=== PATIENT | female | born 1930 | race Caucasian/White ===

== ENCOUNTER → 2017-09-25 | Outpatient (CLI) | payer MEDICARE ==
[~2017-09-25] MED LIST: AMITIZA24 MCG PO; AMLODIPINE BESY10 MG PO; ASPIRIN EC81 MG PO; ASPIRIN81 MG PO; ATENOLOL50 MG PO; CARAFATE1 GM/10 ML PO; CRESTOR10 MG PO; FUROSEMIDE40 MG PO; LEVOTHYROXINE112 MCG PO; NITROGLYCERIN0.4 MG SL; PANTOPRAZOLE SO40 MG PO; SPIRIVA18 MCG INH
== END ==
LOC: CARD 11:08
PROVIDERS: ATTEND Internal Medicine
DX: I73.9 Peripheral vascular disease, unspecified (principal)
CPT/HCPCS: 93925

== ENCOUNTER 2017-11-17 22:38 | Emergency (ER) | payer MEDICARE ==
[~2017-11-17] VITALS: Ht 165.1 cm; Wt 42.6 kg
[2017-11-17] MEDS ORDERED: SODIUM CHLORIDE 0.9% 500ML 500 ML IV ONE (23:15)
[2017-11-17 23:48] LABS: BASOPHILS # (AUTO) 0.1 (0.0-0.1); BASOPHILS % 0.6 % (0.0-1.0); EOSINOPHILS # (AUTO) 0.1 (0.0-0.4); EOSINOPHILS % 0.6 % (0.0-6.0); HEMATOCRIT 34.9 % (34.2-44.1); LYMPHOCYTES # (AUTO) 1.3 (1.0-3.2); LYMPHOCYTES % 11.5 % (18.0-39.1); MEAN CORPUSCULAR HEMOGLOBIN 28.8 pg (28-32); MEAN CORPUSCULAR HGB CONC 34.4 g/dL (31-35); MEAN CORPUSCULAR VOLUME 83.7 fL (81-99); MONOCYTES # (AUTO) 0.9 (0.2-0.8); MONOCYTES % 8.6 % (4.4-11.3); NEUTROPHILS # (AUTO) 8.5 (2.1-6.9); NEUTROPHILS % 78.1 % (38.7-80.0); PLATELET COUNT 391 x10e3/uL (140-360); RED BLOOD COUNT 4.17 x10e6/uL (3.6-5.1); RED CELL DISTRIBUTION WIDTH 13.6 % (11.7-14.4)
[2017-11-17 23:57] LABS: INR 1.03; PARTIAL THROMBOPLASTIN TIME 27.8 seconds (23.8-35.5); PROTHROMBIN TIME 12.7 seconds (11.9-14.5)
[2017-11-18 00:06] LABS: ALANINE AMINOTRANSFERASE 39 IU/L (0-55); ALBUMIN 3.5 g/dL (3.5-5.0); ALBUMIN/GLOBULIN RATIO 1.1 (0.8-2.0); ALKALINE PHOSPHATASE 100 IU/L (40-150); ANION GAP 11.7 mmol/L (8-16); BLOOD UREA NITROGEN 12 mg/dL (7-26); BUN/CREATININE RATIO 14 (6-25); CALCIUM 8.4 mg/dL (8.4-10.2); CARBON DIOXIDE 30 mmol/L (22-29); CHLORIDE 94 mmol/L (98-107); CREATINE KINASE 28 IU/L (29-168); CREATININE, SERUM 0.83 mg/dL (0.57-1.11); EST GLOMERULAR FILTRATION RATE > 60 ML/MIN (60-); GLUCOSE 96 mg/dL (74-118); POTASSIUM 3.7 mmol/L (3.5-5.1); SODIUM 132 mmol/L (136-145)
[2017-11-18] MEDS ORDERED: IOPAMIDOL 370 MG/ML 200 ML INFUS..BTL INJ ONE (00:28)
[2017-11-18] MEDS ORDERED: SODIUM CHLORIDE 0.9% 50ML 50 ML ONE (00:28)
--- NOTE | 2017-11-18 01:12 | Diagnostic Imaging Report ---
History:Fall Comparison studies:None Technique: Axial images were obtained from the skull base to the vertex. Coronal and sagittal images reconstructed from the axial data. Intravenous contrast: None Findings: Scalp/skull: No abnormalities. Extra-axial spaces: No masses. No fluid collections. Brain sulci: Mildly prominent. Ventricles: Mild compensatory dilatation. No hydrocephalus. Parenchyma: Scattered and confluent hypodensities in the supratentorial white matter are small vessel ischemic changes. Right striatocapsular chronic lacunar infarct. No masses, hemorrhage, acute or chronic cortical vascular insults. Sellar/suprasellar region: No abnormalities. Craniocervical junction: Patent foramen magnum. No Chiari one malformation. Incidental findings: Atherosclerotic calcifications in the carotid siphons . Impression: No acute abnormalities. Chronic findings: 1. Mild generalized volume loss. 2. Moderate supratentorial white matter small vessel ischemic changes. Signed by: DR Stephon Burnett M.D. on 11/18/2017 1:09 AM
[2017-11-18 01:16] LABS: BILIRUBIN,URINE NEGATIVE (NEGATIVE); KETONES,URINE NEGATIVE (NEGATIVE); LEUKOCYTE ESTERASE ,URINE NEGATIVE (NEGATIVE); NITRITE,URINE NEGATIVE (NEGATIVE); PROTEIN,URINE DIPSTICK NEGATIVE (NEGATIVE); URINE UROBILINOGEN 0.2 mg/dL (0.2 - 1)
--- NOTE | 2017-11-18 01:17 | Diagnostic Imaging Report ---
History: Fall Comparison studies: None Technique: Axial images were obtained through the cervical region. Coronal and sagittal images reconstructed from the axial data. Intravenous contrast: None Findings: Atlantoaxial articulation: Degenerative changes. No acute abnormality Alignment: Normal lordosis No scoliosis. Cervicomedullary junction: No abnormalities. Patent foramen magnum. Soft tissues: No gross abnormalities. Vertebrae: No fractures, neoplasm or infection. Degenerative changes: Facet hypertrophy with patent canal and mi ld bilateral foraminal narrowing. Emphysematous changes at both lung apices. IMPRESSION: 1. No acute cervical spine abnormalities. 2. Cannot exclude ligament, spinal cord and or vascular abnormalities on the basis of this examination. Signed by: DR Stephon Burnett M.D. on 11/18/2017 1:13 AM
[2017-11-18 01:18] LABS: CLARITY,URINE CLEAR (CLEAR); COLOR,URINE YELLOW (YELLOW)
[2017-11-18 01:31] LABS: EPITHELIAL CELLS,URINE FEW /LPF; RBC,URINE 0-5 /HPF (0-5); WBC,URINE (MAN) 0-5 /HPF (0-5)
--- NOTE | 2017-11-18 01:48 | Diagnostic Imaging Report ---
EXAM: CT ABDOMEN/PELVIS W DATE: 11/18/2017 12:04 AM INDICATION: \S\TRAUMA ON PLAVIX, RIGHT FLANK/BACK PAIN \S\[id number] \S\0028 COMPARISON: None TECHNIQUE: The abdomen and pelvis were scanned using a multidetector helical scanner. Coronal and sagittal reformations were obtained. Routine protocol performed. IV Contrast: 100 ml Isovue 370 FINDINGS: LOWER THORAX: No consolidations. Atherosclerotic disease with nodular/irregular noncalcified plaques or adherent mural thrombus of the descending thoracic aorta. LIVER/BILIARY: No masses. Incidental liver calcifications. No ductal dilatation. GALLBLADDER: Not visualized. SPLEEN: Unremarkable PANCREAS: Unremarkable ADRENALS: Indeterminant 2.0 cm right adrenal nodule. KIDNEYS: Symmetric renal enhancement without hydronephrosis. Subcentimeter right superior renal cystic lesion is too small to accurately characterize. Focal left posterior renal cortical scarring Nonobstructing punctate left superior renal calculus. GI TRACT: No wall thickening or evidence of obstruction. VESSELS: Severe atherosclerotic disease with 3 cm infrarenal abdominal aortic aneurysm containing mural thrombus and likely fibrous strand (versus short dissection flap). PERITONEUM/RETROPERITONEUM: No free air or fluid LYMPH NODES: No lymphadenopathy REPRODUCTIVE ORGANS/BLADDER: Unremarkable SOFT TISSUES: Unremarkable BONES: Multilevel degenerative changes. Moderate T12 and severe L3 compression deformities. Posterior disc osteophyte at T11-12 impresses on the ventral thecal sac IMPRESSION: 1. Age-indeterminate moderate T12 and severe L3 compression deformity. Correlate with point tenderness. 2. Severe atherosclerotic disease with 3 cm infrarenal abdominal aortic aneurysm. Irregular/nodular noncalcified plaque or mural thrombus in the descending thoracic aorta. Signed by: Dr Veronica Antonio MD on 11/18/2017 1:44 AM
[2017-11-18] MEDS ORDERED: SODIUM CHLORIDE 0.9% 500ML 500 ML IV STA (02:22)
[2017-11-18] MEDS ORDERED: SODIUM CHLORIDE 0.9% 250ML 250 ML ONE (02:22)
--- NOTE | 2017-11-18 02:33 | Diagnostic Imaging Report ---
CHEST SINGLE (PORTABLE), 11/18/2017 12:04 AM Technique: CHEST SINGLE (PORTABLE) Comparison: 09/15/2016 Clinical history: \S\FALL RIGHT FLANK PAIN \S\[id number] \S\0049 Findings: See Impression Impression: 1. Stable cardiomediastinal silhouette. 2. Emphysema with bilateral linear areas of scarring. No consolidation, effusion or pneumothorax. 3. No acute displaced bony fracture seen. Signed by: Dr Veronica Antonio MD on 11/18/2017 2:29 AM
--- NOTE | 2017-11-18 02:38 | Diagnostic Imaging Report ---
FOOT RIGHT COMPLETE Comparison: None Clinical history: \S\FALL, GREAT TOE PAIN ECCHYMOSIS \S\[id number] \S\0140 Findings: Diffusely decreased bone mineralization limits sensitivity for nondisplaced fracture. Mild hallux valgus and first MTP degenerative changes. Incidental plantar calcaneal spur. No fracture or dislocation. Impression: Decreased bone mineralization without definite acute bony abnormality Signed by: Dr Veronica Antonio MD on 11/18/2017 2:34 AM
== END 2017-11-18 03:51 | disposition home or self-care (01) ==
LOC: ER 22:38
DX: M54.6 Pain in thoracic spine (principal); S20.221A Contusion of right back wall of thorax, initial encounter; S39.012A Strain of muscle, fascia and tendon of lower back, initial encounter; W01.0XXA Fall on same level from slipping, tripping and stumbling without subsequent striking against object, initial encounter; J44.9 Chronic obstructive pulmonary disease, unspecified; I25.10 Atherosclerotic heart disease of native coronary artery without angina pectoris; Z85.828 Personal history of other malignant neoplasm of skin
CPT/HCPCS: 36415; 70450; 71045; 72125; 73630; 74177; 80053; 81001; 82550; 82553; 84484; 85025; 85610; 85730; 93005; 96360 ×2; 99285; J7040; J7050; Q9967

== ENCOUNTER 2018-01-31 16:02 | Inpatient (IN) | payer MEDICARE ==
[~2018-01-31] VITALS: Ht 162.6 cm; Wt 45.5 kg
--- OUTSIDE RECORDS SUMMARY | 2018-01-31 16:05 | XMS REPORT | Continuity of Care Document ---
Author Author [facility] Organization [facility] Address [address] [place] [address] Phone Unavailable Care Team Providers Care Architect Manager Name Role Phone NONSTAFF PCP Unavailable Insurance Providers Guarantor Tucker Leslie Address [address] [place] [address] Email NONE Payer [employer] Medicare Replacement Policy Number [id number] Subscriber's Name JosefaTucker Relationship 18 Self / Same As Patient Group Number [id number] Group Name [facility] Effective Date 16 Advance Directives Directive Response Recorded Date/Time Does the patient have an advance directive? No 11/17/17 11:11pm If yes, is advance directive on file with [facility]? No 09/15/16 4:41pm If not on file with [facility] will patient provide a copy? Yes 11/17/16 8:26am Do you have a Directive to Physician? No 11/17/17 11:11pm Do you have a Medical Power of Wire Bound Box Machine Helper? No 11/17/17 11:11pm Do you have an out of hospital Do Not Resuscitate Order? No 11/17/17 11:11pm Do you have any special needs we should be aware of? No 11/17/17 11:11pm Do you have a support person here with you today? Yes 11/17/17 11:11pm Did patient receive Notice of Privacy Practices? Yes 11/17/17 11:11pm Did patient receive patient rights and responsibilities? Yes 11/17/17 11:11pm Problems Medical Problem Onset Date Status Dehydration Unknown Medications Current Home Medications Medication Dose Units Route Directions Days Qty Instructions Start Date Amlodipine Besylate 10 Mg Tablet 10 Mg Oral Daily 30 Tab Aspirin (Aspirin Ec) 81 Mg Tablet. 81 Mg Oral Daily 30 Tab Atenolol 50 Mg Tablet 50 Mg Oral Daily Atenolol 50 Mg Tablet 25 Mg Oral Bedtime Furosemide 40 Mg Tablet 40 Mg Oral Daily 30 Tab Levothyroxine Sodium 112 Mcg Tablet 112 Mcg Oral Daily 30 Tab Lubiprostone (Amitiza) 24 Mcg Capsule 24 Mcg Oral Twice A Day 60 Cap Nitroglycerin 0.4 Mg Tab.subl 0.4 Mg Sublingual Every 5 Minutes for Chest Pain Pantoprazole Sodium (Protonix) 40 Mg Tablet. 40 Mg Oral Daily Rosuvastatin Calcium (Crestor) 10 Mg Tab 10 Mg Oral Bedtime THERAPEUTICALLY SUBSTITUTED WITH SIMVASTATIN 40MG Sucralfate (Carafate) 1 Gm/10 Ml Oral.susp 1 Gm Oral Before Meals And At Bedtime Tiotropium [place] (Spiriva) 18 Mcg Cap.w.dev 18 Mcg Inhalation Daily Social History Social History Problem Response Recorded Date/Time Onset Date Status Hx Psychiatric Problems No 09/15/2016 4:41pm Not Applicable Not Applicable Hx Eating Disorder No 09/15/2016 4:41pm Not Applicable Not Applicable Hx Substance Use Disorder No 09/15/2016 4:41pm Not Applicable Not Applicable Hx Depression No 09/15/2016 4:41pm Not Applicable Not Applicable Hx Alcohol Use No 09/15/2016 4:41pm Not Applicable Not Applicable Hx Substance Use Treatment No 09/15/2016 4:41pm Not Applicable Not Applicable Hx Physical Abuse No 09/15/2016 4:41pm Not Applicable Not Applicable Hospital Discharge Instructions No hospital discharge instruction information available. Plan of Care Discharge Date 11/18/17 3:51am Disposition HOME, SELF-CARE Condition at Discharge Stable Instructions/Education Provided Back Pain Contusion Fractures Forms Provided Work/School Excuse Prescriptions See Medication Section Referrals NONSTAFF Order Date: Call for an appointment Additional Instructions/Education DC HOME FOLLOW UP WITH PCP/PAIN MANAGEMENT TAKE MEDS DIRECTED RETURN TO THE ER WITH ANY EMERGENT CONDITIONS CAN TAKE TYLENOL OVER THE COUNTER-TAKE ACCORDING TO LABEL DIRECTIONS Functional Status No functional status information available. Allergies, Adverse Reactions, Alerts Allergen Type Severity Reaction Status Last Updated Morphine Allergy Unknown Active 09/15/16 Erythromycin base Allergy Unknown Active 09/15/16 Immunizations No immunization information available. Vital Signs Acute Vital Signs Vital Response Date/Time Height 5 ft 5 in 11/17/2017 10:50pm Weight 94 lb 11/17/2017 10:50pm Body Mass Index 15.6 kg/m^2 11/17/2017 10:50pm Results Laboratory Results Test Name Result Units Flags Reference Collection Date/Time Result Date/ Time Comments White Blood Count 10.88 x10e3/uL H 4.8-10.8 11/17/2017 11:25pm 2017 11:49pm Red Blood Count 4.17 x10e6/uL 3.6-5.1 11/17/2017 11:pm 11/17/2017 11: 49pm Hemoglobin 12.0 g/dL 12.0-16.0 11/17/2017 11:pm 11/17/2017 11:49pm Hematocrit 34.9 % 34.2-44.1 11/17/2017 11:11/17/2017 11:49pm Mean Corpuscular Volume 83.7 fL 81-99 11/17/2017 11:pm 11/17/2017 11: 49pm Mean Corpuscular Hemoglobin 28.8 pg 28-32 11/17/2017 11:pm 2017 11:49pm Mean Corpuscular Hemoglobin Concent 34.4 g/dL 31-35 11/17/2017 11:pm 11/17/2017 11:49pm Red Cell Distribution Width 13.6 % 11.7-14.4 11/17/2017 11:pm 2017 11:49pm Platelet Count 391 x10e3/uL H 140-360 11/17/2017 11:11/17/2017 11: 49pm Neutrophils (%) (Auto) 78.1 % 38.7-80.0 11/17/2017 11:pm 11/17/2017 11:49pm Lymphocytes (%) (Auto) 11.5 % L 18.0-39.1 11/17/2017 11:25pm 11/17/2017 11:49pm Monocytes (%) (Auto) 8.6 % 4.4-11.3 11/17/2017 11:pm 11/17/2017 11: 49pm Eosinophils (%) (Auto) 0.6 % 0.0-6.0 11/17/2017 11:25pm 11/17/2017 11: 49pm Basophils (%) (Auto) 0.6 % 0.0-1.0 11/17/2017 11:25pm 11/17/2017 11: 49pm IM GRANULOCYTES % 0.6 % 0.0-1.0 11/17/2017 11:25pm 11/17/2017 11:49pm Neutrophils # (Auto) 8.5 H 2.1-6.9 11/17/2017 11:25pm 11/17/2017 11: 49pm Lymphocytes # (Auto) 1.3 1.0-3.2 11/17/2017 11:25pm 11/17/2017 11: 49pm Monocytes # (Auto) 0.9 H 0.2-0.8 11/17/2017 11:25pm 11/17/2017 11: 49pm Eosinophils # (Auto) 0.1 0.0-0.4 11/17/2017 11:25pm 11/17/2017 11: 49pm Basophils # (Auto) 0.1 0.0-0.1 11/17/2017 11:25pm 11/17/2017 11:49pm Absolute Immature Granulocyte (auto 0.07 x10e3/uL 0-0.1 11/17/2017 11: 25pm 11/17/2017 11:49pm Prothrombin Time 12.7 seconds 11.9-14.5 11/17/2017 11:25pm 11/17/2017 11:58pm Prothromb Time International Ratio 1.03 11/17/2017 11:25pm 2017 11:58pm Oral Anticoagulant Therapy INR Values: 1. Low Intensity Therapy 1.5 - 2.0 2. Moderate Intensity Therapy 2.0 - 3.0 3. High Intensity Therapy(1) 2.5 - 3.5 4. High Intensity Therapy(2) 3.0 - 4.0 5. Panic Value INR > 5.0 Activated Partial Thromboplast Time 27.8 seconds 23.8-35.5 11/17/2017 11 :25pm 11/17/2017 11:58pm Urine Color YELLOW YELLOW 11/18/2017 1:00am 11/18/2017 1:18am Urine Clarity CLEAR CLEAR 11/18/2017 1:00am 11/18/2017 1:18am Urine Specific [place] 1.005 L 1.010-1.025 11/18/2017 1:00am 2017 1:18am Urine pH 7 5 - 7 11/18/2017 1:00am 11/18/2017 1:18am Urine Leukocyte Esterase NEGATIVE NEGATIVE 11/18/2017 1:00am 2017 1:18am Urine Nitrite NEGATIVE NEGATIVE 11/18/2017 1:00am 11/18/2017 1:18am Urine Protein NEGATIVE NEGATIVE 11/18/2017 1:00am 11/18/2017 1:18am Urine Glucose (UA) NEGATIVE NEGATIVE 11/18/2017 1:00am 11/18/2017 1: 18am Urine Ketones NEGATIVE NEGATIVE 11/18/2017 1:00am 11/18/2017 1:18am Urine Urobilinogen 0.2 mg/dL 0.2 - 1 11/18/2017 1:00am 11/18/2017 1: 18am Urine Bilirubin NEGATIVE NEGATIVE 11/18/2017 1:00am 11/18/2017 1: 18am Urine Blood 1+ H NEGATIVE 11/18/2017 1:00am 11/18/2017 1:18am Urine WBC 0-5 /HPF 0-5 11/18/2017 1:00am 11/18/2017 1:31am Urine RBC 0-5 /HPF 0-5 11/18/2017 1:00am 11/18/2017 1:31am Urine Bacteria NONE /HPF NONE 11/18/2017 1:00am 11/18/2017 1:31am Urine Epithelial Cells FEW /LPF NONE 11/18/2017 1:00am 11/18/2017 1: 31am Sodium Level 132 mmol/L L 136-145 11/17/2017 11:25pm 11/18/2017 12:12am Potassium Level 3.7 mmol/L 3.5-5.1 11/17/2017 11:25pm 11/18/2017 12: 12am Chloride Level 94 mmol/L L 98-107 11/17/2017 11:25pm 11/18/2017 12:12am Carbon Dioxide Level 30 mmol/L H 22-29 11/17/2017 11:25pm 11/18/2017 12: 12am Anion Gap 11.7 mmol/L 8-16 11/17/2017 11:11/18/2017 12:12am Blood Urea Nitrogen 12 mg/dL 7-26 11/17/2017 11:11/18/2017 12: 12am Creatinine 0.83 mg/dL 0.57-1.11 11/17/2017 11:11/18/2017 12:12am BUN/Creatinine Ratio 14 6-25 11/17/2017 11:11/18/2017 12:12am Estimat Glomerular Filtration Rate > 60 ML/MIN 60- 11/17/2017 11:11/18/2017 12:12am Ranges were taken from the National Kidney Disease Education Program and the National Kid[employer] Foundation literature. Reference ranges: 60 or greater: Normal 16-59 (for 3 consecutive months): Chronic kidney disease 15 or less: Kidney failure Glucose Level 96 mg/dL 74-118 11/17/2017 11:11/18/2017 12:12am Calcium Level 8.4 mg/dL 8.4-10.2 11/17/2017 11:11/18/2017 12:12am Total Bilirubin 0.3 mg/dL 0.2-1.2 11/17/2017 11:11/18/2017 12: 12am Aspartate Amino Transf (AST/SGOT) 37 IU/L H 5-34 11/17/2017 11: 12:12am Alanine Aminotransferase (ALT/SGPT) 39 IU/L 0-55 11/17/2017 11: 12:12am Total Protein 6.6 g/dL 6.5-8.1 11/17/2017 11:11/18/2017 12:12am Albumin 3.5 g/dL 3.5-5.0 11/17/2017 11:11/18/2017 12:12am Globulin 3.1 g/dL 2.3-3.5 11/17/2017 11:11/18/2017 12:12am Albumin/Globulin Ratio 1.1 0.8-2.0 11/17/2017 11:11/18/2017 12: 12am Alkaline Phosphatase 100 IU/L 40-150 11/17/2017 11:11/18/2017 12: 12am Creatine Kinase 28 IU/L L 29-168 11/17/2017 11:25pm 11/18/2017 12:12am Creatine Kinase MB 2.20 ng/mL 0-5.0 11/17/2017 11:25pm 11/18/2017 12: 15am Troponin I 0.024 ng/mL 0-0.300 11/17/2017 11:25pm 11/18/2017 12:15am Procedures Procedure Status Date Provider(s) Computed tomography of brain without radiopaque contrast Active 11/18/17 DAYA AGUERO MD Computed tomography of cervical spine without contrast Active 11/18/17 DAYA AGUERO MD Computed tomography of abdomen and pelvis with contrast Active 11/18/17 DAYA AGUERO MD Encounters Encounter Location Arrival/Admit Date Discharge/Depart Date Attending Provider Departed Emergency Room [facility] 11/17/17 10:38pm 11/18 3:51am DAYA AGUERO MD Registered Clinic [facility] 09/25/17 11:08am LUIS MANUEL BULLARD MD
--- OUTSIDE RECORDS SUMMARY | 2018-01-31 16:05 | XMS REPORT ---
[facility] Address Unknown Phone Unavailable Care Team Providers Care Speech Language Assistant Name Role Phone MORE DAYA Unavailable Unavailable Problems This patient has no known problems. Allergies, Adverse Reactions, Alerts This patient has no known allergies or adverse reactions. Medications This patient has no known medications. Results Test Description Test Time Test Comments Text Results Atomic Results Result Comments FOOT RIGHT COMPLETE [address] [address] Patient Name: TUCKER LESLIE MR #: [id number] : 1930 Age/Sex: 87/F Req #: [id number] Adm Physician: Ordered by: DAYA AGUERO MD Report #: [id number] Location: ER Room/Bed: Procedure: 0314- 0013 DX/FOOT RIGHT COMPLETE Exam Date: 11/18/17 Exam Time: 139 REPORT STATUS: Signed FOOT RIGHT COMPLETE Comparison: None Clinical history: S FALL, GREAT TOE PAIN ECCHYMOSIS S [id number] S 0140 Findings: Diffusely decreased bone mineralization limits sensitivity for nondisplaced fracture. Mild hallux valgus and first MTP degenerative changes. Incidental plantar calcaneal spur. No fracture or dislocation. Impression: Decreased bone mineralization without definite acute bony abnormality Signed by: Dr Raymon Antonio MD on 11/18/2017 2:34 AM Dictated By: RAYMON ANTONIO MD Transcribed By: ELSY on 11/18/174 COPY TO: DAYA AGUERO MD CT BRAIN WO [place] [address] Patient Name: TUCKER LESLIE MR #: [id number] : 1930 Age/Sex: 87/F Req #: [id number] Adm Physician: Ordered by: DAYA AGUERO MD Report #: [id number] Location: ER Room/Bed: Procedure: [id number] CT/CT BRAIN WO Exam Date: 11/18/17 Exam Time: 0028 REPORT STATUS: Signed History:Fall Comparison studies:None Technique: Axial images were obtained from the skull base to the vertex. Coronal and sagittal images reconstructed from the axial data. Intravenous contrast: None Findings: Scalp/skull: No abnormalities. Extra- axial spaces: No masses. No fluid collections. Brain sulci: Mildly prominent. Ventricles: Mild compensatory dilatation. No hydrocephalus. Parenchyma: Scattered and confluent hypodensities in the supratentorial white matter are small vessel ischemic changes. Right striatocapsular chronic lacunar infarct. No masses, hemorrhage, acute or chronic cortical vascular insults. Sellar/suprasellar region: No abnormalities. Craniocervical junction: Patent foramen magnum. No Chiari one malformation. Incidental findings: Atherosclerotic calcifications in the carotid siphons . Impression: No acute abnormalities. Chronic findings: 1. Mild generalized volume loss. 2. Moderate supratentorial white matter small vessel ischemic changes. Signed by: DR Stephon Burnett M.D. on 2017 1:09 AM Dictated By: STEPHON KWOK MD 8 Transcribed By: ELSY on 11/18/17108 COPY TO: DAYA AGUERO MD CT CERVICAL SPINE WO [place] [address] Patient Name: TUCKER LESLIE MR #: [id number] : 1930 Age/Sex: 87/F Req #: [id number] Adm Physician: Ordered by: DAYA AGUERO MD Report #: [id number] Location: ER Room/Bed: Procedure: 0314- 0003 CT/CT CERVICAL SPINE WO Exam Date: 11/18/17 Exam Time: 0028 REPORT STATUS: Signed History: Fall Comparison studies: None Technique: Axial images were obtained through the cervical region. Coronal and sagittal images reconstructed from the axial data. Intravenous contrast: None Findings: Atlantoaxial articulation : Degenerative changes. No acute abnormality Alignment: Normal lordosis No scoliosis. Cervicomedullary junction: No abnormalities. Patent foramen magnum. Soft tissues: No gross abnormalities. Vertebrae: No fractures, neoplasm or infection. Degenerative changes: Facet hypertrophy with patent canal and mi ld bilateral foraminal narrowing. Emphysematous changes at both lung apices. IMPRESSION: 1. No acute cervical spine abnormalities. 2. Cannot exclude ligament, spinal cord and or vascular abnormalities on the basis of this examination. Signed by: DR Stephon Burnett M.D. on 11/18/2017 1:13 AM Dictated By: STEPHON KWOK MD 2 Transcribed By: ELSY on 11/18/17112 COPY TO: DAYA AGUERO MD CT ABDOMEN/PELVIS W [facility] [address] [place] [address] Patient Name: TUCKER LESLIE MR #: [id number] : 1930 Age/Sex: 87/F Req #: [id number] Adm Physician: Ordered by: DAYA AGUERO MD Report #: [id number] Location: ER Room/Bed: Procedure: 0314- 0004 CT/CT ABDOMEN/PELVIS W Exam Date: 11/18/17 Exam Time: 27 REPORT STATUS: Signed EXAM: CT ABDOMEN/PELVIS W DATE : 11/18/2017 12:04 AM INDICATION: S TRAUMA ON PLAVIX, RIGHT FLANK/BACK PAIN S [id number] S 0028 COMPARISON: None TECHNIQUE: The abdomen and pelvis were scanned using a multidetector helical scanner. Coronal and sagittal reformations were obtained. Routine protocol performed. IV Contrast : 100 ml Isovue 370 FINDINGS: LOWER THORAX: No consolidations. Atherosclerotic disease with nodular/irregular noncalcified plaques or adherent mural thrombus of the descending thoracic aorta. LIVER/BILIARY: No masses. Incidental liver calcifications. No ductal dilatation. GALLBLADDER: Not visualized. SPLEEN: Unremarkable PANCREAS: Unremarkable ADRENALS: Indeterminant 2.0 cm right adrenal nodule. KIDNEYS: Symmetric renal enhancement without hydronephrosis. Subcentimeter right superior renal cystic lesion is too small to accurately characterize. Focal left posterior renal cortical scarring Nonobstructing punctate left superior renal calculus. GI TRACT: No wall thickening or evidence of obstruction. VESSELS : Severe atherosclerotic disease with 3 cm infrarenal abdominal aortic aneurysm containing mural thrombus and likely fibrous strand (versus short dissection flap). PERITONEUM/RETROPERITONEUM: No free air or fluid LYMPH NODES: No lymphadenopathy REPRODUCTIVE ORGANS/BLADDER: Unremarkable SOFT TISSUES: Unremarkable BONES: Multilevel degenerative changes. Moderate T12 and severe L3 compression deformities. Posterior disc osteophyte at T11- 12 impresses on the ventral thecal sac IMPRESSION: 1. Age- indeterminate moderate T12 and severe L3 compression deformity. Correlate with point tenderness. 2. Severe atherosclerotic disease with 3 cm infrarenal abdominal aortic aneurysm. Irregular/nodular noncalcified plaque or mural thrombus in the descending thoracic aorta. Signed by: Dr Raymon Antonio MD on 11/18/2017 1:44 AM Dictated By: RAYMON ANTONIO MD 3 Transcribed By: ELSY on 11/18 COPY TO: DAYA AGUERO MD CHEST SINGLE (PORTABLE) [place] [address] Patient Name: TUCKER LESLIE MR #: [id number] : 1930 Age/Sex: 87/F Req #: [id number] Adm Physician: Ordered by: DAYA AGUERO MD Report #: [id number] Location: ER Room/Bed: Procedure: 0314- 0011 DX/CHEST SINGLE (PORTABLE) Exam Date: 11/18/17 Exam Time: 48 REPORT STATUS: Signed CHEST SINGLE (PORTABLE), 2017 12:04 AM Technique: CHEST SINGLE (PORTABLE) Comparison: 09/15/2016 Clinical history: S FALL RIGHT FLANK PAIN S [id number] S 0049 Findings: See Impression Impression: 1. Stable cardiomediastinal silhouette. 2. Emphysema with bilateral linear areas of scarring. No consolidation, effusion or pneumothorax. 3. No acute displaced bony fracture seen. Signed by: Dr Raymon Antonio MD on 11/18/2017 2:29 AM Dictated By: RAYMON ANTONIO MD 8 Transcribed By: ELSY on 11/18/17228 COPY TO: DAYA AGUERO MD
--- OUTSIDE RECORDS SUMMARY | 2018-01-31 16:05 | XMS REPORT | Summary of Care ---
Author Author [facility]anna Smith, [facility] Phone Unavailable Care Team Providers Care Utility Person Name Role Phone RENEE RIDDLE M.D. Unavailable Unavailable Unavailable Unavailable Functional Status Name Dates Details Functional status health issues are not documented Status: Name Dates Details Cognitive status health issues are not documented Status: Problems Name Dates Details Closed wedge compression fracture of eleventh thoracic vertebra, initial encounter (805.2, S22.080A) Status: Active Closed wedge compression fracture of third lumbar vertebra, initial encounter ( 805.4, S32.030A) Status: Active Medications Name Dates Details Medications not documented Allergies and Adverse Reactions Name Dates Details Morphine Derivatives (Allergy) Status: Active Past Medical History Name Dates Details History of congestive heart failure (V12.59, Z86.79) Status: Resolved History of COPD (V12.69, Z87.09) Status: Resolved History of high cholesterol (V12.29, Z86.39) Status: Resolved History of hypertension (V12.59, Z86.79) Status: Resolved History of peripheral arterial disease (V12.59, Z86.79) Status: Resolved Personal history of malignant neoplasm of skin (V10.83, Z85.828) Status: Resolved Procedures Procedure Dates Details MRI Spine thoracic wo contrast 63371 Date: 27-Jan-2018 Immunization Name Dates Details Immunizations not documented Family History Name Dates Details Family history of diabetes mellitus (V18.0, Z83.3) Comments: Family History Status: Active Family history of myocardial infarction (V17.3, Z82.49) Comments: Family History Status: Active Family history of thyroid disease (V18.19, Z83.49) Comments: Family History Status: Active Family history of malignant neoplasm of breast (V16.3, Z80.3) Comments: Family History Status: Active Social History Name Dates Details Unknown if ever smoked Vital Signs Date Test Result Details [id number] Height 64 in Status: Weight 95 lb Status: Body Mass Index Calculated 16.31 kg/m2 Status: Body Surface Area Calculated 1.43 m2 Status: Results Date Description Value Details Results not documented Plan of Care Name Dates Details Planned Observations Planned Goals not documented Planned Encounters Orthopedics Referral Interventions Provided Labs/Procedures/Imaging* MRI Spine thoracic wo contrast [id number]; To Be Done: 27 Jan 2018 Instructions* Patient Specific Education Given; Done: 29 Jan 2018 Instructions Name Dates Details Instructions not documented Encounters Appointment; RENEE RIDDLE M.D. Encounter Diagnosis: Problem not documented On: 27-Jan-2018 10:30
--- OUTSIDE RECORDS SUMMARY | 2018-01-31 16:05 | XMS REPORT ---
Author Organization Unknown Address [address] [place] [address] Phone [phone] Care Team Providers Care Book Trimmer Name Role Phone JOVANNY ROLDAN MD 82 [phone] ANITA ZUNIGA 107 [phone] SOUJAIME GARZA 2 [phone] BRENDEN BEAULIEU MD 2 [phone] Allergies Code Code System Name Reaction Severity Status Onset 4053 RxNorm Erythromycin Base Active 7052 RxNorm Morphine Active Medications Name Status Start Date Stop Date acetaminophen 300 mg-codeine 30 mg tablet Completed 11/05/2017 Adacel (Tdap Adolesn/Adult)(PF)2 Lf-(2.5-5-3-5)-5 Lf/0.5 mL IM syringe Completed 11/11/2016 albuterol sulfate 0.63 mg/3 mL solution for nebulization Active Not available albuterol sulfate 2.5 mg/3 mL (0.083 %) solution for nebulization Inhale 3 mL as needed by nebulization route. Completed 01/19/2017 Align 1 po qd Active Not available Amitiza 24 mcg capsule Take 1 capsule twice a day by oral route. Completed 01/19/2017 amlodipine 10 mg tablet TAKE 1 TABLET DAILY Active Not available amoxicillin 500 mg capsule Completed 05/01/2017 amoxicillin 500 mg-potassium clavulanate 125 mg tablet Completed 2015 aspirin 81 mg tablet,delayed release Take 1 tablet every day by oral route. Completed 01/19/2017 atenolol 50 mg tablet TAKE 1 TABLET IN THE MORNING AND ONE-HALF (1/2) TABLET IN THE EVENING Active Not available benzonatate 100 mg capsule Completed 05/21/2016 Breo Ellipta 100 mcg-25 mcg/dose powder for inhalation Active Not available bupropion HCl XL 150 mg 24 hr tablet, extended release Completed 2017 ceftriaxone 500 mg solution for injection Take 500 mg by injection route. Completed 12/08/2017 cephalexin 500 mg capsule Completed 05/21/2016 ciprofloxacin 500 mg tablet Completed 05/21/2016 clobetasol 0.05 % topical ointment Completed 05/21/2016 clopidogrel 75 mg tablet Active Not available doxycycline hyclate 100 mg capsule Completed 05/01/2017 doxycycline hyclate 100 mg tablet Completed 05/01/2017 fluocinonide 0.05 % topical ointment Completed 05/21/2016 fluticasone 50 mcg/actuation nasal spray,suspension Active Not available furosemide 40 mg tablet TAKE 1 TABLET DAILY Active Not available hydrocodone 5 mg-acetaminophen 300 mg tablet Active Not available hydrocodone 5 mg-acetaminophen 325 mg tablet Completed 08/19/2017 Keralac 47 % topical cream Completed 05/21/2016 levocetirizine 5 mg tablet Completed 05/21/2016 levofloxacin 500 mg tablet Completed 08/19/2017 levothyroxine 112 mcg capsule Take 1 capsule every day by oral route. Active Not available Lidocaine Viscous 2 % mucosal solution Completed 11/05/2017 Linzess 145 mcg capsule Take 1 capsule every day by oral route as needed for 30 days. Active Not available methocarbamol 500 mg tablet prn Active Not available mjhakjdo-vjjokdhlu-fmxyfogcn 3.5 mg-10,000 unit/mL-1 % ear drops,susp INSTILL 4 DROPS INTO AFFECTED EAR(S) BY OTIC ROUTE 3 TIMES PER DAY FOR 7 DAYS Active Not available nmuocpqw-iztojjkhq-cjlojrwnf 3.5 mg/mL-10,000 unit/mL-1 % ear solution Completed 05/01/2017 nitrofurantoin monohydrate/macrocrystals 100 mg capsule Completed 2017 nitroglycerin 0.4 mg sublingual tablet Active Not available pantoprazole 40 mg tablet,delayed release Completed 11/05/2017 prednisone 10 mg tablet Completed 05/01/2017 prednisone 20 mg tablet Completed 08/19/2017 prednisone 5 mg tablet Active Not available rosuvastatin 10 mg tablet Completed 01/19/2017 rosuvastatin 20 mg tablet Take 1 tablet every day by oral route. Completed 05/01/2017 rosuvastatin 40 mg tablet Active Not available Spiriva with HandiHaler 18 mcg and inhalation capsules Active Not available sulfamethoxazole 800 mg-trimethoprim 160 mg tablet Completed 12/08/2017 Synthroid 112 mcg tablet Completed 12/08/2017 tizanidine 2 mg tablet Completed 08/19/2017 tramadol 50 mg tablet Active Not available triamcinolone acetonide 0.1 % topical cream apply twice daily as needed Completed 08/19/2017 Vios Aerosol Delivery System Completed 11/05/2017 Virtussin AC 10 mg-100 mg/5 mL oral liquid Completed 05/21/2016 Zithromax Z-Fredrick 250 mg tablet TAKE 2 TABLETS (500 MG) BY ORAL ROUTE ONCE DAILY FOR 1 DAY THEN 1 TABLET (250 MG) BY ORAL ROUTE ONCE DAILY FOR 4 DAYS Active Not available Zostavax (PF) 19,400 unit/0.65 mL subcutaneous suspension Completed 2016 Problems Name Status Onset Date Source Hypothyroidism Active 05/21/2016 Hyperlipidemia Active 05/21/2016 Hypertensive Disorder Active 05/21/2016 Angina Pectoris Active 05/21/2016 Chronic Obstructive Lung Disease Active 05/21/2016 Irritable Bowel Syndrome Active 05/21/2016 Edema of Lower Extremity Active 05/21/2016 Carotid Artery Stenosis Active 01/19/2017 Procedures Date Name Performed by 09/16/2016 Egd Information not available 09/07/2016 Cancer Surgery Notes: 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 Information not available 01/31/2014 Egd Information not available 01/11/2010 Colonoscopy Information not available 09/07/1999 Gastrointestinal Surgery Information not available 09/07/1999 Bowel Surgery Procedure Notes: bowel resection Information not available 09/07/1988 Thyroid Surgery Information not available 09/07/1988 Removal of Thyroid Information not available 09/07/1981 Cholecystectomy Information not available 09/07/1971 Other Information not available 09/07/1971 Back Surgery Notes: Information not available 09/07/1970 Repair of Vagina Information not available 09/07/1969 Hysterectomy (Partial) Information not available 09/07/1957 Back Surgery Notes: Information not available 09/07/1956 Hemorrhoidectomy Information not available 09/07/1946 Appendectomy Information not available 09/07/1938 Tonsilectomy/adenoids Information not available 05/12/2017 XR, Thoracic Spine [facility] [address] [place] [address] (Work Place) 05/12/2017 XR, Lumbar Spine [facility] [address] [place], [place] [id number] (Work Place) Notes: thyroidectomy laminectomies hemroidectomies T&A Lab Results Date Name Specimen Result Interpretation Description Value Range Status Address 11/05/2017 Culture, Urine ABNORMAL Culture, Urine, Routine see note Final [facility]: [facility] Raisa Ludwig [address] 08/19/2017 Culture, Urine Culture, Urine, Routine see note Final [facility]: [facility] Raisa Ludwig [address] 06/18/2017 CBC W/ Auto Diff Wbc 7.45 x10*3/L 3.98-10.04 x10*3/ L Final [facility]: [address] Raisa florencia [address] Rbc 4.17 10*12/L 3.93-5.22 10*12/L Final [facility]: [facility] Raisa florencia [address] Hemoglobin 12.00 g/dL 11.20-15.70 g/dL Final [facility]: [facility] Raisa Ludwig [address] Hematocrit 38.9 % 34.1-44.9 % Final [facility]: [facility] Raisa florencia [address] Mcv 93.3 fL 80.0-100.0 fL Final [facility]: [facility] Raisa florencia [address] Mch 28.8 pg 25.6-32.2 pg Final [facility]: [facility] Raisa Ludwig [address] Low Mchc 30.8 g/dL 32.2-35.5 g/dL Final [facility]: [address] Raisa Ludwig [address] High RDW-SD 48.7 fL 36.4-46.3 fL Final [facility]: [address] Raisa florencia [address] Platelet Count 366.0 k/uL 182.0-369.0 k/uL Final [facility]: 55 Raisa florencia [address] Mpv 10.6 fL 7.5-11.5 fL Final [facility]: [address] Raisa Ludwig [address] Neut% 59.3 % 34.0-71.1 % Final [facility]: [address] Raisa florencia [address] Lymph% 22.6 % 19.3-51.7 % Final [facility]: [facility] Raisa florencia [address] Mon% 8.6 % 4.7-12.5 % Final [facility]: [address] Raisa Killian [place] High Eos% 8.6 % 0.7-5.8 % Final [facility]: [address] Raisa Killian [place] Baso% 0.9 % 0.1-1.2 % Final [facility] [address] [facility] 4.4 x10*3/L 1.6-6.1 x10*3/L Final [facility]: [address] [facility] Lymph# 1.7 x10*3/L 1.2-3.7 x10*3/L Final [facility]: [address] Raisa Atkinson [address] [place] [address] Mon# 0.6 x10*3/L 0.2-0.9 x10*3/L Final [facility]: [address] [facility] Eos# 0.64 x10*3/L 0.04-0.36 x10*3/L Final [facility] [address] [facility] Baso# 0.07 x10*3/L 0.01-0.08 x10*3/L Final [facility]: [address] [facility]/18/2017 CMP, Serum or Plasma Alt 22 U/L 0-55 U/L Final [facility]: [address] Raisa Ludwig [address] Ast 26 U/L 5-34 U/L Final [facility]: [address] Raisa Ludwig [address] Low Bun 7.4 mg/dL 9.8-20.1 mg/dL Final [facility]: [address] Raisa Ludwig [address] Alk Phos 78 unit/L 40-150 unit/L Final [facility]: [address] Raisa Ludwig [address] Glucose 96 mg/dL 70-99 mg/dL Final [facility]: [address] Raisa Atkinson [address] [place] [address] Low Albumin 3.4 g/dL 3.5-5.0 g/dL Final [facility]: [address] Raisa Ludwig [address] Creatinine 0.68 mg/dL 0.57-1.11 mg/dL Final [facility]: [address] Raisa Ludwig [address] eGFR Non- >60 mL/min/1.73m2 >60 mL/min/ 1.73m2 Final [facility]: [address] Raisa Ludwig [address] Total Bilirubin 0.3 mg/dL 0.2-1.2 mg/dL Final [facility]: [address] Raisa Ludwig [place] [address], [place] eGFR - >60 mL/min/1.73m2 >60 mL/min/1.73m2 Final [facility]: [address] Raisa Ludwig [place] [address], [place] Sodium 139 mEq/L 136-145 mEq/L Final [facility]: [address] Raisa Ludwig [place] [address], [place] High Potassium 5.9 mEq/L 3.5-5.1 mEq/L Final [facility]: [address] Raisa Ludwig [place] [address], [place] Chloride 99 mmol/L 98-107 mmol/L Final [facility]: [address] Raisa Ludwig [address] Total Protein 6.6 g/dL 6.4-8.3 g/dL Final [facility]: [address] Raisa florencia [address] Calcium 9.5 mg/dL 8.4-10.2 mg/dL Final [facility]: [address] Raisa Ludwig [address] Co2 30.8 mmol/L 23.0-31.0 mmol/L Final [facility]: [address] Raisa florencia [address] Anion Gap 9 calc Final [facility]: [address] Raisa Atkinson [facility], [place] 06/18/2017 Lipid Panel, Serum High Hdl 75 mg/dL 40-60 mg/dL Final [facility]: [address] Raisa Ludwig [address] Triglyceride 104 mg/dL 0-149 mg/dL Final [facility]: [address] Raisa florencia [address] VLDL Calc. 21 mg/dL Final [facility]: [address] Raisa florencia [address] cholesterol/HDL Ratio 2.3 mg/dL Final [facility]: [address] Raisa Ludwig [address] non-HDL Cholesterol Calc. 100 mg/dL 0-160 mg/dL Final [facility]: [address] Raisa Ludwig [address] Cholesterol 175 mg/dL 0-199 mg/dL Final [facility]: [address] Raisa Ludwig [address] LDL Calc. 79 mg/dL 0-130 mg/dL Final [facility]: [address] 06/18/2017 TSH, Serum or Plasma Tsh 0.427 uIU/mL 0.350-4.940 uIU /mL Final [facility] Laboratory: [address] [place] [address] 01/12/2017 CMP, Serum or Plasma No observation recorded. 11/11/2016 Lipid Panel, Serum Normal Cholesterol, Total 190 mg/dL 125-200 mg/dL Final [facility]: [address] [place] [address] Normal HDL Cholesterol 83 mg/dL > or=46 mg/dL Final [facility]: [address] [place] [address] Normal Triglycerides 86 mg/dL <150 mg/dL Final [facility]: [address] [place] [address] Normal LDL-cholesterol 90 mg/dL (calc) <130 mg/dL (calc) Final [facility]: [address] [place] [address] Normal Chol/hdlc Ratio 2.3 (calc) < or=5.0 (calc) Final [facility]: [address] [place] [address] Normal Non HDL Cholesterol 107 mg/dL (calc) Final [facility]: [facility] Raisa[address] 11/11/2016 CMP, Serum or Plasma High Glucose 120 mg/dL 65-99 mg/ dL Final [facility]: [address] [place] [address] Normal Urea Nitrogen (BUN) 16 mg/dL 7-25 mg/dL Final [facility]: [address] [place] [address] Normal Creatinine 0.79 mg/dL 0.60-0.88 mg/dL Final [facility]: [address] [place] [address] Normal eGFR Non-afr. Libyan 68 mL/min/1.73m2 > or=60 mL/min/ 1.73m2 Final [facility]: [facility] Raisa[address] Normal eGFR 79 mL/min/1.73m2 > or=60 mL/min/ 1.73m2 Final [facility]: [address] [place] [address] BUN/creatinine Ratio not applicable (calc) 6-22 (calc) Final [facility]: [address] [place] [address] Normal Sodium 136 mmol/L 135-146 mmol/L Final [facility]: [address] Raisa Atkinson [address] [place] [address] Normal Potassium 4.8 mmol/L 3.5-5.3 mmol/L Final [facility]: [address] Raisa Atkinson [address] [place] [address] Normal Chloride 98 mmol/L 98-110 mmol/L Final [facility]: [address] Raisa Ludwig [address] High Carbon Dioxide 34 mmol/L 20-31 mmol/L Final [facility]: [address] Raisa Ludwig [address] Normal Calcium 9.7 mg/dL 8.6-10.4 mg/dL Final [facility]: [address] Raisa Ludwig [address] Normal Protein, Total 6.8 g/dL 6.1-8.1 g/dL Final [facility]: [address] Raisa Ludwig [address] Normal Albumin 3.9 g/dL 3.6-5.1 g/dL Final [facility]: [address] Raisa florencia [address] Normal Globulin 2.9 g/dL (calc) 1.9-3.7 g/dL (calc) Final [facility]: [address] Raisa Ludwig [address] Normal Albumin/globulin Ratio 1.3 (calc) 1.0-2.5 (calc) Final [facility]: [address] Raisa Ludwig [address] Normal Bilirubin, Total 0.4 mg/dL 0.2-1.2 mg/dL Final [facility]: [address] Raisa Ludwig [address] Normal Alkaline Phosphatase 81 U/L 33-130 U/L Final [facility]: [address] Raisa Ludwig [address] Normal Ast 17 U/L 10-35 U/L Final [facility]: [address] Raisa Ludwig [address] Normal Alt 10 U/L 6-29 U/L Final [facility]: [address] [facility]2016 CMP, Serum or Plasma Alt 10.0 U/L 0.0-55.0 U/L Final [facility]: [address] Raisa Ludwig [address] Ast 25.0 U/L 5.0-34.0 U/L Final [facility]: [address] Raisa Ludwig [address] Bun 8.0 mg/dL 7.0-20.0 mg/dL Final [facility]: [address] Raisa Killian, [place] Alk Phos 75.0 unit/L 40.0-150.0 unit/L Final [facility]: [address] Raisa Kill[place], [place] High Glucose 111.0 mg/dL 70.0-99.0 mg/dL Final [facility]: [address] Raisa Killian, [place] Albumin 4.0 g/dL 3.5-5.0 g/dL Final [facility]: [address] Raisa Killian, [place] Creatinine 0.8 mg/dL 0.6-1.1 mg/dL Final [facility]: [address] Raisa Killian, [place] eGFR Non- >60 mL/min/1.73m2 >60.0 mL/min/ 1.73m2 Final [facility]: [address] Raisa Killian [place] Total Bilirubin 0.7 mg/dL 0.2-1.2 mg/dL Final [facility]: [address] Raisa Killian [place] eGFR - >60 mL/min/1.73m2 >60.0 mL/min/ 1.73m2 Final [facility]: [address] Raisa Killian [place] Sodium 140.0 mEq/L 137.0-144.0 mEq/L Final [facility]: [address] Raisa Killian [place] Potassium 4.7 mEq/L 3.5-5.0 mEq/L Final [facility]: [address] Raisa Killian [place] Low Chloride 98.0 mmol/L 101.0-110.0 mmol/L Final [facility]: [address] Raisa Killian, [place] Total Protein 7.1 g/dL 6.4-8.3 g/dL Final [facility]: [address] Raisa Killian [place] Calcium 10.0 mg/dL 8.4-10.2 mg/dL Final [facility]: [address] Raisa Killian [place] High Co2 31.6 mmol/L 23.0-31.0 mmol/L Final [facility]: [address] Raisa Killian [place] Anion Gap 10.4 calc Final [facility]: [address] 05/21/2016 Lipid Panel, Serum High Hdl 72.0 mg/dL 40.0-60.0 mg/dL Final [facility]: [address] R[address] [place] [address], [place] Triglyceride 102.0 mg/dL 0.0-149.0 mg/dL Final [facility]: [address] VLDL Calc. 20.4 mg/dL Final [facility]: [address] cholesterol/HDL Ratio 2.3 mg/dL Final [facility]: [address] [place] [address], [place] non-HDL Cholesterol Calc. 97.0 mg/dL 0.0-160.0 mg/dL Final [facility]: [address] [address], [place] Cholesterol 169.0 mg/dL 0.0-199.0 mg/dL Final [facility]: [address] LDL Calc. 76.6 mg/dL 0.0-130.0 mg/dL Final [facility]: [address] [place] [address], [place] 05/21/2016 TSH, Serum or Plasma Low Tsh 0.079 uIU/mL 0.350-4.940 uIU/mL Final [facility]: [address] [place] [address], [place] 11/22/2015 CBC W/ Auto Diff No observation recorded. 07/12/2015 CMP, Serum or Plasma No observation recorded. Rapid Strep Group a, Throat Strep negative [facility] : [address] [facility], [place] Urinalysis, Dipstick Color Glucose negative [facility] : [address] [facility], [place] Color Bilirubin negative [facility] [place]: [address] [facility], [place] Color Ketones negative [facility] [place]: [address] [facility] , [place] Color Specific Jerome 1.015 [facility]: [address] [facility], [place] Color Blood moderate [facility] [place]: [address] [facility], [place] Color PH 7.5 [facility] [place]: [address] [facility], [place] Color Protein 30 [facility]: [address] [facility], [place] Color Urobilinogen 0.2 [facility]: [address] , [place] Color Nitrites negative [facility] [place]: [address] , [place] Color Leukocytes large [facility] [place]: [address] , [place] Urinalysis, Dipstick Color Color yellow [facility] [place]: [address], [place] Color Appearance clear [facility] [place]: [address] , [place] Color Glucose negative [facility]: [address] , [place] Color Bilirubin negative [facility] [place]: [address], [place] Color Ketones negative [facility]: [address] , [place] Color Specific Jerome 1.015 [facility]: [address], [place] Color Blood large [facility]: [address], [place] Color PH 7.0 [facility] [place]: [address], [place] Color Protein 100 [facility] [place]: [address], [place] Color Urobilinogen 0.2 [facility] [place]: [address] , [place] Color Nitrites negative [facility] [place]: [address] , [place] Color Leukocytes large [facility] [place]: [address] , [place] Urinalysis, Dipstick Color Glucose negative [facility] : [address], [place] Color Bilirubin negative [facility] [place]: [address], [place] Color Ketones negative [facility]: [address] , [place] Color Specific Jerome 1.010 [facility]: [address], [place] Color Blood small [facility]: [address], [place] Color PH 7.0 [facility]: [address], [place] Color Protein 100 [facility] [place]: [address], [place] Color Urobilinogen 0.2 [facility]: [address] , [place] Color Nitrites negative [facility]: [address] , [place] Color Leukocytes negative [facility]: [address], [place] Pulse Oximetry Pulse Ox 97 [facility] [place]: [address] [facility] Past Encounters 12/08/2017 Otitis Externa; Acute Pharyngitis; Constipation; Peripheral Vascular Disease; Deficiency of Macronutrients Gianni Gray MD: [address] [place] [phone], Ph. 11/10/2017 Acute Urinary Tract Infection; Angina Pectoris; Chronic Obstructive Lung Disease Gianni Gray MD: [address] [place] [phone], Ph. 11/05/2017 Acute Urinary Tract Infection Fuentes Wilder MD: [address] [place] [phone], Ph. 08/19/2017 Adult Health Examination; Advance Directive Discussed with Patient; Depression Screening; Body Mass Index Less than 20; Chronic Back Pain; Major Depressive Disorder; Itching of Ear; Pain in Throat; Abnormal Urinalysis; Noncompliance with Treatment Gianni Gray MD: [address] [place] [phone], Ph. [phone] 06/18/2017 Hypothyroidism; Hyperlipidemia; Hypertensive Disorder; Influenza Vaccination Gianni Gray MD: [address] [place] [phone], Ph. 05/12/2017 Backache Giannimiracle Gray MD: [address] [place] [phone], Ph. 05/01/2017 Low Back Pain Gianni Gray MD: [address] [facility], [address], [place] [address], Ph. 01/19/2017 Otitis Externa; Carotid Artery Stenosis Gianni Gray MD: [address] [place] [phone], Ph. [phone] 11/11/2016 Chronic Obstructive Lung Disease; Hyperlipidemia; Benign Essential Hypertension ; Angina Pectoris; Hypothyroidism; Gastroesophageal Reflux Disease Gianni Gray MD: [address] [place] [address], Ph. 11/06/2016 Dyspnea; Acute Exacerbation of Chronic Obstructive Airways Disease Gianni Grya MD: [address] [place] [address], Ph. [phone] 09/15/2016 Hypotensive Episode; Dysphagia; Dyspnea Gianni Gray MD: [address] [place] [address], Ph. [phone] 05/21/2016 Hypothyroidism; Chronic Obstructive Lung Disease; Hyperlipidemia; Hypertensive Disorder; Tobacco User; Influenza Vaccination Gianni Gray MD: [address] [place] [address], Ph. [phone] Social History Smoking Status Former Smoker Vaccine List Vaccine Type influenza, high dose seasonal 05/21/20160.5 mL 06/18/20170.5 mL influenza, injectable, quadrivalent 05/08/2015 Plan of Care Patient Instructions Screening Recommendations 1. Vaccines Pneumococcal: discussed today and information sent with patient in their [facility] health folder Influenza: discussed today and information sent with patient in their [facility] health folder Shingles: discussed today and information sent with patient in their [facility] health folder Tetanus: discussed today and information sent with patient in their [facility] health folder 2. Mammography Screening: discussed today and information sent with patient in their [facility] health folder 3. Colorectal cancer Screening Colonoscopy: discussed today and information sent with patient in their [facility] health folder Fecal Occult Blood: discussed today and information sent with patient in their [facility] health folder 4. Bone Mass Measurement: discussed today 5. Pap test / Pelvic Exam Screening: discussed today 6. Eye Exam Screening: discussed today 7. Cholesterol Screening: discussed today 8. Diabetes Screening: discussed today It was good to see you in the office today for your Medicare Annual Wellness Visit. You have been provided some information on healthy nutrition, including a diet rich in fruits and vegetables, minimizing simple carbohydrates, salt, and saturated fats. I want to encourage regular cardiovascular exercise such as walking at least 30 minutes daily, 5 times per week. Please remember to schedule any preventive health measures that we talked about today. You have also been provided education on fall prevention and community- based lifestyle interventions to help reduce health risks and promote healthy living in your [facility] folder. Reminders Provider Appointments None recorded. Lab None recorded. Referral None recorded. Procedures None recorded. Surgeries None recorded. Imaging None recorded. Vitals 12/08/2017 03:00PM New Patient Height Weight Blood Pressure 5 ft 5 in 110/58 mm[Hg] 11/10/2017 02:00PM Est Patient Height Weight Blood Pressure 5 ft 5 in 122/60 mm[Hg] 11/05/2017 02:45PM Est Patient Height Weight Blood Pressure 5 ft 5 in 120/56 mm[Hg] 08/19/2017 11:45AM Est Patient Height Weight BMI Blood Pressure 5 ft 5 in 99 lbs 16.5 kg/m2 110/62 mm[Hg] 05/12/2017 02:00PM Est Patient Height Weight Blood Pressure 5 ft 5 in 92/48 mm[Hg] 05/01/2017 03:30PM Work In Same Day Height Weight BMI Blood Pressure 5 ft 5 in 97.2 lbs 16.2 kg/m2 121/64 mm[Hg] 01/19/2017 03:30PM Est Patient Height Weight BMI Blood Pressure 5 ft 5 in 98 lbs 16.3 kg/m2 126/60 mm[Hg] 11/11/2016 09:00AM Est Patient Height Weight Blood Pressure 5 ft 5 in 96/49 mm[Hg] 11/06/2016 04:30PM Est Patient Height Weight BMI Blood Pressure 5 ft 5 in 95 lbs 15.8 kg/m2 118/56 mm[Hg] 09/15/2016 11:00AM Est Patient Height Weight BMI Blood Pressure 5 ft 5 in 94 lbs 15.6 kg/m2 92/53 mm[Hg] 05/21/2016 08:30AM [employer]/EST CPX Height Weight BMI Blood Pressure 5 ft 5 in 101 lbs 16.8 kg/m2 121/72 mm[Hg]
[2018-01-31] MEDS ORDERED: SODIUM CHLORIDE 0.9% 1000ML 1,000 ML IV STA (16:13)
[2018-01-31] MEDS ORDERED: ONDANSETRON HCL 4 MG ORAL DISINTEGRATING TAB PO ONE (16:15)
[2018-01-31] MEDS ORDERED: HYDROMORPHONE 2MG/ML INJ IV ONE ×2 (16:30→18:00)
[2018-01-31 16:38] LABS: BASOPHILS % 0.3 % (0.0-1.0); EOSINOPHILS # (AUTO) 0.1 (0.0-0.4); EOSINOPHILS % 0.4 % (0.0-6.0); HEMOGLOBIN 13.1 g/dL (12.0-16.0); LYMPHOCYTES # (AUTO) 1.7 (1.0-3.2); LYMPHOCYTES % 10.4 % (18.0-39.1); MEAN CORPUSCULAR HEMOGLOBIN 28.7 pg (28-32); MEAN CORPUSCULAR HGB CONC 32.8 g/dL (31-35); MEAN CORPUSCULAR VOLUME 87.5 fL (81-99); MONOCYTES # (AUTO) 1.1 (0.2-0.8); MONOCYTES % 6.9 % (4.4-11.3); NEUTROPHILS # (AUTO) 13.1 (2.1-6.9); NEUTROPHILS % 81.6 % (38.7-80.0); PLATELET COUNT 389 x10e3/uL (140-360); RED BLOOD COUNT 4.57 x10e6/uL (3.6-5.1); RED CELL DISTRIBUTION WIDTH 13.1 % (11.7-14.4)
[2018-01-31 16:43] LABS: INR 0.95; PARTIAL THROMBOPLASTIN TIME 31.4 seconds (23.8-35.5); PROTHROMBIN TIME 11.9 seconds (11.9-14.5)
[2018-01-31 16:49] LABS: ALBUMIN 3.7 g/dL (3.5-5.0); ALBUMIN/GLOBULIN RATIO 1.2 (0.8-2.0); ANION GAP 13.3 mmol/L (8-16); CALCIUM 10.1 mg/dL (8.4-10.2); CREATININE, SERUM 1.02 mg/dL (0.57-1.11); POTASSIUM 4.3 mmol/L (3.5-5.1)
[2018-01-31] MEDS ORDERED: DIATRIZOATE MEGL/DIATRIZOA SOD 30 ML BTL PO ONE (17:28)
--- NOTE | 2018-01-31 17:56 | Diagnostic Imaging Report ---
EXAM: ABDOMEN COMP INCL UPR or DECUB, DATE: 01/31/2018 4:13 PM INDICATION: Abdominal pain COMPARISON: Abdominal CT 11/18/2017 FINDINGS: LINES/TUBES: None BOWEL PATTERN: No evidence for obstruction. Gas present within the nondilated colon. SOFT TISSUES: No abnormal calcifications. No mass effect. No free air under the diaphragm or suspicious air-fluid levels on upright view. LUNG BASES: Clear. BONES: No acute findings. T12 and L3 compression deformities better seen on CT. IMPRESSION: Nonobstructive bowel gas pattern. Signed by: DR. Jimmy Hare MD on 01/31/2018 5:53 PM
[2018-01-31 18:08] LABS: BILIRUBIN,URINE NEGATIVE (NEGATIVE); CLARITY,URINE SL CLOUDY (CLEAR); COLOR,URINE YELLOW (YELLOW); KETONES,URINE NEGATIVE (NEGATIVE); LEUKOCYTE ESTERASE ,URINE NEGATIVE (NEGATIVE); NITRITE,URINE NEGATIVE (NEGATIVE); PROTEIN,URINE DIPSTICK 2+ (NEGATIVE); URINE UROBILINOGEN 0.2 mg/dL (0.2 - 1)
[2018-01-31 18:10] LABS: BACTERIA,URINE FEW /HPF; EPITHELIAL CELLS,URINE FEW /LPF; RBC,URINE 0-5 /HPF (0-5); WBC,URINE (MAN) 0-5 /HPF (0-5)
[2018-01-31 18:11] LABS: AMORPHOUS SEDIMENT,URINE FEW (FEW)
[2018-01-31] MEDS ORDERED: PLAVIX75 MG PO (19:14)
[2018-01-31] MEDS ORDERED: ALBUTEROL0.63 MG/3 INH (19:14)
[2018-01-31] MEDS ORDERED: PREDNISONE5 MG PO (19:14)
[2018-01-31] MEDS ORDERED: BREO (19:14)
[2018-01-31] MEDS ORDERED: ALIGN4 MG PO (19:14)
[2018-01-31] MEDS ORDERED: WELLBUTRIN SR150 MG PO (19:14)
[2018-01-31] MEDS ORDERED: LINZESS PO (19:14)
--- NOTE | 2018-01-31 19:42 | Diagnostic Imaging Report ---
EXAM: CT ABDOMEN AND PELVIS with IV CONTRAST DATE: 01/31/2018 5:21 PM Time stamp on Exam: 1845 hours INDICATION: Abdominal pain, constipation COMPARISON: CT abdomen and pelvis November 18, 2017 TECHNIQUE: The abdomen and pelvis were scanned using a multidetector helical scanner. Coronal and sagittal reformations were obtained. Routine protocol performed. IV Contrast: 100 cc Isovue 370 Oral Contrast: Gastrografin CTDIvol has been reviewed. It is below the limits set by the Radiation Protocol Committee (RPC). FINDINGS: LOWER THORAX: No consolidations LIVER: No masses BILIARY: Cholecystectomy. Expected dilation from reservoir effect and age. SPLEEN: No masses PANCREAS: No masses ADRENALS: Stable enhancing 2 cm right adrenal gland nodule. KIDNEYS: Symmetric perfusion. No enhancing masses. No hydronephrosis. GI TRACT: Small hiatal hernia. The stomach is distended. Dilated loops of small and large bowel with the transition point at the splenic flexure. 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 Marked crescentic adherent thrombus with luminal narrowing to 1.2 cm. The distal descending thoracic aorta is dilated up to 3.1 cm in maximum diameter. PERITONEUM/RETROPERITONEUM: No free air or fluid LYMPH NODES: No lymphadenopathy REPRODUCTIVE ORGANS: Uterus and ovaries not visualized. BLADDER: Decompressed SOFT TISSUES: Unremarkable BONES: Multiple chronic compression fractures including T11, T12 and L3. IMPRESSION: Small and large bowel obstruction versus ileus with relative decompression of the distal transverse colon near the splenic flexure. 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 Stable 2 cm indeterminate right adrenal gland nodule. Signed by: Dr. Stacy Alejo M.D. on 01/31/2018 7:39 PM
[2018-01-31] MEDS ORDERED: D5.45%NS/KCL 20MEQ 1,000 ML IV SCH (19:56)
[2018-01-31] MEDS ORDERED: HYDROMORPHONE 1MG/1ML INJ IV PRN (20:00)
[2018-01-31] MEDS ORDERED: ONDANSETRON HCL INJ 2 MG/ML VIAL IV PRN (20:00)
[2018-01-31] MEDS ORDERED: SODIUM CHLORIDE 0.9% 1000ML 1,000 ML ONE (20:36)
[2018-01-31] MEDS: SODIUM CHLORIDE 0.9% 1000ML 1,000 ML IV SCH (21:40)
[2018-01-31 22:15] VITALS: BP 131/60
[2018-01-31] MEDS: PIPER-TAZ 3.375 GM / NS 50ML IV SCH (23:21)
--- NOTE | 2018-01-31 23:30 | Diagnostic Imaging Report ---
EXAM: ABDOMEN-1VIEW (KUB), supine INDICATION: NG tube placement COMPARISON: Chest x-ray November 18, 2017 FINDINGS: See impression IMPRESSION: Partial visualization of the lower chest and upper abdomen shows the tip of the nasogastric tube in the left mainstem bronchus. This finding was discussed with the patient's nurse January 31, 2018 at 2325 hours. Signed by: Dr. Stacy Alejo M.D. on 01/31/2018 11:27 PM
[2018-01-31] MEDS: HYDROMORPHONE 2MG/ML INJ IV PRN (23:50)
[2018-02-01] VITALS (9 sets, daily range): BP systolic 109–131; BP diastolic 54–68
--- NOTE | 2018-02-01 00:26 | Diagnostic Imaging Report ---
EXAM: ABDOMEN-1VIEW (KUB), supine INDICATION: NG tube COMPARISON: None FINDINGS: See impression IMPRESSION: Limited view of the lower chest and upper abdomen shows the nasogastric tube tip in expected location of the body of the stomach. Signed by: Dr. Stacy Alejo M.D. on 02/01/2018 12:22 AM
[2018-02-01] MEDS ORDERED: IOPAMIDOL 370 MG/ML 200 ML INFUS..BTL INJ ONE (01:52)
[2018-02-01] MEDS ORDERED: SODIUM CHLORIDE 0.9% 50ML 50 ML ONE (01:52)
[2018-02-01] MEDS: PIPER-TAZ 3.375 GM / NS 50ML IV SCH ×3 (06:06→21:58)
[2018-02-01 06:37] LABS: BASOPHILS # (AUTO) 0.1 (0.0-0.1); BASOPHILS % 0.3 % (0.0-1.0); EOSINOPHILS % 0.1 % (0.0-6.0); HEMATOCRIT 36.3 % (34.2-44.1); HEMOGLOBIN 11.8 g/dL (12.0-16.0); LYMPHOCYTES # (AUTO) 1.2 (1.0-3.2); LYMPHOCYTES % 6.9 % (18.0-39.1); MEAN CORPUSCULAR HEMOGLOBIN 29.1 pg (28-32); MEAN CORPUSCULAR HGB CONC 32.5 g/dL (31-35); MEAN CORPUSCULAR VOLUME 89.4 fL (81-99); MONOCYTES # (AUTO) 1.1 (0.2-0.8); MONOCYTES % 6.4 % (4.4-11.3); NEUTROPHILS # (AUTO) 15.3 (2.1-6.9); NEUTROPHILS % 85.7 % (38.7-80.0); PLATELET COUNT 317 x10e3/uL (140-360); RED BLOOD COUNT 4.06 x10e6/uL (3.6-5.1); RED CELL DISTRIBUTION WIDTH 13.2 % (11.7-14.4)
[2018-02-01] MEDS ORDERED: ALBUTEROL SULF 0.083% NEB SOLN 3 ML NEB INH PRN (06:45)
[2018-02-01] MEDS ORDERED: METOPROLOL TARTRATE INJ 1 MG/ML VIAL IV PRN (06:45)
[2018-02-01 06:58] LABS: ANION GAP 15.1 mmol/L (8-16); BLOOD UREA NITROGEN 19 mg/dL (7-26); BUN/CREATININE RATIO 25 (6-25); CALCIUM 8.9 mg/dL (8.4-10.2); CARBON DIOXIDE 23 mmol/L (22-29); CHLORIDE 102 mmol/L (98-107); CREATININE, SERUM 0.77 mg/dL (0.57-1.11); EST GLOMERULAR FILTRATION RATE > 60 ML/MIN (60-); GLUCOSE 65 mg/dL (74-118); POTASSIUM 4.1 mmol/L (3.5-5.1); SODIUM 136 mmol/L (136-145)
--- NOTE | 2018-02-01 07:23 | History and Physical ---
This patient comes in with abdominal pain and bloating. HISTORY OF PRESENT ILLNESS: This is Ms. Dee Dee Rivero who is an 87-year-old female with a history of vertebral fracture and underwent epidural steroid injections and was scheduled for kyphoplasty when her abdominal pain started and increased in nature. The patient came into the emergency room and was found to have small-bowel obstruction. PAST MEDICAL HISTORY: History of constipation secondary to pain medication, history of hypothyroidism, history of hyperlipidemia, history of coronary disease, history of COPD, history of depression. The patient also has a history of osteoporosis, and was scheduled also to get [facility] for the same. MEDICATIONS: That she takes at home are: 1. Levothyroxine 112 mcg a day. 2. Atenolol 50 mg 25 mg in the morning and 25 mg at nighttime. 3. Amlodipine 10 mg half a tablet in the morning. 4. Rosuvastatin 40 mg. 5. Lasix 40 mg as needed. 6. Clopidogrel 75 mg. 7. Spiriva 18 mcg. 8. Breo 100 mcg. 9. Albuterol 0.6 via nebulizer. 10. Nitrostat 0.4 mg as needed. 11. Align which is a probiotic. 12. Prednisone 5 mg in the morning. 13. Wellbutrin 150 mg in the evening. PAST SURGICAL HISTORY: History of tonsillectomy, history of appendectomy, hemorrhoidectomy, laminectomy, hysterectomy, gallbladder removal, thyroidectomy, and bowel resection for diverticulitis in 1999. She has had multiple surgeries for squamous cell cancers. Dr. Johnson did an EGD recently. The patient has had as mentioned above had multiple lumbar injections by Dr. Canas for back pain. SOCIAL HISTORY: Lives with daughter. No ETOH. No IV drug abuse. PHYSICAL EXAMINATION GENERAL: The patient is alert and oriented times 3. Has an NG tube in. HEENT: Normocephalic and atraumatic. Pupils reactive to light and accommodation. CV: S1 and S2 normal. Regular rhythm. ABDOMEN: Nondistended and nontender. Positive for some bowel sounds. LUNGS: Decreased air entry in bilateral lung stacy. EXTREMITIES: No clubbing. No cyanosis. No edema. LABORATORY VALUES: White count is 16,000 with neutrophil count of 81. Chemistry: Sodium of 130, potassium 4.3, BUN 24, creatinine 1.02, glucose 128. Coags: PT and INR 11.9 and 0.95. Urine was slightly cloudy. Negative for leukocyte esterase and few bacteria. IMAGING STUDIES: Initial abdominal x-ray shows nonobstructive gas pattern. CT of the abdomen done on the same day shows small and large bowel obstruction versus ileus with relative decompression near the splenic flexure. Advanced atherosclerotic changes and resolved dilatation of the descending area. Stable 2 cm adrenal nodule. Repeat x-rays done today showed no bowel obstruction. ASSESSMENT 1. Small-bowel obstruction and/or ileus secondary to pain medication. 2. Surgical consult has been done. 3. Leukocytosis: The patient is on Zosyn at this time q.6 h. Will continue with that. Will start on albuterol and Atrovent treatments as needed. Also, we can give levothyroxine with sips of water. It looks like she is recovering from small-bowel obstruction. Will continue to monitor the patient. Also, hydrate the patient adequately. Also, check a magnesium and calcium level too. Job#: [id number] SCAR
[2018-02-01] MEDS: LEVOTHYROXINE SODIUM 112 MCG TAB PO SCH (07:46)
--- NOTE | 2018-02-01 10:40 | Consultation ---
DATE OF CONSULTATION: February 01, 2018 Patient is an 87-year-old female who presented to the hospital with the complaints of abdominal pain and then she had vomiting one time. She says the abdominal pain has been going on for 4-5 days, but has been more severe in the last 2 days. She came to the emergency room were CT of the abdomen was done, which revealed dilated small bowel and proximal colon. Patient says she was passing flatus, and said she had a large watery bowel movement since she was admitted and feels much better. She has had previous abdominal surgery. This includes a previous appendectomy, hysterectomy, cholecystectomy, and sigmoid colon resection. PAST MEDICAL HISTORY: Significant for chronic constipation. She takes a lot of pain medicine. History of hypothyroidism, hyperlipidemia, coronary artery disease, chronic obstructive pulmonary disease, depression. She had recent epidural steroid injection to her back. PREVIOUS SURGERIES: Besides those stated above include tonsillectomy, hemorrhoidectomy, laminectomy, thyroidectomy. She had a recent upper GI endoscopy. MEDICATIONS: At home are levothyroxine, atenolol, amlodipine, rosuvastatin, Lasix, Plavix, Spiriva, Breo, albuterol, Nitrostat, probiotic, prednisone, and Wellbutrin. FAMILY HISTORY: Noncontributory. SOCIAL HISTORY: Patient does not smoke cigarettes or drink alcohol. Lives with her daughter. REVIEW OF SYSTEMS: As stated above. She has had no fever. No weight loss. PHYSICAL EXAMINATION GENERAL: The patient is awake, alert and in no distress. VITAL SIGNS: Normal. She is not tachycardic. HEENT: Reveals no scleral icterus. NECK: Has no masses. LUNGS: Equal breath sounds are clear bilaterally. CARDIAC: Regular rate and rhythm. ABDOMEN: Soft. There is a healed lower midline wound. There is mild distention. There is no mass. There were no signs of peritonitis. EXTREMITIES: No edema. NEUROLOGIC: Grossly intact. LAB TESTS: White blood count is elevated at 17.8, which is actually elevated from admission at 16,000, hemoglobin 11.8, hematocrit 36. Chemistries are essentially normal. Bicarbonate level is normal. Liver function tests were normal. IMAGING STUDIES: Revealed dilated small bowel and proximal colon. ASSESSMENT: This is an 87-year-old female with findings suggestive of possible ileus or intestinal obstruction. There are no findings suggestive of acute surgical abdomen at that time. No findings that warrant immediate surgical intervention. Nasogastric tube is in place. Recommend to continue this at this time. Plan to repeat the abdominal x-ray today. Clinically, she seems improved. She has had a bowel movement and says she is passing flatus. Thank you for asking me to see Ms. Rivero. Job#: [id number] RI
[2018-02-01] MEDS: ALBUTEROL SULF 0.083% NEB SOLN 3 ML NEB INH PRN (14:00)
[2018-02-01] MEDS: SODIUM CHLORIDE 0.9% 1000ML 1,000 ML IV SCH (17:40)
[2018-02-02] VITALS (7 sets, daily range): BP systolic 97–137; BP diastolic 44–59
[2018-02-02] MEDS: HYDROMORPHONE 2MG/ML INJ IV PRN ×3 (02:27→21:04)
[2018-02-02] MEDS: PIPER-TAZ 3.375 GM / NS 50ML IV SCH ×3 (05:43→21:45)
--- NOTE | 2018-02-02 06:34 | Diagnostic Imaging Report ---
EXAMINATION: Head CT HISTORY: Intermittent confusion COMPARISON: None. TECHNIQUE: Multidetector axial images were obtained without contrast from the foramen magnum to the vertex . The images were reconstructed using brain and bone algorithms. Thin section brain images were reformatted into coronal and sagittal planes. Image quality: Motion/streaking artifact limits the evaluation of the skull base and posterior cranial fossa. FINDINGS: Parenchyma: 1. Severe confluent supratentorial white matter hypodensities, most likely nonspecific chronic microvascular ischemic changes. 2. 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 3. No mass or hemorrhage. No CT evidence of acute territorial vascular insult. Extra-axial spaces:No abnormal density. No extra-axial fluid collections Brain volume: Normal for age. Ventricles: No hydrocephalus or displacement. Arteries: No density suggestive of thrombus. Dural sinuses: No abnormal density. Extra-axial spaces: No abnormal density. Foramen magnum: No mass, Chiari malformation, or basilar invagination. Sella: No obvious mass. Paranasal/mastoid sinuses: Imaged portions unremarkable. Skull/Scalp: No lytic or blastic lesions. No fractures. IMPRESSION: 1. No hemorrhagic or acute cortical infarct. 2. Severe chronic microvascular ischemic changes. 3. Chronic left occipital infarct. Signed by: Dr. Maggy Adam M.D. on 02/02/2018 6:31 AM
[2018-02-02 06:56] LABS: HEMATOCRIT 34.3 % (34.2-44.1); HEMOGLOBIN 11.1 g/dL (12.0-16.0); MEAN CORPUSCULAR HGB CONC 32.4 g/dL (31-35); MEAN CORPUSCULAR VOLUME 89.6 fL (81-99); PLATELET COUNT 293 x10e3/uL (140-360); RED BLOOD COUNT 3.83 x10e6/uL (3.6-5.1); RED CELL DISTRIBUTION WIDTH 13.2 % (11.7-14.4)
[2018-02-02 07:30] LABS: ANION GAP 13.9 mmol/L (8-16); BLOOD UREA NITROGEN 16 mg/dL (7-26); BUN/CREATININE RATIO 24 (6-25); CALCIUM 8.5 mg/dL (8.4-10.2); CARBON DIOXIDE 24 mmol/L (22-29); CHLORIDE 105 mmol/L (98-107); CREATININE, SERUM 0.68 mg/dL (0.57-1.11); EST GLOMERULAR FILTRATION RATE > 60 ML/MIN (60-); POTASSIUM 3.9 mmol/L (3.5-5.1); SODIUM 139 mmol/L (136-145)
[2018-02-02 07:34] LABS: GLUCOSE 46 mg/dL (74-118)
[2018-02-02] MEDS ORDERED: DEXTROSE 50% SYRINGE 50 ML IV ONE (08:00)
[2018-02-02] MEDS: LEVOTHYROXINE SODIUM 112 MCG TAB PO SCH (08:01)
[2018-02-02] MEDS: DEXTROSE 5%/0.9% SOD CHL 1,000 ML IV SCH (08:01)
[2018-02-02] MEDS: ALBUTEROL SULF 0.083% NEB SOLN 3 ML NEB INH PRN ×2 (08:23→20:20)
[2018-02-02] MEDS: ATENOLOL 50 MG TAB PO SCH ×2 (08:45→16:42)
[2018-02-02] MEDS: PREDNISONE 5 MG TAB PO SCH (08:53)
[2018-02-02 09:10] LABS: LYMPHOCYTES % (MANUAL) 5 % (19-48); MONOCYTES % (MANUAL) 9 % (3.4-9.0); MYELOCYTES % (MANUAL) 1 % (0-0); NEUTROPHILS % (MANUAL) 84 % (40-74)
[2018-02-02 09:11] LABS: ANISOCYTOSIS SLIGHT; PLATELET ESTIMATE ADEQUATE; PLATELET MORPHOLOGY COMMENT NORMAL; RBC MORPHOLOGY COMMENT NORMAL
[2018-02-03] VITALS (8 sets, daily range): BP systolic 108–142; BP diastolic 45–65
[2018-02-03] MEDS: HYDROMORPHONE 2MG/ML INJ IV PRN ×2 (03:40→22:06)
[2018-02-03] MEDS: DEXTROSE 5%/0.9% SOD CHL 1,000 ML IV SCH (03:44)
[2018-02-03] MEDS: PIPER-TAZ 3.375 GM / NS 50ML IV SCH ×3 (06:00→21:14)
[2018-02-03] MEDS ORDERED: ONDANSETRON HCL 4 MG ORAL DISINTEGRATING TAB SL PRN (08:30)
[2018-02-03] MEDS: ALBUTEROL SULF 0.083% NEB SOLN 3 ML NEB INH PRN ×2 (08:34→20:04)
[2018-02-03] MEDS: PREDNISONE 5 MG TAB PO SCH (09:42)
[2018-02-03] MEDS: ATENOLOL 50 MG TAB PO SCH ×2 (09:42→16:35)
[2018-02-03] MEDS: LEVOTHYROXINE SODIUM 112 MCG TAB PO SCH (10:58)
--- NOTE | 2018-02-03 15:51 | Diagnostic Imaging Report ---
PROCEDURE:ABDOMEN COMP INCL UPR OR DECUB INDICATION:Intestinal obstruction. COMPARISON:Patients [facility], DX, ABDOMEN-1VIEW ([facility]), 01/31/2018, 23:58. FINDINGS: A nasogastric/orogastric tube with the distal tip projected in the gastric fundus, unchanged. Excreted contrast is present within the bladder. There are no dilated bowel loops to suggest obstruction. There is gas throughout the colon. Degenerative changes of the lumbar spine. CONCLUSION: Nonobstructive bowel gas pattern. Ton Bullard M.D. Dictated by: Ton Bullard M.D. on 02/03/2018 at 15:53 Electronically approved by: Ton Bullard M.D. on 02/03/2018 at 15:53
[2018-02-04] VITALS (7 sets, daily range): BP systolic 125–144; BP diastolic 58–65
[2018-02-04] MEDS: DEXTROSE 5%/0.9% SOD CHL 1,000 ML IV SCH ×2 (01:18→21:30)
[2018-02-04] MEDS: HYDROMORPHONE 2MG/ML INJ IV PRN ×2 (04:30→21:30)
[2018-02-04] MEDS: PIPER-TAZ 3.375 GM / NS 50ML IV SCH ×3 (05:08→21:30)
[2018-02-04] MEDS: LEVOTHYROXINE SODIUM 112 MCG TAB PO SCH (05:08)
[2018-02-04] MEDS: ALBUTEROL SULF 0.083% NEB SOLN 3 ML NEB INH PRN ×2 (06:50→19:12)
[2018-02-04] MEDS: PREDNISONE 5 MG TAB PO SCH (07:53)
[2018-02-04] MEDS: ATENOLOL 50 MG TAB PO SCH ×2 (07:54→17:58)
[2018-02-04] MEDS: TRAMADOL HCL 50 MG TAB PO PRN ×2 (09:40→15:04)
[2018-02-04] MEDS: CYCLOBENZAPRINE HCL 10 MG TAB PO PRN ×2 (10:09→19:03)
[2018-02-05] VITALS: BP 127/61
[2018-02-05 04:00] VITALS: BP 119/56
[2018-02-05] MEDS: TRAMADOL HCL 50 MG TAB PO PRN (05:41)
[2018-02-05] MEDS: LEVOTHYROXINE SODIUM 112 MCG TAB PO SCH (05:41)
[2018-02-05] MEDS: PIPER-TAZ 3.375 GM / NS 50ML IV SCH (05:41)
[2018-02-05 08:00] VITALS: BP 117/58
[2018-02-05] MEDS: ATENOLOL 50 MG TAB PO SCH (09:23)
[2018-02-05] MEDS: PREDNISONE 5 MG TAB PO SCH (09:23)
== END 2018-02-05 09:30 | disposition home or self-care (01) | DRG 389 ==
LOC: ER 16:02 → ERHOLD 19:56 → MED/SURG 21:59
PROVIDERS: ADMIT Internal Medicine; ATTEND Internal Medicine
DX: K56.51 Intestinal adhesions [bands], with partial obstruction (principal); E44.1 Mild protein-calorie malnutrition; Z68.1 Body mass index [BMI] 19.9 or less, adult; I10 Essential (primary) hypertension; E78.5 Hyperlipidemia, unspecified; J44.9 Chronic obstructive pulmonary disease, unspecified; G89.29 Other chronic pain; D72.829 Elevated white blood cell count, unspecified; T50.995A Adverse effect of other drugs, medicaments and biological substances, initial encounter; D64.9 Anemia, unspecified; I65.22 Occlusion and stenosis of left carotid artery; M48.55XD Collapsed vertebra, not elsewhere classified, thoracolumbar region, subsequent encounter for fracture with routine healing
CPT/HCPCS: 36415; 70450; 80048; 82948; 85007; 85027; 93880; 94640; 96374; 96376; 97139; J2543; J7030; J7042; J7512; J7799; Q9967

== ENCOUNTER → 2018-03-05 | Outpatient (CLI) | payer MEDICARE ==
[~2018-03-05] MED LIST changes: +ALBUTEROL0.63 MG/3 INH; +ALIGN4 MG PO; +BREO; +DIATRIZOATE MEGL/DIATRIZOA SOD 30 ML BTL PO ONE; +IOPAMIDOL 370 MG/ML 200 ML INFUS..BTL INJ ONE; +LINZESS PO; +PLAVIX75 MG PO; +PREDNISONE5 MG PO; +SODIUM CHLORIDE 0.9% 250ML 500 ML ONE; +SODIUM CHLORIDE 0.9% 50ML 50 ML ONE; +VSL#3 CAPSULE1 EACH PO; +WELLBUTRIN SR150 MG PO
[2018-03-05 15:03] LABS: CREATININE, SERUM 1.4 mg/dL (0.57-1.11)
--- NOTE | 2018-03-05 18:13 | Diagnostic Imaging Report ---
EXAM: CT Abdomen and Pelvis WITH contrast INDICATION: \[id number] \S\[id number] \S\RIGHT LOWER QUADRANT PAIN COMPARISON: CT dated 01/31/2018 TECHNIQUE: Abdomen and pelvis were scanned utilizing a multidetector helical scanner from the lung base to the pubic symphysis after administration of IV contrast. Coronal and sagittal reformations were obtained. Routine protocol was performed. Scan was performed when during portal venous phase. IV CONTRAST: 100 mL of Isovue-370 ORAL CONTRAST: Gastroview COMPLICATIONS: None RADIATION DOSE: Total DLP: 187.17 mGy*cm Estimated effective dose: (DLP x 0.015 x size factor) mSv CTDIvol has been reviewed. It is below the limits set by the Radiation Protocol Committee (RPC). FINDINGS: LINES and TUBES: None. LOWER THORAX: Emphysematous changes. Partially imaged atherosclerotic calcification of coronary arteries. HEPATOBILIARY: Scattered subcentimeter calcified granulomas. No hepatic mass. Mild common bile duct dilatation, likely due to reservoir effect. GALLBLADDER: Surgically absent. SPLEEN: No splenomegaly. PANCREAS: No focal masses or ductal dilatation. ADRENALS: Unchanged 2.3 cm right adrenal heterogeneously enhancing nodule. KIDNEYS/URETERS: Kidneys enhance symmetrically. Mild right hydronephrosis. No left hydronephrosis. No renal mass. Right renal subcentimeter hypodensities are too small to characterize. Punctate left inferior pole calculus. GI TRACT: There is diffuse small bowel dilatation. The colon is also distended up to the left colon. Appendix is surgically absent. Scattered colonic diverticula without evidence of diverticulitis. Appendix is surgically absent. PELVIC ORGANS/BLADDER: Hysterectomy. Bladder is under distended and appears unremarkable. LYMPH NODES: No lymphadenopathy. 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 Marked crescentic adherent thrombus with luminal narrowing. The distal descending thoracic aorta is dilated up to 3.1 cm in maximum diameter. There is also mural thrombus at this level. PERITONEUM / RETROPERITONEUM: No free air or fluid. BONES: Generalized demineralization limits evaluation. Redemonstration of multiple chronic compression deformities of L3, T12, and T11 vertebral bodies. SOFT TISSUES: Unremarkable. Gluteal injection granulomas. IMPRESSION: 1. Similar to prior exam, there is marked large bowel and to lesser extent small bowel dilatation up to the splenic flexure, likely ileus and less likely to represent obstruction. 2. Redemonstration of severe aortic atherosclerotic disease with aneurysmal dilatations as described above. 3. Not significantly changed right adrenal nodule. 4. Mild right hydronephrosis without definite evidence of obstructive urolithiasis. Signed by: Dr. Noe Wan MD on 03/05/2018 6:10 PM
== END ==
LOC: CT 13:40
PROVIDERS: ATTEND Internal Medicine
DX: R10.31 Right lower quadrant pain (principal); R10.0 Acute abdomen
CPT/HCPCS: 36415; 74177; 82565; 84520; J7050; Q9967

== ENCOUNTER 2018-03-07 21:41 | Inpatient (IN) | payer MEDICARE ==
[~2018-03-07] VITALS: Ht 152.4 cm; Wt 50.8 kg
[~2018-03-07 21:41] MED LIST changes: -DIATRIZOATE MEGL/DIATRIZOA SOD 30 ML BTL PO ONE; -IOPAMIDOL 370 MG/ML 200 ML INFUS..BTL INJ ONE; -SODIUM CHLORIDE 0.9% 250ML 500 ML ONE; -SODIUM CHLORIDE 0.9% 50ML 50 ML ONE; -VSL#3 CAPSULE1 EACH PO
[2018-03-07 22:18] LABS: BASOPHILS % 0.3 % (0.0-1.0); EOSINOPHILS # (AUTO) 0.1 (0.0-0.4); EOSINOPHILS % 0.6 % (0.0-6.0); HEMATOCRIT 40.5 % (34.2-44.1); HEMOGLOBIN 13.4 g/dL (12.0-16.0); LYMPHOCYTES # (AUTO) 0.4 (1.0-3.2); LYMPHOCYTES % 3.4 % (18.0-39.1); MEAN CORPUSCULAR HEMOGLOBIN 28.9 pg (28-32); MEAN CORPUSCULAR HGB CONC 33.1 g/dL (31-35); MEAN CORPUSCULAR VOLUME 87.3 fL (81-99); MONOCYTES # (AUTO) 0.9 (0.2-0.8); MONOCYTES % 8.3 % (4.4-11.3); NEUTROPHILS # (AUTO) 9.9 (2.1-6.9); NEUTROPHILS % 87.1 % (38.7-80.0); PLATELET COUNT 397 x10e3/uL (140-360); RED BLOOD COUNT 4.64 x10e6/uL (3.6-5.1); RED CELL DISTRIBUTION WIDTH 13.6 % (11.7-14.4)
[2018-03-07 22:28] LABS: INR 0.99; PROTHROMBIN TIME 12.3 seconds (11.9-14.5)
[2018-03-07 22:38] LABS: ALBUMIN 3.6 g/dL (3.5-5.0); ALBUMIN/GLOBULIN RATIO 1.1 (0.8-2.0); ANION GAP 17.6 mmol/L (8-16); CALCIUM 9.3 mg/dL (8.4-10.2); CREATININE, SERUM 1.25 mg/dL (0.57-1.11); POTASSIUM 4.6 mmol/L (3.5-5.1)
[2018-03-07 22:45] LABS: B-TYPE NATRIURETIC PEPTIDE2 201.6 pg/mL (0-100); CREATINE KINASE MB 2.2 ng/mL (0-5.0)
[2018-03-07] MEDS ORDERED: VSL#3 CAPSULE1 EACH PO (23:10)
--- NOTE | 2018-03-07 23:53 | Diagnostic Imaging Report ---
EXAM: CT Abdomen and Pelvis WITHOUT contrast INDICATION: Abdominal pain, diarrhea COMPARISON: None. TECHNIQUE: Abdomen and pelvis were scanned utilizing a multidetector helical scanner from the lung base to the pubic symphysis without administration of IV contrast. Absence of intravenous contrast decreases sensitivity for detection of focal lesions and vascular pathology. Coronal and sagittal reformations were obtained. Routine protocol was performed. IV CONTRAST: None. ORAL CONTRAST: Water RADIATION DOSE: Total DLP: 176.82 mGy*cm Estimated effective dose: (DLP x 0.015 x size factor) mSv COMPLICATIONS: None FINDINGS: LINES and TUBES: None. LOWER THORAX: Minimal left lung base atelectasis. Coronary artery calcifications. HEPATOBILIARY: No focal hepatic lesions. No biliary ductal dilation. GALLBLADDER: Gallbladder is not visualized and most likely have had a prior cholecystectomy SPLEEN: No splenomegaly. PANCREAS: No focal masses or ductal dilatation. ADRENALS: No adrenal nodules KIDNEYS/URETERS: No hydronephrosis. No cystic or solid mass lesions. No stones. GI TRACT: Large amount of fluid throughout the colon more significantly in the cecum. The most dependent portion of the cecum contains hyperdense fluid which is nonspecific. Appendix is normal. PELVIC ORGANS/BLADDER: There are postop changes of hysterectomy and bilateral oophorectomies. The urinary bladder is not visualized/collapse LYMPH NODES: No lymphadenopathy. VESSELS: There is severe atherosclerotic disease in the aorta and major arterial branches. PERITONEUM / RETROPERITONEUM: No free air or fluid. BONES: Diffuse demineralization. Chronic compression deformity of L3 vertebral body with approximately 70% of decreased vertebral height. There is also chronic compression deformity of T12 with approximately 25% of superior endplate decreased height. SOFT TISSUES: Unremarkable. IMPRESSION: 1. Findings in the GI tract are compatible with enterocolitis. 2. Lack of urinary bladder distention suggests severe dehydration or recent voiding. 3. Extensive atherosclerotic disease of the thoracoabdominal aorta including coronary arteries Signed by: Dr. Bassam Medina M.D. on 03/07/2018 11:49 PM
[2018-03-08] VITALS (9 sets, daily range): BP systolic 100–116; BP diastolic 46–68
--- NOTE | 2018-03-08 00:24 | Diagnostic Imaging Report ---
EXAMINATION: CHEST SINGLE (PORTABLE) INDICATION: Abdominal pain, diarrhea COMPARISON: November 18, 2017 FINDINGS: TUBES and LINES: None. LUNGS: Lungs are well inflated. Focal area of ill-defined opacity in the left upper lung. PLEURA: No pleural effusion or pneumothorax. HEART AND MEDIASTINUM: The cardiomediastinal silhouette is unremarkable. There are atherosclerotic calcifications within the aorta. BONES AND SOFT TISSUES: No acute osseous lesion. Soft tissues are unremarkable. UPPER ABDOMEN: No free air under the diaphragm. IMPRESSION: No evidence of lobar pneumonia, however, there is a focus of airspace opacity in the left mid to upper lung measuring approximately 2.1 cm in largest diameter. This may represent a ill-defined pulmonary nodule or developing infection in the appropriate clinical setting. Signed by: Dr. Bassam Medina M.D. on 03/08/2018 12:20 AM
[2018-03-08] MEDS ORDERED: METRONIDAZOLE 500MG/NS 100ML 100 ML IV STA (00:28)
[2018-03-08] MEDS ORDERED: CIPROFLOXACIN 400 MG/D5W 200ML 200 ML IV STA (00:28)
--- NOTE | 2018-03-08 00:39 | Diagnostic Imaging Report ---
History: Fall. Comparison studies: No direct comparison, compared with CT abdomen and pelvis from 03/05/2018 and 11/18/2017. Technique: Axial were obtained without IV contrast through the thoracic region. Coronal and sagittal images reconstructed from the axial data. Intravenous contrast: None Findings: Alignment: Exaggeration of normal thoracic kyphosis. No scoliosis. Soft tissues: Emphysematous changes in bilateral lung parenchyma. Atherosclerotic calcification in the aorta and its branches as well as coronary artery atherosclerosis.. Paraspinal muscles: Unremarkable Spinal cord: Can not be evaluated. Vertebrae: Diffuse osseous demineralization. Age indeterminate, possible acute/subacute compression fracture of T9 vertebral body with approximately 50% loss of vertebral body height without retropulsion into the spinal canal. There is associated step-off deformity along the lateral margins of the vertebrae (best seen in image 44, series 303). Age indeterminate compression fracture of T10 and T11 with approximately 25% loss of vertebral body height without retropulsion. Mild superior endplate compression of T8 vertebral body. Chronic compression fracture of T12 vertebral body with approximately 25% loss of vertebral body height. Degenerative changes: Multilevel degenerative disc disease and anterior vertebral osteophytes of the mid and lower thoracic spine. Vacuum phenomena at T9-T10. No canal stenosis. IMPRESSION: 1. Age indeterminate possible acute/subacute fracture of T9 vertebral body. 2. Age indeterminate compression fracture of T10 and T11 and mild superior endplate compression of T8. Chronic compression fracture of T12. 3. Diffuse osseous demineralization. 4. Ligament, spinal cord and or vascular abnormalities cannot be excluded on the basis of this examination. Signed by: Dr. Teri Alonso M.D. on 03/08/2018 12:35 AM
[2018-03-08] MEDS ORDERED: CIPROFLOXACIN 400 MG/D5W 200ML 200 ML IV SCH (00:45)
[2018-03-08] MEDS ORDERED: FENTANYL CITRATE/PF 100MCG/2 ML INJ IV ONE (01:15)
[2018-03-08] MEDS ORDERED: NITROGLYCERIN 0.4 MG SUBL SL SCH (05:30)
[2018-03-08] MEDS ORDERED: FUROSEMIDE 40 MG TAB PO PRN (05:30)
[2018-03-08] MEDS ORDERED: CLOPIDOGREL BISULFATE 75 MG TAB PO SCH ×2 (05:30→17:30)
[2018-03-08] MEDS: METRONIDAZOLE 500MG/NS 100ML IV SCH ×4 (05:50→23:26)
[2018-03-08] MEDS ORDERED: LEVOTHYROXINE SODIUM 112 MCG TAB PO SCH (09:00)
[2018-03-08] MEDS: TIOTROPIUM 18 MCG INH POWDER INH SCH (09:00)
[2018-03-08] MEDS: BUPROPION HCL SR 150 MG TAB PO SCH (09:25)
[2018-03-08] MEDS: PREDNISONE 5 MG TAB PO SCH (09:25)
[2018-03-08] MEDS: AMLODIPINE BESYLATE 10 MG TAB PO SCH (09:25)
[2018-03-08] MEDS: HYDROMORPHONE 1MG/1ML INJ IV PRN ×2 (09:52→23:05)
[2018-03-08] MEDS: ATENOLOL 50 MG TAB PO SCH ×2 (11:30→17:00)
[2018-03-08] MEDS: ACETAMINOPHEN/CODEINE 300MG - 30MG TAB PO PRN (15:35)
[2018-03-08] MEDS: SIMVASTATIN 40 MG TAB PO SCH (21:14)
[2018-03-09] VITALS: BP 97/46
[2018-03-09 04:00] VITALS: BP 105/50
[2018-03-09] MEDS ORDERED: CITRATE OF MAGNESIA 300ML BOTTLE PO ONE ×3 (05:00→20:00)
[2018-03-09 06:09] LABS: BASOPHILS % 0.3 % (0.0-1.0); EOSINOPHILS # (AUTO) 0.3 (0.0-0.4); EOSINOPHILS % 3.2 % (0.0-6.0); HEMATOCRIT 36.9 % (34.2-44.1); LYMPHOCYTES # (AUTO) 2.2 (1.0-3.2); LYMPHOCYTES % 25.7 % (18.0-39.1); MEAN CORPUSCULAR HEMOGLOBIN 28.8 pg (28-32); MEAN CORPUSCULAR HGB CONC 32.5 g/dL (31-35); MEAN CORPUSCULAR VOLUME 88.7 fL (81-99); MONOCYTES # (AUTO) 0.9 (0.2-0.8); NEUTROPHILS # (AUTO) 5.2 (2.1-6.9); NEUTROPHILS % 60.2 % (38.7-80.0); PLATELET COUNT 334 x10e3/uL (140-360); RED BLOOD COUNT 4.16 x10e6/uL (3.6-5.1); RED CELL DISTRIBUTION WIDTH 13.8 % (11.7-14.4)
[2018-03-09] MEDS: HYDROMORPHONE 1MG/1ML INJ IV PRN ×2 (06:10→13:33)
[2018-03-09] MEDS: METRONIDAZOLE 500MG/NS 100ML IV SCH ×4 (06:26→23:17)
[2018-03-09] MEDS: LEVOTHYROXINE SODIUM 112 MCG TAB PO SCH (06:32)
[2018-03-09 06:33] LABS: ALANINE AMINOTRANSFERASE 13 IU/L (0-55); ALBUMIN 3.3 g/dL (3.5-5.0); ALBUMIN/GLOBULIN RATIO 1.1 (0.8-2.0); ALKALINE PHOSPHATASE 95 IU/L (40-150); ANION GAP 11.8 mmol/L (8-16); BLOOD UREA NITROGEN 11 mg/dL (7-26); BUN/CREATININE RATIO 14 (6-25); CARBON DIOXIDE 29 mmol/L (22-29); CHLORIDE 98 mmol/L (98-107); CREATININE, SERUM 0.81 mg/dL (0.57-1.11); EST GLOMERULAR FILTRATION RATE > 60 ML/MIN (60-); GLUCOSE 71 mg/dL (74-118); POTASSIUM 3.8 mmol/L (3.5-5.1); SODIUM 135 mmol/L (136-145)
[2018-03-09] MEDS: ONDANSETRON HCL INJ 2 MG/ML VIAL IV PRN ×2 (06:49→23:18)
[2018-03-09] MEDS: TIOTROPIUM 18 MCG INH POWDER INH SCH (07:17)
[2018-03-09] MEDS: ATENOLOL 50 MG TAB PO SCH ×2 (08:14→17:18)
[2018-03-09] MEDS: AMLODIPINE BESYLATE 10 MG TAB PO SCH (08:14)
[2018-03-09] MEDS: PREDNISONE 5 MG TAB PO SCH (08:14)
[2018-03-09 08:15] VITALS: BP 111/54
[2018-03-09] MEDS: BUPROPION HCL SR 150 MG TAB PO SCH (08:15)
[2018-03-09 08:48] VITALS: BP 111/54
[2018-03-09] MEDS: DEXTROSE 5%/LACTATED RINGERS 1,000 ML IV SCH (17:17)
[2018-03-09 20:00] VITALS: BP 125/68
[2018-03-09 21:00] VITALS: BP 125/68
[2018-03-09] MEDS: SIMVASTATIN 40 MG TAB PO SCH (21:43)
[2018-03-10] VITALS (8 sets, daily range): BP systolic 115–149; BP diastolic 58–68
[2018-03-10] MEDS: HYDROMORPHONE 1MG/1ML INJ IV PRN ×2 (01:12→17:48)
[2018-03-10] MEDS: METRONIDAZOLE 500MG/NS 100ML IV SCH ×4 (05:24→23:56)
[2018-03-10] MEDS: LEVOTHYROXINE SODIUM 112 MCG TAB PO SCH (05:24)
[2018-03-10] MEDS: DEXTROSE 5%/LACTATED RINGERS 1,000 ML IV SCH ×2 (05:25→20:44)
[2018-03-10] MEDS ORDERED: BISACODYL 5 MG TAB EC PO ONE ×6 (08:00→11:00)
[2018-03-10] MEDS: TIOTROPIUM 18 MCG INH POWDER INH SCH (09:00)
[2018-03-10] MEDS: PREDNISONE 5 MG TAB PO SCH (09:00)
[2018-03-10] MEDS: ATENOLOL 50 MG TAB PO SCH ×2 (09:00→16:59)
[2018-03-10] MEDS: AMLODIPINE BESYLATE 10 MG TAB PO SCH (09:00)
[2018-03-10] MEDS: BUPROPION HCL SR 150 MG TAB PO SCH (09:00)
[2018-03-10] MEDS: ACETAMINOPHEN/CODEINE 300MG - 30MG TAB PO PRN (17:44)
[2018-03-10] MEDS: SIMVASTATIN 40 MG TAB PO SCH (20:40)
[2018-03-11] VITALS: BP 126/71
[2018-03-11 04:00] VITALS: BP 128/67
[2018-03-11 04:55] LABS: BASOPHILS % 0.3 % (0.0-1.0); EOSINOPHILS # (AUTO) 0.2 (0.0-0.4); HEMATOCRIT 31.8 % (34.2-44.1); HEMOGLOBIN 10.5 g/dL (12.0-16.0); LYMPHOCYTES # (AUTO) 1.1 (1.0-3.2); MEAN CORPUSCULAR HEMOGLOBIN 28.6 pg (28-32); MEAN CORPUSCULAR VOLUME 86.6 fL (81-99); MONOCYTES # (AUTO) 0.6 (0.2-0.8); MONOCYTES % 9.5 % (4.4-11.3); NEUTROPHILS # (AUTO) 4.7 (2.1-6.9); NEUTROPHILS % 69.9 % (38.7-80.0); PLATELET COUNT 277 x10e3/uL (140-360); RED BLOOD COUNT 3.67 x10e6/uL (3.6-5.1); RED CELL DISTRIBUTION WIDTH 13.5 % (11.7-14.4)
[2018-03-11 05:21] LABS: ALANINE AMINOTRANSFERASE 9 IU/L (0-55); ALBUMIN 2.8 g/dL (3.5-5.0); ALBUMIN/GLOBULIN RATIO 1.2 (0.8-2.0); ALKALINE PHOSPHATASE 82 IU/L (40-150); ANION GAP 10.5 mmol/L (8-16); BLOOD UREA NITROGEN < 5 mg/dL (7-26); CALCIUM 8.4 mg/dL (8.4-10.2); CARBON DIOXIDE 34 mmol/L (22-29); CHLORIDE 96 mmol/L (98-107); CREATININE, SERUM 0.69 mg/dL (0.57-1.11); EST GLOMERULAR FILTRATION RATE > 60 ML/MIN (60-); GLUCOSE 72 mg/dL (74-118); POTASSIUM 3.5 mmol/L (3.5-5.1); SODIUM 137 mmol/L (136-145)
[2018-03-11 05:45] LABS: BUN/CREATININE RATIO 7 (6-25)
[2018-03-11] MEDS: LEVOTHYROXINE SODIUM 112 MCG TAB PO SCH (05:59)
[2018-03-11] MEDS: METRONIDAZOLE 500MG/NS 100ML IV SCH ×3 (06:00→17:49)
[2018-03-11 08:00] VITALS: BP_SYST 126; BP_SYST 128; BP_DIAS 60; BP_DIAS 67
[2018-03-11] MEDS: BUPROPION HCL SR 150 MG TAB PO SCH (08:00)
[2018-03-11] MEDS: PREDNISONE 5 MG TAB PO SCH (08:00)
[2018-03-11] MEDS: ATENOLOL 50 MG TAB PO SCH ×2 (08:00→17:00)
[2018-03-11] MEDS ORDERED: AMLODIPINE BESYLATE 5 MG TAB PO SCH (09:00)
[2018-03-11] MEDS: DEXTROSE 5%/LACTATED RINGERS 1,000 ML IV SCH (09:00)
[2018-03-11] MEDS: HYDROMORPHONE 1MG/1ML INJ IV PRN (10:15)
[2018-03-11] MEDS: TIOTROPIUM 18 MCG INH POWDER INH SCH (11:00)
[2018-03-11 13:45] VITALS: BP 112/52
--- NOTE | 2018-03-11 13:57 | Operative Report ---
DATE OF PROCEDURE: March 11, 2018 REFERRING PHYSICIAN: Dr. Ken Hayden PROCEDURES PERFORMED 1. Esophagogastroduodenoscopy with esophageal dilatation and biopsies. 2. Colonoscopy with polypectomy. INDICATIONS FOR EGD: Dysphagia. INDICATIONS FOR COLONOSCOPY: Constipation, severe, laxative dependent. Abnormal CAT scan of the abdomen. MEDICATION: Patient was done under MAC. Please see anesthesiologist's note. PROCEDURE: With the patient in the left lateral decubitus position, the flexible fiberoptic Olympus gastroscope was introduced into the esophagus under direct visualization without any difficulty. There was some patchy erythema noted in the distal esophagus. Also, an approximately 6-mm sessile lesion was noted in the distal esophagus that was biopsied. A mild stricture was noted at the GE junction that was dilated to size 50-Slovak Meyer. The scope was then advanced with ease into the stomach. Mucosa overlying the antrum and the body revealed some patchy erythema and low-grade edema, and biopsies were obtained and sent to stain for H. pylori. Pylorus appeared to be of normal contour and shape. It was intubated with ease, and scope was advanced all the way to the 2nd portion of the duodenum. The scope was then withdrawn slowly. Mucosa overlying the proximal 2nd portion and the duodenal bulb appeared to be within normal limits. The scope was then withdrawn back into the stomach and retroflexed, and the mucosa overlying the fundus and the cardia appeared to be within normal limits. The scope was then straightened out. It was subsequently withdrawn. Patient tolerated the procedure well. IMPRESSION 1. Distal esophagitis, mild. 2. Approximately 6-mm sessile lesion, distal esophagus, biopsied. 3. Mild stricture at gastroesophageal junction dilated to size 50-[place] Meyer. 4. Gastritis, biopsied. Biopsies sent to stain for H. pylori. PLAN: Follow up histology. Initiate Protonix 40 mg 1 p.o. q.a.m. a.c. The patient was then turned around. After adequate lubrication of the anal canal, a flexible fiberoptic Olympus colonoscope was inserted into the rectum with ease and advanced all the way to the cecum. The scope was then withdrawn slowly. Of note, the prep was suboptimal with retained stools in the colon, but visualization was fair. Whatever was visualized of the mucosa overlying the cecum grossly appeared to be within normal limits. One polyp was snared from the proximal ascending colon. There was some scattered diverticular disease noted in the transverse and descending. There was no obvious obstructing or constricting lesion. One polyp was snared from the sigmoid colon. The rectum grossly appeared to be within normal limits. The scope was then retroflexed into the distal rectum. The area around the dentate line appeared to be within normal limits. The scope was then straightened out. It was subsequently withdrawn. Patient tolerated the procedure well. IMPRESSION 1. Suboptimal prep. 2. Diverticulosis. 3. Ascending colon polyp, snared. 4. Sigmoid colon polyp, snared. PLAN: Follow up histology. Initiate high-fiber, low-fat diet. Initiate high-fiber supplement. Will discuss with the patient regarding the use of Linzess or Amitiza in addition to an osmotic laxative. Job#: [id number] cc:KEN HAYDEN MD
[2018-03-11 15:43] VITALS: BP 112/52
[2018-03-11 16:00] VITALS: BP 102/55
[2018-03-11] MEDS ORDERED: PROPOFOL IV EMULSION 10 MG/ML 50 ML VIAL ONE (19:11)
[2018-03-11] MEDS ORDERED: LIDOCAINE HCL 2% LOCAL INJ 5 ML SDV VIAL INJ ONE (19:11)
== END 2018-03-11 18:18 | disposition home or self-care (01) | DRG 392 ==
LOC: ER 21:41 → UNDOADMIN 03-08 00:34 → ERHOLD 03-08 00:34 → MED/SURG2 03-08 01:39 → ERHOLD 03-08 12:39 → MED/SURG2 03-08 12:39
PROVIDERS: ADMIT Internal Medicine; ATTEND Internal Medicine
PROC: 0DBK8ZX Excision of Ascending Colon, Via Natural or Artificial Opening Endoscopic, Diagnostic (ICD-10-PCS; 2018-03-11)
PROC: 0DBN8ZX Excision of Sigmoid Colon, Via Natural or Artificial Opening Endoscopic, Diagnostic (ICD-10-PCS; 2018-03-11)
PROC: 0D748ZZ Dilation of Esophagogastric Junction, Via Natural or Artificial Opening Endoscopic (ICD-10-PCS; principal; 2018-03-11 11:53)
PROC: 0DB38ZX Excision of Lower Esophagus, Via Natural or Artificial Opening Endoscopic, Diagnostic (ICD-10-PCS; 2018-03-11 11:53)
PROC: 0DB78ZX Excision of Stomach, Pylorus, Via Natural or Artificial Opening Endoscopic, Diagnostic (ICD-10-PCS; 2018-03-11 11:53)
DX: K52.9 Noninfective gastroenteritis and colitis, unspecified (principal); E44.0 Moderate protein-calorie malnutrition; K20.9 Esophagitis, unspecified; K63.5 Polyp of colon; K59.09 Other constipation; F55.2 Abuse of laxatives; K57.30 Diverticulosis of large intestine without perforation or abscess without bleeding; K29.60 Other gastritis without bleeding; K22.2 Esophageal obstruction; I12.9 Hypertensive chronic kidney disease with stage 1 through stage 4 chronic kidney disease, or unspecified chronic kidney disease; N18.3 Chronic kidney disease, stage 3 (moderate); E86.0 Dehydration; I25.10 Atherosclerotic heart disease of native coronary artery without angina pectoris; J44.9 Chronic obstructive pulmonary disease, unspecified; Z79.02 Long term (current) use of antithrombotics/antiplatelets; Z79.52 Long term (current) use of systemic steroids
CPT/HCPCS: 36415; 43239; 43450; 45385; 71045; 72128; 74176; 74177; 80053; 82550; 82553; 82565; 83605; 83690; 83880; 84443; 84484; 84520; 85025; 85610; 85730; 87086; 88305; 88312; 93005; 94640; 99284; J1170; J2001; J2405; J7050; J7120; J7512; Q9967

== ENCOUNTER 2018-06-25 22:44 | Inpatient (IN) | payer MEDICARE ==
[~2018-06-25] VITALS: Ht 152.4 cm; Wt 45.8 kg
[~2018-06-25 22:44] MED LIST changes: +VSL#3 CAPSULE1 EACH PO
--- OUTSIDE RECORDS SUMMARY | 2018-06-25 22:47 | XMS REPORT | Continuity of Care Document ---
Author Author [facility] Organization Interface Address Unknown Phone Unavailable Problems Problem Status Onset Date Classification Date Reported Comments Source T8, T9, T10, T12 COMPRESSION FRACTURES Active 06/16/2018 [facility] THORACIC COMPRESSION FRACTURES Active 04/07/2018 [facility] Compression fracture of L3 lumbar vertebra with delayed healing 03/04/2018 03/07/2018 [facility] Chronic back pain 03/04/2018 03/07/2018 [facility] BACK PAIN Active 03/04/2018 [facility] [place] CLOSED WEDGE COMPRESSION FRACTURE OF MARCOS Active 02/12/2018 [facility] S22.080A - WEDGE COMPRESSION FRACTURE OF Active 02/04/2018 [facility] INTRACTABLE BACK PAIN Active 01/14/2018 [facility] Constipation 12/08/2017 Diagnosis 12/08/[address] [facility] Acute pharyngitis 12/08/2017 Diagnosis 12/08/[address] [facility] Deficiency of macronutrients 12/08/2017 Diagnosis 12/08/[address] [facility] Peripheral vascular disease 12/08/2017 Diagnosis 12/08/[address] [facility] Acute urinary tract infection 11/05/2017 Diagnosis 12/08/[address] [facility] Noncompliance with treatment 08/19/2017 Diagnosis 12/08/[address] [facility] Abnormal urinalysis 08/19/2017 Diagnosis 12/08/[address] [facility] Pain in throat 08/19/2017 Diagnosis 12/08/[address] [facility] Itching of ear 08/19/2017 Diagnosis 12/08/2017 [facility] Major depressive disorder 08/19/2017 Diagnosis 12/08/2017 [facility] Chronic back pain 08/19/2017 Diagnosis 12/08/2017 [facility] Adult health examination 08/19/2017 Diagnosis 12/08/2017 [facility] Body mass index less than 20 08/19/2017 Diagnosis 12/08/2017 [facility] Advance directive discussed with patient 08/19/2017 Diagnosis 12/08/2017 [facility] Depression screening 08/19/2017 Diagnosis 12/08/2017 [facility] Discharge Diagnosis: Closed L3 vertebral fracture 08/17/2017 08/20/2017 [facility] Backache 05/12/2017 Diagnosis 12/08/[address] [facility] Low back pain 05/01/2017 Diagnosis 12/08/[address] [facility] Otitis externa 01/19/2017 Diagnosis 12/08/[address] [facility] Carotid artery stenosis 01/19/2017 Diagnosis 12/08/2017 [facility] Carotid Artery Stenosis 01/19/2017 Problem 12/08/2017 [facility] Gastroesophageal reflux disease 11/11/2016 Diagnosis 12/08/[address] [facility] Angina pectoris 11/11/2016 Diagnosis 12/08/2017 [facility] Benign essential hypertension 11/11/2016 Diagnosis 12/08/2017 [facility] Acute exacerbation of chronic obstructive airways disease 11/06/2016 Diagnosis 12/08/[address] [facility] Dyspnea 09/15/2016 Diagnosis 12/08/[address] [facility] Dysphagia 09/15/2016 Diagnosis 12/08/[address] [facility] Hypotensive episode 09/15/2016 Diagnosis 12/08/2017 [facility] Tobacco user 05/21/2016 Diagnosis 12/08/2017 [facility] Hypertensive disorder 05/21/2016 Diagnosis 12/08/2017 [facility] Chronic obstructive lung disease 05/21/2016 Diagnosis 12/08/2017 [facility] Hypothyroidism 05/21/2016 Problem 12/08/2017 [facility] Hyperlipidemia 05/21/2016 Problem 12/08/[address] [facility] Hypertensive Disorder 05/21/2016 Problem 12/08/[address] [facility] Angina Pectoris 05/21/2016 Problem 12/08/[address] [facility] Chronic Obstructive Lung Disease 05/21/2016 Problem 12/08/[address] [facility] Irritable Bowel Syndrome 05/21/2016 Problem 12/08/[address] [facility] Edema of Lower Extremity 05/21/2016 Problem 12/08/[address] [facility] COPD (<span ID="[id number]">Confirmed</span>) Active Problem 03/19/2018 [facility] Medications Medication Details Route Status Patient Instructions Ordering Provider Order Date Source sugammadex 200 mg, 2 mL, Route: IV, Drug form: SOLN, ONCE, Start date: 03/16/18 11:02:00 CDT, Stop date: 03/16/18 11:02:00 CDTNotes: (Same as: Bridion) Inactive 03/16/2018 [facility] Naloxone 0.4 mg, 1 mL, Route: IVP, Drug form: INJ, Q2MIN, Dosing Weight 41.364, kg, PRN Narcotic Reversal, Start date: 03/16/18 10:33:00 CDT, Duration: 8 doses or times, Stop date: 03/17/18 0:00:00 CDTNotes: Same as Narcan No Longer Active 03/16/2018 [facility] Ondansetron 4 mg, 2 mL, Route: IVP, Drug form: INJ, ONCE, Dosing Weight 41.364, kg, PRN Nausea & Vomiting, Start date: 03/16/18 10:33:00 CDTNotes: (Same as: Zofran) MEDICATION WASTE Product Size: 4 mg Product Wasted: ___ mg No Longer Active 03/16/2018 [facility] Flumazenil 0.2 mg, 2 mL, Route: IVP, Drug form: INJ, PRN, Dosing Weight 41.364, kg, PRN Benzodiazepine Reversal, Initial dose, Start date: 03/16/18 10:33:00 CDT, Duration: 30 day, Stop date: 04/15/18 10:32:00 C DTNotes: (Same as: Romazicon) No Longer Active 03/16/2018 [facility] Labetalol 10 mg, 2 mL, Route: IVP, Drug form: INJ, Q5Min, Dosing Weight 41.364, kg, PRN Elevated BP, Start date: 03/16/18 10:33:00 CDT, Duration: 5 doses or times, Stop date: 03/17/18 0:00:00 CDT No Longer Active 03/16/2018 [facility] Acetaminophen 1,000 mg, Route: IVPB, Drug form: INJ, ONCE, Dosing Weight 41.364, kg, PRN Pain Score 1-3, Start date: 03/16/18 10:33:00 CDT Inactive 03/16/2018 [facility] Acetaminophen 300 MG / Codeine Phosphate 30 MG Oral Tablet [Tylenol with Codeine #3] 1 tab, Route: PO, Drug Form: TAB, Dosing Weight 41.364, kg, ONCE, PRN Pain Score 1-5, Start date: 03/16/18 10:04:00 CDTNotes: Do not exceed 4gm/day of acetaminophen. (Same as: Tylenol with Codeine # 3) No Longer Active 03/16/2018 [facility] tramadol hydrochloride 50 MG Oral Tablet 50 mg, Route: PO, Drug form: TAB, ONCE, Dosing Weight 41.364, kg, Start date: 03/16/18 10:04:00 CDT, Stop date: 03/16/18 10:04:00 CDT Inactive 03/16/2018 [facility] Acetaminophen 300 MG / Codeine Phosphate 30 MG Oral Tablet [Tylenol with Codeine #3] 1 tab, Route: PO, Drug Form: TAB, Dosing Weight 41.364, kg, ONCE, Start date: 03/16/18 9:51:00 CDT, Stop date: 03/16/18 9:51:00 CDTNotes: Do not exceed 4gm/day of acetaminophen. (Same as: Tylenol with Codeine # 3) Inactive 03/16/2018 [facility] Linzess PO, Daily, 0 Refill(s) Active 03/15/2018 [facility] Lidocaine 0.05 MG/MG Transdermal Patch 1 patch, TOP, Daily, PRN Pain Score 6-10, # 30 patch, 0 Refill(s) Active 03/04/2018 [facility] Morphine 2 mg, 0.5 mL, Route: IVP, Drug form: SOLN, ONCE, Dosing Weight 41.818, kg, Priority: STAT, Start date: 03/04/18 12:04:00 CDT, Stop date: 03/04/18 12:04:00 CDTNotes: (Same as:MORPhine Sulfate) Inactive 03/04/2018 [facility] Fentanyl 50 microgram, 1 mL, Route: IVP, Drug form: INJ, ONCE, Dosing Weight 41.818, kg, Priority: STAT, Start date: 03/04/18 11:27:00 CDT, Stop date: 03/04/18 11:27:00 CDTNotes: (Same as: Sublimaze) Preservative free. Inactive 03/04/2018 [facility] Lasix 20 mg, 1 tab, Route: PO, Drug form: TAB, Daily, Dosing Weight 45.455, kg, Start date: 01/15/18 9:00:00 CDT, Duration: 30 day, Stop date: 02/13/18 9:00:00 CDTNotes: (Same as: Lasix) May cause GI upset. Give with food or milk. No Longer Active 01/15/2018 [facility] Plavix 75 mg, 1 tab, Route: PO, Drug form: TAB, Daily, Dosing Weight 45.455, kg, Start date: 01/15/18 9:00:00 CDT, Duration: 30 day, Stop date: 02/13/18 9:00:00 CDTNotes: (Same As: Plavix) No Longer Active 01/15/2018 [facility] Amlodipine 5 mg, 1 tab, Route: PO, Drug form: TAB, Daily, Dosing Weight 45.455, kg, Start date: 01/15/18 9:00:00 CDT, Duration: 30 day, Stop date: 02/13/18 9:00:00 CDTNotes: (Same as: Norvasc) No Longer Active 01/15/2018 [facility] bifidobacterium infantis 4 mg oral capsule bifidobacterium infantis 4 mg oral capsule, 4 mg, Drug form: CAP, Route: PO, Daily, 01/15/18 9:00:00 CDT, Duration: 30 day, Stop date: 02/13/18 9:00:00 CDT No Longer Active 01/15/2018 [facility] Atenolol 25 MG Oral Tablet 25 mg, 1 tab, Route: PO, Drug form: TAB, BID, Dosing Weight 45.511, kg, Start date: 01/15/18 9:00:00 CDT, Duration: 30 day, Stop date: 02/13/18 21:00:00 CDTNotes: (Same As:Tenormin) No Longer Active 01/15/2018 [facility] Prednisone 5 mg, 2 tab, Route: PO, Drug form: TAB, Daily, Dosing Weight 45.455, kg, Start date: 01/15/18 9:00:00 CDT, Duration: 30 day, Stop date: 02/13/18 9:00:00 CDTNotes: Take with food. No Longer Active 01/15/2018 [facility] Thyroxine 112 microgram, 1 tab, Route: PO, Drug form: TAB, Q630AM, Dosing Weight 45.455, kg, Start date: 01/15/18 6:30:00 CDT, Duration: 30 day, Stop date: 02/13/18 6:30:00 CDTNotes: (Same as:Levothroid) No Longer Active 01/15/2018 [facility] *RN pls bring pts homemed bifidobacter to pharmacy to label* *RN pls bring pts homemed bifidobacter to pharmacy to label*, Reminder, Drug form: MISC, Route: MISC, QSHIFT, 01/15/18 0:00:00 CDT, Duration: 30 day, Stop date: 02/13/18 16:00:00 CDT No Longer Active 01/15/2018 [facility] Cyclobenzaprine hydrochloride 5 MG Oral Tablet [Flexeril] 5 mg=1 tab, PO, TID, X 7 day, # 21 tab, 0 Refill(s), Pharmacy: [facility] [id number] Active 01/15/2018 [facility] budesonide-formoterol 160 mcg-4.5 mcg/inh inhalation aerosol with adapter 2 inhalation, Route: INHALATION, Drug Form: AERO/A, BID, Start date: 01/14/18 21:00:00 CDT, Duration: 30 day, Stop date: 02/13/18 9:00:00 CDTNotes: (Same as: Symbicort) WASTE: Aerosol - Return to Pharmacy Inactive 01/15/2018 [facility] tramadol hydrochloride 50 MG Oral Tablet 50 mg, 1 tab, Route: PO, Drug form: TAB, Q6H, Dosing Weight 45.511, kg, PRN Pain Score 1-3, Start date: 01/14/18 18:21:00 CDT, Duration: 30 day, Stop date: 02/13/18 18:20:00 CDTNotes: Not to exceed 400mg/day. (Same As: Ultram) Inactive 01/14/2018 [facility] albuterol-ipratropium CFC free 100 mcg-20 mcg/inh inhalation aerosol 1 puff, Route: INHALER, Drug Form: AERO, Dosing Weight 45.455, kg, Q6H, Start date: 01/14/18 18:00:00 CDT, Duration: 30 day, Stop date: 02/13/18 12:00:00 CDTNotes: Same as: Combivent Respimat WASTE: Aerosol - Return to Pharmacy Inactive 01/14/2018 [facility] Docusate 100 mg, 1 cap, Route: PO, Drug form: CAP, BID, Dosing Weight 45.455, kg, Start date: 01/14/18 17:00:00 CDT, Duration: 30 day, Stop date: 02/13/18 9:00:00 CDTNotes: (Same as: Colace) (Do Not Crush) Inactive 01/14/2018 [facility] Advair Diskus 250 mcg-50 mcg inhalation powder 1 puff, Route: INHALATION, Dosing Weight 45.455, kg, BID, Start date: 01/14/18 17:00:00 CDT, Duration: 30 day, Stop date: 02/13/18 9:00:00 CDT Inactive 01/14/2018 [facility] senna 15 mg oral tablet 30 mg=2 tab, PO, Daily, PRN for constipation, # 24 tab, 0 Refill(s) Active 01/14/2018 [facility] fluticasone furoate 0.1 MG/ACTUAT Dry Powder Inhaler =1 puff, INHALATION, Q24H, 0 Refill(s) Active 01/14/2018 [facility] Atenolol 25 MG Oral Tablet 25 mg=1 tab, PO, BID, # 60 tab, 0 Refill(s) Active 01/14/2018 [facility] clopidogrel 75 mg oral tablet 75 mg=1 tab, PO, Daily, # 90 tab, 1 Refill(s) Active 01/14/2018 [facility] rosuvastatin 40 mg oral tablet 40 mg=1 tab, PO, Bedtime, # 60 tab, 0 Refill(s) Active 01/14/2018 [facility] Acetaminophen 300 MG / Codeine Phosphate 30 MG Oral Tablet 1 tab, PO, Q6H, PRN pain, # 28 tab, 0 Refill(s) Active 01/14/2018 [facility] predniSONE 5 mg oral tablet 5 mg=1 tab, PO, Daily, Give with food., # 30 tab, 0 Refill(s) Active 01/14/2018 [facility] amLODIPine 5 mg oral tablet 5 mg=1 tab, PO, Daily, # 30 tab, 0 Refill(s) Active 01/14/2018 [facility] buPROPion 150 mg/24 hours (XL) oral tablet, extended release 150 mg=1 tab, PO, Q24H, # 30 tab, 1 Refill(s) Active 01/14/2018 [facility] Nitroglycerin 0.4 MG Sublingual Tablet 0.4 mg=1 tab, SL, Q5Min, PRN Chest Pain, Give up to 3 doses. Call 911 if pain persists., # 25 tab, 3 Refill(s) Active 01/14/2018 [facility] levothyroxine 112 mcg (0.112 mg) oral capsule 112 microgram=1 cap, PO, Daily, # 30 cap, 3 Refill(s) Active 01/14/2018 [facility] Furosemide 20 MG Oral Tablet 20 mg=1 tab, PO, PRN, # 90 tab, 1 Refill(s) Active 01/14/2018 [facility] tiotropium 1.25 mcg/inh inhalation aerosol 2 puffs, INHALER, Daily, # 4 gm, 0 Refill(s) Active 01/14/2018 [facility] Albuterol 0.833 MG/ML / Ipratropium [place] 0.167 MG/ML Inhalant Solution 3 mL, INHALATION, BID, PRN Wheezing, # 30 ea, 1 Refill(s) Active 01/14/2018 [facility] bifidobacterium infantis 4 mg oral capsule 4 mg=1 cap, PO, Daily, # 28 cap, 0 Refill(s) Active 01/14/2018 [facility] Flexeril 5 mg, 0.5 tab, Route: PO, Drug form: TAB, Q12H, Dosing Weight 45.455, kg, PRN Spasm, Start date: 01/14/18 14:35:00 CDT, Duration: 30 day, Stop date: 02/13/18 14:34:00 CDTNotes: (Same As: Flexeril) Inactive 01/14/2018 [facility] Fentanyl 12.5 microgram, 0.25 mL, Route: IV, Drug form: INJ, Q4H, Dosing Weight 45.455, kg, PRN Pain Score 7-10, Start date: 01/14/18 14:32:00 CDT, Duration: 30 day, Stop date: 02/13/18 14:31:00 CDTNotes: (Same as: Sublimaze) Preservative free. Inactive 01/14/2018 [facility] Ondansetron 4 mg, 2 mL, Route: IVP, Drug form: INJ, Q6H, Dosing Weight 45.455, kg, PRN Nausea & Vomiting, Start date: 01/14/18 14:26:00 CDT, Duration: 30 day, Stop date: 02/13/18 14:25:00 CDTNotes: (Same as: Bianka) MEDICATION WASTE Product Size: 4 mg Product Wasted: ___ mg Inactive 01/14/2018 [facility] Acetaminophen 650 mg, 2 tab, Route: PO, Drug form: TAB, Q4H, Dosing Weight 45.455, kg, PRN Pain 1-3/Temp > 100.4 F, Start date: 01/14/18 14:26:00 CDT, Duration: 30 day, Stop date: 02/13/18 14:25:00 CDTNotes: Do not exceed 4 gm/day. (Same as: Tylenol) Inactive 01/14/2018 [facility] Fentanyl 25 microgram, 0.5 mL, Route: IVP, Drug form: INJ, ONCE, Dosing Weight 45.455, kg, Priority: STAT, Start date: 01/14/18 14:10:00 CDT, Stop date: 01/14/18 14:10:00 CDTNotes: (Same as: Sublimaze) Preservative free. Inactive 01/14/2018 [facility] Fentanyl 25 microgram, 0.5 mL, Route: IVP, Drug form: INJ, ONCE, Dosing Weight 45.455, kg, Priority: STAT, Start date: 01/14/18 11:16:00 CDT, Stop date: 01/14/18 11:16:00 CDTNotes: (Same as: Sublimaze) Preservative free. Inactive 01/14/2018 [facility] Fentanyl 25 microgram, 0.5 mL, Route: IVP, Drug form: INJ, ONCE, Dosing Weight 45.455, kg, Priority: STAT, Start date: 01/14/18 10:11:00 CDT, Stop date: 01/14/18 10:11:00 CDTNotes: (Same as: Sublimaze) Preservative free. Inactive 01/14/2018 [facility] Ceftriaxone 500 MG Injection ceftriaxone 500 mg solution for injection Take 500 mg by injection route. Active 12/08/2017 [facility] NITROFURANTOIN, MACROCRYSTALS 25 MG / Nitrofurantoin, Monohydrate 75 MG Oral Capsule nitrofurantoin monohydrate/macrocrystals 100 mg capsule Active 12/08/2017 [facility] Sulfamethoxazole 800 MG / Trimethoprim 160 MG Oral Tablet sulfamethoxazole 800 mg-trimethoprim 160 mg tablet Active 12/08/2017 [facility] Levothyroxine Sodium 0.112 MG Oral Tablet [Synthroid] Synthroid 112 mcg tablet Active 12/08/2017 [facility] Acetaminophen 300 MG / Codeine Phosphate 30 MG Oral Tablet acetaminophen 300 mg-codeine 30 mg tablet Active 11/05/2017 [facility] 24 HR Bupropion Hydrochloride 150 MG Extended Release Oral Tablet bupropion HCl XL 150 mg 24 hr tablet, extended release Active 11/05/2017 [facility] Lidocaine Hydrochloride 20 MG/ML Mucous Membrane Topical Solution Lidocaine Viscous 2 % mucosal solution Active 11/05/2017 [facility] pantoprazole 40 MG Delayed Release Oral Tablet pantoprazole 40 mg tablet,delayed release Active 11/05/2017 [facility] Vios Aerosol Delivery System Vios Aerosol Delivery System Active 11/05/2017 [facility] Acetaminophen 325 MG / Hydrocodone Bitartrate 5 MG Oral Tablet hydrocodone 5 mg-acetaminophen 325 mg tablet Active 08/19/2017 [facility] Levofloxacin 500 MG Oral Tablet levofloxacin 500 mg tablet Active 08/19/2017 [facility] Prednisone 20 MG Oral Tablet prednisone 20 mg tablet Active 08/19/2017 [facility] tizanidine 2 MG Oral Tablet tizanidine 2 mg tablet Active 08/19/2017 [facility] Triamcinolone Acetonide 1 MG/ML Topical Cream triamcinolone acetonide 0.1 % topical cream apply twice daily as needed Active 08/19/2017 [facility] Acetaminophen 325 MG / Hydrocodone Bitartrate 10 MG Oral Tablet [Beverly 10/325] 1 tab, Route: PO, Drug Form: TAB, Dosing Weight 44.545, kg, ONCE, STAT, Start date: 08/17/17 10:54:00 [employer] REPRESENTATIVE, Stop date: 08/17/17 10:54:00 PROFESSIONAL HE[employer] REPRESENTATIVE Inactive 08/17/2017 [facility] Amoxicillin 500 MG Oral Capsule amoxicillin 500 mg capsule Active 05/01/[address] [facility] doxycycline hyclate 100 MG Oral Capsule doxycycline hyclate 100 mg capsule Active 05/01/2017 [facility] doxycycline hyclate 100 MG Oral Tablet doxycycline hyclate 100 mg tablet Active 05/01/2017 [facility] Hydrocortisone 10 MG/ML / Neomycin 3.5 MG/ML / Polymyxin B 39531 UNT/ML Otic Solution jjpvrpym-icpyyqwgc-bzsdgjskc 3.5 mg/mL-10,000 unit/mL-1 % ear solution Active 05/01/2017 [facility] Prednisone 10 MG Oral Tablet prednisone 10 mg tablet Active 05/01/2017 [facility] Rosuvastatin calcium 20 MG Oral Tablet rosuvastatin 20 mg tablet Take 1 tablet every day by oral route. Active 05/01/2017 [facility] Albuterol 0.83 MG/ML Inhalant Solution albuterol sulfate 2.5 mg/3 mL (0.083 %) solution for nebulization Inhale 3 mL as needed by nebulization route. Active 01/19/2017 [facility] lubiprostone 0.024 MG Oral Capsule [Amitiza] Amitiza 24 mcg capsule Take 1 capsule twice a day by oral route. Active 01/19/2017 [facility] Aspirin 81 MG Delayed Release Oral Tablet aspirin 81 mg tablet,delayed release Take 1 tablet every day by oral route. Active 01/19/2017 [facility] Rosuvastatin calcium 10 MG Oral Tablet rosuvastatin 10 mg tablet Active 01/19/2017 [facility] 0.5 ML Bordetella pertussis filamentous hemagglutinin vaccine, inactivated 0.01 MG/ML / Bordetella pertussis fimbriae 2/3 vaccine, inactivated 0.01 MG/ML / Bordetella pertussis pertactin vaccine, inactivated 0.006 MG/ML / Bordetella pertussis toxoid vaccine, inactivated 0.005 MG/ML / diphtheria toxoid vaccine, inactivated 4 UNT/ML / tetanus toxoid vaccine, inactivated 10 UNT/ML Prefilled Syringe [Adacel] Adacel (Tdap Adolesn/Adult)(PF)2 Lf-(2.5-5-3-5)-5 Lf/0.5 mL IM syringe Active 11/11/2016 [facility] 0.65 ML Varicella-Zoster Virus Vaccine Live ([employer]) strain [id number] UNT/ML Injection [Zostavax] Zostavax (PF) 19,400 unit/0.65 mL subcutaneous suspension Active 11/11/2016 [facility] Amoxicillin 500 MG / Clavulanate 125 MG Oral Tablet amoxicillin 500 mg-potassium clavulanate 125 mg tablet Active 05/21/2016 [facility] benzonatate 100 MG Oral Capsule benzonatate 100 mg capsule Active 05/21/2016 [facility] Cephalexin 500 MG Oral Capsule cephalexin 500 mg capsule Active 05/21/2016 [facility] Ciprofloxacin 500 MG Oral Tablet ciprofloxacin 500 mg tablet Active 05/21/2016 [facility] Clobetasol Propionate 0.0005 MG/MG Topical Ointment clobetasol 0.05 % topical ointment Active 05/21/2016 [facility] Fluocinonide 0.0005 MG/MG Topical Ointment fluocinonide 0.05 % topical ointment Active 05/21/2016 [facility] Urea 470 MG/ML Topical Cream [Keralac] Keralac 47 % topical cream Active 05/21/2016 [facility] levocetirizine dihydrochloride 5 MG Oral Tablet levocetirizine 5 mg tablet Active 05/21/2016 [facility] Codeine Phosphate 2 MG/ML / Guaifenesin 20 MG/ML Oral Solution Virtussin AC 10 mg-100 mg/5 mL oral liquid Active 05/21/2016 [facility] Albuterol 0.21 MG/ML Inhalant Solution albuterol sulfate 0.63 mg/3 mL solution for nebulization Active [facility] Align Align 1 po qd Active [facility] Amlodipine 10 MG Oral Tablet amlodipine 10 mg tablet TAKE 1 TABLET DAILY Active [facility] Atenolol 50 MG Oral Tablet atenolol 50 mg tablet TAKE 1 TABLET IN THE MORNING AND ONE-HALF (1/2) TABLET IN THE EVENING Active [facility] fluticasone furoate 0.1 MG/ACTUAT / vilanterol 0.025 MG/ACTUAT Dry Powder Inhaler Breo Ellipta 100 mcg-25 mcg/dose powder for inhalation Active [facility] clopidogrel 75 MG Oral Tablet clopidogrel 75 mg tablet Active [facility] Fluticasone propionate 0.05 MG/ACTUAT Metered Dose Nasal [place] fluticasone 50 mcg/actuation nasal spray,suspension Active [facility] Furosemide 40 MG Oral Tablet furosemide 40 mg tablet TAKE 1 TABLET DAILY Active [facility] Acetaminophen 300 MG / Hydrocodone Bitartrate 5 MG Oral Tablet hydrocodone 5 mg-acetaminophen 300 mg tablet Active [facility] Levothyroxine Sodium 0.112 MG Oral Capsule levothyroxine 112 mcg capsule Take 1 capsule every day by oral route. Active [facility] linaclotide 0.145 MG Oral Capsule [Linzess] Linzess 145 mcg capsule Take 1 capsule every day by oral route as needed for 30 days. Active [facility] Methocarbamol 500 MG Oral Tablet methocarbamol 500 mg tablet prn Active [facility] Hydrocortisone 10 MG/ML / Neomycin 3.5 MG/ML / Polymyxin B 40352 UNT/ML Otic Suspension ptwngdjh-aoigoyvlj-teskxfaht 3.5 mg-10,000 unit/mL-1 % ear drops,susp INSTILL 4 DROPS INTO AFFECTED EAR(S) BY OTIC ROUTE 3 TIMES PER DAY FOR 7 DAYS Active [facility] Nitroglycerin 0.4 MG Sublingual Tablet nitroglycerin 0.4 mg sublingual tablet Active [facility] Prednisone 5 MG Oral Tablet prednisone 5 mg tablet Active [facility] Rosuvastatin calcium 40 MG Oral Tablet rosuvastatin 40 mg tablet Active [facility] tiotropium 0.018 MG Inhalant Powder [Spiriva] Spiriva with HandiHaler 18 mcg and inhalation capsules Active [facility] tramadol hydrochloride 50 MG Oral Tablet tramadol 50 mg tablet Active [facility] Azithromycin 250 MG Oral Tablet Zithromax Z-Fredrick 250 mg tablet TAKE 2 TABLETS (500 MG) BY ORAL ROUTE ONCE DAILY FOR 1 DAY THEN 1 TABLET (250 MG) BY ORAL ROUTE ONCE DAILY FOR 4 DAYS Active [facility] Allergies, Adverse Reactions, Alerts Substance Category Reaction Severity Reaction type Status Date Reported Comments Source Erythromycin Base Allergy to substance 05/21/2016 [facility] Morphine Allergy to substance 05/21/2016 [facility] morphine Assertion itching Propensity to adverse reactions to drug Active [facility] azithromycin Assertion Drug allergy Active [facility] erythromycin Assertion Drug allergy Active [facility] Immunizations Immunization Date Given Site Status Last Updated Comments Source influenza, high dose seasonal 06/18/[address] [facility] influenza, high dose seasonal 05/21/2016 [address] [facility] influenza, injectable, [employer] 05/08/2015 completed [facility] Results Order Name Results Value Reference Range Date Interpretation Comments Source Bone Density DXA Dual Energy MA Bone Density DXA [employer] MA BONE DENSITY ASSESSMENT: 03/23/2018 CLINICAL DATA: Post menopausal. 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 FINDINGS: Bone density evaluation was performed 03/23/2018 on the left ultra distal radius and ulna using a HoloCanatu unit. The BMD average for the exam is 0.430 g/cm2. The T-score is -4.40. This matches the World Health Organization's criteria for osteoporosis and places the patient at a high risk for fracture. An additional bone density evaluation was performed 03/23/2018 on the right femur neck using a Hologic unit. The BMD average for the exam is 0.502 g/cm2. The T-score is -3.10 and the Z-score is -0.60. This matches the World Health Organization's criteria for osteoporosis and places the patient at a high risk for fracture. An additional bone density evaluation was performed 03/23/2018 on the left femur neck using a Hologic unit. The BMD average for the exam is 0.320 g/cm2. The T- score is -4.80 and the Z-score is -2.20. This matches the World Health Organization's criteria for osteoporosis and places the patient at a high risk for fracture. An additional bone density evaluation was performed 03/23/2018 on the right hip using a Hologic unit. The BMD average for the exam is 0.484 g/cm2. The T-score is -3.80 and the Z-score is -1.40. This matches the World Health Organization's criteria for osteoporosis and places the patient at a high risk for fracture. An additional bone density evaluation was performed 03/23/2018 on the left hip using a Hologic unit. The BMD average for the exam is 0.446 g/cm2. The T-score is -4.10 and the Z-score is -1.70. This matches the World Health Organization's criteria for osteoporosis and places the patient at a high risk for fracture. An additional bone density evaluation was performed 03/23/2018 on the AP L1-L4 region of spine using a Hologic unit. The BMD average for the exam is 0.694 g/cm2. The T-score is -3.20 and the Z-score is -0.30. This matches the World Health Organization's criteria for osteoporosis and places the patient at a high risk for fracture. IMPRESSION: OSTEOPOROSIS Patient is at high risk for fracture. This exam was interpreted at [id number] for FIDEL Ozuna 15. Irving Villar M.D., cm/erica:03/24/2018 12:17:26 Sack Sorter(s): Anuradha EASON(R)(M), [facility] 03/23/2018 - - Read by: Jsoe Rice MD Dictated Date/time: 03/24/18 12:17 Electronically Signed by: Jose Rice MD 03/24/18 12:17 FINAL REPORT [facility]OM[facility] Spine Thoracic wo contrast MRI Spine Thoracic wo contrast MRI EXAM: MRI THORACIC SPINE WITHOUT CONTRAST DATE: 03/16/2018 7:30 AM CDT INDICATION: closed wedge compression fracture of eleventh thoracic vertebra, closed wedge compression fracture of third lumbar vertebra - under anesthesia COMPARISON: Thoracic spine CT 01/14/2018 TECHNIQUE: Multiplanar, multisequence noncontrast MR imaging of the thoracic spine. IV contrast: None. FINDINGS: Exaggeration of discretion exaggerated kyphotic curvature. No spondylolisthesis or translation. Multilevel vertebral body height loss and index levels as follows: -- Mild (25%) T4 -- Mild (25%) T7 with marrow edema -- Mild to moderate (25-50%) T8 with marrow edema -- Moderate to severe (50-75%) T9 with marrow edema -- Moderate (50%) T10 with marrow edema -- Moderate to severe (50-75%) T11 -- Moderate to severe (50-75%) T12 with marrow edema Minimal posterior included retropulsion of the T11 and T12 vertebral bodies with mild spinal canal stenosis but no spinal cord compression. The thoracic spinal cord is normal in caliber and signal. Multilevel degenerative disc disease without disc herniation. No spinal canal hemorrhage. Small bilateral pleural effusions. IMPRESSION: Multilevel acute/subacute compression fractures of T8, T9, T10, and T12 with no spinal cord or nerve root compression. Other levels show chronic compression fractures. No disc herniation or spinal canal hemorrhage. 03/16/2018 - - Read by: Yuki Gallo MD Dictated Date/time: 03/16/18 16:58 Electronically Signed by: Yuki Gallo MD 03/16/18 17:09 FINAL REPORT [facility] ELECTROLYTES Potassium Lvl 4.2 meq/L 3.5 - 5.1 03/04/2018 [facility] ELECTROLYTES Chloride Lvl 101 meq/L 95 - 109 03/04/2018 [facility] ELECTROLYTES eGFR 65 mL/min/1.73m2 03/04/2018 Result Comment: The eGFR is calculated using the CKD-EPI formula. In most young, healthy individuals the eGFR will be >90 mL/min/1.73m2. The eGFR declines with age. An eGFR of 60-89 may be normal in some populations, particularly the elderly, for whom the CKD-EPI formula has not been extensively validated. Use of the eGFR is not recommended in the following populations: Individuals with unstable creatinine concentrations, including patients and those with serious co-morbid conditions. Patients with extremes in muscle mass or diet. The data above are obtained from the National Kidney Disease Education Program (NKDEP) which additionally recommends that when the eGFR is used in patients with extremes of body mass index for purposes of drug dosing, the eGFR should be multiplied by the estimated BMI. [facility] ELECTROLYTES CO2 34 meq/L 24 - 32 03/04/2018 [facility] ELECTROLYTES Calcium Lvl 9.6 mg/dL 8.5 - 10.5 03/04/2018 [facility] ELECTROLYTES AGAP 9.2 meq/L 10.0 - 20.0 03/04/2018 [facility] ELECTROLYTES Creatinine Lvl 0.82 mg/dL 0.50 - 1.40 03/04/2018 [facility] ELECTROLYTES BUN 8 mg/dL 7 - 22 03/04/2018 [facility] ELECTROLYTES Sodium Lvl 140 meq/L 135 - 145 03/04/2018 [facility] ELECTROLYTES Glucose Lvl 102 mg/dL 70 - 99 03/04/2018 [facility] CARDIAC ENZYMES Troponin-I null 0.00 - 0.40 01/14/2018 [facility] ELECTROLYTES AGAP 7.1 meq/L 10.0 - 20.0 01/14/2018 [facility] ELECTROLYTES eGFR 70 mL/min/1.73m2 01/14/2018 Result Comment: The eGFR is calculated using the CKD-EPI formula. In most young, healthy individuals the eGFR will be >90 mL/min/1.73m2. The eGFR declines with age. An eGFR of 60-89 may be normal in some populations, particularly the elderly, for whom the CKD-EPI formula has not been extensively validated. Use of the eGFR is not recommended in the following populations: Individuals with unstable creatinine concentrations, including patients and those with serious co-morbid conditions. Patients with extremes in muscle mass or diet. The data above are obtained from the National Kidney Disease Education Program (NKDEP) which additionally recommends that when the eGFR is used in patients with extremes of body mass index for purposes of drug dosing, the eGFR should be multiplied by the estimated BMI. [facility] ELECTROLYTES Chloride Lvl 100 meq/L 95 - 109 01/14/2018 [facility] ELECTROLYTES CO2 33 meq/L 24 - 32 01/14/2018 [facility] ELECTROLYTES Calcium Lvl 9.0 mg/dL 8.5 - 10.5 01/14/2018 [facility] ELECTROLYTES Glucose Lvl 107 mg/dL 70 - 99 01/14/2018 [facility] ELECTROLYTES Creatinine Lvl 0.76 mg/dL 0.50 - 1.40 01/14/2018 [facility] ELECTROLYTES Sodium Lvl 136 meq/L 135 - 145 01/14/2018 [facility] ELECTROLYTES Potassium Lvl 4.1 meq/L 3.5 - 5.1 01/14/2018 [facility] ELECTROLYTES BUN 12 mg/dL 7 - 22 01/14/2018 [facility] HEMATOLOGY Segs-Bands # 5.8 K/CMM 1.5 - 8.1 01/14/2018 [facility] [place] Basophils 1.0 % 0.0 - 1.0 01/14/2018 [facility] HEMATOLOGY Basophils # 0.1 K/CMM 0.0 - 0.2 01/14/2018 [facility] HEMATOLOGY Monocytes # 0.7 K/CMM 0.0 - 0.8 01/14/2018 [facility] [place] Lymphocytes # 1.5 K/CMM 1.0 - 5.5 01/14/2018 [facility] [place] Monocytes 8.9 % 2.0 - 12.0 01/14/2018 [facility] HEMATOLOGY Eosinophils 0.6 % 0.0 - 4.0 01/14/2018 [facility] [place] Lymphocytes 18.2 % 20.0 - 40.0 01/14/2018 [facility] [place] Segs 71.3 % 45.0 - 75.0 01/14/2018 [facility] [place] Platelet 374 K/CMM 133 - 450 01/14/2018 [facility] [place] MPV 7.6 fL 7.4 - 10.4 01/14/2018 [facility] [place] RDW 13.7 % 11.5 - 14.5 01/14/2018 [facility] [place] MCV 86.6 fL 80.0 - 98.0 01/14/2018 [facility] [place] MCH 28.8 pg 27.0 - 31.0 01/14/2018 [facility] HEMATOLOGY MCHC 33.2 g/dL 32.0 - 36.0 01/14/2018 [facility] [place] Hct 38.1 % 36.0 - 48.0 01/14/2018 [facility] [place] RBC 4.41 M/CMM 4.20 - 5.40 01/14/2018 [facility] [place] Hgb 12.7 g/dL 12.0 - 16.0 01/14/2018 [facility] [place] WBC 8.1 K/CMM 3.7 - 10.4 01/14/2018 [facility] Chest 1view DX Chest 1view DX EXAM: Chest radiograph HISTORY: Mid back pain COMPARISON: None TECHNIQUE: Frontal view of the chest FINDINGS/IMPRESSION: COPD. No appreciable pneumonia, edema, or significant pleural effusion. Probable calcified granuloma left upper lobe; follow-up radiographs in 6 months can be obtained to document stability. Heart size normal. Mild elevation left hemidiaphragm. SL: [id number] 01/14/2018 - - Read by: Porter Herrera MD Dictated Date/time: 01/14/18 15:56 Electronically Signed by: Porter Herrera MD 01/14/18 16:00 FINAL REPORT [facility] Spine thoracic wo contrast CT Spine thoracic wo contrast CT Spine thoracic wo contrast CT CLINICAL HX: - severe back pain; COMPARISON: Lumbar spine 2 views 08/17/2017 TECHNIQUE: Contiguous transaxial 2.5 mm images were obtained through the thoracic spine. Images were reformatted in sagittal and coronal projections. FINDINGS: BONES: There is moderate loss of vertebral body height at T10, T11 and T12 levels. There is sclerotic change at the superior endplate of all 3 vertebral bodies. The bony canal is grossly patent in the thoracic spine. SOFT TISSUES: The paraspinal soft tissues are unremarkable. Lungs and Airways: Extensive changes of emphysema are present in both lungs. Bullous disease is noted in the upper lung zones. IMPRESSION: Loss of vertebral body height at T10, T11 and T12 levels. These may reflect subacute injuries, but correlation with clinical exam is recommended. SL: [id number] 01/14/2018 - - Read by: Dread Garcia MD Dictated Date/time: 01/14/18 12:45 Electronically Signed by: Dread Garcia MD 01/14/18 13:45 FINAL REPORT [facility] Bacteria identified in Urine by Culture culture, urine, routine see note 11/08/[address] [facility] Bacteria identified in Urine by Culture culture, urine, routine see note 08/21/[address] 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 5 lumbar type vertebral bodies. Normal alignment. Approximate 50% biconcave compression deformity of the L3 vertebral body. Narrowing of the L4-5 and L5-S1 disc spaces. Marginal osteophytes scattered in the spine and most pronounced at the L2-3 level. Gaseous distention of visualized large and small bowel without dilatation. IMPRESSION: 1. Approximately 50% compression deformity of the L3 vertebral body, age indeterminate. 2. Multilevel disc space narrowing. SL: [id number] 08/17/2017 - - Read by: Travon Billy MD Dictated Date/time: 08/17/17 11:22 Electronically Signed by: Travon Billy MD 08/17/17 11:26 FINAL REPORT [facility] Comprehensive metabolic 1999 panel - Serum or Plasma ALT 22 U/L 0 - 55 06/18/2017 [facility] Comprehensive metabolic 1999 panel - Serum or Plasma AST 26 U/L 5 - 34 06/18/2017 [facility] Comprehensive metabolic 1999 panel - Serum or Plasma BUN 7.4 mg/dL 9.8 - 20.1 06/18/2017 [facility] Comprehensive metabolic 1999 panel - Serum or Plasma alk phos 78 unit/L 40 - 150 06/18/2017 [facility] Comprehensive metabolic 1999 panel - Serum or Plasma glucose 96 mg/dL 70 - 99 06/18/2017 [facility] Comprehensive metabolic 1999 panel - Serum or Plasma albumin 3.4 g/dL 3.5 - 5.0 06/18/2017 [facility] Comprehensive metabolic 1999 panel - Serum or Plasma creatinine 0.68 mg/dL 0.57 - 1.11 06/18/2017 [facility] Comprehensive metabolic 1999 panel - Serum or Plasma eGFR non- >60 >60 06/18/2017 [facility] Comprehensive metabolic 1999 panel - Serum or Plasma total bilirubin 0.3 mg/dL 0.2 - 1.2 06/18/2017 [facility] Comprehensive metabolic 1999 panel - Serum or Plasma eGFR - >60 >60 06/18/2017 [facility] Comprehensive metabolic 1999 panel - Serum or Plasma sodium 139 mEq/L 136 - 145 06/18/2017 [facility] Comprehensive metabolic 1999 panel - Serum or Plasma potassium 5.9 mEq/L 3.5 - 5.1 06/18/2017 [facility] Comprehensive metabolic 1999 panel - Serum or Plasma chloride 99 mmol/L 98 - 107 06/18/2017 [facility] Comprehensive metabolic 1999 panel - Serum or Plasma total protein 6.6 g/dL 6.4 - 8.3 06/18/2017 [facility] Comprehensive metabolic 1999 panel - Serum or Plasma calcium 9.5 mg/dL 8.4 - 10.2 06/18/2017 [facility] Comprehensive metabolic 1999 panel - Serum or Plasma CO2 30.8 mmol/L 23.0 - 31.0 06/18/2017 [facility] Comprehensive metabolic 1999 panel - Serum or Plasma anion gap 9 calc 06/18/2017 [facility] Lipid 1996 panel - Serum or Plasma HDL 75 mg/dL 40 - 60 06/18/2017 [facility] Lipid 1996 panel - Serum or Plasma triglyceride 104 mg/dL 0 - 149 06/18/2017 [facility] Lipid 1996 panel - Serum or Plasma VLDL calc. 21 mg/dL 06/18/2017 [facility] Lipid 1996 panel - Serum or Plasma cholesterol/HDL ratio 2.3 mg/dL 06/18/2017 [facility] Lipid 1995 panel - Serum or Plasma non-HDL cholesterol calc. 100 mg/dL 0 - 160 06/18/2017 [facility] Lipid 1995 panel - Serum or Plasma cholesterol 175 mg/dL 0 - 199 06/18/2017 [facility] Lipid 1995 panel - Serum or Plasma LDL calc. 79 mg/dL 0 - 130 06/18/2017 [facility] Thyrotropin [Units/volume] in Serum or Plasma TSH 0.427 uIU/mL 0.350 - 4.940 06/18/2017 [facility] CBC W Auto Differential panel - Blood WBC 7.45 x10*3/L 3.98 - 10.04 06/18/2017 [facility] CBC W Auto Differential panel - Blood RBC 4.17 10*12/L 3.93 - 5.22 06/18/2017 [facility] CBC W Auto Differential panel - Blood hemoglobin 12.00 g/dL 11.20 - 15.70 06/18/2017 [facility] CBC W Auto Differential panel - Blood hematocrit 38.9 % 34.1 - 44.9 06/18/2017 [facility] CBC W Auto Differential panel - Blood MCV 93.3 fL 80.0 - 100.0 06/18/2017 [facility] CBC W Auto Differential panel - Blood MCH 28.8 pg 25.6 - 32.2 06/18/2017 [facility] CBC W Auto Differential panel - Blood MCHC 30.8 g/dL 32.2 - 35.5 06/18/2017 low [facility] CBC W Auto Differential panel - Blood RDW-SD 48.7 fL 36.4 - 46.3 06/18/2017 [facility] CBC W Auto Differential panel - Blood platelet count 366.0 k/uL 182.0 - 369.0 06/18/2017 [facility] CBC W Auto Differential panel - Blood MPV 10.6 fL 7.5 - 11.5 06/18/2017 [facility] CBC W Auto Differential panel - Blood neut% 59.3 % 34.0 - 71.1 06/18/2017 [facility] CBC W Auto Differential panel - Blood lymph% 22.6 % 19.3 - 51.7 06/18/2017 [facility] CBC W Auto Differential panel - Blood mon% 8.6 % 4.7 - 12.5 06/18/2017 [facility] CBC W Auto Differential panel - Blood eos% 8.6 % 0.7 - 5.8 06/18/2017 [facility] CBC W Auto Differential panel - Blood baso% 0.9 % 0.1 - 1.2 06/18/2017 [facility] CBC W Auto Differential panel - Blood neut# 4.4 x10*3/L 1.6 - 6.1 06/18/2017 [facility] CBC W Auto Differential panel - Blood lymph# 1.7 x10*3/L 1.2 - 3.7 06/18/2017 [facility] CBC W Auto Differential panel - Blood mon# 0.6 x10*3/L 0.2 - 0.9 06/18/2017 [facility] CBC W Auto Differential panel - Blood eos# 0.64 x10*3/L 0.04 - 0.36 06/18/2017 [facility] CBC W Auto Differential panel - Blood baso# 0.07 x10*3/L 0.01 - 0.08 06/18/2017 [facility] metabolic 1999 panel - Serum or Plasma glucose 120 mg/dL 65 - 99 11/13/2016 [facility] Comprehensive metabolic 1999 panel - Serum or Plasma urea nitrogen (BUN) 16 mg/dL 7 - 25 11/13/2016 [facility] metabolic 1999 panel - Serum or Plasma creatinine 0.79 mg/dL 0.60 - 0.88 11/13/2016 [facility] Comprehensive metabolic 1999 panel - Serum or Plasma eGFR non-afr. tuvaluan 68 mL/min/1.73m2 > or=60 11/13/2016 [facility] Comprehensive metabolic 1999 panel - Serum or Plasma eGFR 79 mL/min/1.73m2 > or=60 11/13/2016 [facility] Comprehensive metabolic 1999 panel - Serum or Plasma BUN/creatinine ratio not applicable 6 - 22 11/13/2016 [facility] metabolic 1999 panel - Serum or Plasma sodium 136 mmol/L 135 - 146 11/13/2016 [facility] Comprehensive metabolic 1999 panel - Serum or Plasma potassium 4.8 mmol/L 3.5 - 5.3 11/13/2016 [facility] Comprehensive metabolic 1999 panel - Serum or Plasma chloride 98 mmol/L 98 - 110 11/13/2016 [facility] Comprehensive metabolic 1999 panel - Serum or Plasma carbon dioxide 34 mmol/L 20 - 31 11/13/2016 [facility] metabolic 1999 panel - Serum or Plasma calcium 9.7 mg/dL 8.6 - 10.4 11/13/2016 [facility] Comprehensive metabolic 1999 panel - Serum or Plasma protein, total 6.8 g/dL 6.1 - 8.1 11/13/2016 [facility] Comprehensive metabolic 1999 panel - Serum or Plasma albumin 3.9 g/dL 3.6 - 5.1 11/13/2016 [facility] Comprehensive metabolic 1999 panel - Serum or Plasma globulin 2.9 g/dL_(calc) 1.9 - 3.7 11/13/2016 [facility] Comprehensive metabolic 1999 panel - Serum or Plasma albumin/globulin ratio 1.3 (calc) 1.0 - 2.5 11/13/2016 [facility] Comprehensive metabolic 1999 panel - Serum or Plasma bilirubin, total 0.4 mg/dL 0.2 - 1.2 11/13/2016 [facility] Comprehensive metabolic 1999 panel - Serum or Plasma alkaline phosphatase 81 U/L 33 - 130 11/13/2016 [facility] Comprehensive metabolic 1999 panel - Serum or Plasma AST 17 U/L 10 - 35 11/13/2016 [facility] Comprehensive metabolic 1999 panel - Serum or Plasma ALT 10 U/L 6 - 29 11/13/2016 [facility] Lipid 1995 panel - Serum or Plasma cholesterol, total 190 mg/dL 125 - 200 11/13/2016 [facility] Lipid 1995 panel - Serum or Plasma HDL cholesterol 83 mg/dL > or=46 11/13/2016 [facility] Lipid 1995 panel - Serum or Plasma triglycerides 86 mg/dL <150 11/13/2016 [facility] Lipid 1995 panel - Serum or Plasma LDL-cholesterol 90 mg/dL_(calc) <130 11/13/2016 [facility] Lipid 1995 panel - Serum or Plasma chol/HDLC ratio 2.3 (calc) < or=5.0 11/13/2016 [facility] Lipid 1995 panel - Serum or Plasma non HDL cholesterol 107 mg/dL_(calc) 11/13/2016 [facility] Comprehensive metabolic 1999 panel - Serum or Plasma ALT 10.0 U/L 0.0 - 55.0 05/22/2016 [facility] Comprehensive metabolic 1999 panel - Serum or Plasma AST 25.0 U/L 5.0 - 34.0 05/22/2016 [facility] Comprehensive metabolic 1999 panel - Serum or Plasma BUN 8.0 mg/dL 7.0 - 20.0 05/22/2016 [facility] Comprehensive metabolic 1999 panel - Serum or Plasma alk phos 75.0 unit/L 40.0 - 150.0 05/22/2016 [facility] Comprehensive metabolic 1999 panel - Serum or Plasma glucose 111.0 mg/dL 70.0 - 99.0 05/22/2016 high [facility] Comprehensive metabolic 1999 panel - Serum or Plasma albumin 4.0 g/dL 3.5 - 5.0 05/22/2016 [facility] Comprehensive metabolic 1999 panel - Serum or Plasma creatinine 0.8 mg/dL 0.6 - 1.1 05/22/2016 [facility] Comprehensive metabolic 1999 panel - Serum or Plasma eGFR non- >60 >60.0 05/22/2016 [facility] Comprehensive metabolic 1999 panel - Serum or Plasma total bilirubin 0.7 mg/dL 0.2 - 1.2 05/22/2016 [facility] Comprehensive metabolic 1999 panel - Serum or Plasma eGFR - >60 >60.0 05/22/2016 [facility] Comprehensive metabolic 1999 panel - Serum or Plasma sodium 140.0 mEq/L 137.0 - 144.0 05/22/2016 [facility] Comprehensive metabolic 1999 panel - Serum or Plasma potassium 4.7 mEq/L 3.5 - 5.0 05/22/2016 [facility] Comprehensive metabolic 1999 panel - Serum or Plasma chloride 98.0 mmol/L 101.0 - 110.0 05/22/2016 low [facility] Comprehensive metabolic 1999 panel - Serum or Plasma total protein 7.1 g/dL 6.4 - 8.3 05/22/2016 [facility] Comprehensive metabolic 1999 panel - Serum or Plasma calcium 10.0 mg/dL 8.4 - 10.2 05/22/2016 [facility] Comprehensive metabolic 1999 panel - Serum or Plasma CO2 31.6 mmol/L 23.0 - 31.0 05/22/2016 high [facility] Comprehensive metabolic 1999 panel - Serum or Plasma anion gap 10.4 calc 05/22/2016 [facility] Lipid 1995 panel - Serum or Plasma HDL 72.0 mg/dL 40.0 - 60.0 05/22/2016 high [facility] Lipid 1995 panel - Serum or Plasma triglyceride 102.0 mg/dL 0.0 - 149.0 05/22/2016 [facility] Lipid 1995 panel - Serum or Plasma VLDL calc. 20.4 mg/dL 05/22/2016 [facility] Lipid 1995 panel - Serum or Plasma cholesterol/HDL ratio 2.3 mg/dL 05/22/2016 [facility] Lipid 1995 panel - Serum or Plasma non-HDL cholesterol calc. 97.0 mg/dL 0.0 - 160.0 05/22/2016 [facility] Lipid 1995 panel - Serum or Plasma cholesterol 169.0 mg/dL 0.0 - 199.0 05/22/2016 [facility] Lipid 1995 panel - Serum or Plasma LDL calc. 76.6 mg/dL 0.0 - 130.0 05/22/2016 [facility] Thyrotropin [Units/volume] in Serum or Plasma TSH 0.079 uIU/mL 0.350 - 4.940 05/22/2016 [facility] Vital Signs Vital Sign Value Date Comments Source Systolic (mm Hg) 92 03/16/2018 [facility] Diastolic (mm Hg) 52 03/16/2018 [facility] Systolic (mm Hg) 113 03/16/2018 [facility] Diastolic (mm Hg) 58 03/16/2018 [facility] Respitory Rate 20 03/16/2018 [facility] Systolic (mm Hg) 108 03/16/2018 [facility] Diastolic (mm Hg) 55 03/16/2018 [facility] Respitory Rate 20 03/16/2018 [facility] Respitory Rate 31 03/16/2018 [facility] Heart Rate 66 03/16/2018 [facility] Height 152.4 cm 03/16/2018 [facility] BMI Calculated 17.81 03/16/2018 [facility] Weight 41.364 03/16/2018 [facility] Height 152.4 cm 03/15/2018 [facility] BMI Calculated 18.02 03/15/2018 [facility] Weight 41.864 03/15/2018 [facility] Temperature Oral (F) 98.1 F 03/04/2018 [facility] Systolic (mm Hg) 131 03/04/2018 [facility] Diastolic (mm Hg) 61 03/04/2018 [facility] [facility] Resp[facility] Rate 20 03/04/2018 [facility] Weight 41.818 03/04/2018 [facility] BMI Calculated 18.01 03/04/2018 [facility] Height 152.4 cm 03/04/2018 [facility] Respitory Rate 20 03/04/2018 [facility] Heart Rate 68 03/04/2018 [facility] Systolic (mm Hg) 123 03/04/2018 [facility] Diastolic (mm Hg) 63 03/04/2018 [facility] Temperature Oral (F) 98.4 F 03/04/2018 [facility] Systolic (mm Hg) 123 01/15/2018 [facility] Diastolic (mm Hg) 72 01/15/2018 [facility] Respitory Rate 18 01/15/2018 [facility] Heart Rate 70 01/15/2018 [facility] Temperature Oral (F) 98.5 F 01/15/2018 [facility] BMI Calculated 18.96 01/14/2018 [facility] Weight 45.511 01/14/2018 [facility] Height 154.94 cm 01/14/2018 [facility] Systolic (mm Hg) 127 01/14/2018 [facility] Diastolic (mm Hg) 69 01/14/2018 [facility] Systolic (mm Hg) 113 01/14/2018 [facility] Diastolic (mm Hg) 49 01/14/2018 [facility] Temperature Oral (F) 97.8 F 01/14/2018 [facility] Respitory Rate 20 01/14/2018 [facility] Temperature Oral (F) 97.5 F 01/14/2018 [facility] Respitory Rate 22 01/14/2018 [facility] BMI Calculated 18.33 01/14/2018 [facility] Weight 45.455 01/14/2018 [facility] Heart Rate 75 01/14/2018 [facility] Height 157.48 cm 01/14/2018 [facility] Diastolic (mm Hg) 58 12/08/2017 [facility] Height 65 12/08/2017 [facility] Systolic (mm Hg) 110 12/08/2017 [facility] Diastolic (mm Hg) 60 11/10/2017 [facility] Height 65 11/10/2017 [facility] Systolic (mm Hg) 122 11/10/2017 [facility] Diastolic (mm Hg) 56 11/05/2017 [facility] Height 65 11/05/2017 [facility] Systolic (mm Hg) 120 11/05/2017 [facility] Diastolic (mm Hg) 62 08/19/2017 [facility] Height 65 08/19/2017 [facility] Systolic (mm Hg) 110 08/19/2017 [facility] Weight 99 08/19/2017 [facility] Temperature Oral (F) 97.1 F 08/17/2017 [facility] Heart Rate 59 08/17/2017 [facility] Respitory Rate 18 08/17/2017 [facility] Systolic (mm Hg) 105 08/17/2017 [facility] Diastolic (mm Hg) 61 08/17/2017 [facility] Systolic (mm Hg) 125 08/17/2017 [facility] Diastolic (mm Hg) 80 08/17/2017 [facility] Heart Rate 59 08/17/2017 [facility] Respitory Rate 18 08/17/2017 [facility] Temperature Oral (F) 97.8 F 08/17/2017 [facility] Respitory Rate 18 08/17/2017 [facility] Systolic (mm Hg) 128 08/17/2017 [facility] Diastolic (mm Hg) 47 08/17/2017 [facility] Heart Rate 55 08/17/2017 [facility] Weight 44.545 08/17/2017 [facility] BMI Calculated 16.34 08/17/2017 [facility] Height 165.1 cm 08/17/2017 [facility] Temperature Oral (F) 97.8 F 08/17/2017 [facility] Diastolic (mm Hg) 48 05/12/2017 [facility] Height 65 05/12/2017 [facility] Systolic (mm Hg) 92 05/12/2017 [facility] Diastolic (mm Hg) 64 05/01/2017 [facility] Height 65 05/01/2017 [facility] Systolic (mm Hg) 121 05/01/2017 [facility] Weight 97.2 05/01/2017 [facility] Diastolic (mm Hg) 60 01/19/2017 [facility] Height 65 01/19/2017 [facility] Systolic (mm Hg) 126 01/19/2017 [facility] Weight 98 01/19/2017 [facility] Diastolic (mm Hg) 49 11/11/2016 [facility] Height 65 11/11/2016 [facility] Systolic (mm Hg) 96 11/11/2016 [facility] Diastolic (mm Hg) 56 11/06/2016 [facility] Height 65 11/06/2016 [facility] Systolic (mm Hg) 118 11/06/2016 [facility] Weight 95 11/06/2016 [facility] Diastolic (mm Hg) 53 09/15/2016 [facility] Height 65 09/15/2016 [facility] Systolic (mm Hg) 92 09/15/2016 [facility] Weight 94 09/15/2016 [facility] Diastolic (mm Hg) 72 05/21/2016 [facility] Height 65 05/21/2016 [facility] Systolic (mm Hg) 121 05/21/2016 [facility] Weight 101 05/21/2016 [facility] Encounters Location Location Details Encounter Type Encounter Number Reason For Visit Attending Provider ADM Date DC Date Status Source [place] - [facility] MD: [address] [place] [address], Ph. [id number] Gianni Gray 05/21/2016 [facility] [place] [facility] Gianni Gray MD: [address] [place] [address], Ph. [id number] Gianni Gray 09/15/2016 [facility] Gianni A. Darron Gray MD: [address] [place] [address], Ph. [id number] Giannimiracle Gray 11/06/2016 [facility] [place] [facility] Gianni A. Darron Gray MD: [address] [place], [place] [address], Ph. [id number] Gianni Gray 11/11/2016 [facility] Gianni A. Darron Gray MD: [address] [place] [address], Ph. [id number] Giannimiracle Gray 01/19/2017 [facility] Antony. Darron Gray MD: [address] [facility] [address] [place] [address], Ph. [id number] Gianni Gray 05/01/2017 [facility] Gianni A. Darron Gray MD: [address] [place] [address], Ph. [id number] Gianni Gray 05/12/2017 [facility] Gianni A. Darron Gray MD: [address] [place] [address], Ph. [id number] Gianni Gray 06/18/2017 [facility] Emergency [id number] Bernardo Mcnally 08/17/2017 08/17/2017 [facility] Gianni A. Darron Gray MD: [address] [place] [address], Ph. [id number] Gianni Gray 08/19/2017 [facility] [place] Fuentes Wilder MD: [address] [place] [address], Ph. [id number] Fuentes Wilder 11/05/2017 [facility] Gianni A. Darron Gray MD: [address] [place] [address], Ph. [id number] Gianni Gray 11/10/2017 [facility] Gianni A. Darron Gray MD: [address] [place] [address], Ph. [id number] Gianni Gray 12/08/2017 [facility] Observation [id number] Taco Frazier 01/14/2018 01/15/2018 [facility] Emergency [id number] Gonzales Wen 03/04/2018 03/04/2018 [facility] Day Surgery [id number] Nicola Mae 03/16/2018 03/17/2018 [facility] Procedures Procedure Code Date Perfomer Comments Source X-RAY THORACIC SPINE 2 VIEW [id number] 05/12/[address] [facility] XR, lumbar spine 05/12/[address] [facility] Egd 09/16/[address] [facility] Cancer Surgery 09/07/[address] [facility] Egd 01/31/2014 [facility] Colonoscopy 01/11/[address] [facility] Gastrointestinal Surgery 09/07/[address] [facility] Bowel Surgery Procedure [id number] 09/07/[address] [facility] Thyroid Surgery 09/07/[address] [facility] Removal of Thyroid [id number] 09/07/[address] [facility] Cholecystectomy 09/07/[address] [facility] Other 09/07/[address] [facility] Back Surgery 09/07/[address] [facility] Repair of Vagina [id number] 09/07/[address] [facility] Hysterectomy (Partial) 09/07/[address] [facility] Back Surgery 09/07/[address] [facility] Hemorrhoidectomy 09/07/[address] [facility] Appendectomy 09/07/[address] [facility] Tonsilectomy/adenoids 09/07/[address] [facility] Abdominal hysterectomy [id number] [facility] Appendectomy [id number] [facility] Complete resection of colon [id number] [facility] Gallbladder operation [id number] [facility] Laminectomy [id number] [facility] Removal of thyroid nodule [id number] [facility] Tonsillectomy [id number] [facility] Abdominal hysterectomy [id number] [facility] Appendectomy [id number] [facility] Complete resection of colon [id number] [facility] Gallbladder operation [id number] [facility] Laminectomy [id number] [facility] Removal of thyroid nodule [id number] [facility] Tonsillectomy [id number] [facility]
--- OUTSIDE RECORDS SUMMARY | 2018-06-25 22:47 | XMS REPORT | Summary of Care ---
Author Author [facility] Organization [facility] Address Unknown Phone Unavailable Encounter RIMA Mata(JERI) [id number] Date(s): 01/14/18 - 01/14/18 [facility] [address] [place] [address]- [phone] Discharge Disposition: Home or Self Care Attending Physician: Taco Frazier MD Admitting Physician: Taco Frazier MD Vital Signs 1 2 3 Most recent to oldest [Reference Range]: 154.94 cm (01/14/18 4:07 PM) 157.48 cm (01/14/18 9:38 AM) Height 98.5 DegF (01/14/18 7:10 PM) 97.8 DegF (01/14/18 3:13 PM) 97.5 DegF (01/14/18 3:05 PM) Temperature Oral [96.4-99.1 DegF] 123/72 mmHg (01/14/18 7:10 PM) 127/69 mmHg (01/14/18 4:07 PM) 113/49 mmHg (01/14/18 3:13 PM) Blood Pressure [90-140/60-90 mmHg] 18 BRMIN (01/14/18 7:10 PM) 20 BRMIN (01/14/18 3:13 PM) 22 BRMIN *HI* (01/14/18 3:05 PM) Respiratory Rate [14-20 BRMIN] 70 bpm (01/14/18 7:10 PM) 75 bpm (01/14/18 9:38 AM) Peripheral Pulse Rate [60-100 bpm] 45.511 kg (01/14/18 4:07 PM) 45.455 kg (01/14/18 9:38 AM) Weight 18.96 m2 (01/14/18 4:07 PM) 18.33 m2 (01/14/18 9:38 AM) Body Mass Index Problem List Condition Effective Dates Status Health Status Informant COPD (chronic Active obstructive pulmonary disease)(Confirmed) Allergies, Adverse Reactions, Alerts Substance Reaction Severity Status azithromycin Active morphine Active Medications *RN pls bring pts homemed bifidobacter to pharmacy to label* *RN pls bring pts homemed bifidobacter to pharmacy to label*, Reminder, Drug for m: MISC, Route: MISC, QSHIFT, 01/15/18 0:00:00 CDT, Duration: 30 day, Stop date: 02/13/18 16:00:00 CDT Start Date: 01/15/18 Stop Date: 01/14/18 Status: Canceled acetaminophen 650 mg, 2 tab, Route: PO, Drug form: TAB, Q4H, Dosing Weight 45.455, kg, PRN Armida n 1-3/Temp > 100.4 F, Start date: 01/14/18 14:26:00 CDT, Duration: 30 day, Stop date: 02/13/18 14:25:00 CDT Notes: Do not exceed 4 gm/day. (Same as: Tylenol) Start Date: 01/14/18 Stop Date: 01/14/18 Status: Discontinued acetaminophen-codeine 300 mg-30 mg oral tablet 1 tab, PO, Q6H, PRN pain, # 28 tab, 0 Refill(s) Start Date: 01/14/18 Stop Date: 01/21/18 Status: Ordered Advair Diskus 250 mcg-50 mcg inhalation powder 1 puff, Route: INHALATION, Dosing Weight 45.455, kg, BID, Start date: 01/14/18 1 7:00:00 CDT, Duration: 30 day, Stop date: 02/13/18 9:00:00 CDT Start Date: 01/14/18 Stop Date: 01/14/18 Status: Deleted albuterol-ipratropium 2.5-0.5 mg inhalation solution 3 mL, INHALATION, BID, PRN Wheezing, # 30 ea, 1 Refill(s) Start Date: 01/14/18 Status: Ordered albuterol-ipratropium CFC free 100 mcg-20 mcg/inh inhalation aerosol 1 puff, Route: INHALER, Drug Form: AERO, Dosing Weight 45.455, kg, Q6H, Start da te: 01/14/18 18:00:00 CDT, Duration: 30 day, Stop date: 02/13/18 12:00:00 CDT Notes: Same as: Combivent RespimatWASTE: Aerosol - Return to Pharmacy Start Date: 01/14/18 Stop Date: 01/14/18 Status: Discontinued amLODIPine 5 mg, 1 tab, Route: PO, Drug form: TAB, Daily, Dosing Weight 45.455, kg, Start d ate: 01/15/18 9:00:00 CDT, Duration: 30 day, Stop date: 02/13/18 9:00:00 CDT Notes: (Same as: Nordadac) Start Date: 01/15/18 Stop Date: 01/14/18 Status: Canceled amLODIPine 5 mg oral tablet 5 mg=1 tab, PO, Daily, # 30 tab, 0 Refill(s) Start Date: 01/14/18 Status: Ordered atenolol 25 mg oral tablet 25 mg=1 tab, PO, BID, # 60 tab, 0 Refill(s) Start Date: 01/14/18 Status: Ordered atenolol 25 mg oral tablet 25 mg, 1 tab, Route: PO, Drug form: TAB, BID, Dosing Weight 45.511, kg, Start da te: 01/15/18 9:00:00 CDT, Duration: 30 day, Stop date: 02/13/18 21:00:00 CDT Notes: (Same As:Roscoeormin) Start Date: 01/15/18 Stop Date: 01/14/18 Status: Canceled bifidobacterium infantis 4 mg oral capsule bifidobacterium infantis 4 mg oral capsule, 4 mg, Drug form: CAP, Route: PO, Iris ly, 01/15/18 9:00:00 CDT, Duration: 30 day, Stop date: 02/13/18 9:00:00 CDT Start Date: 01/15/18 Stop Date: 01/14/18 Status: Canceled bifidobacterium infantis 4 mg oral capsule 4 mg=1 cap, PO, Daily, # 28 cap, 0 Refill(s) Start Date: 01/14/18 Status: Ordered budesonide-formoterol 160 mcg-4.5 mcg/inh inhalation aerosol with adapter 2 inhalation, Route: INHALATION, Drug Form: AERO/A, BID, Start date: 01/14/18 21 :00:00 CDT, Duration: 30 day, Stop date: 02/13/18 9:00:00 CDT Notes: (Same as: Symbicort)WASTE: Aerosol - Return to Pharmacy Start Date: 01/14/18 Stop Date: 01/14/18 Status: Discontinued buPROPion 150 mg/24 hours (XL) oral tablet, extended release 150 mg=1 tab, PO, Q24H, # 30 tab, 1 Refill(s) Start Date: 01/14/18 Status: Ordered clopidogrel 75 mg oral tablet 75 mg=1 tab, PO, Daily, # 90 tab, 1 Refill(s) Start Date: 01/14/18 Status: Ordered docusate 100 mg, 1 cap, Route: PO, Drug form: CAP, BID, Dosing Weight 45.455, kg, Start d ate: 01/14/18 17:00:00 CDT, Duration: 30 day, Stop date: 02/13/18 9:00:00 CDT Notes: (Same as: Colace) (Do Not Crush) Start Date: 01/14/18 Stop Date: 01/14/18 Status: Discontinued fentaNYL 25 microgram, 0.5 mL, Route: IVP, Drug form: INJ, ONCE, Dosing Weight 45.455, kg , Priority: STAT, Start date: 01/14/18 11:16:00 CDT, Stop date: 01/14/18 11:16:0 0 CDT Notes: (Same as: Sublimaze) Preservative free. Start Date: 01/14/18 Stop Date: 01/14/18 Status: Completed fentaNYL 12.5 microgram, 0.25 mL, Route: IV, Drug form: INJ, Q4H, Dosing Weight 45.455, k g, PRN Pain Score 7-10, Start date: 01/14/18 14:32:00 CDT, Duration: 30 day, Sto p date: 02/13/18 14:31:00 CDT Notes: (Same as: Sublimaze) Preservative free. Start Date: 01/14/18 Stop Date: 01/14/18 Status: Discontinued fentaNYL 25 microgram, 0.5 mL, Route: IVP, Drug form: INJ, ONCE, Dosing Weight 45.455, kg , Priority: STAT, Start date: 01/14/18 14:10:00 CDT, Stop date: 01/14/18 14:10:0 0 CDT Notes: (Same as: Sublimaze) Preservative free. Start Date: 01/14/18 Stop Date: 01/14/18 Status: Completed fentaNYL 25 microgram, 0.5 mL, Route: IVP, Drug form: INJ, ONCE, Dosing Weight 45.455, kg , Priority: STAT, Start date: 01/14/18 10:11:00 CDT, Stop date: 01/14/18 10:11:0 0 CDT Notes: (Same as: Sublimaze) Preservative free. Start Date: 01/14/18 Stop Date: 01/14/18 Status: Completed Flexeril 5 mg, 0.5 tab, Route: PO, Drug form: TAB, Q12H, Dosing Weight 45.455, kg, PRN Sp asm, Start date: 01/14/18 14:35:00 CDT, Duration: 30 day, Stop date: 02/13/18 14 :34:00 CDT Notes: (Same As: Flexeril) Start Date: 01/14/18 Stop Date: 01/14/18 Status: Discontinued Flexeril 5 mg oral tablet 5 mg=1 tab, PO, TID, X 7 day, # 21 tab, 0 Refill(s), Pharmacy: [facility] [id number] Start Date: 01/14/18 Stop Date: 01/21/18 Status: Ordered fluticasone furoate 100 mcg inhalation powder =1 puff, INHALATION, Q24H, 0 Refill(s) Start Date: 01/14/18 Status: Ordered furosemide 20 mg oral tablet 20 mg=1 tab, PO, PRN, # 90 tab, 1 Refill(s) Start Date: 01/14/18 Status: Ordered Lasix 20 mg, 1 tab, Route: PO, Drug form: TAB, Daily, Dosing Weight 45.455, kg, Start date: 01/15/18 9:00:00 CDT, Duration: 30 day, Stop date: 02/13/18 9:00:00 CDT Notes: (Same as: Lasix) May cause GI upset. Give with food or milk. Start Date: 01/15/18 Stop Date: 01/14/18 Status: Canceled levothyroxine 112 microgram, 1 tab, Route: PO, Drug form: TAB, Q630AM, Dosing Weight 45.455, k g, Start date: 01/15/18 6:30:00 CDT, Duration: 30 day, Stop date: 02/13/18 6:30: 00 CDT Notes: (Same as:Levothroid) Start Date: 01/15/18 Stop Date: 01/14/18 Status: Canceled levothyroxine 112 mcg (0.112 mg) oral capsule 112 microgram=1 cap, PO, Daily, # 30 cap, 3 Refill(s) Start Date: 01/14/18 Status: Ordered nitroglycerin 0.4 mg sublingual tablet 0.4 mg=1 tab, SL, Q5Min, PRN Chest Pain, Give up to 3 doses. Call 911 if pain pe rsists., # 25 tab, 3 Refill(s) Start Date: 01/14/18 Status: Ordered ondansetron 4 mg, 2 mL, Route: IVP, Drug form: INJ, Q6H, Dosing Weight 45.455, kg, PRN Nause a & Vomiting, Start date: 01/14/18 14:26:00 CDT, Duration: 30 day, Stop date: 02/13/18 14:25:00 CDT Notes: (Same as: Bianka) MEDICATION WASTE Product Size: 4 mgProduct Was fabi: ___ mg Start Date: 01/14/18 Stop Date: 01/14/18 Status: Discontinued Plavix 75 mg, 1 tab, Route: PO, Drug form: TAB, Daily, Dosing Weight 45.455, kg, Start date: 01/15/18 9:00:00 CDT, Duration: 30 day, Stop date: 02/13/18 9:00:00 CDT Notes: (Same As: Plavix) Start Date: 01/15/18 Stop Date: 01/14/18 Status: Canceled predniSONE 5 mg, 2 tab, Route: PO, Drug form: TAB, Daily, Dosing Weight 45.455, kg, Start d ate: 01/15/18 9:00:00 CDT, Duration: 30 day, Stop date: 02/13/18 9:00:00 CDT Notes: Take with food. Start Date: 01/15/18 Stop Date: 01/14/18 Status: Canceled predniSONE 5 mg oral tablet 5 mg=1 tab, PO, Daily, Give with food., # 30 tab, 0 Refill(s) Start Date: 01/14/18 Stop Date: 02/13/18 Status: Ordered rosuvastatin 40 mg oral tablet 40 mg=1 tab, PO, Bedtime, # 60 tab, 0 Refill(s) Start Date: 01/14/18 Stop Date: 03/15/18 Status: Ordered senna 15 mg oral tablet 30 mg=2 tab, PO, Daily, PRN for constipation, # 24 tab, 0 Refill(s) Start Date: 01/14/18 Stop Date: 01/26/18 Status: Ordered tiotropium 1.25 mcg/inh inhalation aerosol 2 puffs, INHALER, Daily, # 4 gm, 0 Refill(s) Start Date: 01/14/18 Status: Ordered tramadol 50 mg oral tablet 50 mg, 1 tab, Route: PO, Drug form: TAB, Q6H, Dosing Weight 45.511, kg, PRN Pain Score 1-3, Start date: 01/14/18 18:21:00 CDT, Duration: 30 day, Stop date: 05/25 18:20:00 CDT Notes: Not to exceed 400mg/day. (Same As: Ultram) Start Date: 01/14/18 Stop Date: 01/14/18 Status: Discontinued Results ELECTROLYTES Most recent to 1 oldest [Reference Range]: Sodium Lvl [135-145 136 mEq/L mEq/L] (01/14/18 10:54 AM) Potassium Lvl 4.1 mEq/L [3.5-5.1 mEq/L] (01/14/18 10:54 AM) Chloride Lvl [95-109 100 mEq/L mEq/L] (01/14/18 10:54 AM) CO2 [24-32 mEq/L] 33 mEq/L *HI* (01/14/18 10:54 AM) AGAP [10.0-20.0 7.1 mEq/L mEq/L] *LOW* (01/14/18 10:54 AM) CHEM PANEL Most recent to 1 oldest [Reference Range]: Creatinine Lvl 0.76 mg/dL [0.50-1.40 mg/dL] (01/14/18 10:54 AM) eGFR 70 mL/min/1.73m2 1 *NA* (01/14/18 10:54 AM) BUN [7-22 mg/dL] 12 mg/dL (01/14/18 10:54 AM) Glucose Lvl [70-99 107 mg/dL mg/dL] *HI* (01/14/18 10:54 AM) Calcium Lvl 9.0 mg/dL [8.5-10.5 mg/dL] (01/14/18 10:54 AM) 1Result Comment: The eGFR is calculated using the [...] from the National Kidney Disease Education Program ( NKDEP) which additionally recommends that when the eGFR is used in patients with extremes of body mass index for purposes of drug dosing, the eGFR should be mul tiplied by the estimated BMI. CARDIAC ENZYMES Most recent to 1 oldest [Reference Range]: Troponin-I <0.02 ng/mL [0.00-0.40 ng/mL] (01/14/18 10:54 AM) HEMATOLOGY Most recent to 1 oldest [Reference Range]: WBC [3.7-10.4 K/CMM] 8.1 K/CMM (01/14/18 10:54 AM) RBC [4.20-5.40 4.41 M/CMM M/CMM] (01/14/18 10:54 AM) Hgb [12.0-16.0 g/dL] 12.7 g/dL (01/14/18 10:54 AM) Hct [36.0-48.0 %] 38.1 % (01/14/18 10:54 AM) MCV [80.0-98.0 fL] 86.6 fL (01/14/18 10:54 AM) MCH [27.0-31.0 pg] 28.8 pg (01/14/18 10:54 AM) MCHC [32.0-36.0 33.2 g/dL g/dL] (01/14/18 10:54 AM) RDW [11.5-14.5 %] 13.7 % (01/14/18 10:54 AM) MPV [7.4-10.4 fL] 7.6 fL (01/14/18 10:54 AM) Platelet [133-450 374 K/CMM K/CMM] (01/14/18 10:54 AM) Segs [45.0-75.0 %] 71.3 % (01/14/18 10:54 AM) Lymphocytes 18.2 % [20.0-40.0 %] *LOW* (01/14/18 10:54 AM) Monocytes [2.0-12.0 8.9 % %] (01/14/18 10:54 AM) Eosinophils [0.0-4.0 0.6 % %] (01/14/18 10:54 AM) Basophils [0.0-1.0 1.0 % %] (01/14/18 10:54 AM) Segs-Bands # 5.8 K/CMM [1.5-8.1 K/CMM] (01/14/18 10:54 AM) Lymphocytes # 1.5 K/CMM [1.0-5.5 K/CMM] (01/14/18 10:54 AM) Monocytes # [0.0-0.8 0.7 K/CMM K/CMM] (01/14/18 10:54 AM) Basophils # [0.0-0.2 0.1 K/CMM K/CMM] (01/14/18 10:54 AM) Immunizations No data available for this section Procedures Procedure Date Related Diagnosis Body Site Status Abdominal hysterectomy Completed Appendectomy Completed Complete resection of colon Completed Gallbladder operation Completed Laminectomy Completed Removal of thyroid nodule Completed Tonsillectomy Completed Social History Social History Type Response Smoking Status Current some day smoker; Exposure to Tobacco Smoke None; Cigarette Smoking Last 365 Days Yes; Reg Smoking Cessation Counseling No entered on: 01/14/18 Assessment and Plan Extracted from: Title: Clinical Document Author: Taco Frazier MD Date: 01/14/18 Date of admission: 01/15/80 Reason for admission 1. Severe lower thoracic back pain 2. 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 Rivero is an 87-year-old woman with COPD and chronic low back pain who is brought in by family for evaluation of gradually worsening pain over the past 3- 4 weeks. The pain is sharp in nature and very localized to the lower thoracic region in the T10-T11 region. Very midline. There is no radiating pain associated. Patient cannot recall any inciting events that could have provoked this pain. She constantly suffers from back pain but has been treated with orthopedic surgery and intermittent steroid injections. Last steroid injection was on January 02 in orthopedic surgery clinic. However, this time the steroids have not worked. She denies having any radiating pain to the legs. Denies any urinary or bowel incontinence. Patient overall is very active and able to manage daily activities. Denies any recent fever or chills. Denies any pain with urination. Denies having a headache or vision changes. Past medical history 1. COPD 2. Hypothyroidism 3. Hyperlipidemia 4. Hypertension 5. History of CVA Medications At Home: Please see admission medicine demonstration form Past surgical history 1. Tonsillectomy 2. Cholecystectomy 3. Appendectomy 4. Hysterectomy 5. Lumbar spine laminectomies Social history 1. Distant history of tobacco use. Quit many decades ago 2. Denies any alcohol use. Allergies: Azithromycin and morphine as Family sickle reviewed but noncontributory Review systems: As per HPI Physical examination Vitals: Blood pressure 132/49, temperature not available. Heart rate 65. Gen: AAOX3, NAD Neuro: motor 5/5 in upper extremities, CN II-XII grossly intact. CV: RRR, S1 and S2 Lung: CTA bilaterally, no crackles or wheezing heard. Abdomen: Non-distended, non-tender, no rebound or gaurding, bowel sounds are present. : no supraputic region tenderness. No CVA region tenderness. EXT: no peripheral edema. TTP in the T11-10 midnline back. No external abnormalities. Skin: no rashes or other skin color changes. Diagnostic studies: CT of the lumbar spine:IMPRESSION: Loss of vertebral body height at T10, T11 and T12 levels. These may reflect subacute injuries, but correlation with clinical exam is recommended. Laboratory studies: Sodium 136. White blood cell count of 8. Hemoglobin of 12. Assessment and plan Ms. Rivero is an 87-year-old woman who is being admitted for evaluation of acute exacerbation of chronic thoracic and lumbar spine region pain. Acute on chronic thoracic lumbar sprain thoracal lumbar back pain Inciting event unclear. Pain not responding to steroid injections a few weeks ago as outpatient. Known history of chronic compression fractures. Obtain MRI of the T and L-spine. Obtain orthopedic consultation. She has needed steroid injections in the past. Treat with as needed IV fentanyl and low-dose of Flexeril. COPD Currently not in exacerbation. Continue home dose of low-dose prednisone and DuoNeb's. Seen by Dr. Greene as outpatient Hypertension Begin amlodipine. Hypothyroidism Levothyroxine. DVT reflex: SCD Disposition: Likely 1+ midnights.
--- OUTSIDE RECORDS SUMMARY | 2018-06-25 22:47 | XMS REPORT | Summary of Care ---
Author Author [facility] Organization [facility] Address Unknown Phone Unavailable Encounter RIMA Mata(JERI) [id number] Date(s): 08/17/17 - 08/17/17 [facility] [address] [place] [address]- [phone] Discharge Diagnosis: Closed L3 vertebral fracture Discharge Disposition: Home or Self Care Attending Physician: Bernardo Mcnally DO Vital Signs 1 2 3 Most recent to oldest [Reference Range]: 165.1 cm (08/17/17 9:10 AM) Height 97.1 DegF (08/17/17 12:40 PM) 97.8 DegF (08/17/17 11:21 AM) 97.8 DegF (08/17/17 9:10 AM) Temperature Oral [96.4-99.1 DegF] 105/61 mmHg (08/17/17 12:40 PM) 125/80 mmHg (08/17/17 11:21 AM) 128/47 mmHg (08/17/17 9:42 AM) Blood Pressure [90-140/60-90 mmHg] 18 BRMIN (08/17/17 12:40 PM) 18 BRMIN (08/17/17 11:21 AM) 18 BRMIN (08/17/17 9:42 AM) Respiratory Rate [14-20 BRMIN] 59 bpm *LOW* (08/17/17 12:40 PM) 59 bpm *LOW* (08/17/17 11:21 AM) 55 bpm *LOW* (08/17/17 9:42 AM) Peripheral Pulse Rate [60-100 bpm] 44.545 kg (08/17/17 9:10 AM) Weight 16.34 m2 (08/17/17 9:10 AM) Body Mass Index Problem List Condition Effective Dates Status Health Status Informant COPD (chronic Active obstructive pulmonary disease)(Confirmed) Allergies, Adverse Reactions, Alerts Substance Reaction Severity Status morphine Active Medications [place] 10/325 oral tablet 1 tab, Route: PO, Drug Form: TAB, Dosing Weight 44.545, kg, ONCE, STAT, Start da te: 08/17/17 10:54:00 COUNSELOR MANAGER, Stop date: 08/17/17 10:54:00 COUNSELOR MANAGER Start Date: 08/17/17 Stop Date: 08/17/17 Status: Completed Results No data available for this section Immunizations No data available for this section Procedures No data available for this section Social History Social History Type Response Smoking Status Current some day smoker; Exposure to Tobacco Smoke None; Cigarette Smoking Last 365 Days Yes; Reg Smoking Cessation Counseling No Assessment and Plan No data available for this section
--- OUTSIDE RECORDS SUMMARY | 2018-06-25 22:48 | XMS REPORT | Summary of Care ---
Author Author [facility] Organization [facility] Address Unknown Phone Unavailable Encounter RIMA Mata(JERI) [id number] Date(s): 01/14/18 - 01/14/18 [facility] [address] [place] [address]- Discharge Disposition: Home or Self Care Attending Physician: aTco Frazier MD Admitting Physician: Taco Frazier MD [...] day, # 21 tab, 0 Refill(s), Pharmacy: [facility] [id number] Start Date: 01/14/18 Stop Date: 01/21/18 Status: [...] compression fractures History of present illness Ms. Leslie is an 87-year-old woman with COPD and [...] Hemoglobin of 12. Assessment and plan Ms. Leslie is an 87-year-old woman who is being [...]
--- OUTSIDE RECORDS SUMMARY | 2018-06-25 22:48 | XMS REPORT | Summary of Care ---
Author Author [facility] Organization [facility] Address Unknown Phone Unavailable Encounter RIMA Mata(JERI) [id number] Date(s): 03/16/18 - 03/16/18 [facility] [address] Discharge Disposition: Home or Self Care Attending Physician: Nicola Mae MD Admitting Physician: Nicola Mae MD Referring Physician: Nicola Mae MD Vital Signs 1 2 3 Most recent to oldest [Reference Range]: 152.4 cm (03/16/18 6:24 AM) 152.4 cm (03/15/18 1:49 PM) Height 92/52 mmHg (03/16/18 1:10 PM) 113/58 mmHg (03/16/18 12:45 PM) 108/55 mmHg (03/16/18 12:30 PM) Blood Pressure [90-140/60-90 mmHg] 20 BRMIN (03/16/18 12:45 PM) 20 BRMIN (03/16/18 12:30 PM) 31 BRMIN *HI* (03/16/18 12:15 PM) Respiratory Rate [14-20 BRMIN] 66 bpm (03/16/18 6:36 AM) Peripheral Pulse Rate [60-100 bpm] 41.364 kg (03/16/18 6:24 AM) 41.864 kg (03/15/18 1:49 PM) Weight 17.81 m2 (03/16/18 6:24 AM) 18.02 m2 (03/15/18 1:49 PM) Body Mass Index Problem List Condition Effective Dates Status Health Status Informant COPD (chronic Active obstructive pulmonary disease)(Confirmed) Allergies, Adverse Reactions, Alerts Substance Reaction Severity Status erythromycin Active morphine itching Active Medications ANES acetaminophen 1,000 mg, Route: IVPB, Drug form: INJ, ONCE, Dosing Weight 41.364, kg, PRN Pain Score 1-3, Start date: 03/16/18 10:33:00 CDT Start Date: 03/16/18 Stop Date: 03/16/18 Status: Completed ANES flumazenil 0.2 mg, 2 mL, Route: IVP, Drug form: INJ, PRN, Dosing Weight 41.364, kg, PRN Simone zodiazepine Reversal, Initial dose, Start date: 03/16/18 10:33:00 CDT, Duration: 30 day, Stop date: 04/15/18 10:32:00 CDT Notes: (Same as: Romazicon) Start Date: 03/16/18 Stop Date: 03/17/18 Status: Discontinued ANES labetalol 10 mg, 2 mL, Route: IVP, Drug form: INJ, Q5Min, Dosing Weight 41.364, kg, PRN El evated BP, Start date: 03/16/18 10:33:00 CDT, Duration: 5 doses or times, Stop d ate: 03/17/18 0:00:00 CDT Start Date: 03/16/18 Stop Date: 03/17/18 Status: Completed ANES naloxone 0.4 mg, 1 mL, Route: IVP, Drug form: INJ, Q2MIN, Dosing Weight 41.364, kg, PRN N arcotic Reversal, Start date: 03/16/18 10:33:00 CDT, Duration: 8 doses or times, Stop date: 03/17/18 0:00:00 CDT Notes: Same as Narcan Start Date: 03/16/18 Stop Date: 03/17/18 Status: Completed ANES ondansetron 4 mg, 2 mL, Route: IVP, Drug form: INJ, ONCE, Dosing Weight 41.364, kg, PRN Naus ea & Vomiting, Start date: 03/16/18 10:33:00 CDT Notes: (Same as: Zofran) MEDICATION WASTE Product Size: 4 mgProduct Was fabi: ___ mg Start Date: 03/16/18 Stop Date: 03/17/18 Status: Discontinued Linzess PO, Daily, 0 Refill(s) Start Date: 03/15/18 Status: Ordered sugammadex 200 mg, 2 mL, Route: IV, Drug form: SOLN, ONCE, Start date: 03/16/18 11:02:00 CD T, Stop date: 03/16/18 11:02:00 CDT Notes: (Same as: Bridion) Start Date: 03/16/18 Stop Date: 03/16/18 Status: Ordered tramadol 50 mg oral tablet 50 mg, Route: PO, Drug form: TAB, ONCE, Dosing Weight 41.364, kg, Start date: 10:04:00 CDT, Stop date: 03/16/18 10:04:00 CDT Start Date: 03/16/18 Stop Date: 03/16/18 Status: Ordered Tylenol with Codeine #3 oral tablet 1 tab, Route: PO, Drug Form: TAB, Dosing Weight 41.364, kg, ONCE, PRN Pain Score 1-5, Start date: 03/16/18 10:04:00 CDT Notes: Do not exceed 4gm/day of acetaminophen. (Same as: Tylenol with Codeine # 3) Start Date: 03/16/18 Stop Date: 03/17/18 Status: Discontinued Tylenol with Codeine #3 oral tablet 1 tab, Route: PO, Drug Form: TAB, Dosing Weight 41.364, kg, ONCE, Start date: 9:51:00 CDT, Stop date: 03/16/18 9:51:00 CDT Notes: Do not exceed 4gm/day of acetaminophen. (Same as: Tylenol with Codeine # 3) Start Date: 03/16/18 Stop Date: 03/16/18 Status: Ordered Results No data available for this section Immunizations No data available for this section Procedures Procedure Date Related Diagnosis Body Site Status Abdominal hysterectomy Completed Appendectomy Completed Complete resection of colon Completed Gallbladder operation Completed Laminectomy Completed Removal of thyroid nodule Completed Tonsillectomy Completed Social History Social History Type Response Alcohol Never Smoking Status Current some day smoker; Exposure to Tobacco Smoke None; Cigarette Smoking Last 365 Days Yes; Reg Smoking Cessation Counseling No entered on: 03/15/18 Assessment and Plan No data available for this section
--- OUTSIDE RECORDS SUMMARY | 2018-06-25 22:48 | XMS REPORT | Summary of Care ---
Author Author [facility] Organization [facility] Address Unknown Phone Unavailable Encounter HQ Adolfo(JERI) [phone] Date(s): 03/04/18 - 03/04/18 [facility] [address] [employer] provided by [facility] [place] [address]- Encounter Diagnosis Compression fracture of L3 lumbar vertebra with delayed healing (Discharge Diagnosis) - 03/04/18 Chronic back pain (Discharge Diagnosis) - 03/04/18 Discharge Disposition: Home or Self Care Attending Physician: Gonzales Wen MD Vital Signs Most recent to 1 2 oldest [Reference Range]: Height 152.4 cm (03/04/18 11:02 AM) Temperature Oral 98.1 DegF 98.4 DegF [96.4-99.1 DegF] (03/04/18 1:18 PM) (03/04/18 11:02 AM) Blood Pressure 131/61 mmHg 123/63 mmHg [90-140/60-90 mmHg] (03/04/18 1:18 PM) (03/04/18 11:02 AM) Respiratory Rate 20 BRMIN 20 BRMIN [14-20 BRMIN] (03/04/18 1:18 PM) (03/04/18 11:02 AM) Peripheral Pulse 68 bpm Rate [60-100 bpm] (03/04/18 11:02 AM) Weight 41.818 kg (03/04/18 11:02 AM) Body Mass Index 18.01 m2 (03/04/18 11:02 AM) Problem List Condition Effective Dates Status Health Status Informant COPD (chronic Active obstructive pulmonary disease)(Confirmed) Allergies, Adverse Reactions, Alerts Substance Reaction Severity Status azithromycin Active morphine itching Active Medications fentaNYL 50 microgram, 1 mL, Route: IVP, Drug form: INJ, ONCE, Dosing Weight 41.818, kg, Priority: STAT, Start date: 03/04/18 11:27:00 CDT, Stop date: 03/04/18 11:27:00 CDT Notes: (Same as: Sublimaze) Preservative free. Start Date: 03/04/18 Stop Date: 03/04/18 Status: Completed lidocaine topical patch (5% film) 1 patch, TOP, Daily, PRN Pain Score 6-10, # 30 patch, 0 Refill(s) Start Date: 03/04/18 Status: Ordered morphine Sulfate 2 mg, 0.5 mL, Route: IVP, Drug form: SOLN, ONCE, Dosing Weight 41.818, kg, Prior ity: STAT, Start date: 03/04/18 12:04:00 CDT, Stop date: 03/04/18 12:04:00 CDT Notes: (Same as:MORPhine Sulfate) Start Date: 03/04/18 Stop Date: 03/04/18 Status: Completed Results ELECTROLYTES Most recent to 1 oldest [Reference Range]: Sodium Lvl [135-145 140 mEq/L mEq/L] (03/04/18 11:42 AM) Potassium Lvl 4.2 mEq/L [3.5-5.1 mEq/L] (03/04/18 11:42 AM) Chloride Lvl [95-109 101 mEq/L mEq/L] (03/04/18 11:42 AM) CO2 [24-32 mEq/L] 34 mEq/L *HI* (03/04/18 11:42 AM) AGAP [10.0-20.0 9.2 mEq/L mEq/L] *LOW* (03/04/18 11:42 AM) CHEM PANEL Most recent to 1 oldest [Reference Range]: Creatinine Lvl 0.82 mg/dL [0.50-1.40 mg/dL] (03/04/18 11:42 AM) eGFR 65 mL/min/1.73m2 1 *NA* (03/04/18 11:42 AM) BUN [7-22 mg/dL] 8 mg/dL (03/04/18 11:42 AM) Glucose Lvl [70-99 102 mg/dL mg/dL] *HI* (03/04/18 11:42 AM) Calcium Lvl 9.6 mg/dL [8.5-10.5 mg/dL] (03/04/18 11:42 AM) 1Result Comment: The eGFR is calculated [...] be mul tiplied by the estimated BMI. Immunizations No data available for this section [...] Reg Smoking Cessation Counseling No entered on: 03/04/18 Assessment and Plan No data available for this section
--- OUTSIDE RECORDS SUMMARY | 2018-06-25 22:48 | XMS REPORT | Summary of Care ---
Author Author Edwina Perez M.A. 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 Unavailable Unavailable Edwina Perez M.A. Unavailable Unavailable Unavailable Unavailable Functional Status Name Dates Details Functional status health issues are not documented Status: Name Dates Details Cognitive status health issues are not documented Status: Problems Name Dates Details Osteoporosis (733.00, M81.0) Status: Active Closed compression fracture of thoracolumbar vertebra with delayed healing, subsequent encounter (V54.17, S22.080G) Status: Active Closed wedge compression fracture of ninth thoracic vertebra with delayed healing, subsequent encounter (V54.17, S22.070G) Status: Active Medications Name Dates Details DiazePAM 5 MG Oral Tablet TAKE 1 TABLET 30 MINUTES PRIOR TO MRI. MAY REPEAT IF NEEDED. Quantity: 2 JANESSA Hendricks, RENEE * Start : 04-Feb-2018 Active Allergies and Adverse Reactions Name Dates Details [...] Z85.828) Status: Resolved Procedures Procedure Dates Details [Q] PROCOLLAGEN TYPE I INTACT N TERMINAL PROPEPTIDE Date: 02-Apr-2018 [QH] CALCIUM Date: 02-Apr-2018 MRI Spine thoracic wo contrast [id number] Date: 11-Feb-2018 [O] Dexa Scan ([facility] [employer] [facility]) [id number] Date: 15-Feb-2018 [O] Dexa Scan ([employer] [facility]) [id number] Date: 04-Mar-2018 Immunization Name Dates Details Immunizations not documented [...] smoked Vital Signs Date Test Result Details No Known Vitals to report Results Date Description Value Details Results not documented Plan of Care Name Dates Details Planned Observations Planned Goals not documented Instructions Name Dates Details Instructions not documented Encounters Appointment; RENEE RIDDLE M.D. Encounter Diagnosis: Problem not documented On: 27-Jan-2018 10:30 Appointment; YESSICA PRASAD PGordon Encounter Diagnosis: Problem not documented On: 19-Feb-2018 8:30 Appointment; YESSICA PRASAD PRolandoARolando Encounter Diagnosis: Problem not documented On: 02-Apr-2018 13:30
--- OUTSIDE RECORDS SUMMARY | 2018-06-25 22:48 | XMS REPORT ---
Author Organization Unknown Address [address] [place] [address] Phone [phone] Care Team Providers Care Carpentry Professional Name Role Phone JOVANNY ROLDAN MD 82 [phone] ANITA ZUNIGA 107 [phone] SOUJAIME GARZA 2 [phone] BRENDEN BEAULIEU MD 2 [phone] Allergies Code Code System Name Reaction Severity [...] 500 mg-potassium clavulanate 125 mg tablet Completed 05/21/2016 aspirin 81 mg tablet,delayed release Take 1 tablet every day by oral route. Completed 01/19/2017 atenolol 50 mg tablet TAKE 1 TABLET IN THE MORNING AND ONE-HALF (1/2) TABLET IN THE EVENING Active Not available benzonatate 100 mg capsule Completed 05/21/2016 Breo Ellipta 100 mcg-25 mcg/dose powder for inhalation Active Not available bupropion HCl XL 150 mg 24 hr tablet, extended release Completed 11/05/2017 ceftriaxone 500 mg solution for injection Take [...] 500 mg tablet prn Active Not available isffkxfn-juovlfsun-yglvfbbqf 3.5 mg-10,000 unit/mL-1 % ear drops,susp INSTILL 4 DROPS INTO AFFECTED EAR(S) BY OTIC ROUTE 3 TIMES PER DAY FOR 7 DAYS Active Not available byihgzic-ljsuowiwt-gtxzvidac 3.5 mg/mL-10,000 unit/mL-1 % ear solution Completed 05/01/2017 nitrofurantoin monohydrate/macrocrystals 100 mg capsule Completed 12/08/2017 nitroglycerin 0.4 mg sublingual tablet Active Not [...] (PF) 19,400 unit/0.65 mL subcutaneous suspension Completed 11/11/2016 Problems Name Status Onset Date Source Hypothyroidism [...] Information not available 05/12/2017 XR, Thoracic Spine [facility] [address] [place] [address] (Work Place) 05/12/2017 XR, Lumbar Spine [facility] [address] [place], [place] [id number] (Work Place) Notes: thyroidectomy laminectomies hemroidectomies T&A Lab Results Date Name Specimen Result Interpretation Description Value Range Status Address 11/05/2017 Culture, Urine ABNORMAL Culture, Urine, Routine see note Final [facility]: [facility] Raisa Ludwig [address] 08/19/2017 Culture, Urine Culture, Urine, Routine see note Final [facility] Laboratory: [facility] Raisa Ludwig [address] 06/18/2017 CBC W/ Auto Diff Wbc 7.45 x10*3/L 3.98-10.04 x10*3/L Final [facility] Laboratory: [address] Raisa florencia [address] Rbc 4.17 10*12/L 3.93-5.22 10*12/L Final [facility] Laboratory: [facility] Raisa florencia [address] Hemoglobin 12.00 g/dL 11.20-15.70 g/dL Final [facility] Laboratory: [facility] Raisa Ludwig [address] Hematocrit 38.9 % 34.1-44.9 % Final [facility] Laboratory: [facility] Raisa florencia [address] Mcv 93.3 fL 80.0-100.0 fL Final [facility] Laboratory: [facility] Raisa florencia [address] Mch 28.8 pg 25.6-32.2 pg Final [facility] Laboratory: [facility] Raisa Ludwig [address] Low Mchc 30.8 g/dL 32.2-35.5 g/dL Final [facility] Laboratory: [address] Raisa Ludwig [address] High RDW-SD 48.7 fL 36.4-46.3 fL Final [facility] Laboratory: [address] Raisa florencia [address] Platelet Count 366.0 k/uL 182.0-369.0 k/uL Final [facility] Laboratory: [address] Raisa florencia [address] Mpv 10.6 fL 7.5-11.5 fL Final [facility] Laboratory: [address] Raisa Ludwig [address] Neut% 59.3 % 34.0-71.1 % Final [facility] Laboratory: [address] Raisa florencia [address] Lymph% 22.6 % 19.3-51.7 % Final [facility] Laboratory: [facility] Raisa florencia [address] Mon% 8.6 % 4.7-12.5 % Final [facility] Laboratory: [address] Raisa Killian [place] Eos% 8.6 % 0.7-5.8 % Final [facility] Laboratory: [address] Raisa Killian [place] Baso% 0.9 % 0.1-1.2 % Final [facility] [address] [facility] Neut# 4.4 x10*3/L 1.6-6.1 x10*3/L Final [facility]: [address] [facility] Lymph# 1.7 x10*3/L 1.2-3.7 x10*3/L Final [facility] Laboratory: [address] Raisa Atkinson [address] [place] [address] Mon# 0.6 x10*3/L 0.2-0.9 x10*3/L Final [facility]: [address] [facility] High Eos# 0.64 x10*3/L 0.04-0.36 x10*3/L Final [facility] [address] [facility] Baso# 0.07 x10*3/L 0.01-0.08 x10*3/L Final [facility]: [address] [facility] 06/18/2017 CMP, Serum or Plasma Alt 22 U/L 0-55 U/L Final [facility]: [address] Raisa Ludwig [address] Ast 26 U/L 5-34 U/L Final [facility] Laboratory: [address] Raisa Ludwig [address] Low Bun 7.4 mg/dL 9.8-20.1 mg/dL Final [facility] Laboratory: [address] Raisa Ludwig [address] Alk Phos 78 unit/L 40-150 unit/L Final [facility]: [address] Raisa Ludwig [address] Glucose 96 mg/dL 70-99 mg/dL Final [facility] Laboratory: [address] Raisa Atkinson [address] [place] [address] Low Albumin 3.4 g/dL 3.5-5.0 g/dL Final [facility] Laboratory: [address] Raisa Ludwig [address] Creatinine 0.68 mg/dL 0.57-1.11 mg/dL Final [facility] Laboratory: [address] Raisa Ludwig [address] eGFR Non- >60 mL/min/1.73m2 >60 mL/min/1.73m2 Final [facility] Laboratory: [address] Raisa Ludwig [address] Total Bilirubin 0.3 mg/dL 0.2-1.2 mg/dL Final [facility] Laboratory: [address] Raisa Ludwig [place] [address], [place] eGFR - >60 mL/min/1.73m2 >60 mL/min/1.73m2 Final [facility] Laboratory: [address] Raisa Ludwig [place] [address], [place] Sodium 139 mEq/L 136-145 mEq/L Final [facility] Laboratory: [address] Raisa Ludwig [place] [address], [place] High Potassium 5.9 mEq/L 3.5-5.1 mEq/L Final [facility] Laboratory: [address] Raisa Ludwig [place] [address], [place] Chloride 99 mmol/L 98-107 mmol/L Final [facility] Laboratory: [address] Raisa Ludwig [address] Total Protein 6.6 g/dL 6.4-8.3 g/dL Final [facility] Laboratory: [address] Raisa florencia [address] Calcium 9.5 mg/dL 8.4-10.2 mg/dL Final [facility] Laboratory: [address] Raisa Ludwig [address] Co2 30.8 mmol/L 23.0-31.0 mmol/L Final [facility] Laboratory: [address] Raisa florencia [address] Anion Gap 9 calc Final [facility] Laboratory: [address] Raisa Atkinson [facility], [place] 06/18/2017 Lipid Panel, Serum High Hdl 75 mg/dL 40-60 mg/dL Final [facility] Laboratory: [address] Raisa Ludwig [address] Triglyceride 104 mg/dL 0-149 mg/dL Final [facility] Laboratory: [address] Raisa florencia [address] VLDL Calc. 21 mg/dL Final [facility] Laboratory: [address] Raisa florencia [address] cholesterol/HDL Ratio 2.3 mg/dL Final [facility] Laboratory: [address] Raisa Ludwig [address] non-HDL Cholesterol Calc. 100 mg/dL 0-160 mg/dL Final [facility] Laboratory: [address] Raisa Ludwig [address] Cholesterol 175 mg/dL 0-199 mg/dL Final [facility] Laboratory: [address] Raisa Ludwig [address] LDL Calc. 79 mg/dL 0-130 mg/dL Final [facility] Laboratory: [address] 06/18/2017 TSH, Serum or Plasma Tsh 0.427 uIU/mL 0.350-4.940 uIU/mL Final [facility] Laboratory: [address] [place] [address] 01/12/2017 CMP, Serum or Plasma No observation recorded. 11/11/2016 Lipid Panel, Serum Normal Cholesterol, Total 190 mg/dL 125- 200 mg/dL Final [facility] Laboratory: [address] [place] [address] Normal HDL Cholesterol 83 mg/dL > or=46 mg/dL Final [facility] Laboratory: [address] [place] [address] Normal Triglycerides 86 mg/dL <150 mg/dL Final [facility] Laboratory: [address] [place] [address] Normal LDL-cholesterol 90 mg/dL (calc) <130 mg/dL (calc) Final [facility] Laboratory: [address] [place] [address] Normal Chol/hdlc Ratio 2.3 (calc) < or=5.0 (calc) Final [facility] Laboratory: [address] [place] [address] Normal Non HDL Cholesterol 107 mg/dL (calc) Final [facility] Laboratory: [facility] Raisa[address] 11/11/2016 CMP, Serum or Plasma High Glucose 120 mg/dL 65-99 mg/dL Final [facility] Laboratory: [address] [place] [address] Normal Urea Nitrogen (BUN) 16 mg/dL 7-25 mg/dL Final [facility] Laboratory: [address] [place] [address] Normal Creatinine 0.79 mg/dL 0.60-0.88 mg/dL Final [facility] Laboratory: [address] [place] [address] Normal eGFR Non-afr. Bruneian 68 mL/min/1.73m2 > or=60 mL/min/1.73m2 Final [facility] Laboratory: [facility] Raisa[address] Normal eGFR 79 mL/min/1.73m2 > or=60 mL/min/1.73m2 Final [facility] Laboratory: [address] [place] [address] BUN/creatinine Ratio not applicable (calc) 6-22 (calc) Final [facility] Laboratory: [address] [place] [address] Normal Sodium 136 mmol/L 135-146 mmol/L Final [facility] Laboratory: [address] Raisa Atkinson [address] [place] [address] Normal Potassium 4.8 mmol/L 3.5-5.3 mmol/L Final [facility] Laboratory: [address] Raisa Atkinson [address] [place] [address] Normal Chloride 98 mmol/L 98-110 mmol/L Final [facility] Laboratory: [address] Raisa Ludwig [address] High Carbon Dioxide 34 mmol/L 20-31 mmol/L Final [facility] Laboratory: [address] Raisa Ludwig [address] Normal Calcium 9.7 mg/dL 8.6-10.4 mg/dL Final [facility] Laboratory: [address] Raisa Ludwig [address] Normal Protein, Total 6.8 g/dL 6.1-8.1 g/dL Final [facility] Laboratory: [address] Raisa Ludwig [address] Normal Albumin 3.9 g/dL 3.6-5.1 g/dL Final [facility] Laboratory: [address] Raisa florencia [address] Normal Globulin 2.9 g/dL (calc) 1.9-3.7 g/dL (calc) Final [facility] Laboratory: [address] Raisa Ludwig [address] Normal Albumin/globulin Ratio 1.3 (calc) 1.0-2.5 (calc) Final [facility] Laboratory: [address] Raisa Ludwig [address] Normal Bilirubin, Total 0.4 mg/dL 0.2-1.2 mg/dL Final [facility] Laboratory: [address] Raisa Ludwig [address] Normal Alkaline Phosphatase 81 U/L 33-130 U/L Final [facility] Laboratory: [address] Raisa Ludwig [address] Normal Ast 17 U/L 10-35 U/L Final [facility]: [address] Raisa Ludwig [address] Normal Alt 10 U/L 6-29 U/L Final [facility]: [address] [facility] 05/21/2016 CMP, Serum or Plasma Alt 10.0 U/L 0.0-55.0 U/L Final [facility] Laboratory: [address] Raisa Ludwig [address] Ast 25.0 U/L 5.0-34.0 U/L Final [facility] Laboratory: [address] Raisa Ludwig [address] Bun 8.0 mg/dL 7.0-20.0 mg/dL Final [facility] Laboratory: [address] Raisa Killian, [place] Alk Phos 75.0 unit/L 40.0-150.0 unit/L Final [facility] Laboratory: [address] Raisa Killian, [place] High Glucose 111.0 mg/dL 70.0-99.0 mg/dL Final [facility] Laboratory: [address] Raisa Killian, [place] Albumin 4.0 g/dL 3.5-5.0 g/dL Final [facility] Laboratory: [address] Raisa Killian, [place] Creatinine 0.8 mg/dL 0.6-1.1 mg/dL Final [facility] Laboratory: [address] Raisa Killian, [place] eGFR Non- >60 mL/min/1.73m2 >60.0 mL/min/1.73m2 Final [facility] Laboratory: [address] Rais[address] Killian [place] Total Bilirubin 0.7 mg/dL 0.2-1.2 mg/dL Final [facility] Laboratory: [address] Raisa Killian [place] eGFR - >60 mL/min/1.73m2 >60.0 mL/min/1.73m2 Final [facility] Laboratory: [address] Rais[address] Killian [place] Sodium 140.0 mEq/L 137.0-144.0 mEq/L Final [facility] Laboratory: [address] Rais[address] Killian [place] Potassium 4.7 mEq/L 3.5-5.0 mEq/L Final [facility] Laboratory: [address] Rais[address] Killian [place] Low Chloride 98.0 mmol/L 101.0-110.0 mmol/L Final [facility] Laboratory: [address] Raisa Killian, [place] Total Protein 7.1 g/dL 6.4-8.3 g/dL Final [facility] Laboratory: [address] Rais[address] Killian [place] Calcium 10.0 mg/dL 8.4-10.2 mg/dL Final [facility] Laboratory: [address] Rais[address] Killian [place] Co2 31.6 mmol/L 23.0-31.0 mmol/L Final [facility] Laboratory: [address] Raisa Killian [place] Anion Gap 10.4 calc Final [facility] Laboratory: [address] 05/21/2016 Lipid Panel, Serum High Hdl 72.0 mg/dL 40.0-60.0 mg/dL Final [facility] Laboratory: [address] Rais[address] [place] [address], [place] Triglyceride 102.0 mg/dL 0.0-149.0 mg/dL Final [facility] Laboratory: [address] VLDL Calc. 20.4 mg/dL Final [facility] Laboratory: [address] cholesterol/HDL Ratio 2.3 mg/dL Final [facility] Laboratory: [address] [place] [address], [place] non-HDL Cholesterol Calc. 97.0 mg/dL 0.0-160.0 mg/dL Final [facility] Laboratory: [address] [place] [address], [place] Cholesterol 169.0 mg/dL 0.0-199.0 mg/dL Final [facility] Laboratory: [address] LDL Calc. 76.6 mg/dL 0.0-130.0 mg/dL Final [facility] Laboratory: [address] [place] [address], [place] 05/21/2016 TSH, Serum or Plasma Low Tsh 0.079 uIU/mL 0.350-4.940 uIU/mL Final [facility] Laboratory: [address] [place] [address], [place] 11/22/2015 CBC W/ Auto Diff No observation recorded. 07/12/2015 CMP, Serum or Plasma No observation recorded. Rapid Strep Group a, Throat Strep negative [facility]: [address] [facility] [place] Urinalysis, Dipstick Color Glucose negative [facility]: [address] [facility] [place] Color Bilirubin negative [facility]: [address] [facility] [place] Color Ketones negative [facility]: [address] [facility] [place] Color Specific [place] 1.015 [facility]: [address] [facility] [place] Color Blood moderate [facility]: [address] [facility] [place] Color PH 7.5 [facility]: [address] [facility] [place] Color Protein 30 [facility]: [address] [facility] [place] Color Urobilinogen 0.2 [facility]: [address], [place] Color Nitrites negative [facility]: [address], [place] Color Leukocytes large [facility]: [address], [place] Urinalysis, Dipstick Color Color yellow [facility]: [address], [place] Color Appearance clear [facility]: [address], [place] Color Glucose negative [facility]: [address], [place] Color Bilirubin negative [facility]: [address], [place] Color Ketones negative [facility]: [address], [place] Color Specific [place] 1.015 [facility]: [address], [place] Color Blood large [facility]: [address], [place] Color PH 7.0 [facility]: [address], [place] Color Protein 100 [facility]: [address], [place] Color Urobilinogen 0.2 [facility]: [address], [place] Color Nitrites negative [facility]: [address], [place] Color Leukocytes large [facility]: [address], [place] Urinalysis, Dipstick Color Glucose negative [facility]: [address], [place] Color Bilirubin negative [facility]: [address], [place] Color Ketones negative [facility]: [address], [place] Color Specific [place] 1.010 [facility]: [address], [place] Color Blood small [facility]: [address], [place] Color PH 7.0 [facility]: [address], [place] Color Protein 100 [facility]: [address], [place] Color Urobilinogen 0.2 [facility]: [address], [place] Color Nitrites negative [facility]: [address], [place] Color Leukocytes negative [facility]: [address], [place] Pulse Oximetry Pulse Ox 97 [facility]: [address] [facility] Past Encounters 12/08/2017 Otitis Externa; Acute Pharyngitis; Constipation; Peripheral Vascular Disease; Deficiency of Macronutrients Gianni Gray MD: [address] [place] [phone], Ph. 11/10/2017 Acute Urinary Tract Infection; Angina Pectoris; Chronic Obstructive Lung Disease Gianni Gray MD: [address] [place] [phone], Ph. 11/05/2017 Acute Urinary Tract Infection Fuentes Wilder MD: [address] [place] [phone], Ph. 08/19/2017 Adult Health Examination; Advance Directive Discussed with Patient; Depression Screening; Body Mass Index Less than 20; Chronic Back Pain; Major Depressive Disorder; Itching of Ear; Pain in Throat; Abnormal Urinalysis; Noncompliance with Treatment Gianni Gray MD: [address] [place] [phone], Ph. 06/18/2017 Hypothyroidism; Hyperlipidemia; Hypertensive Disorder; Influenza Vaccination Gianni Gray MD: [address] [place] [phone], Ph. 05/12/2017 Backache Giannimiracle Gray MD: [address] [place] [phone], Ph. 05/01/2017 Low Back Pain Gianni Gray MD: [address] [facility], [address], [place] [address], Ph. 01/19/2017 Otitis Externa; Carotid Artery Stenosis Gianni Gray MD: [address] [place] [phone], Ph. 11/11/2016 Chronic Obstructive Lung Disease; Hyperlipidemia; Benign Essential Hypertension; Angina Pectoris; Hypothyroidism; Gastroesophageal Reflux Disease Gianni Gray MD: [address] [place] [address], Ph. 11/06/2016 Dyspnea; Acute Exacerbation of Chronic Obstructive Airways Disease Gianni Gray MD: [address] [place] [address], Ph. 09/15/2016 Hypotensive Episode; Dysphagia; Dyspnea Gianni Gray MD: [address] [place] [address], Ph. 05/21/2016 Hypothyroidism; Chronic Obstructive Lung Disease; Hyperlipidemia; Hypertensive Disorder; Tobacco User; Influenza Vaccination Gianni Gray MD: [address] [place] [address], Ph. Social History Smoking Status Former Smoker Vaccine List Vaccine Type influenza, high dose seasonal 05/21/20160.5 mL 06/18/20170.5 mL influenza, injectable, quadrivalent 05/08/2015 Plan of Care Patient Instructions Screening Recommendations 1. Vaccines Pneumococcal: discussed today and information sent with patient in their [facility] health folder Influenza: discussed today and information sent with patient in their [facility] health folder Shingles: discussed today and information sent with patient in their [facility] health folder Tetanus: discussed today and information sent with patient in their [facility] health folder 2. Mammography Screening: discussed today and information sent with patient in their [facility] health folder 3. Colorectal cancer Screening Colonoscopy: discussed today and information sent with patient in their [facility] health folder Fecal Occult Blood: discussed today and information sent with patient in their [employer] health folder 4. Bone Mass Measurement: discussed [...] risks and promote healthy living in your [employer] folder. Reminders Provider Appointments None recorded. Lab [...] lbs 15.6 kg/m2 92/53 mm[Hg] 05/21/2016 08:30AM [employer] CPX Height Weight BMI Blood Pressure 5 ft 5 in 101 lbs 16.8 kg/m2 121/72 mm[Hg]
[2018-06-26] VITALS (8 sets, daily range): BP systolic 96–146; BP diastolic 50–66
[2018-06-26 00:02] LABS: BASOPHILS # (AUTO) 0.1 (0.0-0.1); BASOPHILS % 0.5 % (0.0-1.0); EOSINOPHILS # (AUTO) 0.2 (0.0-0.4); EOSINOPHILS % 1.7 % (0.0-6.0); HEMATOCRIT 38.9 % (34.2-44.1); LYMPHOCYTES # (AUTO) 2.5 (1.0-3.2); LYMPHOCYTES % 23.2 % (18.0-39.1); MEAN CORPUSCULAR HEMOGLOBIN 28.2 pg (28-32); MEAN CORPUSCULAR HGB CONC 30.8 g/dL (31-35); MEAN CORPUSCULAR VOLUME 91.3 fL (81-99); MONOCYTES # (AUTO) 0.8 (0.2-0.8); MONOCYTES % 7.6 % (4.4-11.3); NEUTROPHILS # (AUTO) 7.3 (2.1-6.9); NEUTROPHILS % 66.6 % (38.7-80.0); PLATELET COUNT 474 x10e3/uL (140-360); RED BLOOD COUNT 4.26 x10e6/uL (3.6-5.1); RED CELL DISTRIBUTION WIDTH 14.1 % (11.7-14.4)
[2018-06-26] MEDS ORDERED: ONDANSETRON HCL INJ 2 MG/ML VIAL IV STA ×2 (00:02→01:13)
[2018-06-26] MEDS ORDERED: HYDROMORPHONE 1MG/1ML INJ IV STA ×2 (00:02→02:53)
[2018-06-26 00:06] LABS: BILIRUBIN,URINE NEGATIVE (NEGATIVE); CLARITY,URINE CLEAR (CLEAR); COLOR,URINE YELLOW (YELLOW); KETONES,URINE NEGATIVE (NEGATIVE); LEUKOCYTE ESTERASE ,URINE NEGATIVE (NEGATIVE); NITRITE,URINE POSITIVE (NEGATIVE); PROTEIN,URINE DIPSTICK NEGATIVE (NEGATIVE); URINE UROBILINOGEN 0.2 mg/dL (0.2 - 1)
[2018-06-26 00:07] LABS: BACTERIA,URINE FEW /HPF; EPITHELIAL CELLS,URINE FEW /LPF; RBC,URINE 0-5 /HPF (0-5); WBC,URINE (MAN) 0-5 /HPF (0-5)
[2018-06-26] MEDS ORDERED: HYDROMORPHONE 2MG/ML 2 MG/ML ML ONE ×2 (00:13→03:01)
[2018-06-26 00:15] LABS: ALBUMIN 3.5 g/dL (3.5-5.0); ALBUMIN/GLOBULIN RATIO 1.2 (0.8-2.0); ANION GAP 16.7 mmol/L (8-16); CALCIUM 9.4 mg/dL (8.4-10.2); CREATININE, SERUM 0.89 mg/dL (0.57-1.11); POTASSIUM 4.7 mmol/L (3.5-5.1)
[2018-06-26 00:33] LABS: CREATINE KINASE MB 1.6 ng/mL (0-5.0)
[2018-06-26] MEDS ORDERED: DIATRIZOATE MEGL/DIATRIZOA SOD 30 ML BTL PO ONE (00:33)
[2018-06-26] MEDS ORDERED: IOPAMIDOL 370 MG/ML 200 ML INFUS..BTL INJ ONE (01:09)
[2018-06-26] MEDS ORDERED: SODIUM CHLORIDE 0.9% 50ML 50 ML ONE (01:09)
[2018-06-26] MEDS ORDERED: BREO INH (01:21)
[2018-06-26] MEDS ORDERED: FORTEO2.4 ML SC (01:21)
--- NOTE | 2018-06-26 02:33 | Diagnostic Imaging Report ---
EXAM: CT Abdomen and Pelvis WITH contrast INDICATION: Lower abdominal pain COMPARISON: 04/14/2018 TECHNIQUE: Abdomen and pelvis were scanned utilizing a multidetector helical scanner from the lung base to the pubic symphysis after administration of IV contrast. Coronal and sagittal reformations were obtained. Routine protocol was performed. Scan was performed when during portal venous phase. IV CONTRAST: 100 mL of Isovue-370 ORAL CONTRAST: Gastrografin RADIATION DOSE: Total DLP: 151.19 mGy*cm Estimated effective dose: (DLP x 0.015 x size factor) mSv COMPLICATIONS: None FINDINGS: LINES and TUBES: None. LOWER THORAX: Unremarkable HEPATOBILIARY: No focal hepatic lesions. There is intra- and extra- hepatic biliary dilation likely post cholecystectomy reservoir effect. GALLBLADDER: Prior history of cholecystectomy. SPLEEN: No splenomegaly. PANCREAS: No focal masses or ductal dilatation. ADRENALS: No adrenal nodules KIDNEYS/URETERS: Kidneys enhance symmetrically. No hydronephrosis. No cystic or solid mass lesions. No stones. GI TRACT: Multiple dilated small bowel loops are noted in the lower pelvis to the right of midline with a transition point noted on series 2, image 58 and coronal series 301, image 54 compatible with small bowel obstruction. There is decompressed, normal in appearance terminal ileum and colon PELVIC ORGANS/BLADDER: Ramos catheter is in place decompressing the urinary bladder LYMPH NODES: No lymphadenopathy. VESSELS: There is severe atherosclerotic disease in the aorta and major arterial branches. There is evidence of large soft plaques visualized on the level of the infrarenal abdominal aorta which appears dilated up to 3 cm in diameter. PERITONEUM / RETROPERITONEUM: No free air or fluid. BONES: There are degenerative changes in the lumbar spine. SOFT TISSUES: Unremarkable. IMPRESSION: 1. Distal small bowel obstruction within the right lower pelvis may be related to adhesions. The transition point is at the distal jejunum, or proximal ileum. The terminal ileum and colon are normal. 2. Infrarenal abdominal aortic aneurysm with large soft plaque also seen with atherosclerotic disease of the abdominal aorta and branches Signed by: Dr. Bassam Medina M.D. on 06/26/2018 2:29 AM
[2018-06-26] MEDS ORDERED: BENZOCAINE/TETRACAINE/BUTAMBEN AERO SPRAY 56 GM CAN ONE (02:57)
[2018-06-26] MEDS ORDERED: BENZOCAINE/TETRACAINE/BUTAMBEN AERO SPRAY 56 GM CAN TOP ONE (03:00)
[2018-06-26] MEDS ORDERED: HYDROMORPHONE 1MG/1ML INJ IV PRN (03:00)
[2018-06-26] MEDS ORDERED: MORPHINE SULFATE 2 MG/ML SYR IV PRN (03:00)
[2018-06-26] MEDS ORDERED: ONDANSETRON HCL INJ 2 MG/ML VIAL ONE (03:01)
[2018-06-26] MEDS: SODIUM CHLORIDE 0.9% 250ML IRRIG IR SCH ×6 (03:09→23:08)
[2018-06-26] MEDS: CEFTRIAXONE SOD 1 GM VIAL IV SCH (03:36)
[2018-06-26] MEDS: D5.45%NS/KCL 20MEQ 1,000 ML IV SCH ×2 (03:36→17:19)
[2018-06-26] MEDS: METRONIDAZOLE 500MG/NS 100ML IV SCH ×3 (05:58→17:19)
[2018-06-26] MEDS: ONDANSETRON HCL INJ 2 MG/ML VIAL IV PRN ×4 (06:40→23:30)
[2018-06-26] MEDS: HYDROMORPHONE 2MG/ML 2 MG/ML ML IV PRN ×3 (10:52→23:41)
[2018-06-27] VITALS (8 sets, daily range): BP systolic 102–137; BP diastolic 53–63
[2018-06-27] MEDS: METRONIDAZOLE 500MG/NS 100ML IV SCH ×5 (00:16→23:57)
[2018-06-27] MEDS: SODIUM CHLORIDE 0.9% 250ML IRRIG IR SCH ×6 (03:05→23:00)
[2018-06-27] MEDS: CEFTRIAXONE SOD 1 GM VIAL IV SCH (03:12)
[2018-06-27] MEDS: D5.45%NS/KCL 20MEQ 1,000 ML IV SCH ×2 (05:29→20:15)
[2018-06-27 05:32] LABS: BASOPHILS % 0.3 % (0.0-1.0); EOSINOPHILS # (AUTO) 0.1 (0.0-0.4); EOSINOPHILS % 1.2 % (0.0-6.0); HEMATOCRIT 35.9 % (34.2-44.1); HEMOGLOBIN 11.3 g/dL (12.0-16.0); LYMPHOCYTES # (AUTO) 1.3 (1.0-3.2); LYMPHOCYTES % 11.7 % (18.0-39.1); MEAN CORPUSCULAR HGB CONC 31.5 g/dL (31-35); MEAN CORPUSCULAR VOLUME 92.1 fL (81-99); MONOCYTES % 8.9 % (4.4-11.3); NEUTROPHILS # (AUTO) 8.6 (2.1-6.9); NEUTROPHILS % 77.5 % (38.7-80.0); PLATELET COUNT 333 x10e3/uL (140-360); RED CELL DISTRIBUTION WIDTH 13.7 % (11.7-14.4)
[2018-06-27 05:51] LABS: ANION GAP 13.8 mmol/L (8-16); BLOOD UREA NITROGEN 13 mg/dL (7-26); BUN/CREATININE RATIO 17 (6-25); CALCIUM 8.9 mg/dL (8.4-10.2); CARBON DIOXIDE 27 mmol/L (22-29); CHLORIDE 101 mmol/L (98-107); CREATININE, SERUM 0.75 mg/dL (0.57-1.11); EST GLOMERULAR FILTRATION RATE > 60 ML/MIN (60-); GLUCOSE 120 mg/dL (74-118); POTASSIUM 4.8 mmol/L (3.5-5.1); SODIUM 137 mmol/L (136-145)
[2018-06-27 07:27] LABS: FREE THYROXINE INDEX 2.1961 (1.4-3.8); THYROID STIMULATING HORMONE 1.04 uIU/mL (0.350-4.940)
[2018-06-27] MEDS: ONDANSETRON HCL INJ 2 MG/ML VIAL IV PRN ×3 (08:14→20:15)
[2018-06-27] MEDS: HYDROMORPHONE 2MG/ML 2 MG/ML ML IV PRN ×3 (08:14→20:20)
--- NOTE | 2018-06-27 10:11 | Diagnostic Imaging Report ---
EXAM: Abdomen 2 Views INDICATION: ^SMALL BOWEL OBSTRUCTION. ^[id number] ^[id number] COMPARISON: CT abdomen and pelvis 06/26/2018 FINDINGS: Moderate of stool in the colon. Unchanged asymmetric mildly prominent loops of small bowel in the lower abdomen as noted on recent CT. No renal calculi. No abnormal soft tissue masses. Advanced degenerative changes in the lumbar spine and pelvis. IMPRESSION: Stable appearance of the bowel gas when compared to prior CT. Signed by: Dr. Roma Singer M.D. on 06/27/2018 10:07 AM
[2018-06-27] MEDS ORDERED: CHLORASEPTIC SPRAY 177 ML BTL MM PRN (20:00)
[2018-06-28] VITALS (9 sets, daily range): BP systolic 107–147; BP diastolic 53–63
[2018-06-28] MEDS: SODIUM CHLORIDE 0.9% 250ML IRRIG IR SCH ×6 (03:06→21:47)
[2018-06-28] MEDS: CEFTRIAXONE SOD 1 GM VIAL IV SCH (03:06)
[2018-06-28] MEDS: ONDANSETRON HCL INJ 2 MG/ML VIAL IV PRN ×2 (03:45→13:45)
[2018-06-28] MEDS: HYDROMORPHONE 2MG/ML 2 MG/ML ML IV PRN ×3 (03:50→20:09)
[2018-06-28] MEDS: METRONIDAZOLE 500MG/NS 100ML IV SCH ×3 (05:48→18:17)
[2018-06-28 05:51] LABS: BASOPHILS % 0.2 % (0.0-1.0); EOSINOPHILS # (AUTO) 0.2 (0.0-0.4); EOSINOPHILS % 1.5 % (0.0-6.0); HEMATOCRIT 35.6 % (34.2-44.1); HEMOGLOBIN 11.3 g/dL (12.0-16.0); LYMPHOCYTES # (AUTO) 1.9 (1.0-3.2); LYMPHOCYTES % 15.7 % (18.0-39.1); MEAN CORPUSCULAR HEMOGLOBIN 28.8 pg (28-32); MEAN CORPUSCULAR HGB CONC 31.7 g/dL (31-35); MEAN CORPUSCULAR VOLUME 90.8 fL (81-99); MONOCYTES % 8.2 % (4.4-11.3); NEUTROPHILS # (AUTO) 8.9 (2.1-6.9); NEUTROPHILS % 74.1 % (38.7-80.0); PLATELET COUNT 394 x10e3/uL (140-360); RED BLOOD COUNT 3.92 x10e6/uL (3.6-5.1); RED CELL DISTRIBUTION WIDTH 13.4 % (11.7-14.4)
--- NOTE | 2018-06-28 11:16 | Diagnostic Imaging Report ---
PROCEDURE:ABDOMEN 2 VIEW COMPARISON:[facility], DX, ABDOMEN 2 VIEW, 06/27/2018, 9:06. INDICATIONS:SMALL BOWEL OBSTRUCTION FINDINGS:NG tube extends below the diaphragm. No significant interval change compared to the prior study. Some fecal material in the rectosigmoid is present. CONCLUSION:No significant interval change. Anthony Del Valle D.O. Dictated by: Anthony Del Valle D.O. on 06/28/2018 at 11:25 Electronically approved by: Anthony Del Valle D.O. on 06/28/2018 at 11:25
[2018-06-28] MEDS: D5.45%NS/KCL 20MEQ 1,000 ML IV SCH (13:45)
[2018-06-29] VITALS (7 sets, daily range): BP systolic 110–138; BP diastolic 56–86
[2018-06-29] MEDS: METRONIDAZOLE 500MG/NS 100ML IV SCH ×5 (00:05→23:58)
[2018-06-29] MEDS: D5.45%NS/KCL 20MEQ 1,000 ML IV SCH ×2 (00:05→17:36)
[2018-06-29] MEDS: CEFTRIAXONE SOD 1 GM VIAL IV SCH (03:11)
[2018-06-29] MEDS: SODIUM CHLORIDE 0.9% 250ML IRRIG IR SCH ×6 (03:11→23:58)
[2018-06-29 06:07] LABS: BLOOD UREA NITROGEN 5 mg/dL (7-26); BUN/CREATININE RATIO 8 (6-25); CALCIUM 8.7 mg/dL (8.4-10.2); CARBON DIOXIDE 30 mmol/L (22-29); CHLORIDE 95 mmol/L (98-107); CREATININE, SERUM 0.63 mg/dL (0.57-1.11); EST GLOMERULAR FILTRATION RATE > 60 ML/MIN (60-); GLUCOSE 101 mg/dL (74-118); SODIUM 131 mmol/L (136-145)
[2018-06-29] MEDS: HYDROMORPHONE 2MG/ML 2 MG/ML ML IV PRN ×4 (07:20→23:47)
--- NOTE | 2018-06-29 09:54 | Diagnostic Imaging Report ---
PROCEDURE:ABDOMEN 2 VIEW COMPARISON:KUB 06/28/18. INDICATIONS:SMALL BOWEL OBSTRUCTION FINDINGS: Enteric tube terminates in the stomach. Findings of partial small bowel obstruction with dilatation of small bowel loops measuring up to 3.9 cm with air fluid levels. Degree of small bowel distension has increased slightly from prior radiograph. There is air within a decompressed colon. No acute bony findings. CONCLUSION: Partial small bowel obstruction with slightly increased small bowel distension compared to prior radiograph. Dictated by: ZULY LINO M.D. on 06/29/2018 at 10:02 Electronically approved by: ZULY LINO M.D. on 06/29/2018 at 10:02
[2018-06-29] MEDS: ONDANSETRON HCL INJ 2 MG/ML VIAL IV PRN ×2 (11:42→17:49)
[2018-06-29] MEDS ORDERED: ALBUTEROL/IPRATROPIUM 3 ML NEB NEB PRN (15:15)
[2018-06-29] MEDS ORDERED: ALBUTEROL SULF 0.083% NEB SOLN 3 ML NEB NEB PRN (15:30)
[2018-06-30] VITALS (10 sets, daily range): BP systolic 97–148; BP diastolic 54–66
[2018-06-30] MEDS: D5.45%NS/KCL 20MEQ 1,000 ML IV SCH (00:20)
[2018-06-30] MEDS: SODIUM CHLORIDE 0.9% 250ML IRRIG IR SCH ×6 (03:26→22:39)
[2018-06-30] MEDS: CEFTRIAXONE SOD 1 GM VIAL IV SCH (03:26)
[2018-06-30] MEDS: METRONIDAZOLE 500MG/NS 100ML IV SCH ×4 (05:28→23:00)
[2018-06-30 05:30] LABS: ANION GAP 10.2 mmol/L (8-16); BLOOD UREA NITROGEN < 5 mg/dL (7-26); CALCIUM 8.5 mg/dL (8.4-10.2); CARBON DIOXIDE 30 mmol/L (22-29); CHLORIDE 96 mmol/L (98-107); CREATININE, SERUM 0.62 mg/dL (0.57-1.11); EST GLOMERULAR FILTRATION RATE > 60 ML/MIN (60-); GLUCOSE 103 mg/dL (74-118); POTASSIUM 4.2 mmol/L (3.5-5.1); SODIUM 132 mmol/L (136-145)
[2018-06-30 05:35] LABS: BUN/CREATININE RATIO 8 (6-25)
[2018-06-30] MEDS: HYDROMORPHONE 2MG/ML 2 MG/ML ML IV PRN (06:15)
[2018-06-30 07:37] LABS: BASOPHILS % 0.3 % (0.0-1.0); EOSINOPHILS # (AUTO) 0.1 (0.0-0.4); EOSINOPHILS % 1.1 % (0.0-6.0); HEMATOCRIT 33.7 % (34.2-44.1); HEMOGLOBIN 10.8 g/dL (12.0-16.0); LYMPHOCYTES # (AUTO) 1.7 (1.0-3.2); LYMPHOCYTES % 14.2 % (18.0-39.1); MEAN CORPUSCULAR VOLUME 90.3 fL (81-99); MONOCYTES % 8.3 % (4.4-11.3); NEUTROPHILS # (AUTO) 8.8 (2.1-6.9); NEUTROPHILS % 75.8 % (38.7-80.0); PLATELET COUNT 360 x10e3/uL (140-360); RED BLOOD COUNT 3.73 x10e6/uL (3.6-5.1); RED CELL DISTRIBUTION WIDTH 13.4 % (11.7-14.4)
[2018-06-30] MEDS ORDERED: SUGAMMADEX SODIUM 200 MG/2 ML VIAL IV ONE (10:49)
[2018-06-30] MEDS ORDERED: BUPIVACAINE HCL 0.5% INJ 30 ML VIAL INJ ONE (11:21)
[2018-06-30] MEDS ORDERED: HYDROMORPHONE 0.2MG/ML-SOD CHL 30ML PCA SYRINGE IV PRN (13:00)
[2018-06-30] MEDS ORDERED: NALOXONE HCL INJ 0.4 MG/ML AMP IV PRN (13:00)
[2018-06-30] MEDS ORDERED: ACETAMINOPHEN 1000 MG/100 ML IV PRN (13:00)
[2018-06-30] MEDS ORDERED: FENTANYL CITRATE/PF 100MCG/2 ML INJ ONE ×2 (13:13→15:58)
[2018-06-30] MEDS ORDERED: ONDANSETRON HCL INJ 2 MG/ML VIAL ONE ×2 (13:13→18:03)
[2018-06-30] MEDS ORDERED: PROMETHAZINE HCL (IM) 25 MG/ML VIAL ONE (13:25)
[2018-06-30] MEDS ORDERED: HYDROMORPHONE 2MG/ML 2 MG/ML ML ONE (13:26)
[2018-06-30] MEDS ORDERED: HYDROMORPHONE 0.2MG/ML-SOD CHL 30ML PCA SYRINGE IV ONE (13:38)
--- NOTE | 2018-06-30 14:12 | Operative Report ---
DATE OF PROCEDURE: June 30, 2018 PREOPERATIVE DIAGNOSIS: Small-bowel obstruction. POSTOPERATIVE DIAGNOSIS: Small-bowel obstruction. PROCEDURES 1. Diagnostic laparoscopy. 2. Exploratory laparotomy. 3. Lysis of adhesions with release of small-bowel obstruction. CAMPUS AMBASSADOR: None. ANESTHESIA: General endotracheal. INDICATIONS AND FINDINGS: Patient is an 88-year-old female who was admitted to the hospital with nausea and vomiting. Workup revealed a small-bowel obstruction. She had persistent obstruction and required surgery. At surgery, the patient was found to have extensive adhesions involving most of the peritoneal cavity, involving omentum and small bowel, such that laparoscopic surgery could not be safely done. She had a dilated proximal bowel and collapsed distal bowel with obstruction caused by adhesions. All of the bowel appeared viable. TECHNIQUE: After adequate general endotracheal anesthesia, with the patient in supine position, the abdomen was prepped and draped in sterile fashion with Centuria solution in the left upper quadrant away from the area of the previous surgery. Skin and subcutaneous tissue were infiltrated with 0.5% Marcaine. Transverse incision was made and carried down through subcutaneous tissue until the fascia was seen. Under direct vision, the fascia was opened. The peritoneal cavity was entered. Hernandez blunt-tipped trocar was introduced. Pneumoperitoneum was then created. Laparoscopic camera was introduced. Initial laparoscopy revealed extensive adhesions filling up the entire peritoneal cavity except for the area where the Hernandez trocar had been placed. Because of the extensive adhesions and the bowel being very dilated, it was thought the safest way would be to proceed as an open surgery. A lower midline incision was made. The peritoneal cavity was entered. There were adhesions involving the omentum which were lysed. As the omental adhesions were freed, the small bowel was identified. This was noted to be dilated. There were also extensive adhesions involving the small bowel. The dilated small bowel was dissected free from the adhesions to the abdominal wall as well as to the omentum. The bowel was followed distally as all the adhesions were lysed, freeing the bowel completely. There was a seromuscular tear in 3 areas in the small bowel. These were repaired with 3-0 Vicryl. As the small bowel was followed distally, the point of obstruction was identified where the bowel became normal caliber. This was caused by adhesions. As the bowel was freed, the obstruction was relieved. All the small bowel was freed completely from adhesions from the ligament of Treitz to the terminal ileum. The bowel was examined completely. All appeared viable. There were no enterotomies. The areas where there had been seromuscular tears were repaired with 3-0 Vicryl. The peritoneal cavity was then irrigated with a large volume of warm saline and inspected for hemostasis, which was seen to be adequate. The midline fascia was closed with a running suture of #1 PDS. Fascia at the trocar site was closed with #0 Vicryl. Skin to all wounds was closed with naomi. Sterile dressing was applied to each wound. Patient tolerated the procedure well. Estimated blood loss was 100 mL. There were no complications. All counts were correct. The patient was taken to the recovery room in satisfactory condition. Job#: [id number] cc:MD RAUL POLLACK MD MAURICE HADDAD, MD
[2018-06-30] MEDS ORDERED: METRONIDAZOLE 500MG/NS 100ML 100 ML IV ONE (14:31)
[2018-06-30] MEDS: DEXTROSE 5%/LACTATED RINGERS 1,000 ML IV SCH (15:01)
[2018-06-30] MEDS ORDERED: ISOFLURANE INHAL SOLN 250 ML BTL INH ONE (18:03)
[2018-06-30] MEDS ORDERED: ACETAMINOPHEN 1000 MG/100 ML IV ONE (18:03)
[2018-06-30] MEDS ORDERED: ETOMIDATE 2 MG/ML 10 ML INJ IV ONE (18:03)
[2018-06-30] MEDS ORDERED: HYDRALAZINE HCL 20 MG/ML VIAL ONE (18:03)
[2018-06-30] MEDS ORDERED: ROCURONIUM BROMIDE 10 MG/ML 5ML VIAL ONE (18:03)
[2018-06-30] MEDS ORDERED: LIDOCAINE HCL 2% LOCAL INJ 5 ML SDV VIAL INJ ONE (18:03)
[2018-06-30] MEDS ORDERED: DEXAMETHASONE SOD PHOS INJ 4 MG/ML VIAL ONE (18:03)
--- NOTE | 2018-06-30 20:04 | Consultation ---
DATE OF CONSULTATION: June 30, 2018 PULMONARY CONSULT REASON FOR ADMISSION: Shortness of breath, COPD. HISTORY OF PRESENT ILLNESS: Ms. Rivero is an 88-year-old lady with advanced COPD, chronic hypoxic respiratory failure on supplemental oxygen at home, has been admitted to the hospital on June 26, 2018. Pulmonary consultation has been requested for shortness of breath. Patient was admitted with small-bowel obstruction. She underwent diagnostic laparoscopy, exploratory laparotomy and lysis of adhesions with the release of small-bowel obstruction. Patient has NG tube in place. She is on supplemental oxygen. Oxygen saturation 100%. Patient is sleepy but arousable. Daughter is at the bedside. Events in the records reviewed. PAST MEDICAL HISTORY: Significant for hypertension, hyperlipidemia, COPD, chronic hypoxic respiratory failure, age-related deconditioning and debility, recurrent small-bowel obstruction. CURRENT MEDICATIONS: Include hydromorphone, ceftriaxone, Flagyl, Toradol as needed, albuterol sulfate. HOME MEDICATION: Includes amlodipine, atenolol, Wellbutrin, Plavix, Lasix as needed, levothyroxine, prednisone 5 mg daily, Forteo, Spiriva, Breo, Linzess. ADVERSE REACTION: MORPHINE AND ERYTHROMYCIN. REVIEW OF SYSTEMS: Cannot be obtained. SOCIAL HISTORY: Patient lives at home. Smoked in the past. FAMILY HISTORY: Noncontributory to current illness. PHYSICAL EXAMINATION VITAL SIGNS: Temperature 97.7, blood pressure is 123/62 mmHg, pulse rate of 112, respiratory rate is 18 to 20, oxygen saturation 98%. HEAD AND NECK: Normocephalic, nontraumatic. Wears corrective glasses. Pupils reactive. NG tube is in place. Oral mucosa moist. Neck supple. CHEST: Symmetrical expansion. Diminished air movement. HEART: S1/S2 audible. Regular rate and rhythm. ABDOMEN: Surgical wound appears clean. No significant bleeding. No bowel sounds. EXTREMITIES: SCDs in place. CLAIMS REPRESENTATIVE: Drowsy but arousable. LABORATORY DATA: WBC count of 11.6, hemoglobin 10.8, hematocrit 33.7, platelet count . Sodium of 132, potassium 4.2, chloride 96, bicarb 96, BUN of less than 5, creatinine 0.62. X-RAY OF ABDOMEN AND COMPUTED TOMOGRAPHY SCAN: Reviewed. IMPRESSION 1. Status post small-bowel obstruction. 2. Status post exploratory laparotomy and lysis of adhesions. 3. Advanced chronic obstructive pulmonary disease. 4. Hypoxic respiratory failure. 5. Hyponatremia. 6. Age-related deconditioning and debility. RECOMMENDATION: From a pulmonary standpoint, patient is chronically dependent on the prednisone. Restart prednisone or start her on low-dose Solu-Medrol 20 mg daily until she is able to take by mouth. Bronchodilator p.r.n. DVT prophylaxis as per surgeon's recommendation. Hyponatremia may be related to D5 with the IV fluids. Monitor closely. Overall condition and prognosis guarded. Discussed with the patient's daughter at the bedside. I thank you, Dr. Hayden, for asking my opinion. Will follow. Job#: [id number] EV
[2018-07-01] VITALS (9 sets, daily range): BP systolic 87–121; BP diastolic 53–64
[2018-07-01] MEDS: SODIUM CHLORIDE 0.9% 250ML IRRIG IR SCH ×6 (01:43→21:56)
[2018-07-01] MEDS: CEFTRIAXONE SOD 1 GM VIAL IV SCH (02:06)
[2018-07-01] MEDS: DEXTROSE 5%/LACTATED RINGERS 1,000 ML IV SCH ×4 (04:59→21:56)
[2018-07-01] MEDS: METRONIDAZOLE 500MG/NS 100ML IV SCH ×4 (05:05→23:51)
[2018-07-01 06:16] LABS: BASOPHILS % 0.2 % (0.0-1.0); HEMATOCRIT 35.9 % (34.2-44.1); HEMOGLOBIN 11.5 g/dL (12.0-16.0); LYMPHOCYTES # (AUTO) 1.6 (1.0-3.2); LYMPHOCYTES % 8.6 % (18.0-39.1); MEAN CORPUSCULAR HEMOGLOBIN 28.4 pg (28-32); MEAN CORPUSCULAR VOLUME 88.6 fL (81-99); MONOCYTES # (AUTO) 1.4 (0.2-0.8); MONOCYTES % 7.5 % (4.4-11.3); NEUTROPHILS # (AUTO) 15.6 (2.1-6.9); NEUTROPHILS % 83.3 % (38.7-80.0); PLATELET COUNT 382 x10e3/uL (140-360); RED BLOOD COUNT 4.05 x10e6/uL (3.6-5.1)
--- NOTE | 2018-07-01 06:28 | Diagnostic Imaging Report ---
CHEST SINGLE (PORTABLE), 07/01/2018 9:00 AM Technique: CHEST SINGLE (PORTABLE) Comparison: 03/08/2018 Clinical history: Pulmonary edema Findings: See Impression. Impression: Limited single portable view of the chest 1. Lines/Tubes: Subdiaphragmatic NG tube overlying the stomach. 2. Stable cardiomediastinal silhouette given differences in rotation. 3. No consolidation or edema. 4. No significant pleural effusion. No pneumothorax. 5. Lucency along the diaphragm, favor artifactual related to projection/properitoneal fat. Signed by: Dr Veronica Antonio MD on 07/01/2018 6:24 AM
[2018-07-01 06:32] LABS: ANION GAP 9.1 mmol/L (8-16); BLOOD UREA NITROGEN 6 mg/dL (7-26); BUN/CREATININE RATIO 8 (6-25); CALCIUM 8.3 mg/dL (8.4-10.2); CARBON DIOXIDE 30 mmol/L (22-29); CHLORIDE 96 mmol/L (98-107); CREATININE, SERUM 0.74 mg/dL (0.57-1.11); EST GLOMERULAR FILTRATION RATE > 60 ML/MIN (60-); GLUCOSE 154 mg/dL (74-118); POTASSIUM 4.1 mmol/L (3.5-5.1); SODIUM 131 mmol/L (136-145)
[2018-07-01] MEDS ORDERED: NITROGLYCERIN 0.4 MG SUBL ONE (11:52)
[2018-07-01] MEDS ORDERED: NITROGLYCERIN 0.4 MG SUBL SL PRN (12:00)
[2018-07-01] MEDS ORDERED: SODIUM CHLORIDE 0.9% 250ML 250 ML IV ONE (14:45)
--- NOTE | 2018-07-01 15:24 | Consultation ---
DATE OF CONSULTATION: July 01, 2018 CARDIOLOGY CONSULTATION REASON FOR CONSULTATION: Chest pain. HISTORY OF PRESENT ILLNESS: Ms. Rivero is a pleasant 88-year-old woman with end-stage COPD, severe coronary artery disease, asymptomatic for which the patient has chosen medical management in the past. She has been offered in the past coronary evaluation, which she has declined preferring medical therapy instead. She is admitted to the hospital for small-bowel obstruction requiring ex lap and adhesiolysis. Postoperatively, she has an NG tube in place and suction with occasional episode of abdominal discomfort. Today, she had some episode of chest discomfort, which she describes as her usual recurrent episodes that resolved with nitroglycerin p.r.n. She was given nitroglycerin with resolution of her symptoms within less than 30 minutes. First set of cardiac enzymes were negative. Her EKG showed sinus rhythm with incomplete right bundle branch block and left ventricular fascicular block. Her telemetry shows sinus tachycardia. She is currently chest pain free. Shortness of breath is at her baseline. There are no other complaints currently. REVIEW OF SYSTEMS: Reviewed and negative except for as noted above. ALLERGIES: ERYTHROMYCIN AND MORPHINE REPORTEDLY PER EMR. PAST MEDICAL HISTORY: Dyslipidemia, hypertension, carotid disease, COPD, anemia. SOCIAL HISTORY: Smoker. No alcohol. No drugs. FAMILY HISTORY: Good family support. No other medical issues. PHYSICAL EXAMINATION VITALS: Temperature is 98.7, heart rate 109, respiratory rate 19, blood pressure 120/53, and O2 sat 100% on nasal cannula. GENERAL: In no acute distress. Alert. NECK: No JVD. Carotid bruit. CARDIOVASCULAR: Regular rate and rhythm. Normal S1 and S2. Systolic ejection murmur of 1/6. No S3. No S4. ABDOMEN: Distended with dressings in place. EXTREMITIES: No edema. CARDIOVASCULAR MEDICATIONS: Reviewed. Receiving ceftriaxone, hydromorphone, Ketoralac, Zofran. STUDIES: Reviewed. Glucose 154, creatinine 0.7. Hemoglobin 9.5. AST 18, ALT 15, lipase 41. First set of cardiac enzymes negative. ASSESSMENT 1. Chest pain concerning for angina pectoris for which the patient has opted medical management in the past: Relieved with nitroglycerin. 2. Hypertension. 3. Dyslipidemia. 4. Carotid disease. 5. Advanced chronic obstructive pulmonary disease. 6. Status post from lysis of adhesions. RECOMMENDATIONS: Given her initial postoperative state, no aspirin at this point. The patient is not tolerating n.p.o. Blood pressure low normal. If recurrent issues with tachycardia or develops hypertension, can give metoprolol 2.5 mg every 12 hours IV as needed. Serial cardiac enzymes. Obtain echocardiogram. IV fluid challenge. The patient is oliguric currently. Repeat BMP and confirm if creatinine is stable. Follow closely. Thank you, Dr. Hayden, for the opportunity to participate in the care of Ms. Rivero. Job#: [id number] ND
[2018-07-01 15:41] LABS: ANION GAP 9.8 mmol/L (8-16); BLOOD UREA NITROGEN 7 mg/dL (7-26); BUN/CREATININE RATIO 10 (6-25); CALCIUM 8.2 mg/dL (8.4-10.2); CARBON DIOXIDE 30 mmol/L (22-29); CHLORIDE 95 mmol/L (98-107); CREATININE, SERUM 0.71 mg/dL (0.57-1.11); EST GLOMERULAR FILTRATION RATE > 60 ML/MIN (60-); GLUCOSE 175 mg/dL (74-118); POTASSIUM 3.8 mmol/L (3.5-5.1); SODIUM 131 mmol/L (136-145)
[2018-07-01] MEDS: METOPROLOL TARTRATE INJ 1 MG/ML VIAL IV SCH ×2 (17:16→23:51)
[2018-07-01 18:42] LABS: CREATINE KINASE MB 1.6 ng/mL (0-5.0)
[2018-07-01] MEDS: ALBUTEROL SULF 0.083% NEB SOLN 3 ML NEB INH SCH (20:10)
[2018-07-01] MEDS ORDERED: SODIUM CHLORIDE 0.9% 1000ML 1,000 ML ONE (23:20)
[2018-07-02] VITALS (10 sets, daily range): BP systolic 91–124; BP diastolic 36–64
[2018-07-02] MEDS: SODIUM CHLORIDE 0.9% 250ML IRRIG IR SCH ×6 (01:44→21:27)
[2018-07-02] MEDS: CEFTRIAXONE SOD 1 GM VIAL IV SCH (01:51)
[2018-07-02] MEDS ORDERED: SODIUM CHLORIDE 0.9% 250ML 250 ML ONE (03:34)
[2018-07-02] MEDS: METOPROLOL TARTRATE INJ 1 MG/ML VIAL IV SCH ×3 (06:00→16:58)
[2018-07-02] MEDS ORDERED: FUROSEMIDE INJ 10 MG/ML 2 ML VIAL IV ONE (06:45)
[2018-07-02] MEDS: METRONIDAZOLE 500MG/NS 100ML IV SCH ×3 (06:49→18:12)
[2018-07-02 06:56] LABS: HEMATOCRIT 30.6 % (34.2-44.1); HEMOGLOBIN 9.7 g/dL (12.0-16.0); MEAN CORPUSCULAR HEMOGLOBIN 28.7 pg (28-32); MEAN CORPUSCULAR HGB CONC 31.7 g/dL (31-35); MEAN CORPUSCULAR VOLUME 90.5 fL (81-99); PLATELET COUNT 289 x10e3/uL (140-360); RED BLOOD COUNT 3.38 x10e6/uL (3.6-5.1); RED CELL DISTRIBUTION WIDTH 14.3 % (11.7-14.4)
[2018-07-02] MEDS: ALBUTEROL SULF 0.083% NEB SOLN 3 ML NEB INH SCH ×2 (07:00→20:02)
[2018-07-02 07:11] LABS: ANION GAP 7.7 mmol/L (8-16); BLOOD UREA NITROGEN 6 mg/dL (7-26); BUN/CREATININE RATIO 10 (6-25); CALCIUM 8.1 mg/dL (8.4-10.2); CARBON DIOXIDE 33 mmol/L (22-29); CHLORIDE 100 mmol/L (98-107); CREATININE, SERUM 0.61 mg/dL (0.57-1.11); EST GLOMERULAR FILTRATION RATE > 60 ML/MIN (60-); GLUCOSE 131 mg/dL (74-118); POTASSIUM 3.7 mmol/L (3.5-5.1); SODIUM 137 mmol/L (136-145)
[2018-07-02 07:34] LABS: CREATINE KINASE MB 1.3 ng/mL (0-5.0)
[2018-07-02] MEDS: KETOROLAC TROMETHAMINE 30 MG/ML VIAL IV PRN (07:37)
[2018-07-02] MEDS ORDERED: HYDROMORPHONE 1MG/1ML INJ IV STA (07:48)
[2018-07-02] MEDS ORDERED: HYDROMORPHONE 2MG/ML 2 MG/ML ML IV ONE (08:00)
[2018-07-02] MEDS: ONDANSETRON HCL INJ 2 MG/ML VIAL IV PRN (08:11)
--- NOTE | 2018-07-02 09:21 | Progress Note ---
DATE: July 02, 2018 CARDIOLOGY PROGRESS NOTE SUBJECTIVE: Sleeping comfortably today. NG tube to wall suction. No chest pain. PHYSICAL EXAMINATION VITALS: Temperature 97.6, heart rate 95, respiratory rate 18, blood pressure 124/57, O2 sat 98% on 4 L per minute nasal cannula. GENERAL: Sleeping. NG tube in place. NECK: No JVD or carotid bruit. CHEST: Decreased breath sounds at bilateral bases. CARDIOVASCULAR: Regular rate and rhythm. Normal S1 and S2. No S3. No S4. Systolic ejection murmur of 1/6. ABDOMEN: Distended. Decreased bowel sounds. Dressing is in place. EXTREMITIES: No edema. CARDIOVASCULAR MEDICATIONS: Reviewed. Metoprolol tartrate 2.5 mg IV every 6 hours as needed with holding parameters. Pain control with Ketorolac. Hydromorphone as needed. Ceftriaxone antibiotic. STUDIES: Reviewed. White blood cells 12.4, hemoglobin 9.7 and platelets 289,000. Creatinine 0.6, potassium 3.7, bicarbonate 33. Serial cardiac enzymes negative times 3. ASSESSMENT 1. Chest pain, chronic: Suspect unstable angina. 2. Sinus rhythm on telemetry. 3. Dyslipidemia. 4. Hypertension. 5. Carotid disease. 6. Advanced chronic obstructive pulmonary disease. 7. Status post adhesiolysis. RECOMMENDATIONS: Continue current cardiovascular medications, including IV metoprolol as needed. IV fluids as needed. Monitor urine output. Supportive care. Job#: [id number] SCAR
[2018-07-02] MEDS: DEXTROSE 5%/LACTATED RINGERS 1,000 ML IV SCH ×2 (09:29→16:58)
[2018-07-02 10:22] LABS: ANISOCYTOSIS SLIGHT; HYPOCHROMASIA MODERATE; LYMPHOCYTES % (MANUAL) 3 % (19-48); MONOCYTES % (MANUAL) 4 % (3.4-9.0); NEUTROPHILS % (MANUAL) 93 % (40-74)
[2018-07-02 10:23] LABS: PLATELET ESTIMATE ADEQUATE; PLATELET MORPHOLOGY COMMENT NORMAL; RBC MORPHOLOGY COMMENT NORMAL
[2018-07-02 17:45] LABS: CREATINE KINASE MB 1.5 ng/mL (0-5.0)
[2018-07-03] VITALS (7 sets, daily range): BP systolic 91–118; BP diastolic 36–57
[2018-07-03] MEDS: METRONIDAZOLE 500MG/NS 100ML IV SCH ×2 (00:04→06:19)
[2018-07-03] MEDS ORDERED: LACTATED RINGER'S 1,000 ML ONE (00:22)
[2018-07-03] MEDS: SODIUM CHLORIDE 0.9% 250ML IRRIG IR SCH ×7 (01:00→20:05)
[2018-07-03] MEDS ORDERED: PANTOPRAZOLE 40 MG 10ML VIAL IV STA (05:40)
[2018-07-03] MEDS ORDERED: PANTOPRAZOL 40MG/SOD CHL 0.9% 250 ML IV SCH (05:45)
[2018-07-03] MEDS: METOPROLOL TARTRATE INJ 1 MG/ML VIAL IV SCH ×4 (06:00→18:00)
[2018-07-03 06:16] LABS: HEMATOCRIT 32.4 % (34.2-44.1); MEAN CORPUSCULAR HEMOGLOBIN 28.7 pg (28-32); MEAN CORPUSCULAR HGB CONC 30.9 g/dL (31-35); MEAN CORPUSCULAR VOLUME 93.1 fL (81-99); PLATELET COUNT 350 x10e3/uL (140-360); RED BLOOD COUNT 3.48 x10e6/uL (3.6-5.1); RED CELL DISTRIBUTION WIDTH 14.2 % (11.7-14.4)
[2018-07-03] MEDS: DEXTROSE 5%/LACTATED RINGERS 1,000 ML IV SCH ×2 (06:17→18:42)
[2018-07-03 06:42] LABS: ANION GAP 8.5 mmol/L (8-16); BLOOD UREA NITROGEN 5 mg/dL (7-26); BUN/CREATININE RATIO 8 (6-25); CALCIUM 8.4 mg/dL (8.4-10.2); CARBON DIOXIDE 35 mmol/L (22-29); CHLORIDE 100 mmol/L (98-107); CREATININE, SERUM 0.63 mg/dL (0.57-1.11); EST GLOMERULAR FILTRATION RATE > 60 ML/MIN (60-); GLUCOSE 90 mg/dL (74-118); POTASSIUM 3.5 mmol/L (3.5-5.1); SODIUM 140 mmol/L (136-145)
[2018-07-03 06:58] LABS: CREATINE KINASE 18 IU/L (29-168)
[2018-07-03 07:13] LABS: CREATINE KINASE MB < 1.00 ng/mL (0-4.3)
[2018-07-03] MEDS: ALBUTEROL SULF 0.083% NEB SOLN 3 ML NEB INH SCH ×2 (07:40→19:42)
[2018-07-03] MEDS ORDERED: FUROSEMIDE INJ 10 MG/ML 2 ML VIAL IV ONE (08:00)
[2018-07-03] MEDS: KETOROLAC TROMETHAMINE 30 MG/ML VIAL IV PRN ×2 (08:42→16:27)
[2018-07-03] MEDS: PANTOPRAZOL 40MG/SOD CHL 0.9% 50 ML IV SCH ×3 (08:42→20:05)
--- NOTE | 2018-07-03 13:19 | Progress Note ---
DATE: July 03, 2018 CARDIOLOGY PROGRESS NOTE SUBJECTIVE: Still with episodes of abdominal discomfort. Denies chest pain or shortness of breath. NG tube to wall suction. OBJECTIVE VITAL SIGNS: Reviewed. Temperature of 98.4, heart rate 99, respiratory rate 18, blood pressure 91/36. GENERAL: In no acute distress, alert and active. NECK: No JVD. CHEST: Clear to auscultation. CARDIOVASCULAR: Regular rate and rhythm. Normal S1 and S2. No S3. No S4. ABDOMEN: Distended. Decreased bowel sounds. EXTREMITIES: Trace edema. CARDIOVASCULAR MEDICATIONS: Reviewed. STUDIES: Reviewed. Significant for hemoglobin of 10, platelets 350,000, white count of 11.9. Creatinine of 0.6, glucose of 90, and potassium of 3.5. ASSESSMENT 1. Postoperative ileus. 2. Chest pain, stable angina, improved. 3. Chronic obstructive pulmonary disease, advanced. 4. Carotid disease. RECOMMENDATIONS: Continue current cardiovascular meds. IV metoprolol as needed. Advance diet at the direction of surgery. We will continue to follow. Job#: [id number] KATHY
[2018-07-03] MEDS: ALBUTEROL SULF 0.083% NEB SOLN 3 ML NEB NEB SCH ×2 (16:40→19:00)
[2018-07-04] VITALS (8 sets, daily range): BP systolic 118–141; BP diastolic 50–67
[2018-07-04] MEDS: ALBUTEROL SULF 0.083% NEB SOLN 3 ML NEB NEB SCH ×3 (01:00→14:15)
[2018-07-04] MEDS: PANTOPRAZOL 40MG/SOD CHL 0.9% 50 ML IV SCH ×5 (02:00→20:12)
[2018-07-04] MEDS: SODIUM CHLORIDE 0.9% 250ML IRRIG IR SCH ×3 (04:08→09:00)
[2018-07-04 05:34] LABS: BASOPHILS % 0.4 % (0.0-1.0); EOSINOPHILS # (AUTO) 0.4 (0.0-0.4); EOSINOPHILS % 5.1 % (0.0-6.0); HEMATOCRIT 30.2 % (34.2-44.1); HEMOGLOBIN 9.4 g/dL (12.0-16.0); LYMPHOCYTES # (AUTO) 0.8 (1.0-3.2); LYMPHOCYTES % 10.9 % (18.0-39.1); MEAN CORPUSCULAR HGB CONC 31.1 g/dL (31-35); MEAN CORPUSCULAR VOLUME 93.2 fL (81-99); MONOCYTES # (AUTO) 0.5 (0.2-0.8); MONOCYTES % 6.7 % (4.4-11.3); NEUTROPHILS # (AUTO) 5.9 (2.1-6.9); NEUTROPHILS % 76.6 % (38.7-80.0); PLATELET COUNT 331 x10e3/uL (140-360); RED BLOOD COUNT 3.24 x10e6/uL (3.6-5.1); RED CELL DISTRIBUTION WIDTH 14.3 % (11.7-14.4)
[2018-07-04 05:56] LABS: ANION GAP 9.2 mmol/L (8-16); BLOOD UREA NITROGEN < 5 mg/dL (7-26); CALCIUM 8.1 mg/dL (8.4-10.2); CARBON DIOXIDE 34 mmol/L (22-29); CHLORIDE 101 mmol/L (98-107); CREATININE, SERUM 0.63 mg/dL (0.57-1.11); EST GLOMERULAR FILTRATION RATE > 60 ML/MIN (60-); GLUCOSE 108 mg/dL (74-118); POTASSIUM 3.2 mmol/L (3.5-5.1); SODIUM 141 mmol/L (136-145)
[2018-07-04] MEDS: METOPROLOL TARTRATE INJ 1 MG/ML VIAL IV SCH ×4 (06:00→17:45)
[2018-07-04 06:14] LABS: BUN/CREATININE RATIO 8 (6-25)
[2018-07-04] MEDS ORDERED: FUROSEMIDE INJ 10 MG/ML 2 ML VIAL IV ONE (06:15)
[2018-07-04] MEDS: ALBUTEROL SULF 0.083% NEB SOLN 3 ML NEB INH SCH ×2 (07:00→19:45)
[2018-07-04] MEDS: DEXTROSE 5%/LACTATED RINGERS 1,000 ML IV SCH ×2 (07:38→22:06)
--- NOTE | 2018-07-04 22:49 | Progress Note ---
DATE: July 04, 2018 CARDIOLOGY PROGRESS NOTE SUBJECTIVE: Abdominal discomfort improved. Denies chest pain or shortness of breath today. NG tube has been discontinued. Still n.p.o. OBJECTIVE VITAL SIGNS: Temperature 98.2, heart rate 80, blood pressure 128/66, respiratory rate 16, O2 sat 99% on nasal cannula. GENERAL: In no acute distress. CHEST: Scattered rhonchi. CARDIOVASCULAR: Regular rate and rhythm. Normal S1 and S2. No S3. No S4. Systolic ejection murmur /6. ABDOMEN: Mildly distended. Some bowel sounds noted. No guarding. No rebound. EXTREMITIES: With 1+ edema to bilateral lower extremities. SCDs in place in bilateral lower extremities. CARDIOVASCULAR MEDICATIONS: Reviewed. On p.r.n. hydromorphone. Nitroglycerin p.r.n., metoprolol tartrate 2.5 mg IV q.6 h., Albuterol, ketorolac, Zofran. STUDIES: Reviewed. Creatinine is 0.6, potassium is 3.2, bicarbonate 34. Hemoglobin is 9.4, platelets 331,000. AST 18, ALT 15, alk phos 247. ASSESSMENT 1. Postoperative ileus. 2. Carotid disease. 3. Stable angina pectoris. 4. Chronic obstructive pulmonary disease. RECOMMENDATIONS: Continue current intravenous medications, was unable to tolerate p.o. We will resume oral beta chen, statin and clopidogrel once okay with rest of respiratory physicians. The patient is agreeable with noninvasive strategy at this point and does not seem interested in proceeding with invasive evaluation at a later date. We will discuss depending on continued progression. For now continue current care. Job#: [id number]
[2018-07-05] VITALS (15 sets, daily range): BP systolic 109–148; BP diastolic 48–71
[2018-07-05] MEDS: PANTOPRAZOL 40MG/SOD CHL 0.9% 50 ML IV SCH ×5 (01:45→22:29)
[2018-07-05] MEDS: METOPROLOL TARTRATE INJ 1 MG/ML VIAL IV SCH ×5 (05:51→23:51)
[2018-07-05] MEDS ORDERED: BISACODYL 10 MG SUPP PR ONE (06:30)
[2018-07-05] MEDS ORDERED: HYDROMORPHONE 0.2MG/ML-SOD CHL 30ML PCA SYRINGE IV PRN (06:30)
[2018-07-05] MEDS ORDERED: FUROSEMIDE INJ 10 MG/ML 2 ML VIAL IV ONE (07:00)
[2018-07-05] MEDS: ALBUTEROL SULF 0.083% NEB SOLN 3 ML NEB INH SCH ×2 (07:20→19:42)
[2018-07-05] MEDS: KETOROLAC TROMETHAMINE 30 MG/ML VIAL IV PRN ×3 (08:51→14:12)
[2018-07-05] MEDS ORDERED: POTASSIUM CHLORIDE 20MEQ/100ML 100 ML IV ONE (09:30)
[2018-07-05 09:56] LABS: BASOPHILS % 0.4 % (0.0-1.0); EOSINOPHILS # (AUTO) 0.3 (0.0-0.4); EOSINOPHILS % 4.5 % (0.0-6.0); HEMATOCRIT 33.4 % (34.2-44.1); HEMOGLOBIN 10.4 g/dL (12.0-16.0); LYMPHOCYTES # (AUTO) 1.2 (1.0-3.2); LYMPHOCYTES % 16.6 % (18.0-39.1); MEAN CORPUSCULAR HEMOGLOBIN 28.3 pg (28-32); MEAN CORPUSCULAR HGB CONC 31.1 g/dL (31-35); MEAN CORPUSCULAR VOLUME 90.8 fL (81-99); MONOCYTES # (AUTO) 0.5 (0.2-0.8); MONOCYTES % 6.9 % (4.4-11.3); NEUTROPHILS # (AUTO) 4.9 (2.1-6.9); NEUTROPHILS % 71.3 % (38.7-80.0); PLATELET COUNT 454 x10e3/uL (140-360); RED BLOOD COUNT 3.68 x10e6/uL (3.6-5.1); RED CELL DISTRIBUTION WIDTH 14.4 % (11.7-14.4)
[2018-07-05] MEDS ORDERED: MAGNESIUM SULFATE 2GM/50ML 50 ML IV ONE ×2 (10:30→18:30)
[2018-07-05 10:34] LABS: ALANINE AMINOTRANSFERASE 9 IU/L (0-55); ALBUMIN 2.3 g/dL (3.5-5.0); ALBUMIN/GLOBULIN RATIO 0.9 (0.8-2.0); ALKALINE PHOSPHATASE 176 IU/L (40-150); BLOOD UREA NITROGEN < 5 mg/dL (7-26); CALCIUM 8.2 mg/dL (8.4-10.2); CARBON DIOXIDE 36 mmol/L (22-29); CHLORIDE 98 mmol/L (98-107); CREATININE, SERUM 0.64 mg/dL (0.57-1.11); EST GLOMERULAR FILTRATION RATE > 60 ML/MIN (60-); GLUCOSE 123 mg/dL (74-118); PHOSPHORUS 1.6 MG/DL (2.3-4.7); SODIUM 141 mmol/L (136-145)
[2018-07-05 10:36] LABS: BUN/CREATININE RATIO 8 (6-25)
[2018-07-05] MEDS ORDERED: POTASSIUM PHOSPHATE 40 MM in SODIUM CHLORIDE 0.9% 250ML 250 ML IV ONE (16:00)
[2018-07-05] MEDS ORDERED: POTASSIUM CHLORIDE 20MEQ/100ML 200 ML IV ONE (18:15)
[2018-07-05] MEDS ORDERED: MAGNESIUM SULFATE 2GM/50ML IV ONE (18:15)
--- NOTE | 2018-07-05 18:51 | Progress Note ---
DATE: July 05, 2018 CARDIOLOGY PROGRESS NOTE SUBJECTIVE: No complaints. OBJECTIVE VITAL SIGNS: Temperature 97.8, heart rate 86, respiratory rate 16, blood pressure 148/62, O2 sat 99% on 2 liters per minute nasal cannula. GENERAL: No acute distress. CHEST: Decreased breath sounds in bilateral bases. CARDIOVASCULAR: Regular rate and rhythm. Normal S1 and S2. Frequent PACs noted on telemetry. ABDOMEN: Distended. Decreased bowel sounds. EXTREMITIES: With 1+ edema to bilateral lower extremities. CARDIOVASCULAR MEDICATIONS: Reviewed. 1. Metoprolol tartrate 2.5 mg every 6 hours IV. 2. Nitroglycerin p.r.n. 3. Potassium repletion. STUDIES: Reviewed. White blood cells 6.9, hemoglobin 10.4, platelets 454. Potassium 3, sodium 141, creatinine 0.6, magnesium 1.6. ASSESSMENT 1. Frequent premature atrial contractions. 2. Hypokalemia and hypomagnesemia. 3. Postoperative ileus. 4. Carotid disease. 5. Stable angina pectoris. 6. Chronic obstructive pulmonary disease. 7. Status post lysis of adhesion surgery. RECOMMENDATIONS 1. Replete electrolytes including magnesium and potassium. 2. Close monitoring of electrolytes. 3. Depending on diuresis tomorrow, may resume additional Lasix as needed for leg edema. However, a component of immobility is highly suspected as contributing to current presentation. Given electrolyte derangements, will hold off on diuretics today. Job#: [id number] [place]
[2018-07-05 19:04] LABS: ANION GAP 10.3 mmol/L (8-16); BLOOD UREA NITROGEN < 5 mg/dL (7-26); CALCIUM 8.1 mg/dL (8.4-10.2); CARBON DIOXIDE 34 mmol/L (22-29); CHLORIDE 97 mmol/L (98-107); CREATININE, SERUM 0.59 mg/dL (0.57-1.11); EST GLOMERULAR FILTRATION RATE > 60 ML/MIN (60-); GLUCOSE 72 mg/dL (74-118); MAGNESIUM 1.5 MG/DL (1.3-2.1); POTASSIUM 3.3 mmol/L (3.5-5.1); SODIUM 138 mmol/L (136-145)
[2018-07-05 19:05] LABS: BUN/CREATININE RATIO 8 (6-25)
--- NOTE | 2018-07-05 19:53 | Diagnostic Imaging Report ---
Exam: Abdominal film Clinical History: Abdominal distention Comparison: KUB 06/27/2018 DISCUSSION: Frontal view of the abdomen shows a nonobstructive bowel gas pattern with mild amount of retained stool.There are no dilated, air-filled loops of bowel. There are no abnormal calcifications.Multiple metallic clips project over the midline. Generalized osteopenia. Degenerative changes in the lower lumbosacral spine and bilateral hip joints. Increased density in the left retrocardiac region, which may represent consolidation or atelectasis. IMPRESSION: 1. Nonobstructive bowel gas pattern. No air-filled, dilated loops of bowel. 2. Left retrocardiac consolidation or atelectasis. The staff physician below has personally reviewed this exam on the date of dictation. Signed by: Dr. Adrian Harp M.D. on 07/05/2018 7:50 PM
[2018-07-05] MEDS: DEXTROSE 5%/0.45% SOD CHL 1,000 ML IV SCH (22:18)
--- NOTE | 2018-07-05 23:45 | Diagnostic Imaging Report ---
EXAM: CHEST XRAY LINE PLACEMENT, AP 1 view INDICATION: PICC placement COMPARISON: AP view of the chest July 01, 2018 FINDINGS: LINES/TUBES: Interval placement of right approach PICC with tip at the expected location of the cavoatrial junction. Interval removal of nasal/orogastric tube. LUNGS: Bibasilar atelectasis. PLEURA: Suspected development of bilateral pleural effusions. HEART AND MEDIASTINUM: Stable appearance BONES AND SOFT TISSUES: No acute findings. IMPRESSION: Interval placement of right approach PICC with tip at expected location of the cavoatrial junction. Suspected development of bilateral pleural effusions. Signed by: Dr. Stacy Alejo M.D. on 07/05/2018 11:42 PM
[2018-07-06] VITALS (7 sets, daily range): BP systolic 116–136; BP diastolic 56–69
[2018-07-06] MEDS ORDERED: SODIUM CHLORIDE 0.9% 1000ML 1,000 ML ONE (01:52)
[2018-07-06] MEDS: PANTOPRAZOL 40MG/SOD CHL 0.9% 50 ML IV SCH ×4 (03:41→15:32)
[2018-07-06 05:50] LABS: CALCIUM IONIZED 1.1 mmol/L (1.09-1.30)
[2018-07-06 05:59] LABS: BASOPHILS % 0.4 % (0.0-1.0); EOSINOPHILS # (AUTO) 0.4 (0.0-0.4); EOSINOPHILS % 5.1 % (0.0-6.0); HEMATOCRIT 29.5 % (34.2-44.1); HEMOGLOBIN 9.4 g/dL (12.0-16.0); LYMPHOCYTES # (AUTO) 1.1 (1.0-3.2); LYMPHOCYTES % 14.8 % (18.0-39.1); MEAN CORPUSCULAR HEMOGLOBIN 28.8 pg (28-32); MEAN CORPUSCULAR HGB CONC 31.9 g/dL (31-35); MEAN CORPUSCULAR VOLUME 90.5 fL (81-99); MONOCYTES # (AUTO) 0.5 (0.2-0.8); MONOCYTES % 6.1 % (4.4-11.3); NEUTROPHILS # (AUTO) 5.6 (2.1-6.9); NEUTROPHILS % 73.2 % (38.7-80.0); PLATELET COUNT 434 x10e3/uL (140-360); RED BLOOD COUNT 3.26 x10e6/uL (3.6-5.1); RED CELL DISTRIBUTION WIDTH 14.5 % (11.7-14.4)
[2018-07-06 06:00] LABS: ALKALINE PHOSPHATASE 150 IU/L (40-150); ANION GAP 11.4 mmol/L (8-16); BLOOD UREA NITROGEN < 5 mg/dL (7-26); CALCIUM 7.9 mg/dL (8.4-10.2); CARBON DIOXIDE 33 mmol/L (22-29); CHLORIDE 97 mmol/L (98-107); CREATININE, SERUM 0.59 mg/dL (0.57-1.11); EST GLOMERULAR FILTRATION RATE > 60 ML/MIN (60-); MAGNESIUM 1.6 MG/DL (1.3-2.1); PHOSPHORUS 1.9 MG/DL (2.3-4.7); POTASSIUM 3.4 mmol/L (3.5-5.1); SODIUM 138 mmol/L (136-145)
[2018-07-06] MEDS: METOPROLOL TARTRATE INJ 1 MG/ML VIAL IV SCH ×3 (06:00→17:09)
[2018-07-06 06:12] LABS: BUN/CREATININE RATIO 8 (6-25)
[2018-07-06 06:13] LABS: ALANINE AMINOTRANSFERASE < 6 IU/L (0-55); GLUCOSE 49 mg/dL (74-118)
[2018-07-06] MEDS ORDERED: DEXTROSE 50% SYRINGE 50 ML IV ONE (06:24)
[2018-07-06] MEDS: DEXTROSE 5%/0.45% SOD CHL 1,000 ML IV SCH ×2 (06:28→20:06)
[2018-07-06] MEDS ORDERED: DEXTROSE 50% SYRINGE 50 ML IV PRN (06:30)
[2018-07-06] MEDS: ALBUTEROL SULF 0.083% NEB SOLN 3 ML NEB INH SCH ×2 (07:00→20:12)
[2018-07-06] MEDS: BALSAM PERU/CASTOR OIL 5 GM OINT...G. TP SCH (08:33)
[2018-07-06] MEDS ORDERED: POTASSIUM CHLORIDE 20MEQ/100ML 200 ML IV ONE (17:00)
[2018-07-06] MEDS ORDERED: MAGNESIUM SULFATE 2GM/50ML IV ONE (17:00)
--- NOTE | 2018-07-06 17:06 | Consultation ---
DATE OF CONSULTATION: July 06, 2018 REFERRING PHYSICIAN: Dr. Hayden. I would like to thank Dr. Hayden for asking me to see Mrs Rivero in consultation for: 1. Debility secondary to recent exploratory laparotomy, abdominal surgery. 2. Debility secondary to COPD exacerbation. HISTORY: An 88-year-old female with advanced COPD who is on chronic O2 at 2 liters per minute who came into the hospital with small bowel obstruction and underwent exploratory laparotomy, lysis of adhesions and release of small bowel obstruction. The patient has been having some shortness of breath, more so now that she has had surgery, but is getting better. She is seen by Dr. Hunt for cardiac status as well as Dr. Adan Mittal for pulmonary status. The patient is doing a little bit better, but still very weak. I am asked to evaluate for rehab needs. PAST MEDICAL HISTORY: Hypertension, COPD, hyperlipidemia, chronic hypoxic respiratory failure, recurrent small bowel obstruction. PAST SURGICAL HISTORY: Surgery included bowel release surgery, gallbladder surgery as well as recent abdominal exploratory laparotomy. ALLERGIES: MORPHINE AND ERYTHROMYCIN. SOCIAL HISTORY: Lives with her daughter in a one-story home. She is basically a household ambulator, walks about 20 feet and gets short of breath. She uses a walker to mobilize. FAMILY HISTORY: Noncontributory. HABITS: Smoked in the past. LABORATORY DATA: White blood cell count of 7.69, hemoglobin 9.4, hematocrit 29.5, platelets 434,000, sodium 138, potassium 3.4, BUN less than 5, creatinine 0.59. Review of the therapy note shows the patient ambulated about 20 feet but got really short of breath. PHYSICAL EXAMINATION GENERAL: The patient is laying on her right side. She still has a BLOCK GREASER pump. She is awake and able to answer questions, but looking weak overall. EYES: Gaze conjugate. ORAL: Tongue is midline. NECK: Supple. O2 via nasal cannula. HEART: Regular. LUNGS: Decreased breath sounds. EXTREMITIES: She is able to move her arms and to a lesser extent her legs because of soreness. She had really good strength, at least 4/5 strength of the lower extremities, hip, knee, ankle, dorsal flexion and plantar flexion, with 4- to 4/5 strength in the upper extremities. She does have some edema in both legs and feet. Clonus negative bilaterally. No increased tone on passive range of motion of her legs. IMPRESSION 1. Debilitation secondary to small bowel obstruction. Exploratory laparotomy with lysis of adhesions. 2. Chronic obstructive pulmonary disease. 3. Coronary artery disease being treated medically. 4. Patient with history of hyperlipidemia. 5. Hypertension. PLAN: At this point, the patient is not able to handle 3 hours of intense inpatient rehab. She is still on the BLOCK GREASER and she is still very limited with what she can do. However, she is still trying to recuperate from her surgery. PT has already been initiated. There is no OT in the facility. If she is able to improve her level of function, then we should try to get her inpatient rehab, just depending on how she does. PRECAUTIONS: Falls. Thank you once again for allowing me to participate in the care of this pleasant but unfortunate patient. Job#: [id number]
[2018-07-06] MEDS ORDERED: MAGNESIUM SULFATE 2GM/50ML 50 ML IV ONE (17:15)
--- NOTE | 2018-07-06 18:31 | Progress Note ---
DATE: July 06, 2018 CARDIOLOGY PROGRESS NOTE SUBJECTIVE: No complaints. OBJECTIVE VITAL SIGNS: Temperature 96.4, heart rate 82, respiratory rate 20, blood pressure 125/69, O2 sat 98% on 2 liters per minute nasal cannula. GENERAL: No acute distress. Alert. NECK: No JVD. CHEST: Clear to auscultation. CARDIOVASCULAR: Regular rate and rhythm. ABDOMEN: Mildly distended. EXTREMITIES: Trace edema, overall improved. CARDIOVASCULAR MEDICATIONS: Reviewed. On nitroglycerin, metoprolol IV. STUDIES: Reviewed. Significant for a hemoglobin of 9.4, platelets 434, glucose of 162, potassium at 3.4, and followup magnesium 1.6. TELEMETRY: Sinus rhythm. ASSESSMENT 1. Hypokalemia and hypomagnesemia. 2. Frequent premature atrial contractions. 3. Postoperative ileus. 4. Carotid disease. 5. Stable angina pectoris. 6. Chronic obstructive pulmonary disease. 7. Status post adhesions lysis. RECOMMENDATIONS 1. Continue to correct electrolytes as needed. 2. Patient is status post IV fluid today. In spite of this, edema improved after positional changes. At this point hold off on further diuretics. Urine output decreased. Overall seems intravascularly depleted likely from third-spacing and decreased p.o. intake. Job#: [id number] EV
[2018-07-06 18:57] LABS: ANION GAP 12.3 mmol/L (8-16); BLOOD UREA NITROGEN < 5 mg/dL (7-26); CALCIUM 7.8 mg/dL (8.4-10.2); CARBON DIOXIDE 32 mmol/L (22-29); CHLORIDE 96 mmol/L (98-107); CREATININE, SERUM 0.62 mg/dL (0.57-1.11); EST GLOMERULAR FILTRATION RATE > 60 ML/MIN (60-); GLUCOSE 87 mg/dL (74-118); MAGNESIUM 2.2 MG/DL (1.3-2.1); PHOSPHORUS 3.2 MG/DL (2.3-4.7); POTASSIUM 4.3 mmol/L (3.5-5.1); SODIUM 136 mmol/L (136-145)
[2018-07-06 19:17] LABS: BUN/CREATININE RATIO 8 (6-25)
[2018-07-07] MEDS: PANTOPRAZOL 40MG/SOD CHL 0.9% 50 ML IV SCH ×6 (00:18→20:04)
[2018-07-07 00:37] VITALS: BP 125/59
[2018-07-07] MEDS ORDERED: SODIUM CHLORIDE 0.9% 250ML 250 ML ONE (04:55)
[2018-07-07] MEDS: METOPROLOL TARTRATE INJ 1 MG/ML VIAL IV SCH ×4 (05:33→17:18)
[2018-07-07 05:39] VITALS: BP 130/63
[2018-07-07] MEDS ORDERED: HYDROMORPHONE 1MG/1ML INJ IV PRN (06:00)
[2018-07-07 06:43] LABS: ANION GAP 10.2 mmol/L (8-16); BLOOD UREA NITROGEN < 5 mg/dL (7-26); BUN/CREATININE RATIO 8 (6-25); CALCIUM 7.7 mg/dL (8.4-10.2); CARBON DIOXIDE 33 mmol/L (22-29); CHLORIDE 96 mmol/L (98-107); CREATININE, SERUM 0.63 mg/dL (0.57-1.11); EST GLOMERULAR FILTRATION RATE > 60 ML/MIN (60-); GLUCOSE 81 mg/dL (74-118); MAGNESIUM 2.1 MG/DL (1.3-2.1); PHOSPHORUS 2.4 MG/DL (2.3-4.7); POTASSIUM 4.2 mmol/L (3.5-5.1); SODIUM 135 mmol/L (136-145)
[2018-07-07] MEDS: ALBUTEROL SULF 0.083% NEB SOLN 3 ML NEB INH SCH (07:00)
[2018-07-07] MEDS: DEXTROSE 5%/0.45% SOD CHL 1,000 ML IV SCH ×2 (07:20→21:52)
[2018-07-07 08:57] VITALS: BP 114/53
[2018-07-07] MEDS: BALSAM PERU/CASTOR OIL 5 GM OINT...G. TP SCH (09:00)
[2018-07-07] MEDS: HYDROMORPHONE 2MG/ML 2 MG/ML ML IV PRN ×3 (09:45→21:05)
[2018-07-07] MEDS: ONDANSETRON HCL INJ 2 MG/ML VIAL IV PRN ×2 (09:45→14:03)
[2018-07-07 12:00] VITALS: BP 112/54
[2018-07-07 17:15] VITALS: BP 104/55
--- NOTE | 2018-07-07 19:49 | Progress Note ---
DATE: July 07, 2018 CARDIOLOGY PROGRESS NOTE SUBJECTIVE: Tolerating diet. PHYSICAL EXAMINATION: VITAL SIGNS: Temperature 96.5, heart rate 76, respiratory rate 18, blood pressure 104/55, O2 sat 92% on nasal cannula. GENERAL: In no acute distress, alert. NECK: No JVD. CHEST: Clear to auscultation. CARDIOVASCULAR: Regular rate and rhythm. Normal S1 and S2. ABDOMEN: Soft. EXTREMITIES: No edema. CARDIOVASCULAR MEDICATIONS: Reviewed. STUDIES: Reviewed. White blood cells 9.6, hemoglobin 9.4, platelets 434,000. Creatinine 0.6. TELEMETRY: In sinus rhythm. ASSESSMENT: 1. Small-bowel obstruction, status post adhesiolysis. 2. Carotid disease. 3. Hypertension. 4. Dyslipidemia. 5. Frequent premature atrial contractions. RECOMMENDATIONS: Continue IV metoprolol as diet continues to be advanced. Will transition to oral beta chen. Will then add statin and antiplatelets. For now, continue current care. Job#: [id number]
[2018-07-07 20:05] VITALS: BP 124/63
[2018-07-07] MEDS: BALSAM PERU/CASTOR OIL 60 GM OINT...G. TP SCH (22:00)
[2018-07-08] VITALS (8 sets, daily range): BP systolic 101–145; BP diastolic 53–73
[2018-07-08] MEDS: PANTOPRAZOL 40MG/SOD CHL 0.9% 50 ML IV SCH ×2 (01:13→05:25)
[2018-07-08] MEDS: ALBUTEROL SULF 0.083% NEB SOLN 3 ML NEB INH SCH ×2 (05:30→20:10)
[2018-07-08] MEDS: METOPROLOL TARTRATE INJ 1 MG/ML VIAL IV SCH ×2 (06:00)
[2018-07-08] MEDS ORDERED: FUROSEMIDE INJ 10 MG/ML 4 ML VIAL IV ONE (10:00)
[2018-07-08 10:32] LABS: ANION GAP 10.8 mmol/L (8-16); BLOOD UREA NITROGEN < 5 mg/dL (7-26); CALCIUM 8.2 mg/dL (8.4-10.2); CARBON DIOXIDE 32 mmol/L (22-29); CHLORIDE 98 mmol/L (98-107); CREATININE, SERUM 0.69 mg/dL (0.57-1.11); EST GLOMERULAR FILTRATION RATE > 60 ML/MIN (60-); GLUCOSE 185 mg/dL (74-118); MAGNESIUM 1.7 MG/DL (1.3-2.1); PHOSPHORUS 2.3 MG/DL (2.3-4.7); POTASSIUM 3.8 mmol/L (3.5-5.1); SODIUM 137 mmol/L (136-145)
[2018-07-08 10:33] LABS: BUN/CREATININE RATIO 7 (6-25)
--- NOTE | 2018-07-08 10:35 | Progress Note ---
DATE: July 08, 2018 CARDIOLOGY PROGRESS NOTE SUBJECTIVE: No complaints. OBJECTIVE VITALS: Temperature 96.7, heart rate 76, respiratory rate 17, O2 sat 97% on nasal cannula, blood pressure 130/60. GENERAL: In no acute distress, alert. NECK: No JVD. CHEST: Scattered rhonchi. CARDIOVASCULAR: Regular rate and rhythm. Normal S1 and S2. ABDOMEN: Soft. EXTREMITIES: 1+ edema. CARDIOVASCULAR MEDICATIONS: Reviewed. 1. Metoprolol IV, which will be possibly transitioned to oral. 2. Nitroglycerin p.r.n. LABS: Potassium 4.2, creatinine 0.6, hemoglobin 9.4. ASSESSMENT 1. Carotid disease. 2. Small-bowel obstruction, status post adhesiolysis. 3. Anemia. 4. Chronic obstructive pulmonary disease. RECOMMENDATIONS 1. Initiate clopidogrel 75 mg daily. 2. Resume home dose of statin. 3. Lasix IV times 1 today, reassess in a.m. 4. Transition to oral p.o. beta chen. Job#: [id number]
[2018-07-08] MEDS: DEXTROSE 5%/0.45% SOD CHL 1,000 ML IV SCH (12:51)
[2018-07-08] MEDS: KETOROLAC TROMETHAMINE 30 MG/ML VIAL IV PRN (14:04)
--- NOTE | 2018-07-08 14:20 | Progress Note ---
DATE: July 08, 2018 The patient is an 88-year-old lady. The patient seems to be doing reasonably well. She denies chest pain, nausea or vomiting. She is a little bit short of breath as she gets out of bed. She is getting some pain medicines off and on and albuterol, Zocor, Plavix, albuterol. The patient denies nausea, vomiting, or fever. OBJECTIVE VITALS: She is afebrile, pulse 93, respiratory rate 14, blood pressure 145/96, O2 saturation 96%. HEENT: Atraumatic and normocephalic. NECK: Supple. CHEST: Somewhat diminished breath sounds in the lung bases. HEART: Heart sounds are normal. ABDOMEN: Soft. EXTREMITIES: No cyanosis, clubbing or edema. Clinically, the patient holding okay. LABS: White count 7.69 from yesterday, hemoglobin 9.4, platelet count 434. The patient's glucose was 160. Job#: [id number]
[2018-07-08] MEDS: HYDROMORPHONE 2MG/ML 2 MG/ML ML IV PRN (18:53)
[2018-07-08] MEDS: SIMVASTATIN 40 MG TAB PO SCH (21:00)
[2018-07-08] MEDS: BALSAM PERU/CASTOR OIL 60 GM OINT...G. TP SCH (21:00)
[2018-07-09] VITALS (7 sets, daily range): BP systolic 99–131; BP diastolic 51–76
[2018-07-09] MEDS: SIMETHICONE 80 MG CHEW PO PRN ×2 (02:30→21:23)
[2018-07-09 06:48] LABS: ANION GAP 10.5 mmol/L (8-16); BLOOD UREA NITROGEN < 5 mg/dL (7-26); CALCIUM 8.3 mg/dL (8.4-10.2); CARBON DIOXIDE 33 mmol/L (22-29); CHLORIDE 99 mmol/L (98-107); CREATININE, SERUM 0.67 mg/dL (0.57-1.11); EST GLOMERULAR FILTRATION RATE > 60 ML/MIN (60-); GLUCOSE 100 mg/dL (74-118); MAGNESIUM 1.6 MG/DL (1.3-2.1); PHOSPHORUS 2.7 MG/DL (2.3-4.7); POTASSIUM 3.5 mmol/L (3.5-5.1); SODIUM 139 mmol/L (136-145)
[2018-07-09 06:51] LABS: BUN/CREATININE RATIO 7 (6-25)
[2018-07-09] MEDS: ALBUTEROL SULF 0.083% NEB SOLN 3 ML NEB INH SCH ×2 (07:16→20:05)
[2018-07-09] MEDS: AMLODIPINE BESYLATE 10 MG TAB PO SCH (09:00)
[2018-07-09] MEDS: ATENOLOL 50 MG TAB PO SCH ×2 (09:00→17:07)
[2018-07-09] MEDS: ALBUTEROL SULF 0.083% NEB SOLN 3 ML NEB NEB PRN ×2 (09:30→13:55)
[2018-07-09] MEDS: HYDROMORPHONE 2MG/ML 2 MG/ML ML IV PRN (09:44)
[2018-07-09] MEDS: CLOPIDOGREL BISULFATE 75 MG TAB PO SCH (09:53)
[2018-07-09] MEDS: PREDNISONE 5 MG TAB PO SCH (09:53)
[2018-07-09] MEDS: LEVOTHYROXINE SODIUM 112 MCG TAB PO SCH (09:53)
[2018-07-09] MEDS ORDERED: MAGNESIUM SULFATE 2GM/50ML 50 ML IV ONE (10:15)
[2018-07-09] MEDS ORDERED: POTASSIUM CHLORIDE 10MEQ/100ML 200 ML IV ONE ×2 (10:15→12:30)
--- NOTE | 2018-07-09 10:39 | Progress Note ---
DATE: July 09, 2018 CARDIOLOGY PROGRESS NOTE SUBJECTIVE: Abdominal discomfort and distention again today. Is having bowel movements and tolerating p.o. prior to this. OBJECTIVE VITALS: Temperature 96 degrees, heart rate 88, respiratory rate 21, blood pressure 104/59, O2 sat 92% on 2 L per minute nasal cannula. GENERAL: No acute distress. Alert. NECK: No JVD. CHEST: Clear to auscultation. CARDIOVASCULAR: Regular rate and rhythm. Normal S1 and S2. ABDOMEN: Distended. Mild tenderness. No rebound or guarding. Bowel sounds positive. EXTREMITIES: Two plus edema. CARDIOVASCULAR MEDICATIONS 1. Prednisone 5 mg daily. 2. Clopidogrel 75 mg daily. 3. Simvastatin 40 mg at bedtime. 4. Nitroglycerin p.r.n. 5. Atenolol 25 mg b.i.d. 6. Amlodipine 5 mg daily. STUDIES: Reviewed. Potassium 3.5, creatinine 0.6. Magnesium 1.6. Hemoglobin 9.4. ASSESSMENT 1. Hypokalemia and hypomagnesemia. 2. Abdominal distention with recent ileus: Status post adhesiolysis. 3. Carotid disease. 4. Chronic obstructive pulmonary disease. RECOMMENDATIONS 1. Potassium chloride 20 mEq times 1 now. 2. Magnesium sulfate 2 g IV times 1 now. 3. Add Lasix 40 mg p.o. daily for worsening edema. 4. Continue rest of cardiovascular medications. 5. Consider n.p.o. before surgery and plan of care. Job#: [id number] SCAR
--- NOTE | 2018-07-09 11:18 | Progress Note ---
DATE: July 09, 2018 PHYSICIAN CANCELLED IN ERROR Job#: [id number] ANJELICA THOMSON
[2018-07-09] MEDS: TERIPARATIDE SQ SCH (21:00)
[2018-07-09] MEDS: SIMVASTATIN 40 MG TAB PO SCH (21:23)
[2018-07-09] MEDS: BALSAM PERU/CASTOR OIL 60 GM OINT...G. TP SCH (21:24)
[2018-07-09] MEDS: TRAMADOL HCL 50 MG TAB PO PRN (21:49)
[2018-07-10] VITALS (8 sets, daily range): BP systolic 92–131; BP diastolic 53–70
[2018-07-10] MEDS: ALBUTEROL SULF 0.083% NEB SOLN 3 ML NEB INH SCH ×2 (08:46→19:10)
[2018-07-10] MEDS ORDERED: FUROSEMIDE 40 MG TAB PO SCH (09:00)
[2018-07-10] MEDS: PREDNISONE 5 MG TAB PO SCH (09:25)
[2018-07-10] MEDS: CLOPIDOGREL BISULFATE 75 MG TAB PO SCH (09:25)
[2018-07-10] MEDS: LEVOTHYROXINE SODIUM 112 MCG TAB PO SCH (09:25)
[2018-07-10] MEDS: ATENOLOL 50 MG TAB PO SCH ×2 (09:25→17:13)
[2018-07-10] MEDS: AMLODIPINE BESYLATE 10 MG TAB PO SCH (09:25)
[2018-07-10] MEDS: TRAMADOL HCL 50 MG TAB PO PRN ×2 (12:35→17:13)
--- NOTE | 2018-07-10 12:41 | Diagnostic Imaging Report ---
EXAM: ABDOMEN 2 VIEW DATE: 07/10/2018 11:43 AM INDICATION: Post bowel resection/swelling COMPARISON: 07/05/2018, no report available FINDINGS: Nonspecific gas-filled loops of bowel, without distinct obstruction. Within limitations of positioning, no definite pneumoperitoneum. Degenerative changes spine, SI joints, and hips present. Subacute/healed right inferior pubic ramus fracture. Skin naomi removed. IMPRESSION: No definite acute findings. Given history, CT could be obtained for further evaluation if indicated. Signed by: Dr. Pedro Pablo Schmid MD on 07/10/2018 12:37 PM
[2018-07-10] MEDS: BUPROPION HCL SR 150 MG TAB PO SCH (13:20)
[2018-07-10] MEDS: FUROSEMIDE INJ 10 MG/ML 4 ML VIAL IV SCH (15:05)
[2018-07-10 15:57] LABS: ANION GAP 12.1 mmol/L (8-16); BLOOD UREA NITROGEN < 5 mg/dL (7-26); CALCIUM 8.6 mg/dL (8.4-10.2); CARBON DIOXIDE 35 mmol/L (22-29); CHLORIDE 96 mmol/L (98-107); CREATININE, SERUM 0.72 mg/dL (0.57-1.11); EST GLOMERULAR FILTRATION RATE > 60 ML/MIN (60-); GLUCOSE 133 mg/dL (74-118); POTASSIUM 5.1 mmol/L (3.5-5.1); SODIUM 138 mmol/L (136-145)
--- NOTE | 2018-07-10 16:01 | Progress Note ---
DATE: July 10, 2018 CARDIOLOGY PROGRESS NOTE SUBJECTIVE: Worsening leg edema bilaterally. No new complaints otherwise. OBJECTIVE VITAL SIGNS: Temperature 96.2, heart rate 99, respiratory rate 18, blood pressure 123/64, and O2 sat 96% on 2 L by nasal cannula. GENERAL: In no acute distress. CHEST: Coarse breath sounds. CARDIOVASCULAR: Regular rate and rhythm. Normal S1 and S2. ABDOMEN: Soft. EXTREMITIES: A 2+ edema in the bilateral lower extremities. CARDIOVASCULAR MEDICATIONS: Reviewed. Furosemide 40 mg p.o. daily, prednisone 100 mg daily, atenolol 25 mg b.i.d., amlodipine 5 mg daily, clopidogrel 75 mg daily, simvastatin 40 mg q.h.s., and nitroglycerin p.r.n. LABORATORY STUDIES: Reviewed. White blood cell 7.6, hemoglobin 9.4, and platelets 434. Creatinine 0.6, potassium 3.5. ASSESSMENT 1. Worsening leg edema with negative lower extremity venous ultrasound done today for ruling out deep venous thrombosis. 2. Carotid disease. 3. Small bowel obstruction status post adhesion lysis. 4. Anemia. 5. Chronic obstructive pulmonary disease. RECOMMENDATIONS 1. Discontinue amlodipine. 2. Transition p.o. to IV Lasix and continue the rest of cardiovascular medications. Obtain echocardiogram. Job#: [id number] ANJELICA THOMSON
[2018-07-10 16:04] LABS: BUN/CREATININE RATIO 7 (6-25)
[2018-07-10] MEDS: SIMETHICONE 80 MG CHEW PO PRN (17:12)
[2018-07-10] MEDS: ALBUTEROL SULF 0.083% NEB SOLN 3 ML NEB NEB PRN (17:15)
--- NOTE | 2018-07-10 19:21 | Progress Note ---
DATE: SUBJECTIVE: Patient is an 88-year-old lady. Patient is status post surgery for abdomen. She is doing well. She has been ambulating. Patient has had some fluid retention and received some extra Lasix. Dopplers were done on the leg, which was negative for DVT. MEDICATIONS: Include albuterol, tramadol, atenolol, simethicone, furosemide, bupropion, prednisone, levothyroxine, Plavix, albuterol, simvastatin, Zofran, nitroglycerin, Forteo, Narcan, and phenol. OBJECTIVE GENERAL: Patient is alert and awake. She is afebrile. She is ambulating. VITALS: Respiratory rate is 18. She is on O2 by nasal cannula, but she is on home O2. Blood pressure 99/53. HEENT: Atraumatic, normocephalic. NECK: Supple. CHEST: Diminished breath sounds. HEART: Sounds are normal. ABDOMEN: Slightly distended. Bowel sounds are present. She had a good bowel movement earlier. EXTREMITIES: Showed no cyanosis or clubbing. Patient has 1+ edema. LABS: From July 07, otherwise no new labs. Clinically, patient is making slow progress. Patient has underlying COPD which is reasonably stable. I do not have anything new to add. We will continue current care. Patient did have abdominal x-ray's earlier today, which showed no definite acute obstruction or problems. There was no definite pneumoperitoneum. Overall, condition continues to improve. We will see patient on an as needed basis. Please call us if there is a change in pulmonary status. Otherwise, we will follow patient as outpatient. Job#: [id number] NORBERTO
[2018-07-10] MEDS: SIMVASTATIN 40 MG TAB PO SCH (20:57)
[2018-07-10] MEDS: TERIPARATIDE SQ SCH (20:57)
[2018-07-10] MEDS: BALSAM PERU/CASTOR OIL 60 GM OINT...G. TP SCH (20:59)
[2018-07-11] VITALS (8 sets, daily range): BP systolic 98–121; BP diastolic 52–68
[2018-07-11] MEDS: TRAMADOL HCL 50 MG TAB PO PRN (02:13)
[2018-07-11] MEDS: BUPROPION HCL SR 150 MG TAB PO SCH (10:00)
[2018-07-11] MEDS: LEVOTHYROXINE SODIUM 112 MCG TAB PO SCH (10:00)
[2018-07-11] MEDS: ATENOLOL 50 MG TAB PO SCH ×2 (10:00→17:19)
[2018-07-11] MEDS: FUROSEMIDE INJ 10 MG/ML 4 ML VIAL IV SCH (10:00)
[2018-07-11] MEDS: CLOPIDOGREL BISULFATE 75 MG TAB PO SCH (10:00)
[2018-07-11] MEDS: PREDNISONE 5 MG TAB PO SCH (10:00)
[2018-07-11] MEDS: ALBUTEROL SULF 0.083% NEB SOLN 3 ML NEB INH SCH ×2 (10:30→19:00)
--- NOTE | 2018-07-11 15:59 | Progress Note ---
DATE: July 11, 2018 CARDIOLOGY PROGRESS NOTE SUBJECTIVE: Edema somewhat better today. No complaints. OBJECTIVE VITAL SIGNS: Temperature 97.7, heart rate 62, respiratory rate 16, blood pressure 119/58, and O2 sat 96% on 3 L per minute nasal cannula. GENERAL: No acute distress, alert. NECK: No JVD. CHEST: Clear to auscultation. CARDIOVASCULAR: Regular rate and rhythm. Normal S1 and S2. ABDOMEN: Soft. EXTREMITIES: 1+ edema to bilateral lower extremities. CARDIOVASCULAR MEDICATIONS: Reviewed. 1. Furosemide 40 mg IV daily. 2. Prednisone 5 mg daily. 3. Clopidogrel 75 mg daily. 4. Atenolol 25 mg b.i.d. STUDIES: Reviewed. Sodium 138, potassium 5.1, chloride 96, bicarbonate 35, BUN less than 5, creatinine is 0.7, glucose 133, magnesium 2, phosphorous 3, and calcium 8.6. ASSESSMENT 1. Leg edema bilateral, negative for deep venous thrombosis on ultrasound. 2. Carotid disease. 3. Small bowel obstruction, status post adhesiolysis. 4. Anemia. 5. Chronic obstructive pulmonary disease. RECOMMENDATIONS 1. Continue current cardiovascular medications. Discontinue amlodipine with some improvement in leg edema. Blood pressure currently adequately controlled. 2. On IV Lasix, upon discharge transition to 40 mg b.i.d. Lasix for 5 days followed by 40 mg daily with daily weights. Echocardiogram with preserved left ventricular systolic function. Outpatient followup in 4 weeks post-discharge. Job#: [id number] ANJELICA
[2018-07-11] MEDS: TERIPARATIDE SQ SCH (20:28)
[2018-07-11] MEDS: SIMVASTATIN 40 MG TAB PO SCH (20:28)
[2018-07-11] MEDS: SIMETHICONE 80 MG CHEW PO PRN (20:28)
[2018-07-11] MEDS: BALSAM PERU/CASTOR OIL 60 GM OINT...G. TP SCH (22:00)
[2018-07-12] VITALS: BP 116/54
[2018-07-12 04:00] VITALS: BP 123/56
[2018-07-12 06:06] LABS: BASOPHILS # (AUTO) 0.1 (0.0-0.1); BASOPHILS % 1.1 % (0.0-1.0); EOSINOPHILS # (AUTO) 0.3 (0.0-0.4); EOSINOPHILS % 4.4 % (0.0-6.0); HEMATOCRIT 28.7 % (34.2-44.1); HEMOGLOBIN 9.1 g/dL (12.0-16.0); LYMPHOCYTES # (AUTO) 1.1 (1.0-3.2); LYMPHOCYTES % 18.3 % (18.0-39.1); MEAN CORPUSCULAR HEMOGLOBIN 28.6 pg (28-32); MEAN CORPUSCULAR HGB CONC 31.7 g/dL (31-35); MEAN CORPUSCULAR VOLUME 90.3 fL (81-99); MONOCYTES # (AUTO) 0.5 (0.2-0.8); MONOCYTES % 8.7 % (4.4-11.3); NEUTROPHILS # (AUTO) 4.1 (2.1-6.9); PLATELET COUNT 513 x10e3/uL (140-360); RED BLOOD COUNT 3.18 x10e6/uL (3.6-5.1); RED CELL DISTRIBUTION WIDTH 14.9 % (11.7-14.4)
[2018-07-12] MEDS: TRAMADOL HCL 50 MG TAB PO PRN ×2 (06:10→17:04)
[2018-07-12 06:27] LABS: ALBUMIN 2.1 g/dL (3.5-5.0); ALKALINE PHOSPHATASE 117 IU/L (40-150); ANION GAP 9.4 mmol/L (8-16); BLOOD UREA NITROGEN 6 mg/dL (7-26); BUN/CREATININE RATIO 9 (6-25); CALCIUM 7.9 mg/dL (8.4-10.2); CARBON DIOXIDE 36 mmol/L (22-29); CHLORIDE 97 mmol/L (98-107); CREATININE, SERUM 0.65 mg/dL (0.57-1.11); EST GLOMERULAR FILTRATION RATE > 60 ML/MIN (60-); GLUCOSE 81 mg/dL (74-118); POTASSIUM 3.4 mmol/L (3.5-5.1); SODIUM 139 mmol/L (136-145)
[2018-07-12 06:28] LABS: ALANINE AMINOTRANSFERASE < 6 IU/L (0-55)
[2018-07-12] MEDS: ALBUTEROL SULF 0.083% NEB SOLN 3 ML NEB INH SCH (06:45)
[2018-07-12 08:40] VITALS: BP 119/60
[2018-07-12] MEDS ORDERED: FUROSEMIDE INJ 10 MG/ML 2 ML VIAL IV NR (09:00)
[2018-07-12] MEDS: CLOPIDOGREL BISULFATE 75 MG TAB PO SCH (09:55)
[2018-07-12] MEDS: FUROSEMIDE INJ 10 MG/ML 4 ML VIAL IV SCH (09:55)
[2018-07-12] MEDS: ATENOLOL 50 MG TAB PO SCH ×2 (09:55→17:23)
[2018-07-12] MEDS: LEVOTHYROXINE SODIUM 112 MCG TAB PO SCH (09:55)
[2018-07-12] MEDS: BUPROPION HCL SR 150 MG TAB PO SCH (09:55)
[2018-07-12] MEDS: PREDNISONE 5 MG TAB PO SCH (09:55)
[2018-07-12 11:05] VITALS: BP 119/60
[2018-07-12 12:12] VITALS: BP 130/61
--- NOTE | 2018-07-12 12:36 | Progress Note ---
DATE: July 12, 2018 CARDIOLOGY PROGRESS NOTE SUBJECTIVE: Edema improving. No other complaints other than frequent urination. OBJECTIVE VITALS: Temperature is 97.2, heart rate 72, respiratory rate 18, blood pressure 119/60. O2 sat 100% on nasal cannula. GENERAL: No acute distress, alert. NECK: No JVD. CHEST: Clear to auscultation. CARDIOVASCULAR: Regular rate and rhythm. Normal S1 and S2. ABDOMEN: Soft and nontender. EXTREMITIES: Edema 1+. CARDIOVASCULAR MEDICATIONS 1. Furosemide 40 mg IV daily. 2. Atenolol 25 mg b.i.d. 3. Clopidogrel 75 mg daily. 4. Simvastatin 40 mg nightly. 5. Nitroglycerin p.r.n. STUDIES: Reviewed. White blood cells 6.1, hemoglobin 9.1, platelets 513. Creatinine 0.6, potassium 3.4, sodium 139. ASSESSMENT 1. Leg edema, bilateral lower extremities. 2. Carotid disease. 3. Small-bowel obstruction, status post adhesiolysis. 4. Anemia. 5. Chronic obstructive pulmonary disease. RECOMMENDATIONS 1. Continue current cardiovascular medications. 2. Continue diuretics. 3. Replete electrolytes as needed. 4. Undergoing evaluation for possible rehab. Will follow along. Job#: [id number]
[2018-07-12] MEDS: SIMETHICONE 80 MG CHEW PO PRN (13:19)
[2018-07-12] MEDS: ALBUTEROL SULF 0.083% NEB SOLN 3 ML NEB NEB PRN (13:35)
[2018-07-12 16:50] VITALS: BP 127/58
--- NOTE | 2018-07-24 01:47 | Discharge Summary ---
DISCHARGE DIAGNOSES 1. Small bowel obstruction, status post surgical repair. 2. Hypertension. 3. Chronic obstructive pulmonary disease. 4. Leukocytosis. 5. Urinary tract infection. HISTORY OF PRESENT ILLNESS AND HOSPITAL COURSE: See hospital chart for full details. The patient is an unfortunate lady who presented with a small bowel obstruction that unfortunately did not resolve with conservative therapy. So, she was then taken to the OR where she had repair of her small obstruction without complications and did very well postoperatively, but due to her overall comorbidities, age, and weakness, she was a good candidate for inpatient rehab, so she was then transferred to inpatient rehab under the care of Dr. Lau. Please see hospital chart for full details. BRENDEN BEAULIEU MD Job#: [id number] JEAN PAUL
== END 2018-07-12 18:48 | DRG 336 ==
LOC: ER 22:44 → ERHOLD 06-26 03:00 → MED/SURG 06-26 03:43 → IMCU 06-30 13:33 → MED/SURG 07-06 13:55
PROVIDERS: ADMIT Internal Medicine; ATTEND Internal Medicine
PROC: 0D9670Z Drainage of Stomach with Drainage Device, Via Natural or Artificial Opening (ICD-10-PCS; 2018-06-26)
PROC: 0WJP4ZZ Inspection of Gastrointestinal Tract, Percutaneous Endoscopic Approach (ICD-10-PCS; 2018-06-30)
PROC: 0DN80ZZ Release Small Intestine, Open Approach (ICD-10-PCS; principal; 2018-06-30 11:23)
PROC: 02HV33Z Insertion of Infusion Device into Superior Vena Cava, Percutaneous Approach (ICD-10-PCS; 2018-07-05)
DX: K56.50 Intestinal adhesions [bands], unspecified as to partial versus complete obstruction (principal); N39.0 Urinary tract infection, site not specified; E87.1 Hypo-osmolality and hyponatremia; J44.1 Chronic obstructive pulmonary disease with (acute) exacerbation; J96.11 Chronic respiratory failure with hypoxia; J98.11 Atelectasis; I25.118 Atherosclerotic heart disease of native coronary artery with other forms of angina pectoris; I10 Essential (primary) hypertension; E03.9 Hypothyroidism, unspecified; E11.9 Type 2 diabetes mellitus without complications; L89.222 Pressure ulcer of left hip, stage 2; E78.5 Hyperlipidemia, unspecified; R53.81 Other malaise; D64.9 Anemia, unspecified; K56.7 Ileus, unspecified; I65.23 Occlusion and stenosis of bilateral carotid arteries; F17.200 Nicotine dependence, unspecified, uncomplicated; I08.1 Rheumatic disorders of both mitral and tricuspid valves; Z53.31 Laparoscopic surgical procedure converted to open procedure; K59.09 Other constipation; D72.829 Elevated white blood cell count, unspecified; E87.6 Hypokalemia; E83.42 Hypomagnesemia; I49.1 Atrial premature depolarization; Z99.81 Dependence on supplemental oxygen; Z79.02 Long term (current) use of antithrombotics/antiplatelets; Z79.52 Long term (current) use of systemic steroids; Z88.1 Allergy status to other antibiotic agents; Z88.5 Allergy status to narcotic agent
CPT/HCPCS: 36415; 36569; 51700; 71045; 74018; 74019; 74177; 80048; 80053; 81001; 82150; 82330; 82550; 82553; 82948; 83605; 83690; 83735; 84100; 84436; 84443; 84479; 84484; 85007; 85025; 85027; 87086; 93005; 93306; 93970; 94640; 96360; 96361; 96375; 96376; 97139; 99284; J0360; J0696; J1100; J1885; J1940; J2001; J2405; J2550; J3475; J3480; J7030; J7050; J7120; J7512; J7799; Q9967

== ENCOUNTER 2018-09-07 13:33 | Inpatient (IN) | payer MEDICARE, OTHER ==
[~2018-09-07] VITALS: Ht 152.4 cm; Wt 40.4 kg
[~2018-09-07 13:33] MED LIST changes: +BREO INH; +FORTEO2.4 ML SC
--- OUTSIDE RECORDS SUMMARY | 2018-09-07 13:38 | XMS REPORT | Continuity of Care Document ---
Author Author [facility] Interface Address Unknown Phone Unavailable Problems Problem Status Onset Date Classification Date Reported Comments Source FALL Active 08/02/2018 [facility] FEMORAL NECK FRACTURE, FALL FROM STANDIN Active 08/02/2018 [facility] T8, T9, T10, T12 COMPRESSION FRACTURES Active 06/16/2018 [facility] THORACIC COMPRESSION FRACTURES Active 04/07/2018 [facility] Compression fracture of L3 lumbar vertebra with delayed healing 03/04/2018 03/07/2018 [facility] Chronic back pain 03/04/2018 03/07/2018 [facility] BACK PAIN Active 03/04/2018 [facility] CLOSED WEDGE COMPRESSION FRACTURE OF MARCOS Active 02/12/2018 [facility] S22.080A - WEDGE COMPRESSION FRACTURE OF Active 02/04/2018 [facility] INTRACTABLE BACK PAIN Active 01/14/2018 [facility] Constipation 12/08/2017 Diagnosis 12/08/2017 [facility] Acute pharyngitis 12/08/2017 Diagnosis 12/08/2017 [facility] Deficiency of macronutrients 12/08/2017 Diagnosis 12/08/2017 [facility] Peripheral vascular disease 12/08/2017 Diagnosis 12/08/2017 [facility] Acute urinary tract infection 11/05/2017 Diagnosis 12/08/2017 [facility] Noncompliance with treatment 08/19/2017 Diagnosis 12/08/2017 [facility] Abnormal urinalysis 08/19/2017 Diagnosis 12/08/2017 [facility] Pain in throat 08/19/2017 Diagnosis 12/08/2017 [facility] Itching of ear 08/19/2017 Diagnosis 12/08/2017 [facility] Major depressive disorder 08/19/2017 Diagnosis 12/08/2017 [facility] Chronic back pain 08/19/2017 Diagnosis 12/08/2017 [facility] Adult health examination 08/19/2017 Diagnosis 12/08/2017 [facility] Body mass index less than 20 08/19/2017 Diagnosis 12/08/2017 [facility] Advance directive discussed with patient 08/19/2017 Diagnosis 12/08/2017 [facility] Depression screening 08/19/2017 Diagnosis 12/08/2017 [facility] Discharge Diagnosis: Closed L3 vertebral fracture 08/17/2017 08/20/2017 [facility] Backache 05/12/2017 Diagnosis 12/08/2017 [facility] Low back pain 05/01/2017 Diagnosis 12/08/2017 [facility] Otitis externa 01/19/2017 Diagnosis 12/08/2017 [facility] Carotid artery stenosis 01/19/2017 Diagnosis 12/08/2017 [facility] Carotid Artery Stenosis 01/19/2017 Problem 12/08/2017 [facility] Gastroesophageal reflux disease 11/11/2016 Diagnosis 12/08/2017 [facility] Angina pectoris 11/11/2016 Diagnosis 12/08/2017 [facility] Benign essential hypertension 11/11/2016 Diagnosis 12/08/2017 [facility] Acute exacerbation of chronic obstructive airways disease 11/06/2016 Diagnosis 12/08/2017 [facility] Dyspnea 09/15/2016 Diagnosis 12/08/2017 [facility] Dysphagia 09/15/2016 Diagnosis 12/08/2017 [facility] Hypotensive episode 09/15/2016 Diagnosis 12/08/2017 [facility] Tobacco user 05/21/2016 Diagnosis 12/08/2017 [facility] Hypertensive disorder 05/21/2016 Diagnosis 12/08/2017 [facility] Chronic obstructive lung disease 05/21/2016 Diagnosis 12/08/2017 [facility] Hypothyroidism 05/21/2016 Problem 12/08/2017 [facility] Hyperlipidemia 05/21/2016 Problem 12/08/2017 [facility] Hypertensive Disorder 05/21/2016 Problem 12/08/2017 [facility] Angina Pectoris 05/21/2016 Problem 12/08/2017 [facility] Chronic Obstructive Lung Disease 05/21/2016 Problem 12/08/2017 [facility] Irritable Bowel Syndrome 05/21/2016 Problem 12/08/2017 [facility] Edema of Lower Extremity 05/21/2016 Problem 12/08/2017 [facility] COPD (<span ID="[id number]">Confirmed</span>) Active Problem 03/19/2018 [facility] Colitis Active Problem 04/21/2018 [facility] Dehydration Active Problem 04/21/2018 [facility] Inferior pubic ramus fracture Active Problem 04/21/2018 [facility] Intractable pain Active Problem 04/21/2018 [facility] FRACTURE OF UNSP PART OF NECK OF UNSP FE Active [facility] UNSPECIFIED FALL, SEQUELA Active [facility] PAIN IN LEFT HIP Active [facility] Medications Medication Details Route Status Patient Instructions Ordering Provider Order Date Source sugammadex 200 mg, 2 mL, Route: IV, Drug form: SOLN, ONCE, Start date: 03/16/18 11:02:00 CDT, Stop date: 03/16/18 11:02:00 CDTNotes: (Same as: Bridion) Inactive 03/16/2018 [facility] Naloxone 0.4 mg, 1 mL, Route: IVP, Drug form: INJ, Q2MIN, Dosing Weight 41.364, kg, PRN Narcotic Reversal, Start date: 03/16/18 10:33:00 CDT, Duration: 8 doses or times, Stop date: 03/17/18 0:00:00 CDTNotes: Same as Narcan No Longer Active 03/16/2018 [facility] Ondansetron 4 mg, 2 mL, Route: IVP, Drug form: INJ, ONCE, Dosing Weight 41.364, kg, PRN Nausea & Vomiting, Start date: 03/16/18 10:33:00 CDTNotes: (Same as: Bianka) MEDICATION WASTE Product Size: 4 mg Product Wasted: ___ mg No Longer Active 03/16/2018 [facility] Flumazenil 0.2 mg, 2 mL, Route: IVP, Drug form: INJ, PRN, Dosing Weight 41.364, kg, PRN Benzodiazepine Reversal, Initial dose, Start date: 03/16/18 10:33:00 CDT, Duration: 30 day, Stop date: 04/15/18 10:32:00 C DTNotes: (Same as: Romazicon) No Longer Active 03/16/2018 [facility] Labetalol 10 mg, 2 mL, Route: IVP, Drug form: INJ, Q5Min, Dosing Weight 41.364, kg, PRN Elevated BP, Start date: 03/16/18 10:33:00 CDT, Duration: 5 doses or times, Stop date: 03/17/18 0:00:00 CDT No Longer Active 03/16/2018 [facility] Acetaminophen 1,000 mg, Route: IVPB, Drug form: INJ, ONCE, Dosing Weight 41.364, kg, PRN Pain Score 1-3, Start date: 03/16/18 10:33:00 CDT Inactive 03/16/2018 [facility] Acetaminophen 300 MG / Codeine Phosphate 30 MG Oral Tablet [Tylenol with Codeine #3] 1 tab, Route: PO, Drug Form: TAB, Dosing Weight 41.364, kg, ONCE, PRN Pain Score 1-5, Start date: 03/16/18 10:04:00 CDTNotes: Do not exceed 4gm/day of acetaminophen. (Same as: Tylenol with Codeine # 3) No Longer Active 03/16/2018 [facility] tramadol hydrochloride 50 MG Oral Tablet 50 mg, Route: PO, Drug form: TAB, ONCE, Dosing Weight 41.364, kg, Start date: 03/16/18 10:04:00 CDT, Stop date: 03/16/18 10:04:00 CDT Inactive 03/16/2018 [facility] Acetaminophen 300 MG / Codeine Phosphate 30 MG Oral Tablet [Tylenol with Codeine #3] 1 tab, Route: PO, Drug Form: TAB, Dosing Weight 41.364, kg, ONCE, Start date: 03/16/18 9:51:00 CDT, Stop date: 03/16/18 9:51:00 CDTNotes: Do not exceed 4gm/day of acetaminophen. (Same as: Tylenol with Codeine # 3) Inactive 03/16/2018 [facility] Linzess PO, Daily, 0 Refill(s) Active 03/15/2018 [facility] Bifidobacterium Infantis (Align) 4 Mg Capsule, 4 Mg Oral Daily Active 03/07/2018 [facility] Lidocaine 0.05 MG/MG Transdermal Patch 1 patch, TOP, Daily, PRN Pain Score 6-10, # 30 patch, 0 Refill(s) Active 03/04/2018 [facility] Morphine 2 mg, 0.5 mL, Route: IVP, Drug form: SOLN, ONCE, Dosing Weight 41.818, kg, Priority: STAT, Start date: 03/04/18 12:04:00 CDT, Stop date: 03/04/18 12:04:00 CDTNotes: (Same as:MORPhine Sulfate) Inactive 03/04/2018 [facility] Fentanyl 50 microgram, 1 mL, Route: IVP, Drug form: INJ, ONCE, Dosing Weight 41.818, kg, Priority: STAT, Start date: 03/04/18 11:27:00 CDT, Stop date: 03/04/18 11:27:00 CDTNotes: (Same as: Sublimaze) Preservative free. Inactive 03/04/2018 [facility] Aspirin (Aspirin Ec) 81 Mg Tablet., 81 Mg Oral Daily Active 01/31/2018 [facility] Atenolol 50 Mg Tablet, 25 Mg Oral Bedtime Active 01/31/2018 [facility] Lubiprostone (Amitiza) 24 Mcg Capsule, 24 Mcg Oral Twice A Day Active 01/31/2018 [facility] Pantoprazole Sodium (Protonix) 40 Mg Tablet., 40 Mg Oral Daily Active 01/31/2018 [facility] Sucralfate (Carafate) 1 Gm/10 Ml Oral.susp, 1 Gm Oral Before Meals And At Bedtime Active 01/31/2018 [facility] Lasix 20 mg, 1 tab, Route: PO, Drug form: TAB, Daily, Dosing Weight 45.455, kg, Start date: 01/15/18 9:00:00 CDT, Duration: 30 day, Stop date: 02/13/18 9:00:00 CDTNotes: (Same as: Lasix) May cause GI upset. Give with food or milk. No Longer Active 01/15/2018 [facility] Plavix 75 mg, 1 tab, Route: PO, Drug form: TAB, Daily, Dosing Weight 45.455, kg, Start date: 01/15/18 9:00:00 CDT, Duration: 30 day, Stop date: 02/13/18 9:00:00 CDTNotes: (Same As: Plavix) No Longer Active 01/15/2018 [facility] Amlodipine 5 mg, 1 tab, Route: PO, Drug form: TAB, Daily, Dosing Weight 45.455, kg, Start date: 01/15/18 9:00:00 CDT, Duration: 30 day, Stop date: 02/13/18 9:00:00 CDTNotes: (Same as: Norvasc) No Longer Active 01/15/2018 [facility] bifidobacterium infantis 4 mg oral capsule bifidobacterium infantis 4 mg oral capsule, 4 mg, Drug form: CAP, Route: PO, Daily, 01/15/18 9:00:00 CDT, Duration: 30 day, Stop date: 02/13/18 9:00:00 CDT No Longer Active 01/15/2018 [facility] Atenolol 25 MG Oral Tablet 25 mg, 1 tab, Route: PO, Drug form: TAB, BID, Dosing Weight 45.511, kg, Start date: 01/15/18 9:00:00 CDT, Duration: 30 day, Stop date: 02/13/18 21:00:00 CDTNotes: (Same As:Tenormin) No Longer Active 01/15/2018 [facility] Prednisone 5 mg, 2 tab, Route: PO, Drug form: TAB, Daily, Dosing Weight 45.455, kg, Start date: 01/15/18 9:00:00 CDT, Duration: 30 day, Stop date: 02/13/18 9:00:00 CDTNotes: Take with food. No Longer Active 01/15/2018 [facility] Thyroxine 112 microgram, 1 tab, Route: PO, Drug form: TAB, Q630AM, Dosing Weight 45.455, kg, Start date: 01/15/18 6:30:00 CDT, Duration: 30 day, Stop date: 02/13/18 6:30:00 CDTNotes: (Same as:Levothroid) No Longer Active 01/15/2018 [facility] *RN pls bring pts homemed bifidobacter to pharmacy to label* *RN pls bring pts homemed bifidobacter to pharmacy to label*, Reminder, Drug form: MISC, Route: MISCTOM, 01/15/18 0:00:00 CDT, Duration: 30 day, Stop date: 02/13/18 16:00:00 CDT No Longer Active 01/15/2018 [facility] Cyclobenzaprine hydrochloride 5 MG Oral Tablet [Flexeril] 5 mg=1 tab, PO, TID, X 7 day, # 21 tab, 0 Refill(s), Pharmacy: [facility] [id number] Active 01/15/2018 [facility] budesonide-formoterol 160 mcg-4.5 mcg/inh inhalation aerosol with adapter 2 inhalation, Route: INHALATION, Drug Form: AERO/A, BID, Start date: 01/14/18 21:00:00 CDT, Duration: 30 day, Stop date: 02/13/18 9:00:00 CDTNotes: (Same as: Symbicort) WASTE: Aerosol - Return to Pharmacy Inactive 01/15/2018 [facility] tramadol hydrochloride 50 MG Oral Tablet 50 mg, 1 tab, Route: PO, Drug form: TAB, Q6H, Dosing Weight 45.511, kg, PRN Pain Score 1-3, Start date: 01/14/18 18:21:00 CDT, Duration: 30 day, Stop date: 02/13/18 18:20:00 CDTNotes: Not to exceed 400mg/day. (Same As: Ultram) Inactive 01/14/2018 [facility] albuterol-ipratropium CFC free 100 mcg-20 mcg/inh inhalation aerosol 1 puff, Route: INHALER, Drug Form: AERO, Dosing Weight 45.455, kg, Q6H, Start date: 01/14/18 18:00:00 CDT, Duration: 30 day, Stop date: 02/13/18 12:00:00 CDTNotes: Same as: Combivent Respimat WASTE: Aerosol - Return to Pharmacy Inactive 01/14/2018 [facility] Docusate 100 mg, 1 cap, Route: PO, Drug form: CAP, BID, Dosing Weight 45.455, kg, Start date: 01/14/18 17:00:00 CDT, Duration: 30 day, Stop date: 02/13/18 9:00:00 CDTNotes: (Same as: Colace) (Do Not Crush) Inactive 01/14/2018 [facility] Advair Diskus 250 mcg-50 mcg inhalation powder 1 puff, Route: INHALATION, Dosing Weight 45.455, kg, BID, Start date: 01/14/18 17:00:00 CDT, Duration: 30 day, Stop date: 02/13/18 9:00:00 CDT Inactive 01/14/2018 [facility] senna 15 mg oral tablet 30 mg=2 tab, PO, Daily, PRN for constipation, # 24 tab, 0 Refill(s) Active 01/14/2018 [facility] fluticasone furoate 0.1 MG/ACTUAT Dry Powder Inhaler =1 puff, INHALATION, Q24H, 0 Refill(s) Active 01/14/2018 [facility] Atenolol 25 MG Oral Tablet 25 mg=1 tab, PO, BID, # 60 tab, 0 Refill(s) Active 01/14/2018 [facility] clopidogrel 75 mg oral tablet 75 mg=1 tab, PO, Daily, # 90 tab, 1 Refill(s) Active 01/14/2018 [facility] rosuvastatin 40 mg oral tablet 40 mg=1 tab, PO, Bedtime, # 60 tab, 0 Refill(s) Active 01/14/2018 [facility] Acetaminophen 300 MG / Codeine Phosphate 30 MG Oral Tablet 1 tab, PO, Q6H, PRN pain, # 28 tab, 0 Refill(s) Active 01/14/2018 [facility] predniSONE 5 mg oral tablet 5 mg=1 tab, PO, Daily, Give with food., # 30 tab, 0 Refill(s) Active 01/14/2018 [facility] amLODIPine 5 mg oral tablet 5 mg=1 tab, PO, Daily, # 30 tab, 0 Refill(s) Active 01/14/2018 [facility] buPROPion 150 mg/24 hours (XL) oral tablet, extended release 150 mg=1 tab, PO, Q24H, # 30 tab, 1 Refill(s) Active 01/14/2018 [facility] Nitroglycerin 0.4 MG Sublingual Tablet 0.4 mg=1 tab, SL, Q5Min, PRN Chest Pain, Give up to 3 doses. Call 911 if pain persists., # 25 tab, 3 Refill(s) Active 01/14/2018 [facility] levothyroxine 112 mcg (0.112 mg) oral capsule 112 microgram=1 cap, PO, Daily, # 30 cap, 3 Refill(s) Active 01/14/2018 [facility] Furosemide 20 MG Oral Tablet 20 mg=1 tab, PO, PRN, # 90 tab, 1 Refill(s) Active 01/14/2018 [facility] tiotropium 1.25 mcg/inh inhalation aerosol 2 puffs, INHALER, Daily, # 4 gm, 0 Refill(s) Active 01/14/2018 [facility] Albuterol 0.833 MG/ML / Ipratropium Napavine 0.167 MG/ML Inhalant Solution 3 mL, INHALATION, BID, PRN Wheezing, # 30 ea, 1 Refill(s) Active 01/14/2018 [facility] bifidobacterium infantis 4 mg oral capsule 4 mg=1 cap, PO, Daily, # 28 cap, 0 Refill(s) Active 01/14/2018 [facility] Flexeril 5 mg, 0.5 tab, Route: PO, Drug form: TAB, Q12H, Dosing Weight 45.455, kg, PRN Spasm, Start date: 01/14/18 14:35:00 CDT, Duration: 30 day, Stop date: 02/13/18 14:34:00 CDTNotes: (Same As: Flexeril) Inactive 01/14/2018 [facility] Fentanyl 12.5 microgram, 0.25 mL, Route: IV, Drug form: INJ, Q4H, Dosing Weight 45.455, kg, PRN Pain Score 7-10, Start date: 01/14/18 14:32:00 CDT, Duration: 30 day, Stop date: 02/13/18 14:31:00 CDTNotes: (Same as: Sublimaze) Preservative free. Inactive 01/14/2018 [facility] Ondansetron 4 mg, 2 mL, Route: IVP, Drug form: INJ, Q6H, Dosing Weight 45.455, kg, PRN Nausea & Vomiting, Start date: 01/14/18 14:26:00 CDT, Duration: 30 day, Stop date: 02/13/18 14:25:00 CDTNotes: (Same as: Zofran) MEDICATION WASTE Product Size: 4 mg Product Wasted: ___ mg Inactive 01/14/2018 [facility] Acetaminophen 650 mg, 2 tab, Route: PO, Drug form: TAB, Q4H, Dosing Weight 45.455, kg, PRN Pain 1-3/Temp > 100.4 F, Start date: 01/14/18 14:26:00 CDT, Duration: 30 day, Stop date: 02/13/18 14:25:00 CDTNotes: Do not exceed 4 gm/day. (Same as: Tylenol) Inactive 01/14/2018 [facility] Fentanyl 25 microgram, 0.5 mL, Route: IVP, Drug form: INJ, ONCE, Dosing Weight 45.455, kg, Priority: STAT, Start date: 01/14/18 14:10:00 CDT, Stop date: 01/14/18 14:10:00 CDTNotes: (Same as: Sublimaze) Preservative free. Inactive 01/14/2018 [facility] Fentanyl 25 microgram, 0.5 mL, Route: IVP, Drug form: INJ, ONCE, Dosing Weight 45.455, kg, Priority: STAT, Start date: 01/14/18 11:16:00 CDT, Stop date: 01/14/18 11:16:00 CDTNotes: (Same as: Sublimaze) Preservative free. Inactive 01/14/2018 [facility] Fentanyl 25 microgram, 0.5 mL, Route: IVP, Drug form: INJ, ONCE, Dosing Weight 45.455, kg, Priority: STAT, Start date: 01/14/18 10:11:00 CDT, Stop date: 01/14/18 10:11:00 CDTNotes: (Same as: Sublimaze) Preservative free. Inactive 01/14/2018 [facility] Ceftriaxone 500 MG Injection ceftriaxone 500 mg solution for injection Take 500 mg by injection route. Active 12/08/2017 [facility] NITROFURANTOIN, MACROCRYSTALS 25 MG / Nitrofurantoin, Monohydrate 75 MG Oral Capsule nitrofurantoin monohydrate/macrocrystals 100 mg capsule Active 12/08/2017 [facility] Sulfamethoxazole 800 MG / Trimethoprim 160 MG Oral Tablet sulfamethoxazole 800 mg-trimethoprim 160 mg tablet Active 12/08/2017 [facility] Levothyroxine Sodium 0.112 MG Oral Tablet [Synthroid] Synthroid 112 mcg tablet Active 12/08/2017 [facility] Acetaminophen 300 MG / Codeine Phosphate 30 MG Oral Tablet acetaminophen 300 mg-codeine 30 mg tablet Active 11/05/2017 [facility] 24 HR Bupropion Hydrochloride 150 MG Extended Release Oral Tablet bupropion HCl XL 150 mg 24 hr tablet, extended release Active 11/05/2017 [facility] Lidocaine Hydrochloride 20 MG/ML Mucous Membrane Topical Solution Lidocaine Viscous 2 % mucosal solution Active 11/05/2017 [facility] pantoprazole 40 MG Delayed Release Oral Tablet pantoprazole 40 mg tablet,delayed release Active 11/05/2017 [facility] Vios Aerosol Delivery System Vios Aerosol Delivery System Active 11/05/2017 [facility] Acetaminophen 325 MG / Hydrocodone Bitartrate 5 MG Oral Tablet hydrocodone 5 mg-acetaminophen 325 mg tablet Active 08/19/2017 [facility] Levofloxacin 500 MG Oral Tablet levofloxacin 500 mg tablet Active 08/19/2017 [facility] Prednisone 20 MG Oral Tablet prednisone 20 mg tablet Active 08/19/2017 [facility] tizanidine 2 MG Oral Tablet tizanidine 2 mg tablet Active 08/19/2017 [facility] Triamcinolone Acetonide 1 MG/ML Topical Cream triamcinolone acetonide 0.1 % topical cream apply twice daily as needed Active 08/19/2017 [facility] Acetaminophen 325 MG / Hydrocodone Bitartrate 10 MG Oral Tablet [[place] 10/325] 1 tab, Route: PO, Drug Form: TAB, Dosing Weight 44.545, kg, ONCE, STAT, Start date: 08/17/17 10:54:00 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, Stop date: 08/17/17 10:54:00 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 Inactive 08/17/2017 [facility] Amoxicillin 500 MG Oral Capsule amoxicillin 500 mg capsule Active 05/01/2017 [facility] doxycycline hyclate 100 MG Oral Capsule doxycycline hyclate 100 mg capsule Active 05/01/2017 [facility] doxycycline hyclate 100 MG Oral Tablet doxycycline hyclate 100 mg tablet Active 05/01/2017 [facility] Hydrocortisone 10 MG/ML / Neomycin 3.5 MG/ML / Polymyxin B 03818 UNT/ML Otic Solution [id number]-gjgkvdilh 3.5 mg/mL-10,000 unit/mL-1 % ear solution Active 05/01/2017 [facility] Prednisone 10 MG Oral Tablet prednisone 10 mg tablet Active 05/01/2017 [facility] Rosuvastatin calcium 20 MG Oral Tablet rosuvastatin 20 mg tablet Take 1 tablet every day by oral route. Active 05/01/2017 [facility] Albuterol 0.83 MG/ML Inhalant Solution albuterol sulfate 2.5 mg/3 mL (0.083 %) solution for nebulization Inhale 3 mL as needed by nebulization route. Active 01/19/2017 [facility] lubiprostone 0.024 MG Oral Capsule [Amitiza] Amitiza 24 mcg capsule Take 1 capsule twice a day by oral route. Active 01/19/2017 [facility] Aspirin 81 MG Delayed Release Oral Tablet aspirin 81 mg tablet,delayed release Take 1 tablet every day by oral route. Active 01/19/2017 [facility] Rosuvastatin calcium 10 MG Oral Tablet rosuvastatin 10 mg tablet Active 01/19/2017 [facility] 0.5 ML Bordetella pertussis filamentous hemagglutinin vaccine, inactivated 0.01 MG/ML / Bordetella pertussis fimbriae 2/3 vaccine, inactivated 0.01 MG/ML / Bordetella pertussis pertactin vaccine, inactivated 0.006 MG/ML / Bordetella pertussis toxoid vaccine, inactivated 0.005 MG/ML / diphtheria toxoid vaccine, inactivated 4 UNT/ML / tetanus toxoid vaccine, inactivated 10 UNT/ML Prefilled Syringe [Adacel] Adacel (Tdap Adolesn/Adult)(PF)2 Lf-(2.5-5-3-5)-5 Lf/0.5 mL IM syringe Active 11/11/2016 [facility] 0.65 ML Varicella-Zoster Virus Vaccine Live ([employer]) strain 73888 UNT/ML Injection [Zostavax] Zostavax (PF) 19,400 unit/0.65 mL subcutaneous suspension Active 11/11/2016 [facility] Amoxicillin 500 MG / Clavulanate 125 MG Oral Tablet amoxicillin 500 mg-potassium clavulanate 125 mg tablet Active 05/21/2016 [facility] benzonatate 100 MG Oral Capsule benzonatate 100 mg capsule Active 05/21/2016 [facility] Cephalexin 500 MG Oral Capsule cephalexin 500 mg capsule Active 05/21/2016 [facility] Ciprofloxacin 500 MG Oral Tablet ciprofloxacin 500 mg tablet Active 05/21/2016 [facility] Clobetasol Propionate 0.0005 MG/MG Topical Ointment clobetasol 0.05 % topical ointment Active 05/21/2016 [facility] Fluocinonide 0.0005 MG/MG Topical Ointment fluocinonide 0.05 % topical ointment Active 05/21/2016 [facility] Urea 470 MG/ML Topical Cream [Keralac] Keralac 47 % topical cream Active 05/21/2016 [facility] levocetirizine dihydrochloride 5 MG Oral Tablet levocetirizine 5 mg tablet Active 05/21/2016 [facility] Codeine Phosphate 2 MG/ML / Guaifenesin 20 MG/ML Oral Solution Virtussin AC 10 mg-100 mg/5 mL oral liquid Active 05/21/2016 [facility] Albuterol 0.21 MG/ML Inhalant Solution albuterol sulfate 0.63 mg/3 mL solution for nebulization Active [facility] Align Align 1 po qd Active [facility] Amlodipine 10 MG Oral Tablet amlodipine 10 mg tablet TAKE 1 TABLET DAILY Active [facility] Atenolol 50 MG Oral Tablet atenolol 50 mg tablet TAKE 1 TABLET IN THE MORNING AND ONE-HALF (1/2) TABLET IN THE EVENING Active [facility] fluticasone furoate 0.1 MG/ACTUAT / vilanterol 0.025 MG/ACTUAT Dry Powder Inhaler Breo Ellipta 100 mcg-25 mcg/dose powder for inhalation Active [facility] clopidogrel 75 MG Oral Tablet clopidogrel 75 mg tablet Active [facility] Fluticasone propionate 0.05 MG/ACTUAT Metered Dose Nasal [place] fluticasone 50 mcg/actuation nasal spray,suspension Active [facility] Furosemide 40 MG Oral Tablet furosemide 40 mg tablet TAKE 1 TABLET DAILY Active [facility] Acetaminophen 300 MG / Hydrocodone Bitartrate 5 MG Oral Tablet hydrocodone 5 mg-acetaminophen 300 mg tablet Active [facility] Levothyroxine Sodium 0.112 MG Oral Capsule levothyroxine 112 mcg capsule Take 1 capsule every day by oral route. Active [facility] linaclotide 0.145 MG Oral Capsule [Linzess] Linzess 145 mcg capsule Take 1 capsule every day by oral route as needed for 30 days. Active [facility] Methocarbamol 500 MG Oral Tablet methocarbamol 500 mg tablet prn Active [facility] Hydrocortisone 10 MG/ML / Neomycin 3.5 MG/ML / Polymyxin B 10704 UNT/ML Otic Suspension ebmavzoi-mlqfqfgpi-vqvfcnazd 3.5 mg-10,000 unit/mL-1 % ear drops,susp INSTILL 4 DROPS INTO AFFECTED EAR(S) BY OTIC ROUTE 3 TIMES PER DAY FOR 7 DAYS Active [facility] Nitroglycerin 0.4 MG Sublingual Tablet nitroglycerin 0.4 mg sublingual tablet Active [facility] Prednisone 5 MG Oral Tablet prednisone 5 mg tablet Active [facility] Rosuvastatin calcium 40 MG Oral Tablet rosuvastatin 40 mg tablet Active [facility] tiotropium 0.018 MG Inhalant Powder [Spiriva] Spiriva with HandiHaler 18 mcg and inhalation capsules Active [facility] tramadol hydrochloride 50 MG Oral Tablet tramadol 50 mg tablet Active [facility] Azithromycin 250 MG Oral Tablet Zithromax Z-Fredrick 250 mg tablet TAKE 2 TABLETS (500 MG) BY ORAL ROUTE ONCE DAILY FOR 1 DAY THEN 1 TABLET (250 MG) BY ORAL ROUTE ONCE DAILY FOR 4 DAYS Active [facility] Albuterol Sulfate 0.63 Mg/3 Ml Vial.neb Twice A Day Active [facility] Amlodipine Besylate 10 Mg Tablet Daily Active [facility] Atenolol 50 Mg Tablet Twice A Day [facility] Breo as needed for Shortness Of Breath [facility] Bupropion Hcl (Wellbutrin Sr) 150 Mg Tablet.er Daily Active [facility] Clopidogrel Bisulfate (Plavix) 75 Mg Tablet Every 48 Hours Active [facility] Furosemide 40 Mg Tablet Daily as needed for Fluid Retention Active [facility] Lact Cmb2/S.thermophl/Bif Cmb1 (Vsl#3 Capsule) 1 Each Capsule Twice A Day [facility] Levothyroxine Sodium 112 Mcg Tablet Daily Active [facility] Linzess 290 Daily [facility] Nitroglycerin 0.4 Mg Tab.subl Every 5 Minutes for Chest Pain Active [facility] Prednisone 5 Mg Tablet Daily Active [facility] Rosuvastatin Calcium (Crestor) 10 Mg Tab Bedtime Active THERAPEUTICALLY SUBSTITUTED WITH SIMVASTATIN 40MG [facility] Tiotropium Napavine (Spiriva) 18 Mcg Cap.w.dev Daily Active [facility] Allergies, Adverse Reactions, Alerts Substance Category Reaction Severity Reaction type Status Date Reported Comments Source Erythromycin Base Allergy to substance 05/21/2016 [facility] Morphine Unknown Allergy to Substance Active 01/31/2018 [facility] Erythromycin base Unknown Allergy to Substance Active 01/31/2018 [facility] morphine Assertion itching Propensity to adverse reactions to drug Active [facility] azithromycin Assertion Drug allergy [facility] erythromycin Assertion Drug allergy Active [facility] Immunizations Immunization Date Given Site Status Last Updated Comments Source influenza, high dose seasonal 06/18/2017 completed [facility] influenza, high dose seasonal 05/21/2016 completed [facility] influenza, injectable, quadrivalent 05/08/2015 completed [facility] Results Order Name Results Value Reference Range Date Interpretation Comments Source Abdomen 2 views DX Abdomen 2 views DX Patient Name: TUCKER LESLIE. : 1930; Age: 88 years y/o; Female. MR: [id number]. Ordering Physician: Marie Maddox MD. Abdomen 2 views. HISTORY: Abdominal distention. COMPARISON: Abdominal x-ray 08/14/2018. FINDINGS: Frontal supine and upright views of the abdomen demonstrate gas-filled small and large bowel loops without air-fluid levels to suggest bowel obstruction. No free air. Atherosclerotic calcifications noted. IMPRESSION: No evidence of bowel obstruction or free air. : [id number] 08/15/2018 - - Read by: Ambrocio Andrews MD Dictated Date/time: 08/15/18 11:28 Electronically Signed by: Ambrocio Andrews MD 08/15/18 11:30 FINAL REPORT [facility] Abdomen 2 views DX Abdomen 2 views DX Abdomen 2 views: There is mild fecal material in the left colon without other significant fecal content. The gas pattern is within normal limits, with improvement in mild bowel distention compared to postoperative pelvic radiographs on 08/03/2018. There is no visible pneumoperitoneum. Atherosclerotic calcification is seen throughout the aortoiliac segment. Intertrochanteric screws in the left femur seen related to recent fracture reduction. There are no other acute osseous abnormalities. IMPRESSION: No acute radiographic abnormality of the abdomen. [id number] 08/14/2018 - - Read by: Boyd Cuevas MD Dictated Date/time: 08/15/18 08:19 Electronically Signed by: Boyd Cuevas MD 08/15/18 08:21 FINAL REPORT [facility] Chest 1view DX Chest 1view DX Patient Name: TUCKER LESLIE : 1930; Age: 88 years y/o Female MR: [id number] Study: Chest 1view DX 08/09/2018 9:51 AM 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 Ordering Physician: Boris Leija MD Comparison: Chest radiograph 08/05/2018 Clinical Indication: - worsened cough Findings: Hyperinflation of the lungs with coarse pulmonary markings and biapical pleural thickening. Decreased prominence of the airspace opacities at the lung bases. No pneumothorax. The cardiac silhouette is within normal limits. Midline trachea. Mild atherosclerotic calcifications of the aortic arch. Diffusely decreased bone mineralization. Healing fracture of the right posterior 7th rib. IMPRESSION: Findings compatible with chronic obstructive pulmonary disease. SL: [id number] 08/09/2018 - - Read by: Fernie Pedroza Dictated Date/time: 08/09/18 15:09 Electronically Signed by: Fernie Pedroza 08/09/18 15:13 FINAL REPORT [facility] Chest 1view DX Chest 1view DX Patient Name: TUCKER LESLIE : 1930 Age: 88 years, Female MR: [id number] Study: Chest 1view DX 08/05/2018 9:39 AM 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 Examination: Chest, AP. Indication: Hypoxia. Clinical information: - Hypoxia. Comparison: Portable chest 08/02/2018 Findings: Lines/tubes: None. Cardiovascular: Normal cardiac silhouette. Atherosclerotic calcifications. Mediastinum: No mediastinal or hilar mass or lymphadenopathy. Lungs: No parenchymal mass. Bilateral lower lobe airspace opacities. Pleura: Small bilateral pleural effusions. No pneumothorax. Soft tissues: Normal. Bones: No acute osseous abnormality. Degenerative changes of the thoracic spine. IMPRESSION: Bilateral lower lobe airspace opacities may represent atelectasis or developing pneumonia. Small bilateral pleural effusions. SL: [id number] 08/05/2018 - - Read by: Ethan Lindsey MD Dictated Date/time: 08/05/18 10:37 Electronically Signed by: Ethan Lindsey MD 08/05/18 10:40 FINAL REPORT [facility] Hip 2/3 views uni w pelvis DX Hip 2/3 views uni w pelvis DX Left hip 2/3 views uni w pelvis DX, 08/03/2018 5:18 PM 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 HISTORY: Start: 1530 / End: 1700 / Fluoro Time: 1 min 11 sec / Refrence Air Kerma: 5.36 mGy / OR rm 3 / C-arm 4 - Left Hip Pining COMPARISON: None FINDINGS: Multiple intraoperative views demonstrate interval cannulated lag screw fixation of left subcapital femoral neck fracture. Hardware is intact. Expected postoperative changes in soft tissues. IMPRESSION: Interval screw fixation of left femoral neck fracture SL: [id number] 08/03/2018 - - Read by: Saad Knapp MD Dictated Date/time: 08/03/18 20:32 Electronically Signed by: Saad Knapp 08/03/18 20:34 FINAL REPORT [facility] Hip 2/3 views uni w pelvis DX Hip 2/3 views uni w pelvis DX Left hip, 3 views HISTORY: Femoral neck fracture, orthopedic reduction. COMPARISON: Same-day radiographs. FINDINGS: Frontal pelvic radiograph with 2 AP views of the left hip. 3 cannulated screws have been advanced across a femoral neck fracture. Overlying skin naomi noted. Incidental degenerative changes. There are no unexpected postoperative findings. IMPRESSION: 1. Left femoral neck fracture with evidence of orthopedic fixation. SL: [id number] 08/03/2018 - - Read by: Adama Guallpa MD Dictated Date/time: 08/03/18 18:24 Electronically Signed by: Adama Guallpa MD 08/03/18 18:25 FINAL REPORT [facility] Femur series DX Femur series DX LEFT FEMUR Clinical Indication: - fall Comparison: None FINDINGS: The 2 views of the femur show normal alignment without fractures or dislocations. There is mild hypertrophic change of the left femoral head and acetabulum. There is subchondral sclerosis of the acetabulum. There is diffuse osteopenia. There is no soft tissue swelling or radiopaque foreign bodies. The visualized pelvis is intact. If there is further concern, recommend follow-up radiographs or bone scan for complete assessment. 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 Diffuse osteopenia. No acute findings. SL: [id number] 08/02/2018 - - Read by: Reji Weber MD Dictated Date/time: 08/03/18 00:42 Electronically Signed by: Reji Weber MD 08/03/18 00:43 FINAL REPORT [facility] Knee series 3 views DX Knee series 3 views DX LEFT KNEE Clinical Indication: Fall with inability to straighten the left knee Comparison: None FINDINGS: AP, lateral, and oblique views of the knee show normal alignment without fractures or dislocations. There is mild narrowing of the medial compartment and mild to moderate chondrocalcinosis of the medial and lateral menisci. There is no knee region soft tissue swelling. Hoffa's fat pad region is unremarkable. There are no joint bodies. There is no joint effusion. There are no radiopaque foreign bodies. If there is further concern, recommend follow-up radiographs or MRI for complete assessment. IMPRESSION: 1. Chondrocalcinosis of the menisci and mild medial joint space narrowing. SL: [id number] 08/02/2018 - - Read by: Reji Weber MD Dictated Date/time: 08/03/18 00:40 Electronically Signed by: Reji Weber MD 08/03/18 00:42 FINAL REPORT [facility] Chest 1view DX Chest 1view DX Clinical Indication: - fall Comparison: 01/14/2018 FINDINGS: AP chest radiograph was obtained. MEDIASTINUM: The cardiac silhouette is normal in size. The aorta demonstrates atherosclerotic calcification. LUNGS: Lung volumes are increased. There is decreased markings in the lung apices. There are no infiltrates, effusions, or pneumothoraces. BONES: There is irregularity in contour the posterolateral aspect of the right 7th rib. IMPRESSION: 1. Chronic obstructive pulmonary disease. Irregularity in contour the posterolateral right 7th rib suggestive of acute nondisplaced fracture. SL: [id number] 08/02/2018 - - Read by: Reji Weber MD Dictated Date/time: 08/02/18 23:39 Electronically Signed by: Reji Weber MD 08/02/18 23:40 FINAL REPORT [facility] Hip 2/3 views uni w pelvis DX Hip 2/3 views uni w pelvis DX LEFT HIP WITH PELVIS RADIOGRAPH 5 VIEW CLINICAL INDICATION: Posttraumatic left hip pain COMPARISON: None IMPRESSION: There is an impacted subcapital left femoral neck fracture. The bones appear demineralized. 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 SL:16 08/02/2018 - - Read by: Nikita Niño MD Dictated Date/time: 08/02/18 23:39 Electronically Signed by: Nikita Niño MD 08/02/18 23:42 FINAL REPORT [facility] Automated urine sediment leukocyte count by microscopy (number/high power field) Automated urine sediment leukocyte count by microscopy (number/high power field) null 0 - 5 04/15/2018 [facility] Bacteria detection in urine sediment by light microscopy Bacteria detection in urine sediment by light microscopy MODERATE NONE 04/15/2018 [facility] Epithelial cells detection in urine sediment by light microscopy Epithelial cells detection in urine sediment by light microscopy FEW NONE 04/15/2018 [facility] Erythrocytes detection in urine sediment by light microscopy Erythrocytes detection in urine sediment by light microscopy null 0 - 5 04/15/2018 [facility] Specific gravity of Urine by Test strip Specific gravity of Urine by Test strip 1.015 1.010 - 1.025 04/15/2018 [facility] Urine clarity Urine clarity CLEAR CLEAR 04/15/2018 [facility] Urine color determination Urine color determination YELLOW YELLOW 04/15/2018 [facility] Urine erythrocytes detection Urine erythrocytes detection TRACE NEGATIVE 04/15/2018 [facility] Urine glucose detection Urine glucose detection NEGATIVE NEGATIVE 04/15/2018 [facility] Urine ketones detection by automated test strip Urine ketones detection by automated test strip NEGATIVE NEGATIVE 04/15/2018 [facility] Urine leukocyte esterase detection by dipstick Urine leukocyte esterase detection by dipstick NEGATIVE NEGATIVE 04/15/2018 [facility] Urine nitrite detection Urine nitrite detection NEGATIVE NEGATIVE 04/15/2018 [facility] Urine pH measurement by automated test strip Urine pH measurement by automated test strip 8 5 - 7 04/15/2018 [facility] Urine protein measurement by test strip (mass/volume) Urine protein measurement by test strip (mass/volume) 1+ NEGATIVE 04/15/2018 [facility] Urine total bilirubin measurement (mass/volume) Urine total bilirubin measurement (mass/volume) NEGATIVE NEGATIVE 04/15/2018 [facility] Urine urobilinogen measurement by test strip (mass/volume) Urine urobilinogen measurement by test strip (mass/volume) 0.2 0.2 - 1 04/15/2018 [facility] Activated partial thromboplastin time (aPTT) in platelet poor plasma bycoagulation assay Activated partial thromboplastin time (aPTT) in platelet poor plasma bycoagulation assay 26.8 23.8 - 35.5 04/14/2018 [facility] Automated blood basophil count (count/volume) Automated blood basophil count (count/volume) 0.0 0.0 - 0.1 04/14/2018 [facility] Automated blood basophil count as percentage of total leukocytes Automated blood basophil count as percentage of total leukocytes 0.5 0.0 - 1.0 04/14/2018 [facility] Automated blood eosinophil count Automated blood eosinophil count 0.0 0.0 - 0.4 04/14/2018 [facility] Automated blood eosinophil count as percentage of total leukocytes Automated blood eosinophil count as percentage of total leukocytes 0.5 0.0 - 6.0 04/14/2018 [facility] Automated blood hematocrit (volume fraction) Automated blood hematocrit (volume fraction) 36.9 34.2 - 44.1 04/14/2018 [facility] Automated blood lymphocyte count as percentage ot total leukocytes Automated blood lymphocyte count as percentage ot total leukocytes 13.8 18.0 - 39.1 04/14/2018 [facility] Automated blood monocyte count as percentage of total leukocytes Automated blood monocyte count as percentage of total leukocytes 6.2 4.4 - 11.3 04/14/2018 [facility] Automated blood neutrophil count Automated blood neutrophil count 5.2 2.1 - 6.9 04/14/2018 [facility] Automated blood platelet count (count/volume) Automated blood platelet count (count/volume) 335 140 - 360 04/14/2018 [facility] Automated blood segmented neutrophil count as percentage of total leukocytes Automated blood segmented neutrophil count as percentage of total leukocytes 77.9 38.7 - 80.0 04/14/2018 [facility] Automated erythrocyte mean corpuscular hemoglobin (mass per erythrocyte) Automated erythrocyte mean corpuscular hemoglobin (mass per erythrocyte) 28.5 28 - 32 04/14/2018 [facility] Automated erythrocyte mean corpuscular hemoglobin concentration measurement (mass/volume) Automated erythrocyte mean corpuscular hemoglobin concentration measurement (mass/volume) 31.7 31 - 35 04/14/2018 [facility] Automated erythrocyte mean corpuscular volume Automated erythrocyte mean corpuscular volume 90.0 81 - 99 04/14/2018 [facility] Blood erythrocytes automated count (number/volume) Blood erythrocytes automated count (number/volume) 4.10 3.6 - 5.1 04/14/2018 [facility] Blood hemoglobin measurement (moles/volume) Blood hemoglobin measurement (moles/volume) 11.7 12.0 - 16.0 04/14/2018 [facility] Blood leukocytes automated count (number/volume) Blood leukocytes automated count (number/volume) 6.61 4.8 - 10.8 04/14/2018 [facility] Blood lymphocytes count (number/volume) Blood lymphocytes count (number/volume) 0.9 1.0 - 3.2 04/14/2018 [facility] Blood monocytes automated count (number/volume) Blood monocytes automated count (number/volume) 0.4 0.2 - 0.8 04/14/2018 [facility] Estimated glomerular filtration rate (GFR) determination Estimated glomerular filtration rate (GFR) determination null 60 04/14/2018 [facility] Glucose measurement Glucose measurement 106 74 - 118 04/14/2018 [facility] INR in Platelet poor plasma by Coagulation assay INR in Platelet poor plasma by Coagulation assay 1.00 04/14/2018 [facility] Plasma globulin measurement (mass/volume) Plasma globulin measurement (mass/volume) 3.2 2.3 - 3.5 04/14/2018 [facility] Prothrombin time (PT) in platelet poor plasma by coagulation assay Prothrombin time (PT) in platelet poor plasma by coagulation assay 12.4 11.9 - 14.5 04/14/2018 [facility] Serum or plasma alanine aminotransferase measurement (enzymatic activity/volume) Serum or plasma alanine aminotransferase measurement (enzymatic activity/volume) 40 0 - 55 04/14/2018 [facility] Serum or plasma albumin measurement (mass/volume) Serum or plasma albumin measurement (mass/volume) 3.3 3.5 - 5.0 04/14/2018 [facility] Serum or plasma albumin/globulin mass ratio Serum or plasma albumin/globulin mass ratio 1.0 0.8 - 2.0 04/14/2018 [facility] Serum or plasma alkaline phosphatase measurement (enzymatic activity/volume) Serum or plasma alkaline phosphatase measurement (enzymatic activity/volume) 138 40 - 150 04/14/2018 [facility] Serum or plasma anion gap Serum or plasma anion gap 14.4 8 - 16 04/14/2018 [facility] Serum or plasma calcium measurement (mass/volume) Serum or plasma calcium measurement (mass/volume) 9.4 8.4 - 10.2 04/14/2018 [facility] Serum or plasma carbon dioxide, total measurement (moles/volume) Serum or plasma carbon dioxide, total measurement (moles/volume) 31 22 - 29 04/14/2018 [facility] Serum or plasma chloride measurement (moles/volume) Serum or plasma chloride measurement (moles/volume) 99 98 - 107 04/14/2018 [facility] Serum or plasma creatine kinase MB measurement (mass/volume) Serum or plasma creatine kinase MB measurement (mass/volume) 1.20 0 - 5.0 04/14/2018 [facility] Serum or plasma creatine kinase measurement (enzymatic activity/volume) Serum or plasma creatine kinase measurement (enzymatic activity/volume) 24 29 - 168 04/14/2018 [facility] Serum or plasma creatinine measurement (mass/volume) Serum or plasma creatinine measurement (mass/volume) 0.83 0.57 - 1.11 04/14/2018 [facility] Serum or plasma potassium measurement (moles/volume) Serum or plasma potassium measurement (moles/volume) 4.4 3.5 - 5.1 04/14/2018 [facility] Serum or plasma protein measurement (mass/volume) Serum or plasma protein measurement (mass/volume) 6.5 6.5 - 8.1 04/14/2018 [facility] Serum or plasma sodium measurement (moles/volume) Serum or plasma sodium measurement (moles/volume) 140 136 - 145 04/14/2018 [facility] Serum or plasma total bilirubin measurement (mass/volume) Serum or plasma total bilirubin measurement (mass/volume) 0.5 0.2 - 1.2 04/14/2018 [facility] Serum or plasma urea nitrogen measurement (mass/volume) Serum or plasma urea nitrogen measurement (mass/volume) 14 7 - 26 04/14/2018 [facility] Serum or plasma urea nitrogen/creatinine mass ratio Serum or plasma urea nitrogen/creatinine mass ratio 17 6 - 25 04/14/2018 [facility] Troponin I measurement by highly sensitive enzyme immunoassay Troponin I measurement by highly sensitive enzyme immunoassay 0.010 0 - 0.300 04/14/2018 [facility] Red Cell Distribution Width 13.6 11.7 - 14.4 04/14/2018 [facility] IM GRANULOCYTES % 1.1 0.0 - 1.0 04/14/2018 [facility] Absolute Immature Granulocyte (auto 0.07 0 - 0.1 04/14/2018 [facility] Aspartate Amino Transf (AST/SGOT) 39 5 - 34 04/14/2018 [facility] Bone Density DXA Dual Energy MA Bone Density DXA Dual Energy MA BONE DENSITY ASSESSMENT: 03/23/2018 CLINICAL DATA: Post menopausal. 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 FINDINGS: Bone density evaluation was performed 03/23/2018 on the left ultra distal radius and ulna using a Hologic unit. The BMD average [...] for fracture. This exam was interpreted at [id number] for FIDEL Ozuna 15. Irving Villar M.D., cm/erica:03/24/2018 12:17:26 Tutor(s): Anuradha EASON(R)(M), [facility] 03/23/2018 - - Read by: Jose Rice MD Dictated Date/time: 03/24/18 12:17 Electronically Signed by: Jose Rice MD 03/24/18 12:17 FINAL REPORT [facility] Spine Thoracic wo contrast MRI Spine Thoracic [...] Yuki Gallo MD 03/16/18 17:09 FINAL REPORT [facility] Serum or plasma thyrotropin measurement by detection limit <=0.005 miu/l (units/volume) Serum or plasma thyrotropin measurement by detection limit <=0.005 miu/l (units/volume) 0.895 0.350 - 4.940 03/09/2018 [facility] Serum or plasma lipase measurement (enzymatic activity/volume) Serum or plasma lipase measurement (enzymatic activity/volume) 21 8 - 78 03/07/2018 [facility] Lactic Acid Level 22.3 4.5 - 19.8 03/07/2018 [facility] B-Type Natriuretic Peptide 201.6 0 - 100 03/07/2018 [facility] ELECTROLYTES Potassium Lvl 4.2 meq/L 3.5 - 5.1 03/04/2018 [facility] ELECTROLYTES Chloride Lvl 101 meq/L 95 - 109 03/04/2018 [facility] ELECTROLYTES eGFR 65 mL/min/1.73m2 03/04/2018 Result Comment: [...] should be multiplied by the estimated BMI. [facility] ELECTROLYTES CO2 34 meq/L 24 - 32 03/04/2018 [facility] ELECTROLYTES Calcium Lvl 9.6 mg/dL 8.5 - 10.5 03/04/2018 [facility] ELECTROLYTES AGAP 9.2 meq/L 10.0 - 20.0 03/04/2018 [facility] ELECTROLYTES Creatinine Lvl 0.82 mg/dL 0.50 - 1.40 03/04/2018 [facility] ELECTROLYTES BUN 8 mg/dL 7 - 22 03/04/2018 [facility] ELECTROLYTES Sodium Lvl 140 meq/L 135 - 145 03/04/2018 [facility] ELECTROLYTES Glucose Lvl 102 mg/dL 70 - 99 03/04/2018 [facility] Capillary blood glucose measurement by glucometer (mass/volume) Capillary blood glucose measurement by glucometer (mass/volume) 172 70 - 120 02/02/2018 [facility] Blood anisocytosis detection by light microscopy Blood anisocytosis detection by light microscopy SLIGHT 02/02/2018 [facility] Blood lymphocytes variant count (number/volume) Blood lymphocytes variant count (number/volume) 1 02/02/2018 [facility] Blood platelets count by estimate (number/volume) Blood platelets count by estimate (number/volume) ADEQUATE 02/02/2018 [facility] Manual blood lymphocytes/100 leukocytes Manual blood lymphocytes/100 leukocytes 5 19 - 48 02/02/2018 [facility] Manual blood monocytes/100 leukocytes Manual blood monocytes/100 leukocytes 9 3.4 - 9.0 02/02/2018 [facility] Manual blood myelocytes/100 leukocytes Manual blood myelocytes/100 leukocytes 1 0 - 0 02/02/2018 [facility] Manual blood neutrophils/100 leukocytes Manual blood neutrophils/100 leukocytes 84 40 - 74 02/02/2018 [facility] Platelet morphology Platelet morphology NORMAL 02/02/2018 [facility] RBC morphology RBC morphology NORMAL 02/02/2018 [facility] Differential Total Cells Counted 100 02/02/2018 [facility] Serum or plasma magnesium measurement (mass/volume) Serum or plasma magnesium measurement (mass/volume) 1.7 1.3 - 2.1 02/01/2018 [facility] Amorphous sediment detection in urine sediment by light microscopy Amorphous sediment detection in urine sediment by light microscopy FEW FEW 01/31/2018 [facility] Automated fine granular casts count in urine sediment by microscopy lowpower field (number/area) Automated fine granular casts count in urine sediment by microscopy lowpower field (number/area) null 0 01/31/2018 [facility] CARDIAC ENZYMES Troponin-I null 0.00 - 0.40 01/14/2018 [facility] ELECTROLYTES AGAP 7.1 meq/L 10.0 - 20.0 01/14/2018 [facility] ELECTROLYTES eGFR 70 mL/min/1.73m2 01/14/2018 Result [...] should be multiplied by the estimated BMI. [facility] ELECTROLYTES Chloride Lvl 100 meq/L 95 - 109 01/14/2018 [facility] ELECTROLYTES CO2 33 meq/L 24 - 32 01/14/2018 [facility] ELECTROLYTES Calcium Lvl 9.0 mg/dL 8.5 - 10.5 01/14/2018 [facility] ELECTROLYTES Glucose Lvl 107 mg/dL 70 - 99 01/14/2018 [facility] ELECTROLYTES Creatinine Lvl 0.76 mg/dL 0.50 - 1.40 01/14/2018 [facility] ELECTROLYTES Sodium Lvl 136 meq/L 135 - 145 01/14/2018 [facility] ELECTROLYTES Potassium Lvl 4.1 meq/L 3.5 - 5.1 01/14/2018 [facility] ELECTROLYTES BUN 12 mg/dL 7 - 22 01/14/2018 [facility] Segs-Bands # 5.8 K/CMM 1.5 - 8.1 01/14/2018 [facility] Basophils 1.0 % 0.0 - 1.0 01/14/2018 [facility] HEMATOLOGY Basophils # 0.1 K/CMM 0.0 - 0.2 01/14/2018 [facility] HEMATOLOGY Monocytes # 0.7 K/CMM 0.0 - 0.8 01/14/2018 [facility] Lymphocytes # 1.5 K/CMM 1.0 - 5.5 01/14/2018 [facility] Monocytes 8.9 % 2.0 - 12.0 01/14/2018 [facility] HEMATOLOGY Eosinophils 0.6 % 0.0 - 4.0 01/14/2018 [facility] Lymphocytes 18.2 % 20.0 - 40.0 01/14/2018 [facility] HEMATOLOGY Segs 71.3 % 45.0 - 75.0 01/14/2018 [facility] Platelet 374 K/CMM 133 - 450 01/14/2018 [facility] MPV 7.6 fL 7.4 - 10.4 01/14/2018 [facility] RDW 13.7 % 11.5 - 14.5 01/14/2018 [facility] MCV 86.6 fL 80.0 - 98.0 01/14/2018 [facility] MCH 28.8 pg 27.0 - 31.0 01/14/2018 [facility] MCHC 33.2 g/dL 32.0 - 36.0 01/14/2018 [facility] HEMATOLOGY Hct 38.1 % 36.0 - 48.0 01/14/2018 [facility] HEMATOLOGY RBC 4.41 M/CMM 4.20 - 5.40 01/14/2018 [facility] HEMATOLOGY Hgb 12.7 g/dL 12.0 - 16.0 01/14/2018 [facility] HEMATOLOGY WBC 8.1 K/CMM 3.7 - 10.4 01/14/2018 [facility] Chest 1view DX Chest 1view DX EXAM: Chest radiograph HISTORY: Mid back pain COMPARISON: None TECHNIQUE: Frontal view of the chest FINDINGS/IMPRESSION: COPD. No appreciable pneumonia, edema, or significant pleural effusion. Probable calcified granuloma left upper lobe; follow-up radiographs in 6 months can be obtained to document stability. Heart size normal. Mild elevation left hemidiaphragm. SL: [id number] 01/14/2018 - - Read by: Porter Herrera MD Dictated Date/time: 01/14/18 15:56 Electronically Signed by: Porter Herrera MD 01/14/18 16:00 FINAL REPORT [facility] Spine thoracic wo contrast CT Spine [...] correlation with clinical exam is recommended. SL: [id number] 01/14/2018 - - Read by: Dread Garcia MD Dictated Date/time: 01/14/18 12:45 Electronically Signed by: Dread Garcia MD 01/14/18 13:45 FINAL REPORT [facility] Bacteria identified in Urine by Culture culture, urine, routine see note 11/08/2017 abnormal [facility] Bacteria identified in Urine by Culture culture, urine, routine see note 08/21/2017 [facility] Spine lumbar 2 or 3 views DX Spine lumbar 2 or 3 views DX Patient Name: TUCKER LESLIE : 1930; Age: 87 years y/o Female MR: [id number] Study: 2 view lumbar spine 08/17/2017 9:44 AM 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 Ordering Physician: Bernardo Mcnally DO Clinical Indication: [...] indeterminate. 2. Multilevel disc space narrowing. SL: [id number] 08/17/2017 - - Read by: Travon Billy MD Dictated Date/time: 08/17/17 11:22 Electronically Signed by: Travon Billy MD 08/17/17 11:26 FINAL REPORT [facility] Comprehensive metabolic 1999 panel - Serum or Plasma ALT 22 U/L 0 - 55 06/18/2017 [facility] Comprehensive metabolic 1999 panel - Serum or Plasma AST 26 U/L 5 - 34 06/18/2017 [facility] Comprehensive metabolic 1999 panel - Serum or Plasma BUN 7.4 mg/dL 9.8 - 20.1 06/18/2017 [facility] Comprehensive metabolic 1999 panel - Serum or Plasma alk phos 78 unit/L 40 - 150 06/18/2017 [facility] Comprehensive metabolic 1999 panel - Serum or Plasma glucose 96 mg/dL 70 - 99 06/18/2017 [facility] Comprehensive metabolic 1999 panel - Serum or Plasma albumin 3.4 g/dL 3.5 - 5.0 06/18/2017 [facility] Comprehensive metabolic 1999 panel - Serum or Plasma creatinine 0.68 mg/dL 0.57 - 1.11 06/18/2017 [facility] Comprehensive metabolic 1999 panel - Serum or Plasma eGFR non- >60 >60 06/18/2017 [facility] Comprehensive metabolic 1999 panel - Serum or Plasma total bilirubin 0.3 mg/dL 0.2 - 1.2 06/18/2017 [facility] Comprehensive metabolic 1999 panel - Serum or Plasma eGFR - >60 >60 06/18/2017 [facility] Comprehensive metabolic 1999 panel - Serum or Plasma sodium 139 mEq/L 136 - 145 06/18/2017 [facility] Comprehensive metabolic 1999 panel - Serum or Plasma potassium 5.9 mEq/L 3.5 - 5.1 06/18/[address] [facility] Comprehensive metabolic 1999 panel - Serum or Plasma chloride 99 mmol/L 98 - 107 06/18/2017 [facility] Comprehensive metabolic 1999 panel - Serum or Plasma total protein 6.6 g/dL 6.4 - 8.3 06/18/2017 [facility] Comprehensive metabolic 1999 panel - Serum or Plasma calcium 9.5 mg/dL 8.4 - 10.2 06/18/2017 [facility] Comprehensive metabolic 1999 panel - Serum or Plasma CO2 30.8 mmol/L 23.0 - 31.0 06/18/2017 [facility] Comprehensive metabolic 1999 panel - Serum or Plasma anion gap 9 calc 06/18/2017 [facility] Lipid 1996 panel - Serum or Plasma HDL 75 mg/dL 40 - 60 06/18/[address] [facility] Lipid 1996 panel - Serum or Plasma triglyceride 104 mg/dL 0 - 149 06/18/2017 [facility] Lipid 1996 panel - Serum or Plasma VLDL calc. 21 mg/dL 06/18/2017 [facility] Lipid 1996 panel - Serum or Plasma cholesterol/HDL ratio 2.3 mg/dL 06/18/2017 [facility] Lipid 1996 panel - Serum or Plasma non-HDL cholesterol calc. 100 mg/dL 0 - 160 06/18/2017 [facility] Lipid 1995 panel - Serum or Plasma cholesterol 175 mg/dL 0 - 199 06/18/2017 [facility] Lipid 1996 panel - Serum or Plasma LDL calc. 79 mg/dL 0 - 130 06/18/2017 [facility] Thyrotropin [Units/volume] in Serum or Plasma TSH 0.427 uIU/mL 0.350 - 4.940 06/18/2017 [facility] CBC W Auto Differential panel - Blood WBC 7.45 x10*3/L 3.98 - 10.04 06/18/2017 [facility] CBC W Auto Differential panel - Blood RBC 4.17 10*12/L 3.93 - 5.22 06/18/2017 [facility] CBC W Auto Differential panel - Blood hemoglobin 12.00 g/dL 11.20 - 15.70 06/18/2017 [facility] CBC W Auto Differential panel - Blood hematocrit 38.9 % 34.1 - 44.9 06/18/2017 [facility] CBC W Auto Differential panel - Blood MCV 93.3 fL 80.0 - 100.0 06/18/2017 [facility] CBC W Auto Differential panel - Blood MCH 28.8 pg 25.6 - 32.2 06/18/2017 [facility] CBC W Auto Differential panel - Blood MCHC 30.8 g/dL 32.2 - 35.5 06/18/2017 [facility] CBC W Auto Differential panel - Blood RDW-SD 48.7 fL 36.4 - 46.3 06/18/[address] [facility] CBC W Auto Differential panel - Blood platelet count 366.0 k/uL 182.0 - 369.0 06/18/2017 [facility] CBC W Auto Differential panel - Blood MPV 10.6 fL 7.5 - 11.5 06/18/2017 [facility] CBC W Auto Differential panel - Blood neut% 59.3 % 34.0 - 71.1 06/18/2017 [facility] CBC W Auto Differential panel - Blood lymph% 22.6 % 19.3 - 51.7 06/18/2017 [facility] CBC W Auto Differential panel - Blood mon% 8.6 % 4.7 - 12.5 06/18/2017 [facility] CBC W Auto Differential panel - Blood eos% 8.6 % 0.7 - 5.8 06/18/[address] [facility] CBC W Auto Differential panel - Blood baso% 0.9 % 0.1 - 1.2 06/18/2017 [facility] CBC W Auto Differential panel - Blood neut# 4.4 x10*3/L 1.6 - 6.1 06/18/2017 [facility] CBC W Auto Differential panel - Blood lymph# 1.7 x10*3/L 1.2 - 3.7 06/18/2017 [facility] CBC W Auto Differential panel - Blood mon# 0.6 x10*3/L 0.2 - 0.9 06/18/2017 [facility] CBC W Auto Differential panel - Blood eos# 0.64 x10*3/L 0.04 - 0.36 06/18/[address] [facility] CBC W Auto Differential panel - Blood baso# 0.07 x10*3/L 0.01 - 0.08 06/18/2017 [facility] metabolic 1999 panel - Serum or Plasma glucose 120 mg/dL 65 - 99 11/13/[address] [facility] metabolic 1999 panel - Serum or Plasma urea nitrogen (BUN) 16 mg/dL 7 - 25 11/13/2016 [facility] metabolic 1999 panel - Serum or Plasma creatinine 0.79 mg/dL 0.60 - 0.88 11/13/2016 [facility] metabolic 1999 panel - Serum or Plasma eGFR non-afr. citizen of [place] 68 mL/min/1.73m2 > or=60 11/13/2016 [facility] Comprehensive metabolic 1999 panel - Serum or Plasma eGFR 79 mL/min/1.73m2 > or=60 11/13/2016 [facility] metabolic 1999 panel - Serum or Plasma BUN/creatinine ratio not applicable 6 - 22 11/13/2016 [facility] metabolic 1999 panel - Serum or Plasma sodium 136 mmol/L 135 - 146 11/13/2016 [facility] metabolic 1999 panel - Serum or Plasma potassium 4.8 mmol/L 3.5 - 5.3 11/13/2016 [facility] Comprehensive metabolic 1999 panel - Serum or Plasma chloride 98 mmol/L 98 - 110 11/13/2016 [facility] Comprehensive metabolic 1999 panel - Serum or Plasma carbon dioxide 34 mmol/L 20 - 31 11/13/[address] [facility] metabolic 1999 panel - Serum or Plasma calcium 9.7 mg/dL 8.6 - 10.4 11/13/2016 [facility] metabolic 1999 panel - Serum or Plasma protein, total 6.8 g/dL 6.1 - 8.1 11/13/2016 [facility] Comprehensive metabolic 1999 panel - Serum or Plasma albumin 3.9 g/dL 3.6 - 5.1 11/13/2016 [facility] metabolic 1999 panel - Serum or Plasma globulin 2.9 g/dL_(calc) 1.9 - 3.7 11/13/2016 [facility] Comprehensive metabolic 1999 panel - Serum or Plasma albumin/globulin ratio 1.3 (calc) 1.0 - 2.5 11/13/2016 [facility] metabolic 1999 panel - Serum or Plasma bilirubin, total 0.4 mg/dL 0.2 - 1.2 11/13/2016 [facility] Comprehensive metabolic 1999 panel - Serum or Plasma alkaline phosphatase 81 U/L 33 - 130 11/13/2016 [facility] Comprehensive metabolic 1999 panel - Serum or Plasma AST 17 U/L 10 - 35 11/13/2016 [facility] Comprehensive metabolic 1999 panel - Serum or Plasma ALT 10 U/L 6 - 29 11/13/2016 [facility] Lipid 1995 panel - Serum or Plasma cholesterol, total 190 mg/dL 125 - 200 11/13/2016 [facility] Lipid 1995 panel - Serum or Plasma HDL cholesterol 83 mg/dL > or=46 11/13/2016 [facility] Lipid 1995 panel - Serum or Plasma triglycerides 86 mg/dL <150 11/13/2016 [facility] Lipid 1995 panel - Serum or Plasma LDL-cholesterol 90 mg/dL_(calc) <130 11/13/2016 [facility] Lipid 1995 panel - Serum or Plasma chol/HDLC ratio 2.3 (calc) < or=5.0 11/13/2016 [facility] Lipid 1995 panel - Serum or Plasma non HDL cholesterol 107 mg/dL_(calc) 11/13/2016 [facility] Comprehensive metabolic 1999 panel - Serum or Plasma ALT 10.0 U/L 0.0 - 55.0 05/22/2016 [facility] Comprehensive metabolic 1999 panel - Serum or Plasma AST 25.0 U/L 5.0 - 34.0 05/22/2016 [facility] Comprehensive metabolic 1999 panel - Serum or Plasma BUN 8.0 mg/dL 7.0 - 20.0 05/22/2016 [facility] Comprehensive metabolic 1999 panel - Serum or Plasma alk phos 75.0 unit/L 40.0 - 150.0 05/22/2016 [facility] Comprehensive metabolic 1999 panel - Serum or Plasma glucose 111.0 mg/dL 70.0 - 99.0 05/22/2016 high [facility] Comprehensive metabolic 1999 panel - Serum or Plasma albumin 4.0 g/dL 3.5 - 5.0 05/22/2016 [facility] Comprehensive metabolic 1999 panel - Serum or Plasma creatinine 0.8 mg/dL 0.6 - 1.1 05/22/2016 [facility] Comprehensive metabolic 1999 panel - Serum or Plasma eGFR non- >60 >60.0 05/22/2016 [facility] Comprehensive metabolic 1999 panel - Serum or Plasma total bilirubin 0.7 mg/dL 0.2 - 1.2 05/22/2016 [facility] Comprehensive metabolic 1999 panel - Serum or Plasma eGFR - >60 >60.0 05/22/2016 [facility] Comprehensive metabolic 1999 panel - Serum or Plasma sodium 140.0 mEq/L 137.0 - 144.0 05/22/2016 [facility] Comprehensive metabolic 1999 panel - Serum or Plasma potassium 4.7 mEq/L 3.5 - 5.0 05/22/2016 [facility] Comprehensive metabolic 1999 panel - Serum or Plasma chloride 98.0 mmol/L 101.0 - 110.0 05/22/2016 [facility] Comprehensive metabolic 1999 panel - Serum or Plasma total protein 7.1 g/dL 6.4 - 8.3 05/22/2016 [facility] Comprehensive metabolic 1999 panel - Serum or Plasma calcium 10.0 mg/dL 8.4 - 10.2 05/22/2016 [facility] Comprehensive metabolic 1999 panel - Serum or Plasma CO2 31.6 mmol/L 23.0 - 31.0 05/22/[address] [facility] Comprehensive metabolic 1999 panel - Serum or Plasma anion gap 10.4 calc 05/22/2016 [facility] Lipid 1995 panel - Serum or Plasma HDL 72.0 mg/dL 40.0 - 60.0 05/22/[address] [facility] Lipid 1995 panel - Serum or Plasma triglyceride 102.0 mg/dL 0.0 - 149.0 05/22/2016 [facility] Lipid 1995 panel - Serum or Plasma VLDL calc. 20.4 mg/dL 05/22/2016 [facility] Lipid 1995 panel - Serum or Plasma cholesterol/HDL ratio 2.3 mg/dL 05/22/2016 [facility] Lipid 1995 panel - Serum or Plasma non-HDL cholesterol calc. 97.0 mg/dL 0.0 - 160.0 05/22/2016 [facility] Lipid 1995 panel - Serum or Plasma cholesterol 169.0 mg/dL 0.0 - 199.0 05/22/2016 [facility] Lipid 1995 panel - Serum or Plasma LDL calc. 76.6 mg/dL 0.0 - 130.0 05/22/2016 [facility] Thyrotropin [Units/volume] in Serum or Plasma TSH 0.079 uIU/mL 0.350 - 4.940 05/22/2016 [facility] Vital Signs Vital Sign Value Date Comments Source Systolic (mm Hg) 92 03/16/2018 [facility] Diastolic (mm Hg) 52 03/16/2018 [facility] Systolic (mm Hg) 113 03/16/2018 [facility] Diastolic (mm Hg) 58 03/16/2018 [facility] Respitory Rate 20 03/16/2018 [facility] Systolic (mm Hg) 108 03/16/2018 [facility] Diastolic (mm Hg) 55 03/16/2018 [facility] Respitory Rate 20 03/16/2018 [facility] Respitory Rate 31 03/16/2018 [facility] Heart Rate 66 03/16/2018 [facility] Height 152.4 cm 03/16/2018 [facility] BMI Calculated 17.81 03/16/2018 [facility] Weight 41.364 03/16/2018 [facility] Height 152.4 cm 03/15/2018 [facility] BMI Calculated 18.02 03/15/2018 [facility] Weight 41.864 03/15/2018 [facility] Temperature Oral (F) 98.1 F 03/04/2018 [facility] Systolic (mm Hg) 131 03/04/2018 [facility] Diastolic (mm Hg) 61 03/04/2018 [facility] Respitory Rate 20 03/04/2018 [facility] Weight 41.818 03/04/2018 [facility] BMI Calculated 18.01 03/04/2018 [facility] Height 152.4 cm 03/04/2018 [facility] Respitory Rate 20 03/04/2018 [facility] Heart Rate 68 03/04/2018 [facility] Systolic (mm Hg) 123 03/04/2018 [facility] Diastolic (mm Hg) 63 03/04/2018 [facility] Temperature Oral (F) 98.4 F 03/04/2018 [facility] Systolic (mm Hg) 123 01/15/2018 [facility] Diastolic (mm Hg) 72 01/15/2018 [facility] Respitory Rate 18 01/15/2018 [facility] Heart Rate 70 01/15/2018 [facility] Temperature Oral (F) 98.5 F 01/15/2018 [facility] BMI Calculated 18.96 01/14/2018 [facility] Weight 45.511 01/14/2018 [facility] Height 154.94 cm 01/14/2018 [facility] Systolic (mm Hg) 127 01/14/2018 [facility] Diastolic (mm Hg) 69 01/14/2018 [facility] Systolic (mm Hg) 113 01/14/2018 [facility] Diastolic (mm Hg) 49 01/14/2018 [facility] Temperature Oral (F) 97.8 F 01/14/2018 [facility] Respitory Rate 20 01/14/2018 [facility] Temperature Oral (F) 97.5 F 01/14/2018 [facility] Respitory Rate 22 01/14/2018 [facility] BMI Calculated 18.33 01/14/2018 [facility] Weight 45.455 01/14/2018 [facility] Heart Rate 75 01/14/2018 [facility] Height 157.48 cm 01/14/2018 [facility] Diastolic [...] Practice Temperature Oral (F) 97.1 F 08/17/2017 [facility] Heart Rate 59 08/17/2017 [facility] Respitory Rate 18 08/17/2017 [facility] Systolic (mm Hg) 105 08/17/2017 [facility] Diastolic (mm Hg) 61 08/17/2017 [facility] Systolic (mm Hg) 125 08/17/2017 [facility] Diastolic (mm Hg) 80 08/17/2017 [facility] Heart Rate 59 08/17/2017 [facility] Respitory Rate 18 08/17/2017 [facility] Temperature Oral (F) 97.8 F 08/17/2017 [facility] Respitory Rate 18 08/17/2017 [facility] Systolic (mm Hg) 128 08/17/2017 [facility] Diastolic (mm Hg) 47 08/17/2017 [facility] Heart Rate 55 08/17/2017 [facility] Weight 44.545 08/17/2017 [facility] BMI Calculated 16.34 08/17/2017 [facility] Height 165.1 cm 08/17/2017 [facility] Temperature Oral (F) 97.8 F 08/17/2017 [facility] Diastolic (mm Hg) 48 05/12/2017 [facility] [...] Date DC Date Status Source [place] - [facility] Gianni Gray MD: [address] [place] [address], Ph. [id number] Gianni Gray 05/21/2016 [facility] [place] - [facility] Gianni Gray MD: [address] [place] [address], Ph. [id number] Gianni Rob Isaac 09/15/2016 [facility] Gianni Antony. Darron Gray MD: [address] [place] [address], Ph. [id number] Gianni Rob Isaac 11/06/2016 [facility] [place] - [facility] Gianni Antony. Darron Gray MD: [address] [place] [address], Ph. [id number] Giannishreya Gray 11/11/2016 [facility] [place] - [facility] Gianni Antony. Darron Gray MD: [address] [place] [address], Ph. [id number] Giannishreya Gray 01/19/2017 [facility] Darron Gray MD: [address] [facility] [address], [place] [address], Ph. [id number] Giannishreya Gray 05/01/2017 [facility] Gianni Antony. Darron Gray MD: [address] [place] [address], Ph. [id number] Gianni Darron Gray 05/12/2017 [facility] Gianni Antony. Darron Gray MD: [address] [place] [address], Ph. [id number] Gianni Gray 06/18/2017 [facility] Emergency [id number] Bernardo Mcnally 08/17/2017 08/17/2017 [facility] Gianni A. Darron Gray MD: [address] [place] [address], Ph. [id number] Gianni Gray 08/19/2017 [facility] Registered [facility] [id number] LUIS MANUEL BULLARD MD 09/25/2017 [facility] Fuentes Wilder MD: [address] [place] [address], Ph. [id number] Fuentes Wilder 11/05/2017 [facility] [place] Antony. Darron Gray MD: [address] [place] [address], Ph. [id number] Gianni Grya 11/10/2017 [facility] Departed Emergency Room [id number] DAYA AGUERO MD 11/17/2017 11/18/2017 [facility] Antony. Darron Gray MD: [address] [place] [address], Ph. [id number] Gianni Gray 12/08/2017 [facility] Observation [id number] Taco Frazier 01/14/2018 01/15/2018 [facility] Discharged Inpatient [id number] BRENDEN BEAULIEU MD 01/31/2018 02/05/2018 [facility] Emergency [id number] [place] Wen 03/04/2018 03/04/2018 [facility] [id number] BRENDEN BEAULIEU MD 03/05/2018 [facility] Discharged Inpatient [id number] BRENDEN BEAULIEU MD 03/08/2018 03/11/2018 [facility] Day Surgery [id number] Nicola Carmelita 03/16/2018 03/17/2018 [facility] Discharged Inpatient [id number] BRENDEN BEAULIEU MD 04/14/2018 04/21/2018 [facility] Procedures Procedure Code Date Perfomer Comments Source CT extremity lower wo contrast [id number] 04/14/2018 [facility] Computed tomography of pelvis without contrast [id number] 04/14/2018 [facility] DILATION OF ESOPHAGOGASTRIC JUNCTION, ENDO [id number] 03/11/2018 [facility] EXCISION OF LOWER ESOPHAGUS, ENDO, DIAGN [id number] 03/11/2018 [facility] EXCISION OF STOMACH, PYLORUS, ENDO, DIAGN [id number] 03/11/2018 [facility] EXCISION OF ASCENDING COLON, ENDO, DIAGN [id number] 03/11/2018 [facility] EXCISION OF SIGMOID COLON, ENDO, DIAGN [id number] 03/11/2018 [facility] CT of abdomen and pelvis without contrast [id number] 03/07/2018 [facility] Computed tomography of thoracic spine without contrast [id number] 03/07/2018 [facility] Computed tomography of abdomen and pelvis with contrast [id number] 03/05/2018 [facility] Computed tomography of brain without radiopaque contrast [id number] 02/02/2018 [facility] Computed tomography of abdomen and pelvis with contrast [id number] 01/31/2018 [facility] Computed tomography of brain without radiopaque contrast [id number] 11/18/2017 [facility] Computed tomography of cervical spine without contrast [id number] 11/18/2017 [facility] Computed tomography of abdomen and pelvis with contrast [id number] 11/18/2017 [facility] X-RAY THORACIC SPINE 2 VIEW [id number] 05/12/2017 [facility] XR, lumbar spine 05/12/2017 [facility] Egd 09/16/2016 [facility] Cancer Surgery 09/07/2016 [facility] Egd 01/31/2014 [facility] Colonoscopy 01/11/2010 [facility] Gastrointestinal Surgery 09/07/1999 [facility] Bowel Surgery Procedure [id number] 09/07/1999 [facility] Thyroid Surgery 09/07/1988 [facility] Removal of Thyroid [id number] 09/07/1988 [facility] Cholecystectomy 09/07/1981 [facility] Other 09/07/1971 [facility] Back Surgery 09/07/1971 [facility] Repair of Vagina [id number] 09/07/1970 [facility] Hysterectomy (Partial) 09/07/1969 [facility] Back Surgery 09/07/1957 [facility] Hemorrhoidectomy 09/07/1956 [facility] Appendectomy 09/07/1946 [facility] Tonsilectomy/adenoids 09/07/1938 [facility] Abdominal hysterectomy [id number] [facility] Appendectomy [id number] [facility] Complete resection of colon [id number] [facility] Gallbladder operation [id number] [facility] Laminectomy [id number] [facility] Removal of thyroid nodule [id number] [facility] Tonsillectomy [id number] [facility] Abdominal hysterectomy [id number] [facility] Appendectomy [id number] [facility] Complete resection of colon [id number] [facility] Gallbladder operation [id number] [facility] Laminectomy [id number] [facility] Removal of thyroid nodule [id number] [facility] Tonsillectomy [id number] [facility]
[2018-09-07] MEDS ORDERED: SODIUM CHLORIDE 0.9% 1000ML 1,000 ML IV STA (14:13)
[2018-09-07] MEDS ORDERED: ALBUTEROL/IPRATROPIUM 3 ML NEB NEB ONE (14:30)
--- NOTE | 2018-09-07 14:54 | Diagnostic Imaging Report ---
EXAM: CHEST SINGLE (PORTABLE) INDICATION: Cough, rule out aspiration. COMPARISON: Chest radiograph 07/05/2018. FINDINGS: LINES/TUBES: Interval removal of right-sided PICC. LUNGS: The lungs are hyperinflated. Mild linear opacity at the right lung base could represent scarring or atelectasis. No evidence of pneumonia or pulmonary edema. PLEURA: No evidence of pleural effusion or pneumothorax. HEART AND MEDIASTINUM: Unremarkable cardiomediastinal silhouette. Atherosclerotic aortic calcifications. BONES AND SOFT TISSUES: No acute osseous abnormality. IMPRESSION: Emphysematous changes of the lungs with no evidence of pneumonia. Signed by: Dr. Myron Ricks MD on 09/07/2018 2:51 PM
[2018-09-07 15:15] LABS: BASOPHILS % 0.2 % (0.0-1.0); HEMATOCRIT 37.9 % (34.2-44.1); HEMOGLOBIN 12.1 g/dL (12.0-16.0); LYMPHOCYTES # (AUTO) 0.5 (1.0-3.2); LYMPHOCYTES % 3.6 % (18.0-39.1); MEAN CORPUSCULAR HEMOGLOBIN 26.7 pg (28-32); MEAN CORPUSCULAR HGB CONC 31.9 g/dL (31-35); MEAN CORPUSCULAR VOLUME 83.5 fL (81-99); MONOCYTES # (AUTO) 0.2 (0.2-0.8); MONOCYTES % 1.6 % (4.4-11.3); NEUTROPHILS # (AUTO) 13.2 (2.1-6.9); PLATELET COUNT 489 x10e3/uL (140-360); RED BLOOD COUNT 4.54 x10e6/uL (3.6-5.1); RED CELL DISTRIBUTION WIDTH 14.1 % (11.7-14.4)
[2018-09-07 15:35] LABS: ALANINE AMINOTRANSFERASE 11 IU/L (0-55); ALBUMIN 2.8 g/dL (3.5-5.0); ALBUMIN/GLOBULIN RATIO 0.8 (0.8-2.0); ALKALINE PHOSPHATASE 133 IU/L (40-150); ANION GAP 15.2 mmol/L (8-16); BLOOD UREA NITROGEN 20 mg/dL (7-26); BUN/CREATININE RATIO 27 (6-25); CALCIUM 8.8 mg/dL (8.4-10.2); CARBON DIOXIDE 36 mmol/L (22-29); CHLORIDE 86 mmol/L (98-107); CREATINE KINASE 12 IU/L (29-168); CREATININE, SERUM 0.73 mg/dL (0.57-1.11); EST GLOMERULAR FILTRATION RATE > 60 ML/MIN (60-); GLUCOSE 101 mg/dL (74-118); POTASSIUM 3.2 mmol/L (3.5-5.1); SODIUM 134 mmol/L (136-145)
[2018-09-07 15:44] LABS: B-TYPE NATRIURETIC PEPTIDE2 98.3 pg/mL (0-100)
[2018-09-07 15:55] LABS: THYROID STIMULATING HORMONE 4.499 uIU/mL (0.350-4.940)
[2018-09-07] MEDS: ALBUTEROL SULF 0.083% NEB SOLN 3 ML NEB NEB SCH ×3 (16:30→23:35)
[2018-09-07] MEDS: D5.45%NS/KCL 20MEQ 1,000 ML IV SCH (16:49)
[2018-09-07] MEDS: PIPER-TAZ 3.375 GM 50 ML IV SCH (17:26)
[2018-09-07] MEDS: IPRATROPIUM BROMIDE 0.02% 2.5 ML NEB NEB SCH (19:00)
--- NOTE | 2018-09-07 19:00 | NUR ---
RECEIVED REPORT FROM SUDHA BOSS DAY SHIFT NURSE.
--- NOTE | 2018-09-07 19:55 | NUR ---
REPORT GIVEN TO SUDHA DUENAS. PT IS STABLE FOR TRANSFER. PT IS BEING TRANSPORTED BY STRETCHER TO RM#[id number]. TELE AND CONT. SPO2 PLACED ON PT WITH 2L 02 NC. NO DISTRESS NOTED. DAUGHTER IS AT BEDSIDE.
[2018-09-07 20:29] VITALS: BP 130/62
[2018-09-07] MEDS: METHYLPREDNISOLONE SOD SUCC 40 MG/ML VIAL IV SCH (21:00)
[2018-09-07 21:15] VITALS: BP 130/62
--- NOTE | 2018-09-07 21:15 | NUR ---
patient recieved to room 2888 via stretcher from the er. vss. no c/o pain noted. patient on telemetry 2462 (NSR). ivf infusing without difficulty to right ac #20 gauge. blanchable redness noted to sacrum with allevyn patch applied. redness to sinai prominences of spine. patient turned to left side at this time. admit assessment/history complete. daughter noted at the bedside. patient/daughter instructed to call for assistance when needed.
--- NOTE | 2018-09-07 22:00 | NUR ---
cardiac markers drawn and sent to lab per orders.
[2018-09-08] VITALS (7 sets, daily range): BP systolic 87–122; BP diastolic 45–58
[2018-09-08] MEDS: D5.45%NS/KCL 20MEQ 1,000 ML IV SCH ×4 (03:00→21:44)
[2018-09-08] MEDS: ALBUTEROL SULF 0.083% NEB SOLN 3 ML NEB NEB SCH ×6 (03:10→22:25)
--- NOTE | 2018-09-08 04:00 | NUR ---
patient turned and repositioned for comfort q 2 hrs throughout the night. no c/o pain noted. ivf continue to infuse without difficulty. hob elevated 30 degrees. 02/2l/nc in use. no distress noted.
[2018-09-08 05:14] LABS: BASOPHILS % 0.1 % (0.0-1.0); HEMATOCRIT 29.4 % (34.2-44.1); HEMOGLOBIN 9.4 g/dL (12.0-16.0); LYMPHOCYTES # (AUTO) 0.5 (1.0-3.2); LYMPHOCYTES % 6.2 % (18.0-39.1); MEAN CORPUSCULAR VOLUME 84.5 fL (81-99); MONOCYTES # (AUTO) 0.1 (0.2-0.8); MONOCYTES % 1.4 % (4.4-11.3); NEUTROPHILS # (AUTO) 7.4 (2.1-6.9); NEUTROPHILS % 91.9 % (38.7-80.0); PLATELET COUNT 360 x10e3/uL (140-360); RED BLOOD COUNT 3.48 x10e6/uL (3.6-5.1); RED CELL DISTRIBUTION WIDTH 14.1 % (11.7-14.4)
[2018-09-08] MEDS: PIPER-TAZ 3.375 GM 50 ML IV SCH ×4 (05:25→17:18)
[2018-09-08 05:33] LABS: ANION GAP 11.3 mmol/L (8-16); BLOOD UREA NITROGEN 12 mg/dL (7-26); BUN/CREATININE RATIO 19 (6-25); CALCIUM 7.7 mg/dL (8.4-10.2); CARBON DIOXIDE 32 mmol/L (22-29); CHLORIDE 92 mmol/L (98-107); CREATININE, SERUM 0.64 mg/dL (0.57-1.11); EST GLOMERULAR FILTRATION RATE > 60 ML/MIN (60-); GLUCOSE 225 mg/dL (74-118); POTASSIUM 3.3 mmol/L (3.5-5.1); SODIUM 132 mmol/L (136-145)
[2018-09-08 05:57] LABS: CREATINE KINASE MB 1.3 ng/mL (0-5.0)
[2018-09-08] MEDS ORDERED: NITROGLYCERIN 0.4 MG SUBL SL PRN (06:00)
[2018-09-08] MEDS ORDERED: FUROSEMIDE 40 MG TAB PO PRN (06:00)
--- NOTE | 2018-09-08 06:54 | Diagnostic Imaging Report ---
EXAM: CHEST SINGLE (PORTABLE) INDICATION: Pneumonia. COMPARISON: Chest radiograph 09/07/2018 FINDINGS: LINES/TUBES: None LUNGS: The lungs are hyperinflated with chronic appearing changes. Increasing right basilar airspace opacity. PLEURA: No evidence of pleural effusion or pneumothorax. HEART AND MEDIASTINUM: Unremarkable cardiomediastinal silhouette. Atherosclerotic aortic calcifications. BONES AND SOFT TISSUES: No acute osseous abnormality. IMPRESSION: Increased right basilar airspace opacity may represent atelectasis or developing pneumonia. Emphysematous changes. Signed by: DR. Jimmy Hare MD on 09/08/2018 6:50 AM
[2018-09-08] MEDS: IPRATROPIUM BROMIDE 0.02% 2.5 ML NEB NEB SCH ×4 (07:00→18:45)
--- NOTE | 2018-09-08 07:05 | NUR ---
Received patient mid fowlers position, side rails upx2, call light within reach. Resting with eyes closed. Arousable to verbal stimuli. Respirations even and unlabored. O2 2L NC. Will continue to monitor.
[2018-09-08 07:49] LABS: LYMPHOCYTES % (MANUAL) 4 % (19-48); MONOCYTES % (MANUAL) 2 % (3.4-9.0); NEUTROPHILS % (MANUAL) 93 % (40-74)
[2018-09-08 07:50] LABS: PLATELET ESTIMATE ADEQUATE; PLATELET MORPHOLOGY COMMENT NORMAL; RBC MORPHOLOGY COMMENT NORMAL
[2018-09-08] MEDS ORDERED: LEVOTHYROXINE SODIUM 112 MCG TAB PO SCH (09:00)
[2018-09-08] MEDS ORDERED: BUPROPION HCL SR 150 MG TAB PO SCH (09:00)
[2018-09-08] MEDS: METHYLPREDNISOLONE SOD SUCC 40 MG/ML VIAL IV SCH ×2 (09:30→21:43)
[2018-09-08] MEDS: BUPROPION HCL 150 MG TABCR PO SCH (09:30)
[2018-09-08] MEDS: CLOPIDOGREL BISULFATE 75 MG TAB PO SCH (09:30)
[2018-09-08] MEDS: ATENOLOL 50 MG TAB PO SCH ×2 (11:50→17:18)
[2018-09-08] MEDS: AMLODIPINE BESYLATE 10 MG TAB PO SCH (11:55)
--- NOTE | 2018-09-08 12:26 | NUR ---
WOUND CARE CONSULTATION: Initial Assessment and Recommendation Patient is a frail, 88 year-old female admitted for dyspnea, and pneumonia. Allergies noted: erythromycin, morphine. She is on a Regular Diet. She has a history of cataracts bilaterally, appendectomy, cholecystectomy, laminectomy x2, thyroidectomy, colon resection, skin ca, back pain, recent left hip ORIF, and osteoporosis. Head to toe assessment performed and identified no open wounds. Multiple bruising noted to bilateral arms at various healing stages. No edema noted. Allevyn foams to sacrum and mid-upper back and bilateral heels are in use. No wounds noted which indicates dressings are helping with erythema and relieving pressure. Bilateral heels present with blanchable erythema. Pillows and heel protectors currently being used to offload. Noted multiple sheets which weight down feet. Demonstrated daughter at bedside how to tent sheets off her feet to reduce weighing down. She verbalized understanding and reinforced education to direct care staff. LABS: WBC:8.07 RBC: 3.48 Hgb: 9.4 Hct: 29.4 Neut %91.9 Alb2.8 [id number] ( No prior history of Diabetes, Fam Hx Diabetes - Mother) HbA1C recommended. Imaging: CXR: Atelectasis vs PNA, Emphysematous changes MICRO: Blood Cultures Pending RECOMMENDATION: 1. Continue Repositioning RUSH Air Mattress 2. Continue offloading heels with pillows / heel protectors 3. Shear Friction and Skin tear Precautions 4. Turn and Reposition patient every 2 hours. 5. No Linen Chux please, Okay to use Extrasorb Underpad. Addendum: 09/08/18 at 1242 by Edinson Schrader RN Amended: Links added. Addendum: 09/08/18 at 1245 by Edinson Schrader RN Additional Recommendations: 6. Continue use of Allevyn Foam Sacrum to sacral area Every Other Day and PRN Soiling 7. Continue use of Allevyn Foam to Mid Upper Back Every other day. 8. Continue use of Allevyn Foam to Bilateral Heels Every Other Day.
--- NOTE | 2018-09-08 13:55 | NUR ---
CASE MANAGEMENT INITIAL ASSESSMENT Slate Mixer to bedside to discuss plan of care with patient/family. CM/SW role and care transitions discussed. Anticipated discharge plan discussed along with duration of care. CM/SW discussed patients right to make decisions in care. CM/SW work hours given. Patient lives: WITH DTRJOHANNE, IN AN APARTMENT CONNECTED TO THE DTR'S HOME. Admit/Transfer: FROM [facility] BROKEN PUBIC BONE 04/14/2018, 06/30/18 [facility] DID SURG FOR BOWEL OBSTRUCTION, THEN TO [facility] X WEEKS. L HIP CLOSED REDUCTOIN 08/02/18. PT DC FOR MEM SE TO [facility]. POA/Emergency contact: JOHANNE @ [phone], SHANE [phone] Current/Previous Home Health: [facility] / PT PCP/Follow-up Care: DR. BEAULIEU / PCP KRISHNAMURTHY / SURGEON, NIGHAT / [facility] Current/Previous DME: [facility] [employer], [place], [employer], [facility], [facility] Other Services: NONE Employment Status: NONE. RETIRED Areas of Concerns: DOES NOT WANT TO RETURN TO [facility]. Referral Needs: NONE. POSSIBLE SNF FOR IV ABX. Education Needs: NONE IMM/KUO given and signed (if applicable): N/A Goal for discharge: RETURN HOME CM/SW left business card at the bedside with contact information. Name and number was also written on the patients whiteboard. Patient verbalized understanding of discussion. CM will follow-up with ongoing discharge and transition of care needs.
[2018-09-08 14:01] LABS: CREATINE KINASE MB 1.3 ng/mL (0-5.0)
[2018-09-08] MEDS: TIOTROPIUM 18 MCG INH POWDER INH SCH (14:25)
--- NOTE | 2018-09-08 18:30 | NUR ---
Resting in bed, daughter at bedside. No s/s of acute distress noted. Report to be given to oncoming nurse.
--- NOTE | 2018-09-08 19:40 | NUR ---
RECEIVED REPORT FROM DAY SHIFT NURSE. PATIENT IS IN BED ALERT AND VERBAL.
--- NOTE | 2018-09-08 20:10 | NUR ---
BP RECHECKED AND IMPROVED FROM 87/45 TO 92/48. COMPLAINT OF PAIN TO THE ARM WHEN BLOOD PRESSURE IS TAKEN. PATIENT IS ALERT AND ORIENTED.
--- NOTE | 2018-09-08 20:40 | NUR ---
PATIENT COMPLAINT OF CONSTIPATION. LAST BOWEL MOVEMENT WAS Thursday09/06/18. DR BEAULIEU NOTIFIED, NEW ORDERS RECEIVED.
[2018-09-08] MEDS ORDERED: LACTULOSE SYRUP 20 GM/30 ML UDC PO ONE (20:45)
[2018-09-08] MEDS ORDERED: SOD PHOSPHATE/SOD BIPHOSPHATE ENEMA 132 ML BTL PR ONE (20:45)
[2018-09-08] MEDS: SIMVASTATIN 40 MG TAB PO SCH (21:43)
--- NOTE | 2018-09-08 22:30 | NUR ---
PATIENT HAD A LARGE BOWEL MOVEMENT AND STATED SHE FEELS MUCH BETTER.
[2018-09-09] VITALS (8 sets, daily range): BP systolic 92–116; BP diastolic 48–58
[2018-09-09] MEDS: IPRATROPIUM BROMIDE 0.02% 2.5 ML NEB NEB SCH ×4 (01:40→19:10)
[2018-09-09] MEDS: ALBUTEROL SULF 0.083% NEB SOLN 3 ML NEB NEB SCH ×6 (01:40→22:30)
[2018-09-09] MEDS: PIPER-TAZ 3.375 GM 50 ML IV SCH ×5 (05:52→23:59)
[2018-09-09] MEDS: LEVOTHYROXINE SODIUM 112 MCG TAB PO SCH (05:52)
[2018-09-09] MEDS: D5.45%NS/KCL 20MEQ 1,000 ML IV SCH ×3 (06:36→20:00)
--- NOTE | 2018-09-09 07:21 | NUR ---
Report given to oncoming nurse.
[2018-09-09] MEDS: TIOTROPIUM 18 MCG INH POWDER INH SCH (09:17)
[2018-09-09] MEDS: METHYLPREDNISOLONE SOD SUCC 40 MG/ML VIAL IV SCH ×2 (09:42→21:00)
[2018-09-09] MEDS: AMLODIPINE BESYLATE 10 MG TAB PO SCH (09:43)
[2018-09-09] MEDS: BUPROPION HCL 150 MG TABCR PO SCH (09:44)
[2018-09-09] MEDS: ATENOLOL 50 MG TAB PO SCH ×2 (09:44→17:00)
--- NOTE | 2018-09-09 11:11 | NUR ---
Nutrition Intervention Note RD Recommendation(s) for Physician: -Continue regular diet as ordered -Continue Ensure Compact w/ each meal -Assist with feeding as needed -Encourage PO and hydration The patient meets criteria for unspecified SEVERE protein-calorie malnutrition. Plan of Care: RD following, monitoring for tolerance and adequacy Nutrition reason for involvement: RN Consult nutrition evaluation RD Assessment Chart reviewed. 88yo F, who is admitted for dyspnea. CXR showed atelectasis vs PNA, emphysematous changes. Pt is well known to me from her previous admission (06/2018-07/2018). Visited pt in the room. Daughter presents on bedside to provide hx. Pt has been in rehab for 3 weeks since discharge. Pt didnt eat much at the facility as the foods were bad and cold. Family has been encouraging meal intake. Daughter doesnt think pt has lost any weight with UBW at 88-92lbs. Pt has had improved appetite today with >50% breakfast intake. No GI complains noted. LBM 1/2 after laxatives were given. No chewing or swallowing difficulty. Notified RN Ernesto that Ensure Compact is stored in the nourishment room and provide to pt as requested. Pt has some severe muscle and fat loss upon NFPA. Will continue to monitor and follow. Principal Problems/Diagnoses: dyspnea and pneumonia PMH: skin CA, osteoporosis GI: LBM 1/2 after lactulose was given, abdomen flat and non-tender Skin: No pressure wound noted Labs: (09/08) Na 132 L, K 3.3 L, Glucose 225 H, Ca 7.7 L Meds: Solu-medrol, KCl, IVF Ht: 60in Wt: 93lb BMI: 18.2kg/m2 IBW: 100lb Malnutrition Evaluation (09/09/2018) The patient meets criteria for unspecified SEVERE protein-calorie malnutrition. Energy intake: <75% of estimated energy requirements for >1 month Weight loss: Stable weight between 88-92lbs. Fat loss: Severe hollow orbital region, apparent ribs, protrusion of clavicle, loss of fat over triceps Muscle loss: Severe protrusion of clavicle and acromion process, depression of temporal region Supporting Evidence: Fluid accumulation: unable to evaluate Functional Status: measurably reduced since hip fx Nutrition Prescription (Diet Order): regular diet w Ensure Compact TID Estimated Nutritional Needs: Calories: [id number] kcal (25-35 kcal/kg) Protein: 46-68 g protein (1-1.54 g/kg) Diet Adequacy: Meeting calorie needs, Meeting protein needs Diet Education Needs Assessment: Diet education not indicated; patient on regular diet. Nutrition Care Level: mod Nutrition Diagnosis: Underweight related to chronic illness as evidenced by BMI at 18.2 kg/m2 and severe fat and muscle loss. Goal: Patient will meet 75-100% of estimated needs by follow up Progress: Progressing Interventions: General healthful diet, Commercial beverage, Multivitamin/mineral supplement therapy Monitoring/Evaluation: Total energy intake, Total protein intake, diet, Liquid supplement, Weight change Signed: Perlita Melgar, MS, RD, LD
--- NOTE | 2018-09-09 15:05 | NUR ---
ST NOTE: Pt in pain, RN and PT in room. No pain scale given, pt c/o pain all over and discomfort with IV site, RN aware and checking for pain medication availability. Pt told PT she could not swallow a pill, RN reported pt swallowed pills this AM. Recommend crushing pain pill and administering in applesauce secondary to pt discomfort. Will reattempt dysphagia therapy with NMES on 09-10-18. Handoff to SUDHA Orozco
--- NOTE | 2018-09-09 17:22 | NUR ---
PT B/P MEDS ATENOLOL HELD DUE TO LOW HR 57 AND B/P 96/58 AND CONFIRMED WITH TELEMENTRY NURSE. PT IN BED DENIES DIZZINESS. WILL CONTINUE TO MONITOR.
--- NOTE | 2018-09-09 17:25 | NUR ---
PT CONTINUES ON IV FLUIDS AND IV ANTIBIOTICS.
--- NOTE | 2018-09-09 19:30 | NUR ---
patient recieved awake, alert, lying quietly in bed. vss. no c/o pain noted. ivf continue to infuse without difficulty. patient turned and repositioned for comfort. pm assessment complete. patient instructed to call for assistance when needed.
[2018-09-09] MEDS: SIMVASTATIN 40 MG TAB PO SCH (21:00)
[2018-09-10] VITALS (7 sets, daily range): BP systolic 92–127; BP diastolic 53–61
[2018-09-10] MEDS: IPRATROPIUM BROMIDE 0.02% 2.5 ML NEB NEB SCH ×4 (02:35→19:25)
[2018-09-10] MEDS: ALBUTEROL SULF 0.083% NEB SOLN 3 ML NEB NEB SCH ×6 (02:35→23:00)
[2018-09-10] MEDS: D5.45%NS/KCL 20MEQ 1,000 ML IV SCH ×2 (04:14→17:41)
[2018-09-10] MEDS: CLOPIDOGREL BISULFATE 75 MG TAB PO SCH (05:20)
[2018-09-10] MEDS: PIPER-TAZ 3.375 GM 50 ML IV SCH ×4 (05:20→23:21)
[2018-09-10] MEDS: LEVOTHYROXINE SODIUM 112 MCG TAB PO SCH (05:20)
--- NOTE | 2018-09-10 07:56 | Diagnostic Imaging Report ---
PROCEDURE:X-RAY MODIFIED BARIUM SWALLOW COMPARISON:None. INDICATIONS:Dyspnea, possible aspiration DISCUSSION:Fluoroscopic examination was performed in conjunction with speech pathology, during swallowing of a variety of thin and thick liquid consistencies. Fluoroscopy time: 3.6 minutes Total dose: 7.46 Gy.cm2 CONCLUSION:There is penetration into the laryngeal vestibule with thin liquids and thick pure. Trace overt aspiration with thin liquids and thick pure during the swallowing mechanism also noted. Please see the report from speech pathology for complete details. Anthony Del Valle D.O. Dictated by: Anthony Del Valle D.O. on 09/10/2018 at 8:07 Electronically approved by: Anthony Del Valle D.O. on 09/10/2018 at 8:07
[2018-09-10] MEDS: TIOTROPIUM 18 MCG INH POWDER INH SCH (09:00)
[2018-09-10] MEDS: METHYLPREDNISOLONE SOD SUCC 40 MG/ML VIAL IV SCH ×2 (09:52→20:02)
[2018-09-10] MEDS: ATENOLOL 50 MG TAB PO SCH ×2 (09:53→17:41)
[2018-09-10] MEDS: AMLODIPINE BESYLATE 10 MG TAB PO SCH (09:53)
[2018-09-10] MEDS: BUPROPION HCL 150 MG TABCR PO SCH (09:53)
--- NOTE | 2018-09-10 17:43 | NUR ---
PT IN BED, DENIES PAIN OR DISCOMFORT. DAUGHTER IN ROOM, INCONTINENT PROVIDED EVERY OTHER HOUR AND NEEDED. PT CONTINUE ON IV FLUIDS AND IV ANTIBIOTICS
--- NOTE | 2018-09-10 19:00 | NUR ---
patient recieved awake, alert, lying quietly in bed. vss. no c/o pain noted. ivf continues to infuse without difficulty. pm assessment complete. patient instructed to call for assistance when needed.
[2018-09-10] MEDS: SIMVASTATIN 40 MG TAB PO SCH (20:02)
[2018-09-11] VITALS (7 sets, daily range): BP systolic 94–127; BP diastolic 48–61
[2018-09-11] MEDS: ALBUTEROL SULF 0.083% NEB SOLN 3 ML NEB NEB SCH ×6 (01:20→23:30)
[2018-09-11] MEDS: IPRATROPIUM BROMIDE 0.02% 2.5 ML NEB NEB SCH ×4 (01:20→19:29)
[2018-09-11] MEDS: D5.45%NS/KCL 20MEQ 1,000 ML IV SCH ×4 (02:00→21:15)
[2018-09-11] MEDS: PIPER-TAZ 3.375 GM 50 ML IV SCH ×4 (05:34→23:40)
[2018-09-11] MEDS: LEVOTHYROXINE SODIUM 112 MCG TAB PO SCH (05:35)
--- NOTE | 2018-09-11 06:00 | NUR ---
patient remains incontinent of urine. skin care provided several times post void throughout the night. ivf continue to infuse without difficulty. no c/o pain noted.
[2018-09-11] MEDS: METHYLPREDNISOLONE SOD SUCC 40 MG/ML VIAL IV SCH ×2 (08:54→21:00)
[2018-09-11] MEDS: AMLODIPINE BESYLATE 10 MG TAB PO SCH (08:54)
[2018-09-11] MEDS: BUPROPION HCL 150 MG TABCR PO SCH (08:56)
[2018-09-11] MEDS: ATENOLOL 50 MG TAB PO SCH ×2 (09:00→17:55)
--- NOTE | 2018-09-11 09:05 | NUR ---
Notified Dr Borges regarding heart rate 57 to hold Atenolol
[2018-09-11] MEDS: TIOTROPIUM 18 MCG INH POWDER INH SCH (10:37)
--- NOTE | 2018-09-11 10:41 | Progress Note ---
DATE SUBJECTIVE: Patient is here for COPD exacerbation and aspiration pneumonia. Currently, the patient is short of breath in bed, is nonweightbearing secondary to her left hip fracture status post repair, currently eating. PHYSICAL EXAMINATION VITAL SIGNS: Temperature is 96.2, pulse is 57, respirations of 18, blood pressure is 115/56. GENERAL: Patient appears cachectic. CVS: S1, S2 normal. LUNGS: Chest positive for decreased air entry and possible rhonchi in the bilateral lower lungs. ABDOMEN: Scaphoid. EXTREMITIES: No clubbing. No cyanosis. No edema. Left hip in bandage, clean and dry bandage. LABORATORY VALUES: White count is 7.12, hemoglobin is 9.4, hematocrit of 29.4, left shift present. Chemistries; sodium of 132, potassium of 3.3, BUN is 12, creatinine of 0.64. Troponins have been trended to be negative. Serology, H. influenza was negative. IMAGING STUDIES: Last chest x-ray done on September 08, 2018 shows increased right air space opacities, developing pneumonia, and modified barium swallow done on September 08, 2018 shows penetration to laryngeal vestibule with thin liquids and thick pureed. The patient has modified diet. ASSESSMENT AND PLAN 1. Aspiration pneumonia. Patient is currently on Zosyn, we will continue the same. She is also Solu-Medrol 40 mg q.12 hours for COPD exacerbation. Continue the same. 2. Hypertension. Continue with Tylenol and amlodipine. 1. Patient has hypothyroidism. Continue levothyroxine. Continue to monitor the patient. 2. 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 Continue with nutritional support and supplementation. For further information look into the chart. Job#: [id number] ROCHELLE
--- NOTE | 2018-09-11 13:10 | NUR ---
Patient resting in bed, tolerated with lunch, denies any pain, no distress noted, call light in reach
--- NOTE | 2018-09-11 17:56 | NUR ---
patient resting in bed, denies any pain or SOB, Call light in reach, no distress noted
--- NOTE | 2018-09-11 18:54 | NUR ---
patient recieved awake, alert, lying quietly in bed. no c/o pain noted. ivf continue to infuse without difficulty. patient turned and repositioned for comfort. pm assessment complete. son noted at the bedside. patient/son instructed to call for assistance when needed.
[2018-09-11] MEDS: SIMVASTATIN 40 MG TAB PO SCH (21:00)
--- NOTE | 2018-09-11 21:10 | NUR ---
telemetry d/c'd at this time and patient placed on bedside continuous pulse ox.
[2018-09-12] VITALS (7 sets, daily range): BP systolic 97–140; BP diastolic 53–65
[2018-09-12] MEDS: ALBUTEROL SULF 0.083% NEB SOLN 3 ML NEB NEB SCH ×5 (03:05→19:22)
[2018-09-12] MEDS: IPRATROPIUM BROMIDE 0.02% 2.5 ML NEB NEB SCH ×4 (03:05→19:22)
[2018-09-12] MEDS: CLOPIDOGREL BISULFATE 75 MG TAB PO SCH (05:55)
[2018-09-12] MEDS: LEVOTHYROXINE SODIUM 112 MCG TAB PO SCH (05:55)
[2018-09-12] MEDS: PIPER-TAZ 3.375 GM 50 ML IV SCH ×3 (05:55→17:26)
--- NOTE | 2018-09-12 06:00 | NUR ---
patient remains incontinent of urine. skin care provided after each wet diaper throughout the night. ivf continue to infuse without difficulty. no c/o pain noted. respirations even and unlabored. 02/2l/nc in use.
[2018-09-12 07:11] LABS: HEMATOCRIT 31.9 % (34.2-44.1); LYMPHOCYTES # (AUTO) 0.6 (1.0-3.2); LYMPHOCYTES % 5.9 % (18.0-39.1); MEAN CORPUSCULAR HEMOGLOBIN 26.7 pg (28-32); MEAN CORPUSCULAR HGB CONC 31.3 g/dL (31-35); MEAN CORPUSCULAR VOLUME 85.3 fL (81-99); MONOCYTES # (AUTO) 0.3 (0.2-0.8); MONOCYTES % 3.1 % (4.4-11.3); NEUTROPHILS # (AUTO) 9.8 (2.1-6.9); NEUTROPHILS % 90.2 % (38.7-80.0); PLATELET COUNT 452 x10e3/uL (140-360); RED BLOOD COUNT 3.74 x10e6/uL (3.6-5.1); RED CELL DISTRIBUTION WIDTH 14.6 % (11.7-14.4)
[2018-09-12] MEDS: TIOTROPIUM 18 MCG INH POWDER INH SCH (07:15)
[2018-09-12 07:36] LABS: ALANINE AMINOTRANSFERASE 16 IU/L (0-55); ALBUMIN 2.2 g/dL (3.5-5.0); ALBUMIN/GLOBULIN RATIO 0.8 (0.8-2.0); ALKALINE PHOSPHATASE 92 IU/L (40-150); ANION GAP 10.1 mmol/L (8-16); BLOOD UREA NITROGEN 7 mg/dL (7-26); BUN/CREATININE RATIO 12 (6-25); CALCIUM 8.1 mg/dL (8.4-10.2); CARBON DIOXIDE 27 mmol/L (22-29); CHLORIDE 99 mmol/L (98-107); EST GLOMERULAR FILTRATION RATE > 60 ML/MIN (60-); GLUCOSE 151 mg/dL (74-118); POTASSIUM 5.1 mmol/L (3.5-5.1); SODIUM 131 mmol/L (136-145)
[2018-09-12] MEDS: ATENOLOL 50 MG TAB PO SCH ×2 (08:42→17:26)
[2018-09-12] MEDS: AMLODIPINE BESYLATE 10 MG TAB PO SCH (08:42)
[2018-09-12] MEDS: METHYLPREDNISOLONE SOD SUCC 40 MG/ML VIAL IV SCH ×2 (08:42→21:00)
[2018-09-12] MEDS: BUPROPION HCL 150 MG TABCR PO SCH (08:42)
--- NOTE | 2018-09-12 09:54 | Progress Note ---
DATE: SUBJECTIVE: Patient is admitted for COPD exacerbation, currently short of breath, tachypneic, using accessory muscles of respiration, on O2 at this time. PHYSICAL EXAMINATION VITAL SIGNS: Temperature is afebrile at 97.0, pulse of 68, respirations of 20, blood pressure is 126/60. HEENT: Normocephalic, atraumatic. Patient is cachectic. CVS: S1, S2 normal. Distant heart sounds. Positive for barrel chest. ABDOMEN: Scaphoid. EXTREMITIES: No clubbing, no cyanosis, no edema. LABORATORY VALUES: White count is 10.84, hemoglobin of 10, hematocrit of 31.9, and platelet count of 452. Chemistries; sodium of 131, potassium of 5.1, BUN of 10.1, creatinine of 0.6. MICROBIOLOGY: No growth in blood cultures and Gram stains have been negative. ASSESSMENT AND PLAN 1. Aspiration pneumonia. Continue on Zosyn. She is also on Solu-Medrol 40 mg q.12 hours for COPD exacerbation. 2. Hypertension. Continue with medication. 3. Hypothyroidism. Continue with levothyroxine. 4. Cachexia. Increase nutritional support. 5. Hyperkalemia. We will reduce the fluids to 70 mL an hour, take off the potassium D5 half NS and recheck her BMP in the morning. Further recommendation per clinical course. We will continue monitoring the patient along with the consultants. Job#: [id number] ANJELICA
[2018-09-12] MEDS: DEXTROSE 5%/0.45% SOD CHL 1,000 ML IV SCH (11:06)
--- NOTE | 2018-09-12 16:10 | NUR ---
patient resting in bed, denies any pain, no distress noted, call light in reach, family at bed side
--- NOTE | 2018-09-12 19:00 | NUR ---
patient recieved awake, alert, lying quietly in bed. vss. no c/o pain noted. ivf continue to infuse without difficulty. pm assessment complete. daughter noted at the bedside. patient instructed to call for assistance when needed.
[2018-09-12] MEDS: SIMVASTATIN 40 MG TAB PO SCH (21:00)
[2018-09-13] VITALS (8 sets, daily range): BP systolic 101–142; BP diastolic 51–63
[2018-09-13] MEDS: IPRATROPIUM BROMIDE 0.02% 2.5 ML NEB NEB SCH ×4 (00:08→19:56)
[2018-09-13] MEDS: ALBUTEROL SULF 0.083% NEB SOLN 3 ML NEB NEB SCH ×7 (00:08→19:56)
[2018-09-13] MEDS: DEXTROSE 5%/0.45% SOD CHL 1,000 ML IV SCH ×2 (02:48→15:29)
[2018-09-13] MEDS: PIPER-TAZ 3.375 GM 50 ML IV SCH ×5 (05:15→23:53)
[2018-09-13] MEDS: LEVOTHYROXINE SODIUM 112 MCG TAB PO SCH (05:16)
[2018-09-13 05:34] LABS: ANION GAP 10.6 mmol/L (8-16); BLOOD UREA NITROGEN 9 mg/dL (7-26); BUN/CREATININE RATIO 16 (6-25); CARBON DIOXIDE 26 mmol/L (22-29); CHLORIDE 101 mmol/L (98-107); CREATININE, SERUM 0.58 mg/dL (0.57-1.11); EST GLOMERULAR FILTRATION RATE > 60 ML/MIN (60-); GLUCOSE 137 mg/dL (74-118); POTASSIUM 4.6 mmol/L (3.5-5.1); SODIUM 133 mmol/L (136-145)
[2018-09-13] MEDS: TIOTROPIUM 18 MCG INH POWDER INH SCH (07:30)
[2018-09-13] MEDS ORDERED: LACTULOSE SYRUP 20 GM/30 ML UDC PO ONE (08:00)
[2018-09-13] MEDS: METHYLPREDNISOLONE SOD SUCC 40 MG/ML VIAL IV SCH ×2 (08:22→20:48)
[2018-09-13] MEDS: AMLODIPINE BESYLATE 10 MG TAB PO SCH (08:22)
[2018-09-13] MEDS: BUPROPION HCL 150 MG TABCR PO SCH (09:27)
[2018-09-13] MEDS: ATENOLOL 50 MG TAB PO SCH ×2 (09:27→16:59)
--- NOTE | 2018-09-13 12:38 | NUR ---
PATIENT CONTINUES TO REFUSE TO HAVE LIQUIDS THICKEN PER SPEECH THERAPY'S RECOMMENDATION. PATIENT IS AWARE AND REFUSES.
[2018-09-13] MEDS: HYDROCODONE/APAP 5MG-325MG TAB PO PRN (15:54)
--- NOTE | 2018-09-13 17:05 | Diagnostic Imaging Report ---
Hip left limited CPT code: 62797 Indication: Left hip replacement. Technique: Portable AP image of the left hip obtained. Comparison: None Findings: 3 cancellous screws are present across the neck of the left femur transfixing a neck fracture into near-anatomic alignment. There are mild degenerative changes of the left hip. There is soft tissue swelling at the operative site. There is no evidence of fracture associated with the hardware. There is enteric contrast throughout the large bowel from previous radiographic procedure. IMPRESSION: Postoperative changes of the left hip as described above. Signed by: Dr. Shalini Velasquez MD on 09/13/2018 5:02 PM
--- NOTE | 2018-09-13 19:17 | NUR ---
PT IS RESTING IN BED. NO RESPIRATORY DISTRESS NOTED. BED IN THE LOWEST POSITION, LOCKED, AND CALL LIGHT WITHIN REACH. WILL CONTINUE TO MONITOR.
--- NOTE | 2018-09-13 19:22 | NUR ---
PATIENT IS RESTING IN BED- IN STABLE CONDITION WITH NO S/S OF RESPIRATORY DISTRESS. NO PAIN VOICED. IV FLUIDS INFUSING. PATIENT TURNED TO HER LEFT SIDE- BED ALARM ON. CALL LIGHT IS WITHIN REACH, PATIENT INSTRUCTED TO CALL FOR ASSISTANCE NEEDED. REPORT GIVEN TO ONCOMING NURSE.
[2018-09-13] MEDS: SIMVASTATIN 40 MG TAB PO SCH (20:48)
[2018-09-14] VITALS (7 sets, daily range): BP systolic 103–127; BP diastolic 51–62
[2018-09-14] MEDS: IPRATROPIUM BROMIDE 0.02% 2.5 ML NEB NEB SCH ×4 (00:18→19:35)
[2018-09-14] MEDS: ALBUTEROL SULF 0.083% NEB SOLN 3 ML NEB NEB SCH ×5 (03:07→19:35)
[2018-09-14] MEDS: PIPER-TAZ 3.375 GM 50 ML IV SCH ×2 (05:11→11:48)
[2018-09-14] MEDS: LEVOTHYROXINE SODIUM 112 MCG TAB PO SCH (05:11)
[2018-09-14] MEDS: CLOPIDOGREL BISULFATE 75 MG TAB PO SCH (05:11)
[2018-09-14] MEDS: DEXTROSE 5%/0.45% SOD CHL 1,000 ML IV SCH ×3 (05:40→21:06)
[2018-09-14] MEDS: TIOTROPIUM 18 MCG INH POWDER INH SCH (07:30)
[2018-09-14] MEDS: ATENOLOL 50 MG TAB PO SCH ×2 (08:35→16:41)
[2018-09-14] MEDS: METHYLPREDNISOLONE SOD SUCC 40 MG/ML VIAL IV SCH ×2 (08:35→21:08)
[2018-09-14] MEDS: AMLODIPINE BESYLATE 10 MG TAB PO SCH (08:35)
[2018-09-14] MEDS: BUPROPION HCL 150 MG TABCR PO SCH (08:35)
--- NOTE | 2018-09-14 08:35 | NUR ---
MORNING MEDICATIONS ADMINISTERED TO PATIENT- PATIENT REFUSED TO HAVE LIQUIDS THICKEN PER RECOMMENDATION OF SPEECH THERAPY. PATIENT EDUCATED ON IMPORTANCE OF THICKENING LIQUIDS AND RISK OF ASPIRATION.
--- NOTE | 2018-09-14 13:40 | Consultation ---
DATE OF CONSULTATION: September 14, 2018 REHAB CONSULTATION REFERRING PHYSICIAN: Dr. Ken Hayden. I would like to thank Dr. Hayden for asking me to see Mrs. Rivero in consultation. REASON FOR CONSULTATION 1. Aspiration pneumonia. 2. COPD exacerbation. 3. Left hip fracture status post repair almost 6 weeks ago. HISTORY: Mrs. Rivero is an 88-year-old female who fractured her left hip almost 6 weeks ago, August 02, 2018, underwent ORIF and has been over at [facility]. It had gotten to the point where she was able to get up at the parallel bars with help and do some shuffling gait down the parallel bars with touch-down weightbearing. Patient unfortunately developed aspiration pneumonia and had to be admitted to the hospital. Had some cough, congestion. I am being asked to evaluate for rehab needs because patient basically has finished up with skilled and needs to come to the next level of care. PAST MEDICAL HISTORY: Includes COPD, CHF, hypertension, hypothyroidism. SURGERIES: Left hip ORIF. FAMILY HISTORY: Hypertension runs in the family. HABITS: Nonsmoker, nondrinker. ALLERGIES: ERYTHROMYCIN, MORPHINE. SOCIAL HISTORY: Lives with her daughter in a one-story home. She will have support at home. LAB: White cell count of 10.8, hemoglobin 10, hematocrit 31.9, platelets of 452. Sodium is 133, potassium 4.6, BUN of 9, creatinine 0.58. HIP X-RAY: Shows postoperative change of the left hip. Screws are in place. Mild degenerative changes. Soft-tissue swelling at the operative site. No evidence of fracture associated with the hardware. PHYSICAL EXAMINATION GENERAL: The patient is awake and alert, pleasant. On O2 via nasal cannula. No apparent distress. EYES: Gaze conjugate. ORAL: Tongue is midline. NECK: Supple. HEART: Regular. LUNGS: Diminished breath sounds. ABDOMEN: Nondistended. EXTREMITIES: She is actually stronger in the left hip compared to the right hip during manual muscle testing. She has multiple bruising around the legs and weakness in the arms as well as the legs. Manual muscle testing 4-/5 strength in the upper extremities bilaterally. Right lower extremity 4-/5 with hip flexion and extension, knee flexion and extension, and ankle dorsiflexion and plantarflexion is 4-/5 strength. In the left hip 4/5 strength with hip flexion and extension, knee flexion and extension is 4-/5 strength, and ankle dorsiflexion and plantarflexion is 4/5 strength. IMPRESSION 1. Aspiration pneumonia. 2. Left hip fracture almost 6 weeks out with touch-toe weightbearing. 3. Patient with chronic obstructive pulmonary disease. 4. Patient with hypertension. 5. History of congestive heart failure. PLAN: Patient with significant multiple other comorbids could benefit from multidisciplinary inpatient rehab program consisting of PT, OT and nursing and working in a coordinated fashion to try to optimize functional level. Will be trying to see if we can get a change in weightbearing status from her surgeon. X-rays are to be sent to her ortho in the hopes that she can advance weightbearing. Will check with the insurance for insurance approval. Thank you once again for allowing me to participate in the care of this pleasant but unfortunate patient. Job#: [id number] EV
--- NOTE | 2018-09-14 16:27 | NUR ---
CM SPOKE WITH DAUGHTER JOHANNE IQBAL REGARDING DC PLANS DTR SHANE PRESENT ALSO PT AND DAUGHTER ARE REFUSING SNF FOR DISCHARGE PT FAILED SNF LEVEL OF CARE AND WAS READMITTED TO THE HOSPITAL WITH PNEUMONIA DR BEAULIEU NOTIFIED ORDERS FOR [facility] EVAL CHOICE LETTER SIGNED AND ON CHART COPY TO PT
--- NOTE | 2018-09-14 16:31 | NUR ---
DR MONACO HERE TO EVALUATE PT REQUESTING WEIGHT BEARING STATUS FROM ORTHO DR KRISHNAMURTHY AT [facility] (HIP SURGERY 6 WEEKS AGO) WILY LITTLE RN WORKING WITH [employer] T[employer]NER TO HAVE CD OF HIP XRAY COURRIED OVER TO DR KRISHNAMURTHY'S OFFICE CM CALLED AND SPOKE WITH JOEL IN DR KRISHNAMURTHY'S OFFICE AND ASKED HER TO BE ON THE LOOKOUT FOR THE CD PH [phone] 4:30 F/U PHONE CALL TO DR KRISHNAMURTHY'S OFFICE; SPOKE WITH [facility] WHO STATES THEY HAVE NOT REC'D THE CD RYAN CALLED [employer] TURNER WHO TRACKED THE DELIVERY AND STATES [employer] DELIVERED CD AT 1:33 TODAY; ALAINA SIGNED FOR IT WOO STATES THE CD MUST HAVE BEEN DELIVERED TO THE WRONG DR'S OFFICE THEY DO NOT HAVE A ALAINA WORKING THERE GABRIELLA TURNER NOTIFIED AND SHE WILL F/U WITH [employer] AND GET CD DELIVERED TO DR KRISHNAMURTHY'S OFFICE ANURAG VERIFIED DR HERRERA ADDRESS WITH GABRIELLA: JOSÉ KRISHNAMURTHY [address] [place] [id number] AWAIT WEIGHT BEARING STATUS FROM DR KRISHNAMURTHY
--- NOTE | 2018-09-14 17:39 | NUR ---
Nutrition Intervention Note RD Recommendation(s) for Physician: - Continue regular diet as ordered; pt refused texture modification - Continue Ensure Compact w/ each meal - Assist with feeding as needed - Encourage PO and hydration The patient meets criteria for unspecified SEVERE protein-calorie malnutrition. Plan of Care: RD following, monitoring for tolerance and adequacy Nutrition reason for involvement: RN Consult no reason stated, follow up RD Assessment 09/14 Chart reviewed. Visited pt in the room. Pt reports appetite being the same. RN recorded 50-100% meal intake today. Pt doesnt like hospital foods and family has been bringing foods from home. Notified SUDHA Lovelace to provide Ensure Compact per pt request (pt only likes to drink it between meals). No GI complains noted. LBM -09/12, per chart. Per family, pt refused texture modification recommended by [employer]. Family is great in encouraging pt to eat. Will continue to monitor and follow. 09/09- Chart reviewed. 88yo F, who is admitted for dyspnea. CXR showed atelectasis vs PNA, emphysematous changes. Pt is well known to me from her previous admission (06/2018-07/2018). Visited pt in the room. Daughter presents on bedside to provide hx. Pt has been in rehab for 3 weeks since discharge. Pt didnt eat much at the facility as the foods were bad and cold. Family has been encouraging meal intake. Daughter doesnt think pt has lost any weight with UBW at 88-92lbs. Pt has had improved appetite today with >50% breakfast intake. No GI complains noted. LBM / after laxatives were given. No chewing or swallowing difficulty. Notified SUDHA Orozco that Ensure Compact is stored in the nourishment room and provide to pt as requested. Pt has some severe muscle and fat loss upon NFPA. Will continue to monitor and follow. Principal Problems/Diagnoses: dyspnea and pneumonia PMH: skin CA, osteoporosis GI: LBM 09/12 Skin: No pressure wound noted Labs: (09/13) Na 133 L, Glucose 137 H, Ca 8.0 L (09/08) Na 132 L, K 3.3 L, Glucose 225 H, Ca 7.7 L Meds: Solu-medrol, dextrose, IVF Ht: 60in Wt: 93lb -09/07, 89lb 09/14 BMI: 18.2kg/m2 IBW: 100lb Malnutrition Evaluation (09/09/2018) The patient meets criteria for unspecified SEVERE protein-calorie malnutrition. Energy intake: <75% of estimated energy requirements for >1 month Weight loss: Stable weight between 88-92lbs. Fat loss: Severe hollow orbital region, apparent ribs, protrusion of clavicle, loss of fat over triceps Muscle loss: Severe protrusion of clavicle and acromion process, depression of temporal region Supporting Evidence: Fluid accumulation: unable to evaluate Functional Status: measurably reduced since hip fx Nutrition Prescription (Diet Order): regular diet w Ensure Compact TID Estimated Nutritional Needs: Calories: 9919-4535 kcal (25-35 kcal/kg) Protein: 46-68 g protein (1-1.54 g/kg) Diet Adequacy: N/A Diet Education Needs Assessment: Diet education not indicated; patient on regular diet. Nutrition Care Level: low Nutrition Diagnosis: Underweight related to chronic illness as evidenced by BMI at 18.2 kg/m2 and severe fat and muscle loss. Goal: Patient will meet 75-100% of estimated needs by follow up Progress: Progressing Interventions: General healthful diet, Commercial beverage, Multivitamin/mineral supplement therapy Monitoring/Evaluation: Total energy intake, Total protein intake, diet, Liquid supplement, Weight change Signed: Perlita Melgar, MS, RD, LD
--- NOTE | 2018-09-14 18:24 | NUR ---
PATIENT IS CURRENTLY DRINKING AN ENSURE COMPACT. NO THICKENING SUBSTANCE ADDED D/T PATIENT'S REFUSAL.
--- NOTE | 2018-09-14 19:03 | NUR ---
PATIENT IS IN BED- IN STABLE CONDITION WITH NO S/S OF RESPIRATORY DISTRESS. NO PAIN VOICED. IV FLUIDS INFUSING. GRANDSON PRESENT IN ROOM. BED ALARM APPLIED. CALL LIGHT IS WITHIN REACH, INSTRUCTED TO CALL FOR ASSISTANCE. REPORT GIVEN TO ONCOMING NURSE.
--- NOTE | 2018-09-14 19:17 | NUR ---
PT IS RESTING IN BED VISITING WITH HER GRANDSON. NO RESPIRATORY DISTRESS NOTED. BED IN THE LOWEST POSITION, LOCKED, AND CALL LIGHT WITHIN REACH. WILL CONTINUE TO MONITOR.
[2018-09-14] MEDS: SIMVASTATIN 40 MG TAB PO SCH (21:08)
--- NOTE | 2018-09-14 21:08 | NUR ---
PT REFUSE THICKEN LIQUID WITH MEDICATION ADMINISTRATION. EDUCATED PT ON THE SAFETY OF THICKENING HER LIQUID TO PREVENT ASPIRATION AND PT STILL REFUSE. WILL CONTINUE TO MONITOR
[2018-09-15] VITALS (7 sets, daily range): BP systolic 102–147; BP diastolic 51–68
[2018-09-15] MEDS: IPRATROPIUM BROMIDE 0.02% 2.5 ML NEB NEB SCH ×4 (00:10→19:00)
[2018-09-15] MEDS: ALBUTEROL SULF 0.083% NEB SOLN 3 ML NEB NEB SCH ×7 (00:10→23:02)
[2018-09-15] MEDS: LEVOTHYROXINE SODIUM 112 MCG TAB PO SCH (05:34)
[2018-09-15] MEDS: PIPER-TAZ 3.375 GM 50 ML IV SCH ×4 (06:09→23:23)
--- NOTE | 2018-09-15 06:23 | NUR ---
PER DR BEAULIEU IT IS OKAY TO RENEW ZOSYN 3.35 MG Q6HR.
[2018-09-15] MEDS: TIOTROPIUM 18 MCG INH POWDER INH SCH (06:47)
--- NOTE | 2018-09-15 07:25 | NUR ---
RECD PT IN BED AWAKE ,O2 2L NC IN PLACE,NO DISTRESS NTOED.DENIES PAIN
[2018-09-15] MEDS: AMLODIPINE BESYLATE 10 MG TAB PO SCH (08:25)
[2018-09-15] MEDS: ATENOLOL 50 MG TAB PO SCH ×2 (08:25→17:35)
[2018-09-15] MEDS: BUPROPION HCL 150 MG TABCR PO SCH (08:25)
--- NOTE | 2018-09-15 09:17 | NUR ---
RYAN CALLED THIS AM 9AM TO DR KRISHNAMURTHY'S OFFICE [phone] SPOKE WITH JOEL WHO CONFIRMS THAT THEY REC'D THE CD FROM THE COURRIER SHE SAYS SHE WILL TRY TO GET ONE OF HER PHYSICIANS TODAY TO LOOK AT THE CD AND GIVE WEIGHT BEARING STATUS SHE STATES THAT DR KRISHNAMURTHY IS OUT OF TOWN AND WILL BE BACK TOMORROW
--- NOTE | 2018-09-15 10:55 | NUR ---
ST Note: Attempted to see pt for continued dysphagia therapy. Pt working with PT. Will return later today time permitting.
--- NOTE | 2018-09-15 16:05 | Progress Note ---
DATE: September 15, 2018 SUBJECTIVE: Ms. Rivero is seen on rounds today. She is doing well. Daughter is at the bedside. They just sent images of the hip fracture to her orthopedist. Otherwise, she seems to be doing okay right now. OBJECTIVE VITALS: Temperature 95.9, respirations 17, heart rate 56, blood pressure 114/56. HEART: Regular. LUNGS: Fair air entry. ABDOMEN: Nondistended, nontender. NECK: No JVD. Clinically, she is doing about the same. However, she is still on O2, working on trying to get her weaned from the oxygen but also try to get her up and mobilizing. Awaiting insurance approval for transfer to inpatient rehab. Job#: [id number]
--- NOTE | 2018-09-15 17:36 | NUR ---
PT UP IN BED DENIES PAIN ,NO SOB NOTED,O2 2L NC
--- NOTE | 2018-09-15 19:00 | NUR ---
patient recieved awake, alert, lying quietly in bed. hob elevated 40 degrees. 02/2l/nc in use. respirations even and unlabored. patient denies pain at this time. pm assessment complete. patient instructed to call for assistance when needed.
[2018-09-15] MEDS: SIMVASTATIN 40 MG TAB PO SCH (21:00)
--- NOTE | 2018-09-15 22:30 | NUR ---
patient remains incontinent of urine. skin care provided and diaper changed at this time. redness remains to mid upper back, sacrum and bilateral heels. patient repositioned for comfort. heel protectors remain to both feet.
[2018-09-16] VITALS (7 sets, daily range): BP systolic 105–124; BP diastolic 53–63
[2018-09-16] MEDS: ALBUTEROL SULF 0.083% NEB SOLN 3 ML NEB NEB SCH ×6 (02:20→23:35)
[2018-09-16] MEDS: IPRATROPIUM BROMIDE 0.02% 2.5 ML NEB NEB SCH ×4 (02:20→19:24)
[2018-09-16] MEDS: PIPER-TAZ 3.375 GM 50 ML IV SCH ×3 (05:38→17:56)
[2018-09-16] MEDS: CLOPIDOGREL BISULFATE 75 MG TAB PO SCH (05:38)
[2018-09-16] MEDS ORDERED: SODIUM CHLORIDE 0.9% 250ML 250 ML ONE (05:38)
[2018-09-16] MEDS: LEVOTHYROXINE SODIUM 112 MCG TAB PO SCH (05:38)
--- NOTE | 2018-09-16 07:30 | NUR ---
PT UP IN BED NO DISTRESS NTOED .DENIES PAIN,
[2018-09-16] MEDS: TIOTROPIUM 18 MCG INH POWDER INH SCH (08:03)
[2018-09-16] MEDS: AMLODIPINE BESYLATE 10 MG TAB PO SCH (09:00)
[2018-09-16] MEDS: ATENOLOL 50 MG TAB PO SCH ×2 (09:00→17:15)
[2018-09-16] MEDS: BUPROPION HCL 150 MG TABCR PO SCH (09:00)
--- NOTE | 2018-09-16 13:39 | NUR ---
ORDERS FROM DR BEAULIEU PER DR KRISHNAMURTHY FOR WBAT ON HER HIP ORDERS ENTERED FOR P.T.
--- NOTE | 2018-09-16 16:36 | NUR ---
CLINICAL INFORMATION FAXED TO [facility] AT [phone]; CONFIRMATION REC'D
--- NOTE | 2018-09-16 17:57 | NUR ---
PT UP IN BED RESTING NO DISTRESS NTOED,O2 2L NC IN PLACE.
--- NOTE | 2018-09-16 19:00 | NUR ---
patient recieved awake, alert, lying quietly in bed. vss. no c/o pain noted. pm assessment complete. daughter noted at the bedside. patient/daughter instructed to call for assistance when needed.
[2018-09-16] MEDS: SIMVASTATIN 40 MG TAB PO SCH (20:52)
--- NOTE | 2018-09-16 22:38 | Progress Note ---
DATE: September 16, 2018 SUBJECTIVE: Ms. Rivero is seen on rounds today. She is doing okay, tired, really hoping she can inpatient rehab. Right now, we are just waiting on insurance decision for rehab. Clinically, she seems to be doing better. Temperature 96.2, respirations of 16, heart rate 54, and blood pressure of 117/63. Clinically, patient is about the same, but she will be able to improve upon her functional level. Awaiting insurance approval for inpatient rehab. Job#: [id number] CF
[2018-09-17] VITALS (8 sets, daily range): BP systolic 94–113; BP diastolic 44–58
--- NOTE | 2018-09-17 | NUR ---
patient remains incontinent. skin care provided prn. vss. no c/o pain noted at this time.
[2018-09-17] MEDS: IPRATROPIUM BROMIDE 0.02% 2.5 ML NEB NEB SCH ×4 (03:18→19:15)
[2018-09-17] MEDS: ALBUTEROL SULF 0.083% NEB SOLN 3 ML NEB NEB SCH ×6 (03:18→23:00)
[2018-09-17] MEDS: LEVOTHYROXINE SODIUM 112 MCG TAB PO SCH (05:56)
[2018-09-17] MEDS: PIPER-TAZ 3.375 GM 50 ML IV SCH ×4 (05:56→17:32)
--- NOTE | 2018-09-17 07:10 | NUR ---
PATIENT IS AWAKE AND IN STABLE CONDITION WITH NO S/S OF RESPIRATORY DISTRESS. NO PAIN VOICED. HEEL PROTECTORS APPLIED. BED ALARM ON. CALL LIGHT IS WITHIN REACH, INSTRUCTED TO CALL FOR ASSISTANCE NEEDED.
[2018-09-17] MEDS: AMLODIPINE BESYLATE 10 MG TAB PO SCH (09:14)
[2018-09-17] MEDS: HYDROCODONE/APAP 5MG-325MG TAB PO PRN ×2 (09:14→18:42)
[2018-09-17] MEDS: ATENOLOL 50 MG TAB PO SCH ×2 (09:14→17:32)
--- NOTE | 2018-09-17 09:16 | NUR ---
MORNING MEDICATIONS ADMINISTERED - PATIENT REFUSED FLUIDS TO BE THICKEN
[2018-09-17] MEDS: BUPROPION HCL 150 MG TABCR PO SCH (09:32)
[2018-09-17] MEDS: TIOTROPIUM 18 MCG INH POWDER INH SCH (09:32)
--- NOTE | 2018-09-17 09:50 | NUR ---
ALLEVYN PADS APPLIED TO SACRUM AND UPPER BACK
--- NOTE | 2018-09-17 14:17 | NUR ---
PATIENT REQUESTING AN ENEMA- RECEIVED ORDER FROM DR. BEAULIEU.
[2018-09-17] MEDS ORDERED: MINERAL OIL 132 ML BTL PR ONE (14:30)
--- NOTE | 2018-09-17 19:26 | NUR ---
PATIENT IS IN STABLE CONDITION WITH NO S/S OF RESPIRATORY DISTRESS. PATIENT RECEIVED PAIN MEDICATION FOR ABD PAIN 06/16. DAUGHTER PRESENT IN ROOM. HEEL PROTECTORS APPLIED. BED ALARM ON. CALL LIGHT IS WITHIN REACH, INSTRUCTED TO CALL FOR ASSISTANCE NEEDED. REPORT GIVEN TO ONCOMING NURSE.
--- NOTE | 2018-09-17 20:00 | NUR ---
PT RESTING IN THE BED RESPIRATIONS ARE EVEN AND UNLABORED .BRUSIES BILATERAL HANDS AND LEGS .FAMILY AT THE BEDSIDE .CONTINUE TO MONITOR
[2018-09-17] MEDS: SIMVASTATIN 40 MG TAB PO SCH (21:17)
[2018-09-18] VITALS (9 sets, daily range): BP systolic 93–110; BP diastolic 50–76
[2018-09-18] MEDS: ALBUTEROL SULF 0.083% NEB SOLN 3 ML NEB NEB SCH ×6 (02:45→19:18)
[2018-09-18] MEDS: IPRATROPIUM BROMIDE 0.02% 2.5 ML NEB NEB SCH ×4 (02:45→19:18)
[2018-09-18] MEDS: LEVOTHYROXINE SODIUM 112 MCG TAB PO SCH (06:38)
[2018-09-18] MEDS: PIPER-TAZ 3.375 GM 50 ML IV SCH ×5 (06:38→23:44)
[2018-09-18] MEDS: CLOPIDOGREL BISULFATE 75 MG TAB PO SCH (06:38)
--- NOTE | 2018-09-18 07:34 | NUR ---
PT RESTED DURING THE NIGHT .DENIES PAIN .CALL LIGHT WITH IN REACH .DR BEAULIEU HAVE SEEN THE PT NO NEW ORDER GIVEN .REPORT GIVEN TO THE ONCOMING NURSE
--- NOTE | 2018-09-18 07:50 | NUR ---
PATIENT IS IN STABLE CONDITION WITH NO S/S OF RESPIRATORY DISTRESS. NO PAIN VOICED. DIAPER CHANGED- PATIENT HAD A SMALL BOWEL MOVEMENT. BED ALARM APPLIED. CALL LIGHT IS WITHIN REACH, INSTRUCTED TO CALL FOR ASSISTANCE NEEDED.
[2018-09-18] MEDS: TIOTROPIUM 18 MCG INH POWDER INH SCH (09:00)
[2018-09-18] MEDS: AMLODIPINE BESYLATE 10 MG TAB PO SCH (09:10)
[2018-09-18] MEDS: ATENOLOL 50 MG TAB PO SCH ×2 (09:10→17:00)
[2018-09-18] MEDS: BUPROPION HCL 150 MG TABCR PO SCH (09:10)
[2018-09-18 10:37] LABS: HEMATOCRIT 33.6 % (34.2-44.1); HEMOGLOBIN 10.1 g/dL (12.0-16.0); MEAN CORPUSCULAR HEMOGLOBIN 26.2 pg (28-32); MEAN CORPUSCULAR HGB CONC 30.1 g/dL (31-35); MEAN CORPUSCULAR VOLUME 87.3 fL (81-99); PLATELET COUNT 324 x10e3/uL (140-360); RED BLOOD COUNT 3.85 x10e6/uL (3.6-5.1); RED CELL DISTRIBUTION WIDTH 15.1 % (11.7-14.4)
[2018-09-18 10:45] LABS: ANION GAP 11.9 mmol/L (8-16); BLOOD UREA NITROGEN 12 mg/dL (7-26); BUN/CREATININE RATIO 18 (6-25); CARBON DIOXIDE 28 mmol/L (22-29); CHLORIDE 101 mmol/L (98-107); CREATININE, SERUM 0.66 mg/dL (0.57-1.11); EST GLOMERULAR FILTRATION RATE > 60 ML/MIN (60-); GLUCOSE 93 mg/dL (74-118); POTASSIUM 4.9 mmol/L (3.5-5.1); SODIUM 136 mmol/L (136-145)
[2018-09-18 11:13] LABS: EOSINOPHILS % (MANUAL) 1 % (0-7); LYMPHOCYTES % (MANUAL) 12 % (19-48); MONOCYTES % (MANUAL) 2 % (3.4-9.0); NEUTROPHILS % (MANUAL) 85 % (40-74)
[2018-09-18 11:14] LABS: PLATELET ESTIMATE ADEQUATE; PLATELET MORPHOLOGY COMMENT NORMAL
[2018-09-18 11:16] LABS: RBC MORPHOLOGY COMMENT ABNORMAL
[2018-09-18 11:18] LABS: HYPOCHROMASIA MODE; ROULEAU FEW
--- NOTE | 2018-09-18 12:26 | NUR ---
PATIENT DIAPER CHANGED- SMEAR OF BM NOTED. PATIENT ASSISTED IN THE CHAIR BY 2 RN'S AND WILL HAVE LUNCH SITTING UP IN THE CHAIR. 02 APPLIED. DAUGHTER PRESENT IN ROOM WITH PATIENT.
--- NOTE | 2018-09-18 12:33 | Diagnostic Imaging Report ---
EXAMINATION: Chest radiograph one view. INDICATION: Follow-up chest x ray COMPARISON: Chest radiograph 09/08/2018 FINDINGS: The patient is rotated. TUBES and LINES: None. LUNGS: Emphysematous changes of the lungs. Mild linear left basilar subsegmental atelectasis. Interval resolution of patchy opacity at the right lung base. There is no evidence of pneumonia or pulmonary edema. PLEURA: No pleural effusion or pneumothorax. HEART AND MEDIASTINUM: The cardiomediastinal silhouette is unremarkable. Atherosclerotic aortic calcifications. BONES AND SOFT TISSUES: No acute osseous lesion. Soft tissues are unremarkable. UPPER ABDOMEN: No free air under the diaphragm. IMPRESSION: No acute radiographic abnormality. Interval resolution of patchy opacity at the right lung base, likely atelectasis. Signed by: Dr. Myron Ricks MD on 09/18/2018 12:30 PM
[2018-09-18] MEDS: TRAMADOL HCL 50 MG TAB PO PRN (13:39)
--- NOTE | 2018-09-18 13:41 | NUR ---
PATIENT GIVEN PAIN MEDICATION AND IV DRESSING SITE CHANGED. PATIENT ASKED TO BE PLACED ON HER BACK INSTEAD OF RETURNING TO HER RIGHT SIDE- PATIENT WAS RECENTLY PLACED ON HER RIGHT SIDE. RN INFORMED PATIENT OF IMPORTANCE OF TURNING Q2H TO PREVENT WOUNDS FROM DEVELOPING ON HER SACRUM AND UPPER BACK. PATIENT'S DAUGHTER INTERRUPTED THE CONVERSATION AND ACCUSED STAFF OF NOT TURNING HER MOTHER QUICK ENOUGH. RN CONTINUED TO HAVE CONVERSATION WITH PATIENT AND THE PATIENT'S DAUGHTER STARTED TO POINT AT THE RN WHILE SHAKING HER HEAD LEFT TO RIGHT. PATIENT WAS PLACED ON HER BACK REQUESTED. RN AND PCT WILL CONTINUE TO MONITOR PATIENT AND Q2 TURNS. BED ALARM ON. CALL LIGHT IS WITHIN REACH, INSTRUCTED TO CALL FOR ASSISTANCE NEEDED.
--- NOTE | 2018-09-18 19:23 | NUR ---
PATIENT IS IN STABLE CONDITION WITH NO S/S OF RESPIRATORY DISTRESS. NO PAIN VOICED. BED ALARM APPLIED- DAUGHTER PRESENT IN ROOM. O2 APPLIED. CALL LIGHT IS WITHIN REACH, INSTRUCTED TO CALL FOR ASSISTANCE NEEDED. REPORT GIVEN TO ONCOMING NURSE.
[2018-09-18] MEDS: SIMVASTATIN 40 MG TAB PO SCH (21:00)
[2018-09-19] VITALS (7 sets, daily range): BP systolic 95–110; BP diastolic 51–55
[2018-09-19] MEDS: ALBUTEROL SULF 0.083% NEB SOLN 3 ML NEB NEB SCH ×6 (03:00→23:20)
[2018-09-19] MEDS: PIPER-TAZ 3.375 GM 50 ML IV SCH ×3 (05:31→17:02)
[2018-09-19] MEDS: LEVOTHYROXINE SODIUM 112 MCG TAB PO SCH (05:31)
[2018-09-19] MEDS: IPRATROPIUM BROMIDE 0.02% 2.5 ML NEB NEB SCH ×5 (06:58→23:20)
--- NOTE | 2018-09-19 07:11 | NUR ---
PATIENT IS IN STABLE CONDITION WITH NO S/S OF RESPIRATORY DISTRESS. NO PAIN VOICED. 02 APPLIED AT 2L NC. BED ALARM APPLIED. CALL LIGHT IS WITHIN REACH, PATIENT INSTRUCTED TO CALL FOR ASSISTANCE NEEDED.
[2018-09-19] MEDS: BUPROPION HCL 150 MG TABCR PO SCH (08:00)
[2018-09-19] MEDS: ATENOLOL 50 MG TAB PO SCH ×2 (08:01→16:33)
[2018-09-19] MEDS: AMLODIPINE BESYLATE 10 MG TAB PO SCH (08:01)
--- NOTE | 2018-09-19 09:18 | NUR ---
RN AND PCT CAREFULLY ASSISTED THE PATIENT TO THE BEDSIDE COMMODE, PATIENT WAS NOT ABLE TO TAKE BUT A STEP- PATIENT C/O ARM PAIN UPON TRANSFERRING TO THE BEDSIDE COMMODE. WHEN THE PATIENT WAS DONE HAVING A BOWEL MOVEMENT, THE RN AND PCT CLEANED THE PATIENT AND INFORMED THE PATIENT WHAT WAS TAKING PLACE IN ASSISTING THE PATIENT BACK TO BED. UPON THE PATIENT BEING ASSISTED BACK ON THE BED- THE RN WAS ASSISTING THE PATIENT WITH HER LOWER EXTREMITIES TO HAVE THE PATIENT ALIGN IN BED. THE PATIENT C/O OF LEG PAIN WHERE THE RN WAS GENTLY TOUCHING UNDER THE LEG/KNEE AREA - THE PATIENT'S DAUGHTER JUMPED OUT OF THE RECLINER, CAME UP TO THE RN ON THE OPPOSITE SIDE OF THE BED AND STARTED TO YELL AT THE RN STATING "DON'T TOUCH HER, SHE'S HURTING AND YOUR HURTING HER". RN TRIED EXPLAINING TO THE DAUGHTER HOW SHE HAD HER HAND PLACED UNDER THE PATIENT'S LEG AND THE DAUGHTER STATED " I DON'T CARE AND I DON'T WANT TO SEE IT". THE PATIENT'S DAUGHTER CONTINUED TO SPEAK TO STAFF IN AN AGGRESSIVE AND YELLING TONE. AFTER A FEW MINUTES RN AND PCT REPOSITION THE PATIENT, CHANGED THE ALLEVYN PAD ON THE SACRAL AREA, APPLIED DIAPER, AND TURNED THE PATIENT TO THE LEFT SIDE. BED ALARM WAS APPLIED. BEFORE LEAVING THE ROOM, RN ASKED THE PATIENT IF THERE WAS ANYTHING ELSE SHE NEEDED AND PATIENT STATED "NO, I'M FINE". THE RN WAS WASHING HER HANDS BY THE DOOR, THE PATIENT'S DAUGHTER ASKED THE PATIENT "WHERE WERE THEY HURTING YOU". RN LEFT THE ROOM; RN AND PCT INFORMED CHARGE NURSE OF THE INCIDENT AND BEHAVIOR OF THE PATIENT AND THE PATIENT'S DAUGHTER.
[2018-09-19] MEDS: TRAMADOL HCL 50 MG TAB PO PRN (09:50)
[2018-09-19] MEDS: TIOTROPIUM 18 MCG INH POWDER INH SCH (12:11)
--- NOTE | 2018-09-19 13:32 | NUR ---
PATIENT CALLED TO INFORM SHE NEEDED A DIAPER CHANGE. RN AND PCT WENT TO THE PATIENT'S ROOM- PATIENT WAS CLEANED, BLANCHABLE REDNESS NOTED TO LEFT LATERAL LOWER BUTTOCK AREA AND SMALL ALLEVYN PAD WAS APPLIED AND DIAPER PLACED. PATIENT DID NOT WANT TO TURN TO HER LEFT SIDE; THEREFORE, THE PATIENT WAS TURNED TO HER RIGHT SIDE BY THE RN AND PCT. BED ALARM APPLIED. CALL LIGHT IS WITHIN REACH AND PATIENT WAS INFORMED TO CALL FOR ASSISTANCE DIRECTED.
--- NOTE | 2018-09-19 19:12 | NUR ---
PATIENT IS IN STABLE CONDITION WITH NO S/S OF RESPIRATORY DISTRESS. NO PAIN VOICED. HEEL PROTECTORS APPLIED. BED ALARM APPLIED. DAUGHTER PRESENT IN ROOM. CALL LIGHT IS WITHIN REACH, INSTRUCTED TO CALL FOR ASSISTANCE NEEDED. REPORT GIVEN TO ONCOMING NURSE.
--- NOTE | 2018-09-19 19:19 | NUR ---
PT IS RESTING IN BED WITH DAUGHTER AT BEDSIDE. NO RESPIRATORY DISTRESS NOTED. BED IN THE LOWEST POSITION, LOCKED, AND CALL LIGHT WITHIN REACH. WILL CONTINUE TO MONITOR.
[2018-09-19] MEDS: SIMVASTATIN 40 MG TAB PO SCH (20:14)
[2018-09-20] VITALS: BP 118/58
[2018-09-20] MEDS: PIPER-TAZ 3.375 GM 50 ML IV SCH ×4 (00:03→18:00)
[2018-09-20] MEDS: ALBUTEROL SULF 0.083% NEB SOLN 3 ML NEB NEB SCH ×5 (03:00→19:00)
[2018-09-20 04:00] VITALS: BP 99/52
[2018-09-20] MEDS: LEVOTHYROXINE SODIUM 112 MCG TAB PO SCH (06:10)
[2018-09-20] MEDS: CLOPIDOGREL BISULFATE 75 MG TAB PO SCH (06:10)
[2018-09-20] MEDS: IPRATROPIUM BROMIDE 0.02% 2.5 ML NEB NEB SCH ×3 (06:52→19:00)
--- NOTE | 2018-09-20 06:57 | NUR ---
PT IS RESTING IN BED. NO RESPIRATORY DISTRESS NOTED. BED IN LOWEST POSITION, LOCKED, AND CALL LIGHT WITHIN REACH. WALKING ROUNDS COMPLETED WITH ONCOMING NURSE.
[2018-09-20 07:25] VITALS: BP 102/51
--- NOTE | 2018-09-20 07:25 | NUR ---
PT IN BED NO DISTRESS NTOED,DENIES PAIN,O2 2L NC IN PLACE,
[2018-09-20 08:00] VITALS: BP 102/51
[2018-09-20] MEDS: BUPROPION HCL 150 MG TABCR PO SCH (09:00)
[2018-09-20] MEDS: ATENOLOL 50 MG TAB PO SCH ×2 (09:00→17:00)
[2018-09-20] MEDS: AMLODIPINE BESYLATE 10 MG TAB PO SCH (09:00)
[2018-09-20] MEDS: TIOTROPIUM 18 MCG INH POWDER INH SCH (11:04)
[2018-09-20 12:00] VITALS: BP 117/56
[2018-09-20] MEDS ORDERED: SODIUM CHLORIDE 0.9% 250ML 250 ML ONE (13:07)
--- NOTE | 2018-09-20 14:55 | Consultation ---
DATE OF CONSULTATION: NO DICTATION, LENGTH 0:1 Job#: [id number]
--- NOTE | 2018-09-20 14:57 | Progress Note ---
DATE: September 20, 2018 REHAB PROGRESS NOTE Mrs. Rivero was seen on rounds today. She is doing relatively well. Events of the weekend were noted. She seems to be doing okay for right now. PHYSICAL EXAMINATION VITAL SIGNS: Temperature 96.0, respirations 18, heart rate 67, blood pressure 102/51. HEART: Regular rate and rhythm. LUNGS: Fair air entry. ABDOMEN: Nontender, nondistended. NECK: No JVD. HEAD: Atraumatic, normocephalic. Clinically she is improving. She walked 4 feet times four over the weekend. Moderate assist with transfers and ADLs. IMPRESSION 1. Hip fracture. 2. Aspiration pneumonia. 3. Severely debilitated state. PLAN: I spoke with the residential insurance inspector. They have given us five days off for right now to go to the inpatient rehab. There was a big question whether or not she can handle three hours of therapy a day. Family will be notified, and we have five days and if she does well they may be able to extend her time; if not, then they will be going to a skilled unit, which is fair enough as we do want her to be able to handle the inpatient therapy level of care at this point. Will transfer her to rehab. Continued treatment discussed with the patient and daughter and residential insurance inspector at length. Job#: [id number] EV
[2018-09-20 16:00] VITALS: BP 104/55
--- NOTE | 2018-09-20 17:15 | NUR ---
REPORT CALLED TO [facility],AMBULANCE CALLED
--- NOTE | 2018-09-20 19:10 | NUR ---
Patient was discharged to [facility]. Patient was escorted by EMT via stretcher in stable condition. Daughter escorted patient as well on private vehicle.
== END 2018-09-20 19:11 | DRG 177 ==
LOC: ER 13:33 → ERHOLD 16:24 → MED/SURG3 19:47
PROVIDERS: ADMIT Internal Medicine; ATTEND Internal Medicine
DX: J69.0 Pneumonitis due to inhalation of food and vomit (principal); E43 Unspecified severe protein-calorie malnutrition; J44.1 Chronic obstructive pulmonary disease with (acute) exacerbation; I11.0 Hypertensive heart disease with heart failure; I50.9 Heart failure, unspecified; E03.9 Hypothyroidism, unspecified; E78.5 Hyperlipidemia, unspecified; Z87.891 Personal history of nicotine dependence; L89.151 Pressure ulcer of sacral region, stage 1; Z82.49 Family history of ischemic heart disease and other diseases of the circulatory system; Z88.5 Allergy status to narcotic agent; Z88.8 Allergy status to other drugs, medicaments and biological substances; D64.9 Anemia, unspecified; S72.002D Fracture of unspecified part of neck of left femur, subsequent encounter for closed fracture with routine healing; E87.5 Hyperkalemia; R53.1 Weakness
CPT/HCPCS: 36415; 71045; 74230; 80048; 80053; 82550; 82553; 83605; 83880; 84443; 84484; 85007; 85025; 85027; 87040; 87070; 87205; 87400; 93005; 94640; 96361; 97139; 99284; J2543; J2920; J7030; J7050

== ENCOUNTER 2018-11-29 10:13 | Inpatient (IN) | payer MEDICARE ==
[~2018-11-29] VITALS: Ht 152.4 cm; Wt 39.0 kg
--- OUTSIDE RECORDS SUMMARY | 2018-11-29 10:20 | XMS REPORT | Summary of Care ---
Author Author [facility] Organization [facility] Address Unknown Phone Unavailable Encounter HQ Adolfo(JERI) [id number] Date(s): 10/13/18 - 10/25/18 [facility] [id number] [place] [address]- Discharge Disposition: Home or Self Care Attending Physician: Shea Vieiar MD Admitting Physician: Shea Vieira MD Vital Signs 1 2 3 Most recent to oldest [Reference Range]: 152.4 cm (10/13/18 10:27 PM) Height 98.6 DegF (10/25/18 3:07 PM) 97.8 DegF (10/25/18 12:03 PM) 98.1 DegF (10/25/18 7:39 AM) Temperature Oral [96.4-99.1 DegF] 90/52 mmHg (10/25/18 3:07 PM) 93/53 mmHg (10/25/18 12:03 PM) 96/62 mmHg (10/25/18 7:39 AM) Blood Pressure [90-140/60-90 mmHg] 16 BRMIN (10/25/18 3:07 PM) 18 BRMIN (10/25/18 12:03 PM) 18 BRMIN (10/25/18 8:21 AM) Respiratory Rate [14-20 BRMIN] 69 bpm (10/25/18 3:07 PM) 65 bpm (10/25/18 12:03 PM) 75 bpm (10/25/18 7:39 AM) Peripheral Pulse Rate [60-100 bpm] 39 kg (10/13/18 10:27 PM) Weight 16.79 m2 (10/13/18 10:27 PM) Body Mass Index Problem List Condition Effective Dates Status Health Status Informant COPD (chronic Active obstructive pulmonary disease)(Confirmed) Constipation(Confirm Active ed) Oxygen Active dependent(Confirmed) Depression(Confirmed Active ) Diverticulosis(Confi Active rmed) Dyspnea on Active exertion(Confirmed) Gastritis(Confirmed) Active High Active cholesterol(Confirme d)1 HTN Active (hypertension)(Confi rmed) Hypothyroid(Confirme Active d) Skin Resolved cancer(Confirmed)2 Osteoporosis(Confirm Active ed) Severe Active protein-calorie malnutrition(Confirm ed) Smoker(Confirmed) < 03/2018 Resolved 1controlled w/ diet now. 2face Allergies, Adverse Reactions, Alerts Substance Reaction Severity Status erythromycin Active morphine itching Active Medications albuterol 2.49 mg, 3 mL, Route: NEB, Drug form: SOLKatia, RQ6H, Start date: 10/16/18 14:00:00 BRIDGE MANAGER, Duration: 30 day, Stop date: 11/15/18 8:00:00 CDT Notes: SEE RT DOCUMENTATION (Same as: Luis Miguel) Start Date: 10/16/18 Stop Date: 10/16/18 Status: Discontinued albuterol 2.49 mg, 3 mL, Route: NEB, Drug form: SOLN, RQID, Start date: 10/16/18 11:00:00 BRIDGE MANAGER, Duration: 30 day, Stop date: 11/15/18 7:00:00 CDT Notes: SEE RT DOCUMENTATION (Same as: Luis Miguel) Start Date: 10/16/18 Stop Date: 10/16/18 Status: Discontinued albuterol 0.042% inhalation solution 1.25 mg, 3 mL, Route: NEB, Drug form: SOLN, RQID, Dosing Weight 38.318, kg, Star t date: 10/13/18 21:00:00 BRIDGE MANAGER, Duration: 30 day, Stop date: 11/12/18 19:00:00 CS T Notes: SEE RT DOCUMENTATION (Same as: Proventil) Start Date: 10/13/18 Stop Date: 10/16/18 Status: Discontinued albuterol 0.042% inhalation solution 3 mL, Route: NEB, QID, Dosing Weight 38.318, kg, Start date: 10/13/18 21:00:[address], Duration: 30 day, Stop date: 11/12/18 17:00:00 BRIDGE MANAGER Start Date: 10/13/18 Stop Date: 10/13/18 Status: Discontinued albuterol 0.083% inhalation solution 0.63 mg, NEB, BID, 0 Refill(s) Start Date: 10/13/18 Status: Ordered albuterol-ipratropium 2.5-0.5 mg inhalation solution 3 mL, Route: INHALATION, Drug Form: SOLN, Dosing Weight 39, kg, RQ6H, Start date : 10/16/18 14:00:00 BRIDGE MANAGER, Duration: 30 day, Stop date: 11/15/18 8:00:00 CDT Notes: (Same as: Duoneb) Start Date: 10/16/18 Stop Date: 10/25/18 Status: Discontinued amLODIPine 5 mg, 1 tab, Route: PO, Drug form: TAB, Daily, Dosing Weight 39, kg, Start date: 10/17/18 9:00:00 BRIDGE MANAGER, Duration: 30 day, Stop date: 11/15/18 9:00:00 CDT Notes: (Same as: Yayo) Start Date: 10/17/18 Stop Date: 10/23/18 Status: Discontinued atenolol 25 mg oral tablet 25 mg, 1 tab, Route: PO, Drug form: TAB, BID, Dosing Weight 39, kg, Start date: 10/16/18 17:00:00 BRIDGE MANAGER, Duration: 30 day, Stop date: 11/15/18 9:00:00 CDT Notes: (Same As:Roulain) Start Date: 10/16/18 Stop Date: 10/25/18 Status: Discontinued Attn RN pls bring home med for verification Attn RN pls bring home med for verification, Attn RN, Drug form: MISC, Route: KS SC, BID, 10/18/18 17:00:00 BRIDGE MANAGER, Duration: 30 day, Stop date: 11/17/18 9:00:00 CD T Start Date: 10/18/18 Stop Date: 10/25/18 Status: Discontinued Attn RN pls bring home med for verification Attn RN pls bring home med for verification, Attn RN, Drug form: MISC, Route: KS SC, Continuous, 10/16/18 10:30:00 BRIDGE MANAGER, Duration: 30 day, Stop date: 11/15/18 11: 29:00 CDT Start Date: 10/16/18 Stop Date: 10/17/18 Status: Completed ATTN: RN PLEASE UPDATE HWA ON ADHOC ATTN: RN PLEASE UPDATE HWA ON ADHOC, REMINDER, Drug form: MISC, Route: MISC, Q15 Min, 10/13/18 22:00:00 BRIDGE MANAGER, Duration: 30 day, Stop date: 11/12/18 21:45:00 BRIDGE MANAGER Start Date: 10/13/18 Stop Date: 10/13/18 Status: Deleted azithromycin + Sodium Chloride 0.9% IV 250 mL 500 mg, Route: IVPB, [id number], Dosing Weight 38.318, kg, Start date: 10/13/18 18: 00:00 BRIDGE MANAGER, Duration: 30 day, Stop date: 11/10/18 23:00:00 BRIDGE MANAGER, ABX Indication: P neumonia Notes: (Same As: Zithromax IV) Start Date: 10/13/18 Stop Date: 10/18/18 Status: Discontinued bifidobacterium/lactobacillus/streptococ bifidobacterium/lactobacillus/streptococ, 4 cap, Route: PO, BID, 10/16/18 17:00: 00 BRIDGE MANAGER, Duration: 30 day, Stop date: 11/15/18 9:00:00 CDT Start Date: 10/16/18 Stop Date: 10/25/18 Status: Discontinued Breo Ellipta 100 mcg-25 mcg inhalation powder 1 puff, INHALATION, Daily, morning, 0 Refill(s) Start Date: 10/13/18 Status: Ordered Breo Ellipta 100 mcg-25 mcg inhalation powder 1 puff, Route: INHALATION, Drug Form: PWDR, Dosing Weight 39, kg, Daily, Start d ate: 10/17/18 9:00:00 BRIDGE MANAGER, Duration: 30 day, Stop date: 11/15/18 9:00:00 CDT Start Date: 10/17/18 Stop Date: 10/16/18 Status: Deleted Brovana 15 microgram, Route: NEB, Drug form: SOLN, BID, Dosing Weight 39, kg, Start date : 10/16/18 17:00:00 BRIDGE MANAGER, Duration: 30 day, Stop date: 11/15/18 9:00:00 CDT Start Date: 10/16/18 Stop Date: 10/16/18 Status: Deleted Brovana 15 mcg/2 mL inhalation solution =1 ea, NEB, BID, am/pm, # 60 ea, 0 Refill(s) Start Date: 10/13/18 Status: Ordered budesonide 0.5 mg/2 mL inhalation suspension 0.5 mg, 2 mL, Route: NEB, Drug form: SUSP, RBID, Dosing Weight 39, kg, Start constantin e: 10/16/18 10:18:00 BRIDGE MANAGER, Duration: 30 day, Stop date: 11/15/18 8:00:00 CDT Notes: (Same As: Pulmicort) Start Date: 10/16/18 Stop Date: 10/16/18 Status: Discontinued buPROPion 150 mg, 1 tab, Route: PO, Drug form: ERTAB, Q24H, Dosing Weight 39, kg, Start da te: 10/16/18 10:00:00 BRIDGE MANAGER, Duration: 30 day, Stop date: 11/14/18 10:00:00 CDT Notes: (Same as: Wellbutrin XL)"Do Not Crush" Start Date: 10/16/18 Stop Date: 10/25/18 Status: Discontinued calcium gluconate + Sodium Chloride 0.9% IV 120 mL 3 gm, 30 mL, Route: IVPB, Drug form: INJ, PRN, Dosing Weight 39, kg, PRN Abnorma l Lab Result, For NON-ICU Patients Only., Start date: 10/14/18 9:50:00 BRIDGE MANAGER, Dura tion: 30 day, Stop date: 11/13/18 9:49:00 BRIDGE MANAGER Notes: WASTE: F/P - Sink; E - Municipal Trash Bin Start Date: 10/14/18 Stop Date: 10/25/18 Status: Discontinued calcium gluconate + Sodium Chloride 0.9% IV 80 mL 2 gm, 20 mL, Route: IVPB, PRN, Dosing Weight 39, kg, PRN Abnormal Lab Result, Fo r NON-ICU Patients Only., Start date: 10/14/18 9:50:00 BRIDGE MANAGER, Duration: 30 day, St op date: 11/13/18 9:49:00 BRIDGE MANAGER Notes: WASTE: F/P - Sink; E - Municipal Trash Bin Start Date: 10/14/18 Stop Date: 10/25/18 Status: Discontinued cefepime + Sodium Chloride 0.9% IV 100 mL 1 gm, Route: IVPB, [id number], Dosing Weight 38.318, kg, (CrCl >/=50 ml/min), Start date: 10/13/18 18:00:00 BRIDGE MANAGER, Duration: 30 day, Stop date: 11/11/18 15:00:00 BRIDGE MANAGER, ABX Indication: Pneumonia Notes: (Same As: Maxipime) MEDICATION WASTE Product Size: 1000 mgProduc t Wasted: ___ mg Start Date: 10/13/18 Stop Date: 10/18/18 Status: Discontinued clopidogrel 75 mg, 1 tab, Route: PO, Drug form: TAB, Daily, Dosing Weight 39, kg, Start date : 10/17/18 9:00:00 BRIDGE MANAGER, Duration: 30 day, Stop date: 11/15/18 9:00:00 CDT Notes: (Same As: Plavix) Start Date: 10/17/18 Stop Date: 10/25/18 Status: Discontinued clopidogrel 75 mg oral tablet 75 mg=1 tab, PO, Daily, # 30 tab, 0 Refill(s) Start Date: 10/13/18 Status: Ordered Dextrose 50% Syringe 12.5 gm, 25 mL, Route: IVP, Drug Form: INJ, Dosing Weight 39, kg, PRN, PRN Blood Glucose Results, Start date: 10/13/18 22:34:00 BRIDGE MANAGER, Duration: 30 day, Stop date: 11/12/18 22:33:00 BRIDGE MANAGER Start Date: 10/13/18 Stop Date: 10/25/18 Status: Discontinued Dextrose 50% Syringe 25 gm, 50 mL, Route: IVP, Drug Form: INJ, Dosing Weight 39, kg, PRN, PRN Blood G lucose Results, Start date: 10/13/18 22:34:00 BRIDGE MANAGER, Duration: 30 day, Stop date: 11/12/18 22:33:00 BRIDGE MANAGER Start Date: 10/13/18 Stop Date: 10/25/18 Status: Discontinued DuoNeb inhalation solution 3 mL, Route: INHALATION, Drug Form: SOLN, Dosing Weight 38.318, kg, RQID, PRN Re spiratory Pathway, Start date: 10/13/18 17:44:00 BRIDGE MANAGER, Duration: 30 day, Stop constantin e: 11/12/18 17:43:00 BRIDGE MANAGER Notes: (Same as: Duoneb) Start Date: 10/13/18 Stop Date: 10/25/18 Status: Discontinued enoxaparin 30 mg, 0.3 mL, Route: SUB-Q, Drug form: INJ, [id number], Dosing Weight 38.318, kg, Start date: 10/13/18 18:00:00 BRIDGE MANAGER, Duration: 30 day, Stop date: 11/11/18 18:00: 00 BRIDGE MANAGER Notes: (Same as: Lovenox) Start Date: 10/13/18 Stop Date: 10/18/18 Status: Discontinued enoxaparin 40 mg, 0.4 mL, Route: SUB-Q, Drug form: INJ, [id number], Dosing Weight 39, kg, Sta rt date: 10/18/18 16:00:00 BRIDGE MANAGER, Duration: 30 day, Stop date: 11/16/18 16:00:00 C DT Notes: (Same as: Lovenox) Start Date: 10/18/18 Stop Date: 10/25/18 Status: Discontinued famotidine 20 mg, 2 mL, Route: IVP, Drug form: INJ, Q24H, Dosing Weight 38.318, kg, Start d ate: 10/13/18 21:00:00 BRIDGE MANAGER, Duration: 30 day, Stop date: 11/11/18 21:00:00 BRIDGE MANAGER Notes: (Same as: Pepcid)Can be dilute in 5-10cc NS IVP: Slow IV push over at le ast 2 minutes. Start Date: 10/13/18 Stop Date: 10/17/18 Status: Discontinued famotidine 20 mg oral tablet 20 mg, 1 tab, Route: PO, Drug form: TAB, BID, Dosing Weight 39, kg, Start date: 10/18/18 9:00:00 BRIDGE MANAGER, Duration: 30 day, Stop date: 11/16/18 17:00:00 CDT Notes: (Same as: Pepcid) Start Date: 10/18/18 Stop Date: 10/25/18 Status: Discontinued Fleet Enema 133 mL, Route: VT, Drug Form: FRANCI, Dosing Weight 39, kg, ONCE, PRN as needed fo r constipation, Start date: 10/22/18 23:39:00 BRIDGE MANAGER Start Date: 10/22/18 Stop Date: 10/25/18 Status: Discontinued Fleet Enema Extra 133 mL, Route: VT, Drug Form: FRANCI, Dosing Weight 39, kg, ONCE, NOW, Start date: 10/25/18 11:33:00 BRIDGE MANAGER, Stop date: 10/25/18 11:33:00 BRIDGE MANAGER Start Date: 10/25/18 Stop Date: 10/25/18 Status: Completed Forteo 20 microgram, SUB-Q, Daily, evening, 0 Refill(s) Start Date: 10/13/18 Status: Ordered Forteo 20 microgram, Route: SUB-Q, Daily, Dosing Weight 39, kg, Start date: 10/17/18 9: 00:00 BRIDGE MANAGER, Duration: 30 day, Stop date: 11/15/18 9:00:00 CDT Start Date: 10/17/18 Stop Date: 10/25/18 Status: Discontinued furosemide 40 mg oral tablet 40 mg, 1 tab, Route: PO, Drug form: TAB, BID, Dosing Weight 39, kg, Start date: 10/16/18 17:00:00 BRIDGE MANAGER, Duration: 30 day, Stop date: 11/15/18 9:00:00 CDT Notes: (Same as: Lasix) May cause GI upset. Give with food or milk. Start Date: 10/16/18 Stop Date: 10/25/18 Status: Discontinued furosemide 40 mg oral tablet 40 mg=1 tab, PO, BID, 0 Refill(s) Start Date: 10/25/18 Status: Ordered glucagon 1 mg, Route: IM, Drug form: PDR/INJ, PRN, Dosing Weight 39, kg, PRN Blood Glucos e Results, Start date: 10/13/18 22:34:00 BRIDGE MANAGER, Duration: 30 day, Stop date: 11/12 22:33:00 BRIDGE MANAGER Start Date: 10/13/18 Stop Date: 10/25/18 Status: Discontinued ipratropium 0.02% inhalation solution 0.5 mg, 2.5 mL, Route: NEB, Drug form: SOLN, RQ6H, Start date: 10/16/18 14:00:00 BRIDGE MANAGER, Duration: 30 day, Stop date: 11/15/18 8:00:00 CDT Notes: SEE RT DOCUMENTATION(Same as:Atrovent) Start Date: 10/16/18 Stop Date: 10/16/18 Status: Discontinued Levaquin 500 mg, 2 tab, Route: PO, Drug form: TAB, [id number], Dosing Weight 39, kg, Start d ate: 10/17/18 20:00:00 BRIDGE MANAGER, Stop date: 10/20/18 21:00:00 BRIDGE MANAGER, ABX Indication: Pn eumonia Notes: Do not give w/antacids, dairy pdt & minerals Take 1 hr before or 2 hr after dairy pdt (Same as:Levaquin) Start Date: 10/17/18 Stop Date: 10/20/18 Status: Completed levothyroxine 112 microgram, 1 tab, Route: PO, Drug form: TAB, Daily, Dosing Weight 39, kg, St art date: 10/17/18 6:30:00 BRIDGE MANAGER, Duration: 30 day, Stop date: 11/15/18 6:30:00 CD T Notes: Take 1 hour before or 2 hours after meal; Enteral feeds may interefere wi th the absorption of this medication.(Same as:Levothroid) Start Date: 10/17/18 Stop Date: 10/25/18 Status: Discontinued magnesium oxide 800 mg, 2 tab, Route: PO, Drug form: TAB, PRN, Dosing Weight 39, kg, PRN Abnorma l Lab Result, For NON-ICU Patients Only., Start date: 10/14/18 9:50:00 BRIDGE MANAGER, Dura tion: 30 day, Stop date: 11/13/18 9:49:00 BRIDGE MANAGER Notes: (Same as: Mag-Ox 400)Magnesium oxide 210pf=208cy elemental magnesiumDose= ____mg magnesium oxide (___mg elemental magnesium) Start Date: 10/14/18 Stop Date: 10/25/18 Status: Discontinued magnesium sulfate 2 gm, 50 mL, Route: IVPB, Drug form: INJ, PRN, Dosing Weight 39, kg, PRN Abnorma l Lab Result, For NON-ICU Patients Only., Start date: 10/14/18 9:50:00 BRIDGE MANAGER, Dura tion: 30 day, Stop date: 11/13/18 9:49:00 BRIDGE MANAGER Notes: WASTE: F/P - Sink; E - Municipal Trash Bin Start Date: 10/14/18 Stop Date: 10/25/18 Status: Discontinued magnesium sulfate 1 gm, 100 mL, Route: IVPB, Drug form: INJ, PRN, Dosing Weight 39, kg, PRN Abnorm al Lab Result, For NON-ICU Patients Only., Start date: 10/14/18 9:50:00 BRIDGE MANAGER, Dur ation: 30 day, Stop date: 11/13/18 9:49:00 BRIDGE MANAGER Notes: WASTE: F/P - Sink; E - Municipal Trash Bin Start Date: 10/14/18 Stop Date: 10/25/18 Status: Discontinued Maxipime + sterile water 10 mL 1 gm, Route: IV, ONCE, Start date: 10/13/18 23:00:00 BRIDGE MANAGER, Stop date: 10/13/18 23 :00:00 BRIDGE MANAGER, ABX Indication: Pneumonia Notes: (Same As: Maxipime) MEDICATION WASTE Product Size: 1000 mgProduc t Wasted: ___ mg Start Date: 10/13/18 Stop Date: 10/13/18 Status: Completed MiraLax 17 gm, 1 pkt, Route: PO, Drug form: PWDR, BID, Dosing Weight 39, kg, Priority: N OW, Start date: 10/25/18 11:33:00 BRIDGE MANAGER, Duration: 2 day, Stop date: 10/27/18 9:00 :00 BRIDGE MANAGER Notes: Dissolve in 8 oz of water or juice.(Same as: Miralax) Start Date: 10/25/18 Stop Date: 10/25/18 Status: Discontinued nitroglycerin 0.4 mg sublingual tablet 0.4 mg, 1 tab, Route: SL, Drug form: TAB, Q5Min, Dosing Weight 39, kg, PRN Chest Pain, Start date: 10/16/18 9:48:00 BRIDGE MANAGER, Duration: 3 doses or times, Stop date: Limited # of times Notes: (Same as:Nitroquick, Nitrostat)"Do Not Crush" Sublingual tablet Start Date: 10/16/18 Stop Date: 10/25/18 Status: Discontinued potassium chloride 20 mEq, 1 tab, Route: PO, Drug form: ERTAB, PRN, Dosing Weight 39, kg, PRN Abnor mal Lab Result, For NON-ICU Patients Only, Start date: 10/14/18 9:50:00 BRIDGE MANAGER, Dur ation: 30 day, Stop date: 11/13/18 9:49:00 BRIDGE MANAGER Notes: (Same as: K-Dur 20)"Do Not Crush" Give with food and full glass of water For patients unable to swallow tablet, dissolve in one half glass of water. Allo w about 2 minutes for the tablets to disintegrate. Stir before giving to prepare slurry and administer.Please exclude Patients with feeding tube less than 14 Korean (Dobhoff, J-tube etc) and pediatric and patients. Start Date: 10/14/18 Stop Date: 10/25/18 Status: Discontinued potassium chloride 10 mEq, 100 mL, Route: IVPB, Drug form: INJ, PRN, Dosing Weight 39, kg, PRN Abno rmal Lab Result, For NON-ICU Patients Only, Start date: 10/14/18 9:50:00 BRIDGE MANAGER, Du ration: 30 day, Stop date: 11/13/18 9:49:00 BRIDGE MANAGER Notes: Infuse at a rate of 10 mEq/hr.(Same as: KCL) Start Date: 10/14/18 Stop Date: 10/25/18 Status: Discontinued potassium chloride 20 mEq, 15 mL, Route: NJ, Drug form: LIQ, PRN, Dosing Weight 39, kg, PRN Abnorma l Lab Result, For NON-ICU Patients Only, Start date: 10/14/18 9:50:00 BRIDGE MANAGER, Durat ion: 30 day, Stop date: 11/13/18 9:49:00 BRIDGE MANAGER Notes: (Same as: Potassium Chloride) Start Date: 10/14/18 Stop Date: 10/25/18 Status: Discontinued potassium phosphate + Sodium Chloride 0.9% IV 250 mL 15 mmol, 5 mL, Route: IVPB, PRN, Dosing Weight 39, kg, PRN Abnormal Lab Result, For NON-ICU Patients Only., Start date: 10/14/18 9:50:00 BRIDGE MANAGER, Duration: 30 day, Stop date: 11/13/18 9:49:00 BRIDGE MANAGER Notes: (Same as: K Phosphate.)Do not infuse phosphorous concurrently in the same line as TPN or IVF that contains calcium. For double lumen central lines, phosp horous may be infused in a separate lumen from TPN. 1 mMol phoshate has 1.47 mE q potassium Infuse over 4 hours Start Date: 10/14/18 Stop Date: 10/25/18 Status: Discontinued potassium phosphate + Sodium Chloride 0.9% IV 250 mL 30 mmol, 10 mL, Route: IVPB, PRN, Dosing Weight 39, kg, PRN Abnormal Lab Result, For NON-ICU Patients Only., Start date: 10/14/18 9:50:00 BRIDGE MANAGER, Duration: 30 day, Stop date: 11/13/18 9:49:00 BRIDGE MANAGER Notes: (Same as: K Phosphate.)Do not infuse phosphorous concurrently in the same line as TPN or IVF that contains calcium. For double lumen central lines, phosp horous may be infused in a separate lumen from TPN. 1 mMol phoshate has 1.47 mE q potassium Infuse over 4 hours Start Date: 10/14/18 Stop Date: 10/25/18 Status: Discontinued potassium phosphate-sodium phosphate 250 mg-280 mg-160 mg oral powder for recons titution 2 pkt, Route: PO, Drug Form: PDR/REC, Dosing Weight 39, kg, PRN, PRN Abnormal La b Result, For NON-ICU Patients Only, Start date: 10/14/18 9:50:00 BRIDGE MANAGER, Duration: 30 day, Stop date: 11/13/18 9:49:00 BRIDGE MANAGER Notes: (Same as: Phos-NaK) Each 1.5 gm pkt has 250mg phosphorous. Mix w/2.5oz w ater and stir. Start Date: 10/14/18 Stop Date: 10/25/18 Status: Discontinued predniSONE 5 mg, Route: PO, Drug form: TAB, Daily, Dosing Weight 39, kg, Start date: 9:00:00 BRIDGE MANAGER, Duration: 30 day, Stop date: 11/15/18 9:00:00 CDT Start Date: 10/17/18 Stop Date: 10/16/18 Status: Deleted predniSONE 40 mg, 2 tab, Route: PO, Drug form: TAB, Daily, Dosing Weight 39, kg, Start date : 10/18/18 9:00:00 BRIDGE MANAGER, Duration: 30 day, Stop date: 11/16/18 9:00:00 CDT Notes: Take with food. Start Date: 10/18/18 Stop Date: 10/23/18 Status: Discontinued predniSONE 20 mg, 1 tab, Route: PO, Drug form: TAB, Daily, Dosing Weight 39, kg, Start date : 10/24/18 9:00:00 BRIDGE MANAGER, Duration: 30 day, Stop date: 11/22/18 9:00:00 CDT Notes: Take with food. Start Date: 10/24/18 Stop Date: 10/25/18 Status: Discontinued predniSONE 20 mg oral tablet 20 mg=1 tab, PO, Daily, 0 Refill(s) Start Date: 10/25/18 Status: Ordered predniSONE 5 mg oral tablet 5 mg=1 tab, PO, Daily, 0 Refill(s) Start Date: 10/13/18 Stop Date: 10/25/18 Status: Discontinued Pulmicort Respules 0.25 mg, 2 mL, Route: NEB, Drug form: SUSP, RBID, Start date: 10/16/18 10:23:00 BRIDGE MANAGER, Duration: 30 day, Stop date: 11/15/18 8:00:00 CDT Notes: (Same As: Pulmicort respule). Start Date: 10/16/18 Stop Date: 10/25/18 Status: Discontinued rosuvastatin 40 mg, 2 tab, Route: PO, Drug form: TAB, Bedtime, Dosing Weight 39, kg, Start da te: 10/16/18 21:00:00 BRIDGE MANAGER, Duration: 30 day, Stop date: 11/14/18 21:00:00 CDT Notes: Same as Crestor Start Date: 10/16/18 Stop Date: 10/25/18 Status: Discontinued sodium phosphate + Dextrose 5% in Water IV 250 mL 15 mmol, 5 mL, Route: IVPB, PRN, Dosing Weight 39, kg, PRN Abnormal Lab Result, For NON-ICU Patients Only., Start date: 10/14/18 9:50:00 BRIDGE MANAGER, Duration: 30 day, Stop date: 11/13/18 9:49:00 BRIDGE MANAGER Notes: Infuse over 4 hour. Do not infuse phosphorous concurrently in the same li ne as TPN or IVF that contains calcium. For double lumen central lines, phosphor ous may be infused in a separate lumen from TPN. Start Date: 10/14/18 Stop Date: 10/25/18 Status: Discontinued sodium phosphate + Dextrose 5% in Water IV 250 mL 30 mmol, 10 mL, Route: IVPB, PRN, Dosing Weight 39, kg, PRN Abnormal Lab Result, For NON-ICU Patients Only., Start date: 10/14/18 9:50:00 BRIDGE MANAGER, Duration: 30 day, Stop date: 11/13/18 9:49:00 BRIDGE MANAGER Notes: Infuse over 4 hour. Do not infuse phosphorous concurrently in the same li ne as TPN or IVF that contains calcium. For double lumen central lines, phosphor ous may be infused in a separate lumen from TPN. Start Date: 10/14/18 Stop Date: 10/25/18 Status: Discontinued Solu-MEDROL 40 mg, 1 mL, Route: IVP, Drug form: INJ, Q8H, Dosing Weight 38.318, kg, Start da te: 10/14/18 0:00:00 BRIDGE MANAGER, Duration: 30 day, Stop date: 11/12/18 16:00:00 BRIDGE MANAGER Notes: (Same as:Solu-MEDROL, A-Methapred) Start Date: 10/14/18 Stop Date: 10/17/18 Status: Discontinued Spiriva 18 microgram, INHALATION, Daily, morning, # 30 ea, 0 Refill(s) Start Date: 10/13/18 Status: Ordered Spiriva 18 microgram, Route: INHALATION, Daily, Dosing Weight 39, kg, Start date: 9:00:00 BRIDGE MANAGER, Duration: 30 day, Stop date: 11/15/18 9:00:00 CDT Start Date: 10/17/18 Stop Date: 10/16/18 Status: Deleted tramadol 50 mg oral tablet 50 mg, 1 tab, Route: PO, Drug form: TAB, Q4H, Dosing Weight 39, kg, PRN Pain Sco re 6-10, Start date: 10/18/18 5:16:00 BRIDGE MANAGER, Duration: 30 day, Stop date: 11/17/18 5:15:00 CDT Notes: Not to exceed 400mg/day. (Same As: Ultram) Start Date: 10/18/18 Stop Date: 10/25/18 Status: Discontinued Tylenol 650 mg, 2 tab, Route: PO, Drug form: TAB, Q6H, Dosing Weight 39, kg, PRN Pain Sc ore 1-5, Start date: 10/18/18 5:16:00 BRIDGE MANAGER, Duration: 30 day, Stop date: 11/17/18 5:15:00 CDT Notes: Do not exceed 4 gm/day. (Same as: Tylenol) Start Date: 10/18/18 Stop Date: 10/25/18 Status: Discontinued Vitamin D3 400 IntlUnit, 1 tab, Route: PO, Drug form: TAB, BID, Dosing Weight 39, kg, Start date: 10/16/18 17:00:00 BRIDGE MANAGER, Duration: 30 day, Stop date: 11/15/18 9:00:00 CDT Notes: Same as Vitamin D3 Start Date: 10/16/18 Stop Date: 10/25/18 Status: Discontinued VSL#3 oral capsule 4 cap, PO, BID, 0 Refill(s) Start Date: 10/13/18 Status: Ordered Results ELECTROLYTES 1 2 3 Most recent to oldest [Reference Range]: 138 mEq/L (10/25/18 1:28 PM) 141 mEq/L (10/16/18 3:29 AM) 139 mEq/L (10/15/18 4:22 AM) Sodium Lvl [135-145 mEq/L] 4.2 mEq/L (10/25/18 1:28 PM) 4.4 mEq/L (10/16/18 3:29 AM) 4.2 mEq/L (10/15/18 4:22 AM) Potassium Lvl [3.5-5.1 mEq/L] 95 mEq/L (10/25/18 1:28 PM) 106 mEq/L (10/16/18 3:29 AM) 104 mEq/L (10/15/18 4:22 AM) Chloride Lvl [95-109 mEq/L] 36 mEq/L *HI* (10/25/18 1:28 PM) 33 mEq/L *HI* (10/16/18 3:29 AM) 33 mEq/L *HI* (10/15/18 4:22 AM) CO2 [24-32 mEq/L] 11.2 mEq/L (10/25/18 1:28 PM) 6.4 mEq/L *LOW* (10/16/18 3:29 AM) 6.2 mEq/L *LOW* (10/15/18 4:22 AM) AGAP [10.0-20.0 mEq/L] CHEM PANEL 1 2 3 Most recent to oldest [Reference Range]: 0.94 mg/dL (10/25/18 1:28 PM) 0.59 mg/dL (10/16/18 3:29 AM) 0.60 mg/dL (10/15/18 4:22 AM) Creatinine Lvl [0.50-1.40 mg/dL] 54 mL/min/1.73m2 1 *NA* (10/25/18 1:28 PM) 82 mL/min/1.73m2 2 *NA* (10/16/18 3:29 AM) 82 mL/min/1.73m2 3 *NA* (10/15/18 4:22 AM) eGFR 31 mg/dL *HI* (10/25/18 1:28 PM) 26 mg/dL *HI* (10/16/18 3:29 AM) 20 mg/dL (10/15/18 4:22 AM) BUN [7-22 mg/dL] 33 *HI* (10/25/18 1:28 PM) B/C Ratio [6-25] 120 mg/dL *HI* (10/25/18 1:28 PM) 93 mg/dL (10/16/18 3:29 AM) 129 mg/dL *HI* (10/15/18 4:22 AM) Glucose Lvl [70-99 mg/dL] 5.7 g/dL *LOW* (10/25/18 1:28 PM) Total Protein [6.4-8.4 g/dL] 2.6 g/dL *LOW* (10/25/18 1:28 PM) Albumin Lvl [3.5-5.0 g/dL] 3.1 g/dL (10/25/18 1:28 PM) Globulin [2.7-4.2 g/dL] 0.8 (10/25/18 1:28 PM) A/G Ratio [0.7-1.6] 8.0 mg/dL *LOW* (10/25/18 1:28 PM) 8.4 mg/dL *LOW* (10/16/18 3:29 AM) 8.5 mg/dL (10/15/18 4:22 AM) Calcium Lvl [8.5-10.5 mg/dL] 26 unit/L (10/25/18 1:28 PM) ALT [0-65 unit/L] 31 unit/L (10/25/18 1:28 PM) AST [0-37 unit/L] 120 unit/L (10/25/18 1:28 PM) Alk Phos [39-136 unit/L] 0.3 mg/dL (10/25/18 1:28 PM) Bili Total [0.2-1.3 mg/dL] 1Result Comment: The eGFR is calculated using [...] be mul tiplied by the estimated BMI. 2Result Comment: The eGFR is calculated using the [...] be mul tiplied by the estimated BMI. 3Result Comment: The eGFR is calculated using the [...] be mul tiplied by the estimated BMI. HEMATOLOGY 1 2 3 Most recent to oldest [Reference Range]: 13.7 K/CMM *HI* (10/25/18 1:28 PM) 7.9 K/CMM (10/16/18 3:29 AM) 7.1 K/CMM (10/15/18 4:22 AM) WBC [3.7-10.4 K/CMM] 3.30 M/CMM *LOW* (10/25/18 1:28 PM) 3.24 M/CMM *LOW* (10/16/18 3:29 AM) 3.37 M/CMM *LOW* (10/15/18 4:22 AM) RBC [4.20-5.40 M/CMM] 8.2 g/dL *LOW* (10/25/18 1:28 PM) 8.3 g/dL *LOW* (10/16/18 3:29 AM) 8.5 g/dL *LOW* (10/15/18 4:22 AM) Hgb [12.0-16.0 g/dL] 26.1 % *LOW* (10/25/18 1:28 PM) 25.8 % *LOW* (10/16/18 3:29 AM) 26.5 % *LOW* (10/15/18 4:22 AM) Hct [36.0-48.0 %] 79.2 fL *LOW* (10/25/18 1:28 PM) 79.5 fL *LOW* (10/16/18 3:29 AM) 78.5 fL *LOW* (10/15/18 4:22 AM) MCV [80.0-98.0 fL] 24.8 pg *LOW* (10/25/18 1:28 PM) 25.6 pg *LOW* (10/16/18 3:29 AM) 25.3 pg *LOW* (10/15/18 4:22 AM) MCH [27.0-31.0 pg] 31.3 g/dL *LOW* (10/25/18 1:28 PM) 32.2 g/dL (10/16/18 3:29 AM) 32.2 g/dL (10/15/18 4:22 AM) MCHC [32.0-36.0 g/dL] 16.8 % *HI* (10/25/18 1:28 PM) 15.9 % *HI* (10/16/18 3:29 AM) 16.0 % *HI* (10/15/18 4:22 AM) RDW [11.5-14.5 %] 7.7 fL (10/25/18 1:28 PM) 7.5 fL (10/16/18 3:29 AM) 7.9 fL (10/15/18 4:22 AM) MPV [7.4-10.4 fL] 430 K/CMM (10/25/18 1:28 PM) 491 K/CMM *HI* (10/16/18 3:29 AM) 495 K/CMM *HI* (10/15/18 4:22 AM) Platelet [133-450 K/CMM] 85.0 % *HI* (10/25/18 1:28 PM) Segs [45.0-75.0 %] 8.2 % *LOW* (10/25/18 1:28 PM) Lymphocytes [20.0-40.0 %] 6.4 % (10/25/18 1:28 PM) Monocytes [2.0-12.0 %] 0.1 % (10/25/18 1:28 PM) Eosinophils [0.0-4.0 %] 0.3 % (10/25/18 1:28 PM) Basophils [0.0-1.0 %] 11.6 K/CMM *HI* (10/25/18 1:28 PM) Neutrophils # [1.5-8.1 K/CMM] 1.1 K/CMM (10/25/18 1:28 PM) Lymphocytes # [1.0-5.5 K/CMM] 0.9 K/CMM *HI* (10/25/18 1:28 PM) Monocytes # [0.0-0.8 K/CMM] Immunizations No data available for this section Procedures Procedure Date Related Diagnosis Body Site Status Thyroidectomy 1988 Completed Abdominal hysterectomy Completed Anterior and posterior repair Completed Appendectomy Completed Cholecystectomy Completed Colectomy Completed Epidural steroid injection Completed Hemorrhoidectomy Completed Laminectomy Completed Mohs surgery Completed ORIF - Open reduction and internal fixation Completed of fracture Removal of thyroid nodule Completed Tonsillectomy Completed Social History Social History Type Response Substance Abuse Use: None. Exercise Exercise frequency: 1-2 times/week. Exercise type: PT/OT. Alcohol Current, Type Wine. Frequency: 1-2 times per year. Previous treatment: None. Alcohol use interferes with work or home: No. Drinks more than intended: No. Others hurt by drinking: No. Ready to change: No. Household alcohol concerns: No. Smoking Status Former smoker; Type: Cigarettes; Ready to change: No; Concerns about tobacco use in household: No; Exposure to Tobacco Smoke None; Cigarette Smoking Last 365 Days No; Reg Smoking Cessation Counseling No entered on: 10/13/18 Assessment and Plan Extracted from: Title: Clinical Document Author: Wade Mittal MD Date: 10/25/18 Pulmonary/Critical Care Medicine progess note Wade Mittal MD SUBJECTIVE: Seen and evaluated. Patient is sitting in the chair. Her daughter is at the bedside. Patient having severe abdominal pain. She is also constipated. Mild dyspnea at rest OBJECTIVE: VitalsTmp(F)Tmp(C)[id number] 10/25 08:21 1895------ 10/25 07:3998.136.56pwtl11/62---[id number]------ 10/25 05:06 100/ 10/25 03:5096.435.33vhxg99/52---[id number]------ 10/25 00:3397.836.22wojs837/63---[id number]------ 24 Hr Tmax: 98.1F (36.72c) at 10/25 07:39Vital Signs are the last 5 in the past 48 hours. 24 Hr Tmin: 96.4F (35.78c) at 10/25 03:50Weights are the last 5 in 60 days, plus initial. DateWt(kg)Wt(lb)Ht(cm)Ht(in)MethodBMIBSA 10/13 (initial) 39.00 85.80Measured 16.81.28 10/13152.40 60.00Stated (no point of care glucose results charted in last 24 hours) Most Recent Scores: 10/25/18Pain Intensity NRS (0-10)10 10/25/18Johns Peters Fall Score9 10/25/18Glasgow Coma Score15 10/24/18Braden Score17 (all previously charted lines have been discontinued) (no surgical procedures documented) Labs (Last four charted values) WBC 7.9(OCT 16)7.1(OCT 15)5.5(OCT 14) Hgb L 8.3(OCT 16)L 8.5(OCT 15)L 9.0(OCT 14) Hct L 25.8(OCT 16)L 26.5(OCT 15)L 28.1(OCT 14) Plt H 491(OCT 16)H 495(OCT 15)H 456(OCT 14) Na 141(OCT 16)139(OCT 15)138(OCT 14) K 4.4(OCT 16)4.2(OCT 15)4.1(OCT 14)L 3.3(OCT 14) CO2 H 33(OCT 16)H 33(OCT 15)H 36(OCT 14) Cl 106(OCT 16)104(OCT 15)98(OCT 14) Cr 0.59(OCT 16)0.60(OCT 15)0.62(OCT 14) BUN H 26(OCT 16)20(OCT 15)17(OCT 14) Glucose Random 93(OCT 16)H 129(OCT 15)H 114(OCT 14) Ca L 8.4(OCT 16)8.5(OCT 15)8.5(OCT 14) RADIOLOGY: ASSESSMENT & EXAM: HEENT:normocephalic,atraumatic Skin:no rash Chest: symmetrical expansion, increased AP diameter, poor air entry Heart: Regular rhythm, no murmurs Abdomen: Soft, nontender, bowel sounds present Ext: Extensive ecchymosis all 4 extremities. Swelling of dorsum of feet present ACQUISITIONS LIBRARIAN: alert and oriented, no focal neurological defecits DIAGNOSES & PROBLEMS: Acute hypoxemic respiratory failure COPD, severe Protein calorie malnourishment, severe Severe constipation? PLAN & TREATMENT: Seen and evaluated. After initial assessment stat KUB was ordered results of which reviewed. Patient appears to be constipated. No evidence of bowel obstruction I will give her fleets enema and MiraLAX Continue current medications Leg swelling is improving Awaiting prison facility placement Scheduled Meds (15): 10/16/18 albuterol-ipratropium (albuterol-ipratropium 2.5-0.5 mg inhalation solution) 3 mL INHALATION RQ6H 10/16/18 atenolol (atenolol 25 mg oral tablet) 25 mg PO BID 10/16/18 buPROPion 150 mg PO Q24H 10/16/18 budesonide (Pulmicort Respules) 0.25 mg NEB RBID 10/16/18 cholecalciferol (Vitamin D3) 400 IntlUnit PO BID 10/17/18 clopidogrel 75 mg PO Daily 10/18/18 enoxaparin 40 mg SUB-Q [id number] 10/18/18 famotidine (famotidine 20 mg oral tablet) 20 mg PO BID 10/16/18 furosemide (furosemide 40 mg oral tablet) 40 mg PO BID 10/17/18 levothyroxine 112 microgram PO Daily 10/16/18 non-formulary (bifidobacterium/lactobacillus/streptococ) 4 cap PO BID 10/18/18 non-formulary (Attn RN pls bring home med for verification) MISC BID 10/24/18 predniSONE 20 mg PO Daily 10/16/18 rosuvastatin 40 mg PO Bedtime 10/17/18 teriparatide (Forteo) 20 microgram SUB-Q Daily Unscheduled Meds: None Extracted from: Title: Clinical Document Author: Shea Vieira Date: 10/13/18 Lisa [facility]LL[facility] PULMONARY AND CRITICAL CARE CONSULT NOTE Reason for consult: History of presenting illness: Patient is 88-year-old very frail COPD lady who was had multiple and prolonged hospitalization done in over the past few months where she initially was admitted [facility] sent over to [place] and then subsequently brought back to [facility] she was discharged to medical resort where she stayed for 10 days and is brought into clinic again by her daughter, she is now mostly wheelchair-bound and is complete assist in terms of daily activity of living, she is extremely short of breath, she has lost weight is now down to 82 pounds. Complains of cough shortness of breath but no chest pain PAST MEDICAL HISTORY Smoker: 03/2018 Skin cancer FAMILY HISTORY Mother: Heart attack; Hypertension; Type 2 diabetes mellitus Brother: Heart attack; Hypertension Sister: Cancer, Breast; Heart attack; Hypertension SURGICAL HISTORY Thyroidectomy: 1988 Laminectomy Removal of thyroid nodule Appendectomy Tonsillectomy Abdominal hysterectomy Cholecystectomy Epidural steroid injection Colectomy Hemorrhoidectomy Mohs surgery Anterior and posterior repair SOCIAL HISTORY Alcohol Details: Never Exercise Details: Exercise frequency: 1-2 times/week. Exercise type: PT/OT. Tobacco Details: Use: Former smoker. Started age 12.0 Years. Tobacco smoke exposure: None. Other Tobacco Frequency quit 3 months ago. Did the Patient Smoke Cigarettes Anytime During the Last 365 Days? No. Cessation Counseling Provided? Yes. Details: Use: Current some day smoker. Tobacco smoke exposure: None. Did the Patient Smoke Cigarettes Anytime During the Last 365 Days? Yes. Cessation Counseling Provided? No. (no lines, tubes, drains information documented) ALLERGIES Allergies (2) ActiveReaction erythromycinNone Documented morphineitching Review of Systems CONSTITUTIONAL: no fever. chills. dizziness. weakness. EYES: No pain, erythema, or discharge, blurring of vision. EAR, NOSE AND THROAT: No sore throat, URI symptoms, epistaxis,tinnitus. CARDIOVASCULAR: No chest pain. No palpitations. + lower extremity edema. RESPIRATORY: No shortness of breath, cough, pain with respiration, or pleuritic chest pain. No hemoptysis. No dyspnea. No paroxysmal nocturnal dyspnea. GASTROINTESTINAL: Normal appetite. No dysphagia, nausea, vomiting, diarrhea. No pain. No bleeding. GENITOURINARY: No frequency, urgency, nocturia, hematuria or dysuria. MUSCULOSKELETAL: No arthralgias or myalgias. INTEGUMENTARY: No swelling, bruising, contusions,abrasions, lymphangitis. NEUROLOGIC: No headache, neck pain, numbness or tingling of the extremities. or weakness. METABOLIC:No history of thyroid, diabetes or adrenal problems. HEMATOLOGICAL: No bleeding, petechiae,bruising. ALLERGY: No asthma, urticaria. PSYCHIATRIC: No confusion or depression GENERAL EXAMINATION Vitals and Temp: VitalsTmp(F)[id number] (no data in last 48 hours) 24 Hr Tmax: No Data AvailableVital Signs are the last 5 in the past 48 hours. General: Lying in bed awake interactive not in any distress frail-appearing elderly female eyes: Sclera anicteric, conjunctiva pink ENT: Tongue moist neck: Supple, no use of accessory muscles, no JVD Heart: Regular rate and rhythm, S1 and S2 heard, no murmurs Lungs: Clear to auscultation bilaterally, no evidence of accessory muscle use Abdomen: Soft, obese, Non tender. BS + : deferred Extremities: no evidence of edema in legs, hands and feet are cool Skin: No rashes,or bruising Neurologic: AO X 3, no focal deficit. Psych : normal mood and affect MEDICATION Medications (6) Active Scheduled: (5) albuterol 3 mL, NEB, QID azithromycin 500 mg, IVPB, [id number] cefepime 1 gm, IVPB, [id number] enoxaparin 40 mg, SUB-Q, [id number] famotidine 20 mg, IVP, Q12H Continuous: (0) PRN: (1) albuterol-ipratropium 3 mL, INHALATION, QID Home Medications (29) Active albuterol-ipratropium 2.5-0.5 mg inhalation solution 3 mL, INHALATION, BID amLODIPine 5 mg oral tablet 5 mg=1 tab, PO, Daily ascorbic acid 500 mg oral tablet 500 mg=1 tab, PO, Daily atenolol 25 mg oral tablet 25 mg=1 tab, PO, BID bisacodyl 10 mg rectal suppository 10 mg=1 supp, PRN, VT, Daily Brovana 15 mcg/2 mL inhalation solution 1 ea, NEB, BID budesonide 0.5 mg/2 mL inhalation suspension 0.5 mg=2 mL, NEB, BID buPROPion 150 mg/24 hours (XL) oral tablet, extended release 150 mg=1 tab, PO, Q24H calcium carbonate 500 mg (200 mg elemental calcium) oral tablet 500 mg, PO, BID clopidogrel 75 mg oral tablet 75 mg=1 tab, PO, Every Other Day docusate sodium 100 mg oral capsule 100 mg=1 cap, PO, BID ergocalciferol 50,000 intl units oral capsule 50,000 IntlUnit=1 cap, PO, Q7D furosemide 40 mg oral tablet 40 mg=1 tab, PO, BID guaiFENesin 100 mg/5 mL oral liquid 100 mg=5 mL, PRN, PO, Q6H lactulose 10 g/15 mL oral syrup 20 gm=30 mL, PO, Daily levothyroxine 112 mcg (0.112 mg) oral capsule 112 microgram=1 cap, PO, Daily lidocaine topical patch (5% film) 1 patch, TOP, Q24H Linzess 145 microgram, PO, Daily melatonin 3 mg oral tablet 3 mg=1 tab, PRN, PO, Bedtime nitroglycerin 0.4 mg sublingual tablet 0.4 mg=1 tab, PRN, SL, Q5Min nystatin 100,000 units/mL oral suspension 400,000 unit=4 mL, PO, QID potassium chloride 20 mEq oral tablet, extended release 20 mEq=1 tab, PO, Daily predniSONE 10 mg oral tablet 10 mg=1 tab, PO, Daily rosuvastatin 40 mg oral tablet 40 mg=1 tab, PO, Bedtime senna 8.6 mg oral tablet 17.2 mg=2 tab, PO, Bedtime Spiriva 18 mcg inhalation capsule 18 microgram=1 cap, INHALATION, Daily tramadol 50 mg oral tablet 50 mg=1 tab, PRN, PO, Q6H Vitamin D3 , PO, BID zinc sulfate 220 mg oral capsule 220 mg=1 cap, PO, Daily LABS No qualifying data available Radiology IMPRESSION: Acute hypoxemic respiratory failure COPD, severe Protein calorie malnourishment, severe PLAN : Patient present with acute hypoxemic respiratory failure, I will go ahead and start on broad-spectrum antibiotics including coverage for Pseudomonas given his severe COPD as well as recurrent hospitalization I will go ahead and start on steroids, scheduled ablation we will get pediatric social worker as well as dietitian involved, he is likely going to need prison facility placement, Plan of care to the patient's daughter DVT prophylaxis: Heparin thank you for involving us in the care of your patient None Specified=FULL CODE Shea Vieira MD MPH Pulmonary and Critical Care Medicine
--- OUTSIDE RECORDS SUMMARY | 2018-11-29 10:20 | XMS REPORT | Summary of Care ---
Author Author [facility] Organization [facility] Address Unknown Phone Unavailable Encounter RIMA Mata(JERI) [id number] Date(s): 04/08/18 - 04/08/18 [facility] [address] [address]- [phone] Attending Physician: Nicola Mae MD Referring Physician: Nicola Mae MD Vital Signs No data available for this section Problem List Condition Effective Dates Status Health [...] Status erythromycin Active morphine itching Active Medications No data available for this section Results No data available for this section [...] No entered on: 10/13/18 Assessment and Plan No data available for this section
--- OUTSIDE RECORDS SUMMARY | 2018-11-29 10:20 | XMS REPORT | Continuity of Care Document ---
Author Author Perla lord Organization Interface Address Unknown Phone Unavailable Problems Problem Status Onset Date Classification Date Reported Comments Source COPD Active 10/13/2018 [facility] FEMORAL NECK FRACTURE, FALL FROM STANDIN Active 08/02/2018 [facility] FALL Active 08/02/2018 [facility] T8, T9, T10, T12 COMPRESSION FRACTURES Active 06/16/2018 [facility] THORACIC COMPRESSION FRACTURES Active 04/07/2018 [facility] Age-related osteoporosis without current pathological fracture 03/29/2018 10/10/2018 [facility] Smoker Resolved 03/07/2018 Problem 10/27/2018 [facility] [place] Compression fracture of L3 lumbar vertebra with delayed healing 03/04/2018 03/07/2018 [facility] Chronic back pain 03/04/2018 03/07/2018 [facility] BACK PAIN Active 03/04/2018 [facility] [place] CLOSED WEDGE COMPRESSION FRACTURE OF MARCOS Active 02/12/2018 [facility] S22.080A - WEDGE COMPRESSION FRACTURE OF Active 02/04/2018 [facility] INTRACTABLE BACK PAIN Active 01/14/2018 [facility] Acute pharyngitis 12/08/2017 Diagnosis 12/08/2017 [facility] Deficiency of macronutrients 12/08/2017 Diagnosis 12/08/2017 [facility] Peripheral vascular disease 12/08/2017 Diagnosis 12/08/2017 [facility] Acute urinary tract infection 11/05/2017 Diagnosis 12/08/2017 [facility] Noncompliance with treatment 08/19/2017 Diagnosis 12/08/2017 [facility] Abnormal urinalysis 08/19/2017 Diagnosis 12/08/2017 [facility] Pain in throat 08/19/2017 Diagnosis 12/08/2017 [facility] Itching of ear 08/19/2017 Diagnosis 12/08/2017 [facility] Major depressive disorder 08/19/2017 Diagnosis 12/08/2017 [facility] Chronic back pain 08/19/2017 Diagnosis 12/08/2017 [facility] Adult health examination 08/19/2017 Diagnosis 12/08/2017 [facility] Body mass index less than 20 08/19/2017 Diagnosis 12/08/2017 [facility] Advance directive discussed with patient 08/19/2017 Diagnosis 12/08/2017 [facility] Depression screening 08/19/2017 Diagnosis 12/08/2017 [facility] Discharge Diagnosis: Closed L3 vertebral fracture 08/17/2017 08/20/2017 [place] Backache 05/12/2017 Diagnosis 12/08/2017 [facility] Low back pain 05/01/2017 Diagnosis 12/08/2017 [facility] Otitis externa 01/19/2017 Diagnosis 12/08/2017 [facility] Carotid artery stenosis 01/19/2017 Diagnosis 12/08/2017 [facility] Carotid Artery Stenosis 01/19/2017 Problem 12/08/2017 [facility] Gastroesophageal reflux disease 11/11/2016 Diagnosis 12/08/2017 [facility] Angina pectoris 11/11/2016 Diagnosis 12/08/2017 [facility] Benign essential hypertension 11/11/2016 Diagnosis 12/08/2017 [facility] Acute exacerbation of chronic obstructive airways disease 11/06/2016 Diagnosis 12/08/2017 [facility] Dyspnea 09/15/2016 Diagnosis 12/08/2017 [facility] Dysphagia 09/15/2016 Diagnosis 12/08/2017 [facility] Hypotensive episode 09/15/2016 Diagnosis 12/08/2017 [facility] Tobacco user 05/21/2016 Diagnosis 12/08/2017 [facility] Hypertensive disorder 05/21/2016 Diagnosis 12/08/2017 [facility] Chronic obstructive lung disease 05/21/2016 Diagnosis 12/08/2017 [facility] Hypothyroidism 05/21/2016 Problem 12/08/2017 [facility] Hyperlipidemia 05/21/2016 Problem 12/08/2017 [facility] Hypertensive Disorder 05/21/2016 Problem 12/08/2017 [facility] Angina Pectoris 05/21/2016 Problem 12/08/2017 [facility] Chronic Obstructive Lung Disease 05/21/2016 Problem 12/08/2017 [facility] Irritable Bowel Syndrome 05/21/2016 Problem 12/08/2017 [facility] Edema of Lower Extremity 05/21/2016 Problem 12/08/2017 [facility] COPD (<span ID="[id number]">Confirmed</span>) Active Problem 10/27/2018 [place] [place] Asymptomatic menopausal state 10/10/2018 [facility] [place] Constipation Active Problem 10/27/2018 [facility] [place] Oxygen dependent Active Problem 10/27/2018 [facility] [place] Depression Active Problem 10/27/2018 [facility] [place] Diverticulosis Active Problem 10/27/2018 [facility] [place] Dyspnea on exertion Active Problem 10/27/2018 [facility] [place] Gastritis Active Problem 10/27/2018 [facility] [place] High cholesterol<sup>1</sup> Active Problem 10/27/2018 controlled w/ diet now. [facility] [place] HTN (<span ID="[id number]">Confirmed</span>) Active Problem 10/27/2018 [facility] [place] Hypothyroid Active Problem 10/27/2018 [facility] [place] Skin cancer<sup>2</sup> Resolved Problem 10/27/2018 [facility] [place] Osteoporosis Active Problem 10/27/2018 [facility] [place] Severe protein-calorie malnutrition Active Problem 10/27/2018 [facility] [place] Colitis Active Problem 09/21/2018 [facility] Dehydration Active Problem 09/21/2018 [facility] Inferior pubic ramus fracture Active Problem 09/21/2018 [facility] Intractable pain Active Problem 09/21/2018 [facility] CHRONIC OBSTRUCTIVE PULMON DISEASE W ACU Active [facility] FRACTURE OF UNSP PART OF NECK OF UNSP FE Active [facility] UNSPECIFIED FALL, SEQUELA Active [facility] PAIN IN LEFT HIP Active [facility] Medications Medication Details Route Status Patient Instructions Ordering Provider Order Date Source predniSONE 20 mg oral tablet 20 mg=1 tab, PO, Daily, 0 Refill(s) Active 10/25/2018 [facility] Furosemide 40 MG Oral Tablet 40 mg=1 tab, PO, BID, 0 Refill(s) Active 10/25/2018 [facility] Miralax 17 gm, 1 pkt, Route: PO, Drug form: PWDR, BID, Dosing Weight 39, kg, Priority: NOW, Start date: 10/25/18 11:33: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, Duration: 2 day, Stop date: 10/27/18 9:00:00 CSTNotes: Dissolve in 8 oz of water or juice. (Same as: Miralax) Inactive 10/25/2018 [facility] Flesupa Enema Extra 133 mL, Route: IL, Drug Form: FRANCI, Dosing Weight 39, kg, ONCE, NOW, Start date: 10/25/18 11:33: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, Stop date: 10/25/18 11:33: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 Inactive 10/25/2018 [facility] Prednisone 20 mg, 1 tab, Route: PO, Drug form: TAB, Daily, Dosing Weight 39, kg, Start date: 10/24/18 9:00: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, Duration: 30 day, Stop date: 11/22/18 9:00:00 CDTNotes: Take with food. No Longer Active 10/24/2018 [facility] Fleet Enema 133 mL, Route: IL, Drug Form: FRANCI, Dosing Weight 39, kg, ONCE, PRN as needed for constipation, Start date: 10/22/18 23:39: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 No Longer Active 10/23/2018 [facility] Attn RN pls bring home med for verification Attn RN pls bring home med for verification, Attn RN, Drug form: MISC, Route: MISC, BID, 10/18/18 17:00: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, Duration: 30 day, Stop date: 11/17/18 9:00:00 CDT No Longer Active 10/18/2018 [facility] Enoxaparin 40 mg, 0.4 mL, Route: SUB-Q, Drug form: INJ, [id number], Dosing Weight 39, kg, Start date: 10/18/18 16:00: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, Duration: 30 day, Stop date: 11/16/18 16:00:00 CDTNotes: (Same as: Lovenox) No Longer Active 10/18/2018 [facility] Prednisone 40 mg, 2 tab, Route: PO, Drug form: TAB, Daily, Dosing Weight 39, kg, Start date: 10/18/18 9:00: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, Duration: 30 day, Stop date: 11/16/18 9:00:00 CDTNotes: Take with food. No Longer Active 10/18/2018 [facility] Famotidine 20 MG Oral Tablet 20 mg, 1 tab, Route: PO, Drug form: TAB, BID, Dosing Weight 39, kg, Start date: 10/18/18 9:00: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, Duration: 30 day, Stop date: 11/16/18 17:00:00 CDTNotes: (Same as: Pepcid) No Longer Active 10/18/2018 [facility] tramadol hydrochloride 50 MG Oral Tablet 50 mg, 1 tab, Route: PO, Drug form: TAB, Q4H, Dosing Weight 39, kg, PRN Pain Score 6-10, Start date: 10/18/18 5:16: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, Duration: 30 day, Stop date: 11/17/18 5:15:00 CDTNotes: Not to exceed 400mg/day. (Same As: Ultram) No Longer Active 10/18/2018 [facility] Tylenol 650 mg, 2 tab, Route: PO, Drug form: TAB, Q6H, Dosing Weight 39, kg, PRN Pain Score 1-5, Start date: 10/18/18 5:16: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, Duration: 30 day, Stop date: 11/17/18 5:15:00 CDTNotes: Do not exceed 4 gm/day. (Same as: Tylenol) No Longer Active 10/18/2018 [facility] Levaquin 500 mg, 2 tab, Route: PO, Drug form: TAB, [id number], Dosing Weight 39, kg, Start date: 10/17/18 20:00: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, Stop date: 10/20/18 21:00: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, ABX Indication: PneumoniaNotes: Do not give w/antacids, dairy pdt & minerals Take 1 hr before or 2 hr after dairy pdt (Same as:Levaquin) No Longer Active 10/18/2018 [facility] Prednisone 5 mg, Route: PO, Drug form: TAB, Daily, Dosing Weight 39, kg, Start date: 10/17/18 9:00: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, Duration: 30 day, Stop date: 11/15/18 9:00:00 CDT No Longer Active 10/17/2018 [facility] Breo Ellipta 100 mcg-25 mcg inhalation powder 1 puff, Route: INHALATION, Drug Form: PWDR, Dosing Weight 39, kg, Daily, Start date: 10/17/18 9:00: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, Duration: 30 day, Stop date: 11/15/18 9:00:00 CDT No Longer Active 10/17/2018 [facility] clopidogrel 75 mg, 1 tab, Route: PO, Drug form: TAB, Daily, Dosing Weight 39, kg, Start date: 10/17/18 9:00: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, Duration: 30 day, Stop date: 11/15/18 9:00:00 CDTNotes: (Same As: Plavix) No Longer Active 10/17/2018 [facility] Amlodipine 5 mg, 1 tab, Route: PO, Drug form: TAB, Daily, Dosing Weight 39, kg, Start date: 10/17/18 9:00: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, Duration: 30 day, Stop date: 11/15/18 9:00:00 CDTNotes: (Same as: Norvasc) No Longer Active 10/17/2018 [facility] Spiriva 18 microgram, Route: INHALATION, Daily, Dosing Weight 39, kg, Start date: 10/17/18 9:00: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, Duration: 30 day, Stop date: 11/15/18 9:00:00 CDT No Longer Active 10/17/2018 [facility] Forteo 20 microgram, Route: SUB-Q, Daily, Dosing Weight 39, kg, Start date: 10/17/18 9:00: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, Duration: 30 day, Stop date: 11/15/18 9:00:00 CDT No Longer Active 10/17/2018 [facility] Thyroxine 112 microgram, 1 tab, Route: PO, Drug form: TAB, Daily, Dosing Weight 39, kg, Start date: 10/17/18 6:30: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, Duration: 30 day, Stop date: 11/15/18 6:30:00 CDTNotes: Take 1 hour before or 2 hours after meal; Enteral feeds may interefere with the absorption of this medication.(Same as:Levothroid) No Longer Active 10/17/2018 [facility] rosuvastatin 40 mg, 2 tab, Route: PO, Drug form: TAB, Bedtime, Dosing Weight 39, kg, Start date: 10/16/18 21:00: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, Duration: 30 day, Stop date: 11/14/18 21:00:00 CDTNotes: Same as Crestor No Longer Active 10/17/2018 [facility] Furosemide 40 MG Oral Tablet 40 mg, 1 tab, Route: PO, Drug form: TAB, BID, Dosing Weight 39, kg, Start date: 10/16/18 17:00: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, Duration: 30 day, Stop date: 11/15/18 9:00:00 CDTNotes: (Same as: Lasix) May cause GI upset. Give with food or milk. No Longer Active 10/16/2018 [facility] Vitamin D3 400 IntlUnit, 1 tab, Route: PO, Drug form: TAB, BID, Dosing Weight 39, kg, Start date: 10/16/18 17:00: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, Duration: 30 day, Stop date: 11/15/18 9:00:00 CDTNotes: Same as Vitamin D3 No Longer Active 10/16/2018 [facility] bifidobacterium/lactobacillus/streptococ bifidobacterium/lactobacillus/streptococ, 4 cap, Route: PO, BID, 10/16/18 17:00: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, Duration: 30 day, Stop date: 11/15/18 9:00:00 CDT No Longer Active 10/16/2018 [facility] Atenolol 25 MG Oral Tablet 25 mg, 1 tab, Route: PO, Drug form: TAB, BID, Dosing Weight 39, kg, Start date: 10/16/18 17:00: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, Duration: 30 day, Stop date: 11/15/18 9:00:00 CDTNotes: (Same As:Tenormin) No Longer Active 10/16/2018 [facility] Brovana 15 microgram, Route: NEB, Drug form: SOLN, BID, Dosing Weight 39, kg, Start date: 10/16/18 17:00: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, Duration: 30 day, Stop date: 11/15/18 9:00:00 CDT Inactive 10/16/2018 [facility] Albuterol 0.833 MG/ML / Ipratropium [place] 0.167 MG/ML Inhalant Solution 3 mL, Route: INHALATION, Drug Form: SOLN, Dosing Weight 39, kg, RQ6H, Start date: 10/16/18 14:00: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, Duration: 30 day, Stop date: 11/15/18 8:00:00 CDTNotes: (Same as: Duoneb) No Longer Active 10/16/2018 [facility] albuterol 2.49 mg, 3 mL, Route: NEB, Drug form: SOLN, RQ6H, Start date: 10/16/18 14:00: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, Duration: 30 day, Stop date: 11/15/18 8:00:00 CDTNotes: SEE RT DOCUMENTATION (Same as: Proventil) Inactive 10/16/2018 [facility] ipratropium 0.02% inhalation solution 0.5 mg, 2.5 mL, Route: NEB, Drug form: SOLN, RQ6H, Start date: 10/16/18 14:00: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, Duration: 30 day, Stop date: 11/15/18 8:00:00 CDTNotes: SEE RT DOCUMENTATION (Same as:Atrovent) Inactive 10/16/2018 [facility] albuterol 2.49 mg, 3 mL, Route: NEB, Drug form: SOLN, RQID, Start date: 10/16/18 11:00: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, Duration: 30 day, Stop date: 11/15/18 7:00:00 CDTNotes: SEE RT DOCUMENTATION (Same as: Proventil) Inactive 10/16/2018 [facility] Attn RN pls bring home med for verification Attn RN pls bring home med for verification, Attn RN, Drug form: MISC, Route: MISC, Continuous, 10/16/18 10:30: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, Duration: 30 day, Stop date: 11/15/18 11:29:00 CDT No Longer Active 10/16/2018 [facility] Pulmicort Respules 0.25 mg, 2 mL, Route: NEB, Drug form: SUSP, RBID, Start date: 10/16/18 10:23: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, Duration: 30 day, Stop date: 11/15/18 8:00:00 CDTNotes: (Same As: Pulmicort respule). No Longer Active 10/16/2018 [facility] Budesonide 0.25 MG/ML Inhalant Solution 0.5 mg, 2 mL, Route: NEB, Drug form: SUSP, RBID, Dosing Weight 39, kg, Start date: 10/16/18 10:18: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, Duration: 30 day, Stop date: 11/15/18 8:00:00 CDTNotes: (Same As: Pulmicort) Inactive 10/16/2018 [facility] Bupropion 150 mg, 1 tab, Route: PO, Drug form: ERTAB, Q24H, Dosing Weight 39, kg, Start date: 10/16/18 10:00: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, Duration: 30 day, Stop date: 11/14/18 10:00:00 CDTNotes: (Same as: Wellbutrin XL) "Do Not Crush" No Longer Active 10/16/2018 [facility] Nitroglycerin 0.4 MG Sublingual Tablet 0.4 mg, 1 tab, Route: SL, Drug form: TAB, Q5Min, Dosing Weight 39, kg, PRN Chest Pain, Start date: 10/16/18 9:48: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, Duration: 3 doses or times, Stop date: Limited # of timesNotes: (Same as:Nitroquick, Nitrostat) "Do Not Crush" Sublingual tablet No Longer Active 10/16/2018 [facility] sodium phosphate 15 mmol, 5 mL, Route: IVPB, PRN, Dosing Weight 39, kg, PRN Abnormal Lab Result, For NON-ICU Patients Only., Start date: 10/14/18 9:50: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, Duration: 30 day, Stop date: 11/13/18 9:49:00 CSTNotes: I nfuse over 4 hour. Do not infuse phosphorous concurrently in the same line as TPN or IVF that contains calcium. For double lumen central lines, phosphorous may be infused in a separate lumen from TPN. No Longer Active 10/14/2018 [facility] Potassium Chloride 20 mEq, 1 tab, Route: PO, Drug form: ERTAB, PRN, Dosing Weight 39, kg, PRN Abnormal Lab Result, For NON-ICU Patients Only, Start date: 10/14/18 9:50: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, Duration: 30 day, Stop date: 11/13/18 9:49:00 CSTNotes: (Same as: K-Dur 20) "Do Not Crush" Give with food and full glass of water For patients unable to swallow tablet, dissolve in one half glass of water. Allow about 2 minutes for the tablets to disintegrate. Stir before giving to prepare slurry and administer. Please exclude Patients with feeding tube less than 14 Urdu (Dobhoff, J-tube etc) and pediatric and patients. No Longer Active 10/14/2018 [facility] potassium phosphate-sodium phosphate 250 mg-280 mg-160 mg oral powder for reconstitution 2 pkt, Route: PO, Drug Form: PDR/REC, Dosing Weight 39, kg, PRN, PRN Abnormal Lab Result, For NON-ICU Patients Only, Start date: 10/14/18 9:50: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, Duration: 30 day, Stop date: 11/13/18 9:49:00 CSTNotes: (Same as: Phos-NaK) Each 1.5 gm pkt has 250mg phosphorous. Mix w/2.5oz water and stir. No Longer Active 10/14/2018 [facility] potassium phosphate 15 mmol, 5 mL, Route: IVPB, PRN, Dosing Weight 39, kg, PRN Abnormal Lab Result, For NON-ICU Patients Only., Start date: 10/14/18 9:50: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, Duration: 30 day, Stop date: 11/13/18 9:49:00 CSTNotes: ( Same as: K Phosphate.) Do not infuse phosphorous concurrently in the same line as TPN or IVF that contains calcium. For double lumen central lines, phosphorous may be infused in a separate lumen from TPN. 1 mMol phoshate has 1.47 mEq potassium Infuse over 4 hours No Longer Active 10/14/2018 [facility] Calcium Gluconate 3 gm, 30 mL, Route: IVPB, Drug form: INJ, PRN, Dosing Weight 39, kg, PRN Abnormal Lab Result, For NON-ICU Patients Only., Start date: 10/14/18 9:50: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, Duration: 30 day, Stop date: 11/13/18 9:49:00 CSTNotes: WASTE: F/P - Sink; E - Municipal Trash Bin No Longer Active 10/14/2018 [facility] Magnesium Sulfate 2 gm, 50 mL, Route: IVPB, Drug form: INJ, PRN, Dosing Weight 39, kg, PRN Abnormal Lab Result, For NON-ICU Patients Only., Start date: 10/14/18 9:50: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, Duration: 30 day, Stop date: 11/13/18 9:49:00 CSTNotes: WASTE: F/P - Sink; E - Municipal Trash Bin No Longer Active 10/14/2018 [facility] Magnesium Oxide 800 mg, 2 tab, Route: PO, Drug form: TAB, PRN, Dosing Weight 39, kg, PRN Abnormal Lab Result, For NON-ICU Patients Only., Start date: 10/14/18 9:50: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, Duration: 30 day, Stop date: 11/13/18 9:49:00 CSTNotes: (Same as: Mag-Ox 400) Magnesium oxide [id number] elemental magnesium Dose=____mg magnesium oxide (___mg elemental magnesium) No Longer Active 10/14/2018 [facility] Solu-Medrol 40 mg, 1 mL, Route: IVP, Drug form: INJ, Q8H, Dosing Weight 38.318, kg, Start date: 10/14/18 0:00: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, Duration: 30 day, Stop date: 11/12/18 16:00:00 CSTNotes: (Same as:Solu-MEDROL, A-Methapred) No Longer Active 10/14/2018 [facility] Breo Ellipta 100 mcg-25 mcg inhalation powder 1 puff, INHALATION, Daily, morning, 0 Refill(s) Active 10/14/2018 [facility] Forteo 20 microgram, SUB-Q, Daily, evening, 0 Refill(s) Active 10/14/2018 [facility] Albuterol 0.83 MG/ML Inhalant Solution 0.63 mg, NEB, BID, 0 Refill(s) Active 10/14/2018 [facility] predniSONE 5 mg oral tablet 5 mg=1 tab, PO, Daily, 0 Refill(s) No Longer Active 10/14/2018 [facility] VSL#3 oral capsule 4 cap, PO, BID, 0 Refill(s) Active 10/14/2018 [facility] Spiriva 18 microgram, INHALATION, Daily, morning, # 30 ea, 0 Refill(s) Active 10/14/2018 [facility] clopidogrel 75 mg oral tablet 75 mg=1 tab, PO, Daily, # 30 tab, 0 Refill(s) Active 10/14/2018 [facility] arformoterol 0.0075 MG/ML Inhalant Solution [Brovana] =1 ea, NEB, BID, am/pm, # 60 ea, 0 Refill(s) Active 10/14/2018 [facility] Maxipime + sterile water 10 mL 1 gm, Route: IV, ONCE, Start date: 10/13/18 23:00: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, Stop date: 10/13/18 23:00: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, ABX Indication: PneumoniaNotes: (Same As: Maxipime) MEDICATION WASTE Product Size: 1000 mg Product Wasted: ___ mg Inactive 10/14/2018 [facility] Dextrose 50% Syringe 12.5 gm, 25 mL, Route: IVP, Drug Form: INJ, Dosing Weight 39, kg, PRN, PRN Blood Glucose Results, Start date: 10/13/18 22:34: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, Duration: 30 day, Stop date: 11/12/18 22:33: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 No Longer Active 10/14/2018 [facility] Glucagon 1 mg, Route: IM, Drug form: PDR/INJ, PRN, Dosing Weight 39, kg, PRN Blood Glucose Results, Start date: 10/13/18 22:34: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, Duration: 30 day, Stop date: 11/12/18 22:33: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 No Longer Active 10/14/2018 [facility] ATTN: RN PLEASE UPDATE [facility] ON ADHOC ATTN: RN PLEASE UPDATE [facility] ON ADHOC, REMINDER, Drug form: MISC, Route: MISC, Q15Min, 10/13/18 22:00: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, Duration: 30 day, Stop date: 11/12/18 21:45: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 Inactive 10/14/2018 [facility] Famotidine 20 mg, 2 mL, Route: IVP, Drug form: INJ, Q24H, Dosing Weight 38.318, kg, Start date: 10/13/18 21:00: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, Duration: 30 day, Stop date: 11/11/18 21:00:00 CSTNotes: (Same as: Pepcid) Can be dilute in 5-10cc NS IVP: Slow IV push over at least 2 minutes. No Longer Active 10/14/2018 [facility] Albuterol 0.417 MG/ML Inhalant Solution 1.25 mg, 3 mL, Route: NEB, Drug form: SOLN, RQID, Dosing Weight 38.318, kg, Start date: 10/13/18 21:00: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, Duration: 30 day, Stop date: 11/12/18 19:00:00 CSTNotes: SEE RT DOCUMENTATION (Same as: Proventil) No Longer Active 10/14/2018 [facility] Enoxaparin 30 mg, 0.3 mL, Route: SUB-Q, Drug form: INJ, [id number], Dosing Weight 38.318, kg, Start date: 10/13/18 18:00: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, Duration: 30 day, Stop date: 11/11/18 18:00:00 CSTNotes: (Same as: Lovenox) No Longer Active 10/14/2018 [facility] Azithromycin 500 mg, Route: IVPB, [id number], Dosing Weight 38.318, kg, Start date: 10/13/18 18:00: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, Duration: 30 day, Stop date: 11/10/18 23:00: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, ABX Indication: PneumoniaNotes: (Same As: Zithromax IV) No Longer Active 10/14/2018 [facility] cefepime 1 gm, Route: IVPB, [id number], Dosing Weight 38.318, kg, (CrCl >/=50 ml/min), Start date: 10/13/18 18:00: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, Duration: 30 day, Stop date: 11/11/18 15:00: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, ABX Indication: PneumoniaNotes: (Same As: Maxipime) MEDICATION WASTE Product Size: 1000 mg Product Wasted: ___ mg No Longer Active 10/14/2018 [facility] Albuterol 0.833 MG/ML / Ipratropium [place] 0.167 MG/ML Inhalant Solution [DuoNeb] 3 mL, Route: INHALATION, Drug Form: SOLN, Dosing Weight 38.318, kg, RQID, PRN Respiratory Pathway, Start date: 10/13/18 17:44: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, Duration: 30 day, Stop date: 11/12/18 17:43:00 CSTNotes: (Same as: Duoneb) No Longer Active 10/13/2018 [facility] sugammadex 200 mg, 2 mL, Route: IV, Drug form: SOLN, ONCE, Start date: 03/16/18 11:02:00 CDT, Stop date: 03/16/18 11:02:00 CDTNotes: (Same as: Bridion) Inactive 03/16/2018 [place] [facility] Nal[facility] 0.4 mg, 1 mL, Route: IVP, Drug form: INJ, Q2MIN, Dosing Weight 41.364, kg, PRN Narcotic Reversal, Start date: 03/16/18 10:33:00 CDT, Duration: 8 doses or times, Stop date: 03/17/18 0:00:00 CDTNotes: Same as Narcan No Longer Active 03/16/2018 [facility] Ondansetron 4 mg, 2 mL, Route: IVP, Drug form: INJ, ONCE, Dosing Weight 41.364, kg, PRN Nausea & Vomiting, Start date: 03/16/18 10:33:00 CDTNotes: (Same as: Zofran) MEDICATION WASTE Product Size: 4 mg Product Wasted: ___ mg No Longer Active 03/16/2018 [facility] Flumazenil 0.2 mg, 2 mL, Route: IVP, Drug form: INJ, PRN, Dosing Weight 41.364, kg, PRN Benzodiazepine Reversal, Initial dose, Start date: 03/16/18 10:33:00 CDT, Duration: 30 day, Stop date: 04/15/18 10:32:00 C DTNotes: (Same as: Romazicon) No Longer Active 03/16/2018 [facility] Labetalol 10 mg, 2 mL, Route: IVP, Drug form: INJ, Q5Min, Dosing Weight 41.364, kg, PRN Elevated BP, Start date: 03/16/18 10:33:00 CDT, Duration: 5 doses or times, Stop date: 03/17/18 0:00:00 CDT No Longer Active 03/16/2018 [facility] Acetaminophen 1,000 mg, Route: IVPB, Drug form: INJ, ONCE, Dosing Weight 41.364, kg, PRN Pain Score 1-3, Start date: 03/16/18 10:33:00 CDT Inactive 03/16/2018 [facility] Acetaminophen 300 MG / Codeine Phosphate 30 MG Oral Tablet [Tylenol with Codeine #3] 1 tab, Route: PO, Drug Form: TAB, Dosing Weight 41.364, kg, ONCE, PRN Pain Score 1-5, Start date: 03/16/18 10:04:00 CDTNotes: Do not exceed 4gm/day of acetaminophen. (Same as: Tylenol with Codeine # 3) No Longer Active 03/16/2018 [facility] tramadol hydrochloride 50 MG Oral Tablet 50 mg, Route: PO, Drug form: TAB, ONCE, Dosing Weight 41.364, kg, Start date: 03/16/18 10:04:00 CDT, Stop date: 03/16/18 10:04:00 CDT Inactive 03/16/2018 [facility] Acetaminophen 300 MG / Codeine Phosphate 30 MG Oral Tablet [Tylenol with Codeine #3] 1 tab, Route: PO, Drug Form: TAB, Dosing Weight 41.364, kg, ONCE, Start date: 03/16/18 9:51:00 CDT, Stop date: 03/16/18 9:51:00 CDTNotes: Do not exceed 4gm/day of acetaminophen. (Same as: Tylenol with Codeine # 3) Inactive 03/16/2018 [facility] Linzess PO, Daily, 0 Refill(s) Active 03/15/2018 [facility] Bifidobacterium Infantis (Align) 4 Mg Capsule, 4 Mg Oral Daily Active 03/07/2018 [facility] Bifidobacterium Infantis (Align) 4 Mg Capsule, 4 Mg Oral Daily Active 03/07/2018 [facility] Lidocaine 0.05 MG/MG Transdermal Patch 1 patch, TOP, Daily, PRN Pain Score 6-10, # 30 patch, 0 Refill(s) Active 03/04/2018 [facility] Morphine 2 mg, 0.5 mL, Route: IVP, Drug form: SOLN, ONCE, Dosing Weight 41.818, kg, Priority: STAT, Start date: 03/04/18 12:04:00 CDT, Stop date: 03/04/18 12:04:00 CDTNotes: (Same as:MORPhine Sulfate) Inactive 03/04/2018 [facility] Fentanyl 50 microgram, 1 mL, Route: IVP, Drug form: INJ, ONCE, Dosing Weight 41.818, kg, Priority: STAT, Start date: 03/04/18 11:27:00 CDT, Stop date: 03/04/18 11:27:00 CDTNotes: (Same as: Sublimaze) Preservative free. Inactive 03/04/2018 [facility] Aspirin (Aspirin Ec) 81 Mg Tablet.dr, 81 Mg Oral Daily Active 01/31/2018 [facility] Atenolol 50 Mg Tablet, 25 Mg Oral Bedtime Active 01/31/2018 [facility] Lubiprostone (Amitiza) 24 Mcg Capsule, 24 Mcg Oral Twice A Day Active 01/31/2018 [facility] Pantoprazole Sodium (Protonix) 40 Mg Tablet., 40 Mg Oral Daily Active 01/31/2018 [facility] Sucralfate (Carafate) 1 Gm/10 Ml Oral.susp, 1 Gm Oral Before Meals And At Bedtime Active 01/31/2018 [facility] Aspirin (Aspirin Ec) 81 Mg Tablet.dr, 81 Mg Oral Daily Active 01/31/2018 [facility] Atenolol 50 Mg Tablet, 25 Mg Oral Bedtime Active 01/31/2018 [facility] Sucralfate (Carafate) 1 Gm/10 Ml Oral.susp, 1 Gm Oral Before Meals And At Bedtime Active 01/31/2018 [facility] Lasix 20 mg, 1 tab, Route: PO, Drug form: TAB, Daily, Dosing Weight 45.455, kg, Start date: 01/15/18 9:00:00 CDT, Duration: 30 day, Stop date: 02/13/18 9:00:00 CDTNotes: (Same as: Lasix) May cause GI upset. Give with food or milk. No Longer Active 01/15/2018 [facility] Plavix 75 mg, 1 tab, Route: PO, Drug form: TAB, Daily, Dosing Weight 45.455, kg, Start date: 01/15/18 9:00:00 CDT, Duration: 30 day, Stop date: 02/13/18 9:00:00 CDTNotes: (Same As: Plavix) No Longer Active 01/15/2018 [facility] Amlodipine 5 mg, 1 tab, Route: PO, Drug form: TAB, Daily, Dosing Weight 45.455, kg, Start date: 01/15/18 9:00:00 CDT, Duration: 30 day, Stop date: 02/13/18 9:00:00 CDTNotes: (Same as: Norvasc) No Longer Active 01/15/2018 [facility] bifidobacterium infantis 4 mg oral capsule bifidobacterium infantis 4 mg oral capsule, 4 mg, Drug form: CAP, Route: PO, Daily, 01/15/18 9:00:00 CDT, Duration: 30 day, Stop date: 02/13/18 9:00:00 CDT No Longer Active 01/15/2018 [facility] Atenolol 25 MG Oral Tablet 25 mg, 1 tab, Route: PO, Drug form: TAB, BID, Dosing Weight 45.511, kg, Start date: 01/15/18 9:00:00 CDT, Duration: 30 day, Stop date: 02/13/18 21:00:00 CDTNotes: (Same As:Tenormin) No Longer Active 01/15/2018 [facility] Prednisone 5 mg, 2 tab, Route: PO, Drug form: TAB, Daily, Dosing Weight 45.455, kg, Start date: 01/15/18 9:00:00 CDT, Duration: 30 day, Stop date: 02/13/18 9:00:00 CDTNotes: Take with food. No Longer Active 01/15/2018 [facility] Thyroxine 112 microgram, 1 tab, Route: PO, Drug form: TAB, Q630AM, Dosing Weight 45.455, kg, Start date: 01/15/18 6:30:00 CDT, Duration: 30 day, Stop date: 02/13/18 6:30:00 CDTNotes: (Same as:Levothroid) No Longer Active 01/15/2018 [facility] *RN pls bring pts homemed bifidobacter to pharmacy to label* *RN pls bring pts homemed bifidobacter to pharmacy to label*, Reminder, Drug form: MISC, Route: MISC, QSHIFT, 01/15/18 0:00:00 CDT, Duration: 30 day, Stop date: 02/13/18 16:00:00 CDT No Longer Active 01/15/2018 [facility] Cyclobenzaprine hydrochloride 5 MG Oral Tablet [Flexeril] 5 mg=1 tab, PO, TID, X 7 day, # 21 tab, 0 Refill(s), Pharmacy: [facility] [id number] Active 01/15/2018 [facility] budesonide-formoterol 160 mcg-4.5 mcg/inh inhalation aerosol with adapter 2 inhalation, Route: INHALATION, Drug Form: AERO/A, BID, Start date: 01/14/18 21:00:00 CDT, Duration: 30 day, Stop date: 02/13/18 9:00:00 CDTNotes: (Same as: Symbicort) WASTE: Aerosol - Return to Pharmacy Inactive 01/15/2018 [facility] tramadol hydrochloride 50 MG Oral Tablet 50 mg, 1 tab, Route: PO, Drug form: TAB, Q6H, Dosing Weight 45.511, kg, PRN Pain Score 1-3, Start date: 01/14/18 18:21:00 CDT, Duration: 30 day, Stop date: 02/13/18 18:20:00 CDTNotes: Not to exceed 400mg/day. (Same As: Ultram) Inactive 01/14/2018 [facility] albuterol-ipratropium CFC free 100 mcg-20 mcg/inh inhalation aerosol 1 puff, Route: INHALER, Drug Form: AERO, Dosing Weight 45.455, kg, Q6H, Start date: 01/14/18 18:00:00 CDT, Duration: 30 day, Stop date: 02/13/18 12:00:00 CDTNotes: Same as: Combivent Respimat WASTE: Aerosol - Return to Pharmacy Inactive 01/14/2018 [facility] Docusate 100 mg, 1 cap, Route: PO, Drug form: CAP, BID, Dosing Weight 45.455, kg, Start date: 01/14/18 17:00:00 CDT, Duration: 30 day, Stop date: 02/13/18 9:00:00 CDTNotes: (Same as: Colace) (Do Not Crush) Inactive 01/14/2018 [facility] Advair Diskus 250 mcg-50 mcg inhalation powder 1 puff, Route: INHALATION, Dosing Weight 45.455, kg, BID, Start date: 01/14/18 17:00:00 CDT, Duration: 30 day, Stop date: 02/13/18 9:00:00 CDT Inactive 01/14/2018 [facility] senna 15 mg oral tablet 30 mg=2 tab, PO, Daily, PRN for constipation, # 24 tab, 0 Refill(s) Active 01/14/2018 [facility] fluticasone furoate 0.1 MG/ACTUAT Dry Powder Inhaler =1 puff, INHALATION, Q24H, 0 Refill(s) Active 01/14/2018 [facility] Atenolol 25 MG Oral Tablet 25 mg=1 tab, PO, BID, # 60 tab, 0 Refill(s) Active 01/14/2018 [facility] clopidogrel 75 mg oral tablet 75 mg=1 tab, PO, Daily, # 90 tab, 1 Refill(s) Active 01/14/2018 [facility] rosuvastatin 40 mg oral tablet 40 mg=1 tab, PO, Bedtime, # 60 tab, 0 Refill(s) Active 01/14/2018 [facility] Acetaminophen 300 MG / Codeine Phosphate 30 MG Oral Tablet 1 tab, PO, Q6H, PRN pain, # 28 tab, 0 Refill(s) Active 01/14/2018 [facility] predniSONE 5 mg oral tablet 5 mg=1 tab, PO, Daily, Give with food., # 30 tab, 0 Refill(s) Active 01/14/2018 [facility] amLODIPine 5 mg oral tablet 5 mg=1 tab, PO, Daily, # 30 tab, 0 Refill(s) Active 01/14/2018 [facility] buPROPion 150 mg/24 hours (XL) oral tablet, extended release 150 mg=1 tab, PO, Q24H, # 30 tab, 1 Refill(s) Active 01/14/2018 [facility] Nitroglycerin 0.4 MG Sublingual Tablet 0.4 mg=1 tab, SL, Q5Min, PRN Chest Pain, Give up to 3 doses. Call 911 if pain persists., # 25 tab, 3 Refill(s) Active 01/14/2018 [facility] levothyroxine 112 mcg (0.112 mg) oral capsule 112 microgram=1 cap, PO, Daily, # 30 cap, 3 Refill(s) Active 01/14/2018 [facility] Furosemide 20 MG Oral Tablet 20 mg=1 tab, PO, PRN, # 90 tab, 1 Refill(s) Active 01/14/2018 [facility] tiotropium 1.25 mcg/inh inhalation aerosol 2 puffs, INHALER, Daily, # 4 gm, 0 Refill(s) Active 01/14/2018 [facility] Albuterol 0.833 MG/ML / Ipratropium [place] 0.167 MG/ML Inhalant Solution 3 mL, INHALATION, BID, PRN Wheezing, # 30 ea, 1 Refill(s) Active 01/14/2018 [facility] bifidobacterium infantis 4 mg oral capsule 4 mg=1 cap, PO, Daily, # 28 cap, 0 Refill(s) Active 01/14/2018 [facility] Flexeril 5 mg, 0.5 tab, Route: PO, Drug form: TAB, Q12H, Dosing Weight 45.455, kg, PRN Spasm, Start date: 01/14/18 14:35:00 CDT, Duration: 30 day, Stop date: 02/13/18 14:34:00 CDTNotes: (Same As: Flexeril) Inactive 01/14/2018 [facility] Fentanyl 12.5 microgram, 0.25 mL, Route: IV, Drug form: INJ, Q4H, Dosing Weight 45.455, kg, PRN Pain Score 7-10, Start date: 01/14/18 14:32:00 CDT, Duration: 30 day, Stop date: 02/13/18 14:31:00 CDTNotes: (Same as: Sublimaze) Preservative free. Inactive 01/14/2018 [facility] Ondansetron 4 mg, 2 mL, Route: IVP, Drug form: INJ, Q6H, Dosing Weight 45.455, kg, PRN Nausea & Vomiting, Start date: 01/14/18 14:26:00 CDT, Duration: 30 day, Stop date: 02/13/18 14:25:00 CDTNotes: (Same as: Zofran) MEDICATION WASTE Product Size: 4 mg Product Wasted: ___ mg Inactive 01/14/2018 [facility] Acetaminophen 650 mg, 2 tab, Route: PO, Drug form: TAB, Q4H, Dosing Weight 45.455, kg, PRN Pain 1-3/Temp > 100.4 F, Start date: 01/14/18 14:26:00 CDT, Duration: 30 day, Stop date: 02/13/18 14:25:00 CDTNotes: Do not exceed 4 gm/day. (Same as: Tylenol) Inactive 01/14/2018 [facility] Fentanyl 25 microgram, 0.5 mL, Route: IVP, Drug form: INJ, ONCE, Dosing Weight 45.455, kg, Priority: STAT, Start date: 01/14/18 14:10:00 CDT, Stop date: 01/14/18 14:10:00 CDTNotes: (Same as: Sublimaze) Preservative free. Inactive 01/14/2018 [facility] Fentanyl 25 microgram, 0.5 mL, Route: IVP, Drug form: INJ, ONCE, Dosing Weight 45.455, kg, Priority: STAT, Start date: 01/14/18 11:16:00 CDT, Stop date: 01/14/18 11:16:00 CDTNotes: (Same as: Sublimaze) Preservative free. Inactive 01/14/2018 [facility] Fentanyl 25 microgram, 0.5 mL, Route: IVP, Drug form: INJ, ONCE, Dosing Weight 45.455, kg, Priority: STAT, Start date: 01/14/18 10:11:00 CDT, Stop date: 01/14/18 10:11:00 CDTNotes: (Same as: Sublimaze) Preservative free. Inactive 01/14/2018 [facility] Ceftriaxone 500 MG Injection ceftriaxone 500 mg solution for injection Take 500 mg by injection route. Active 12/08/2017 [facility] NITROFURANTOIN, MACROCRYSTALS 25 MG / Nitrofurantoin, Monohydrate 75 MG Oral Capsule nitrofurantoin monohydrate/macrocrystals 100 mg capsule Active 12/08/2017 [facility] Sulfamethoxazole 800 MG / Trimethoprim 160 MG Oral Tablet sulfamethoxazole 800 mg-trimethoprim 160 mg tablet Active 12/08/2017 [facility] Levothyroxine Sodium 0.112 MG Oral Tablet [Synthroid] Synthroid 112 mcg tablet Active 12/08/2017 [facility] Acetaminophen 300 MG / Codeine Phosphate 30 MG Oral Tablet acetaminophen 300 mg-codeine 30 mg tablet Active 11/05/2017 [facility] 24 HR Bupropion Hydrochloride 150 MG Extended Release Oral Tablet bupropion HCl XL 150 mg 24 hr tablet, extended release Active 11/05/2017 [facility] Lidocaine Hydrochloride 20 MG/ML Mucous Membrane Topical Solution Lidocaine Viscous 2 % mucosal solution Active 11/05/2017 [facility] pantoprazole 40 MG Delayed Release Oral Tablet pantoprazole 40 mg tablet,delayed release Active 11/05/2017 [facility] Vios Aerosol Delivery System Vios Aerosol Delivery System Active 11/05/2017 [facility] Acetaminophen 325 MG / Hydrocodone Bitartrate 5 MG Oral Tablet hydrocodone 5 mg-acetaminophen 325 mg tablet Active 08/19/2017 [facility] Levofloxacin 500 MG Oral Tablet levofloxacin 500 mg tablet Active 08/19/2017 [facility] Prednisone 20 MG Oral Tablet prednisone 20 mg tablet Active 08/19/2017 [facility] tizanidine 2 MG Oral Tablet tizanidine 2 mg tablet Active 08/19/2017 [facility] Triamcinolone Acetonide 1 MG/ML Topical Cream triamcinolone acetonide 0.1 % topical cream apply twice daily as needed Active 08/19/2017 [facility] Acetaminophen 325 MG / Hydrocodone Bitartrate 10 MG Oral Tablet [[place] ] 1 tab, Route: PO, Drug Form: TAB, Dosing Weight 44.545, kg, ONCE, STAT, Start date: 08/17/17 10:54: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, Stop date: 08/17/17 10:54: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 Inactive 08/17/2017 [facility] Amoxicillin 500 MG Oral Capsule amoxicillin 500 mg capsule Active 05/01/2017 [facility] doxycycline hyclate 100 MG Oral Capsule doxycycline hyclate 100 mg capsule Active 05/01/2017 [facility] doxycycline hyclate 100 MG Oral Tablet doxycycline hyclate 100 mg tablet Active 05/01/2017 [facility] Hydrocortisone 10 MG/ML / Neomycin 3.5 MG/ML / Polymyxin B 96032 UNT/ML Otic Solution mzuiucgc-vfzfgsuxb-vcbuzbfor 3.5 mg/mL-10,000 unit/mL-1 % ear solution Active 05/01/2017 [facility] Prednisone 10 MG Oral Tablet prednisone 10 mg tablet Active 05/01/2017 [facility] Rosuvastatin calcium 20 MG Oral Tablet rosuvastatin 20 mg tablet Take 1 tablet every day by oral route. Active 05/01/2017 [facility] Albuterol 0.83 MG/ML Inhalant Solution albuterol sulfate 2.5 mg/3 mL (0.083 %) solution for nebulization Inhale 3 mL as needed by nebulization route. Active 01/19/2017 [facility] lubiprostone 0.024 MG Oral Capsule [Amitiza] Amitiza 24 mcg capsule Take 1 capsule twice a day by oral route. Active 01/19/2017 [facility] Aspirin 81 MG Delayed Release Oral Tablet aspirin 81 mg tablet,delayed release Take 1 tablet every day by oral route. Active 01/19/2017 [facility] Rosuvastatin calcium 10 MG Oral Tablet rosuvastatin 10 mg tablet Active 01/19/2017 [facility] 0.5 ML Bordetella pertussis filamentous [...] IM syringe Active 11/11/2016 [facility] 0.65 ML Varicella-Zoster Virus Vaccine Live ([facility]) strain 92089 UNT/ML Injection [Zostavax] Zostavax (PF) 19,400 unit/0.65 mL subcutaneous suspension Active 11/11/2016 [facility] Amoxicillin 500 MG / Clavulanate 125 MG Oral Tablet amoxicillin 500 mg-potassium clavulanate 125 mg tablet Active 05/21/2016 [facility] benzonatate 100 MG Oral Capsule benzonatate 100 mg capsule Active 05/21/2016 [facility] Cephalexin 500 MG Oral Capsule cephalexin 500 mg capsule Active 05/21/2016 [facility] Ciprofloxacin 500 MG Oral Tablet ciprofloxacin 500 mg tablet Active 05/21/2016 [facility] Clobetasol Propionate 0.0005 MG/MG Topical Ointment clobetasol 0.05 % topical ointment Active 05/21/2016 [facility] Fluocinonide 0.0005 MG/MG Topical Ointment fluocinonide 0.05 % topical ointment Active 05/21/2016 [facility] Urea 470 MG/ML Topical Cream [Keralac] Keralac 47 % topical cream Active 05/21/2016 [facility] levocetirizine dihydrochloride 5 MG Oral Tablet levocetirizine 5 mg tablet Active 05/21/2016 [facility] Codeine Phosphate 2 MG/ML / Guaifenesin 20 MG/ML Oral Solution Virtussin AC 10 mg-100 mg/5 mL oral liquid Active 05/21/2016 [facility] Albuterol 0.21 MG/ML Inhalant Solution albuterol sulfate 0.63 mg/3 mL solution for nebulization Active [facility] Align Align 1 po qd Active [facility] Amlodipine 10 MG Oral Tablet amlodipine 10 mg tablet TAKE 1 TABLET DAILY Active [facility] Atenolol 50 MG Oral Tablet atenolol 50 mg tablet TAKE 1 TABLET IN THE MORNING AND ONE-HALF (1/2) TABLET IN THE EVENING Active [facility] fluticasone furoate 0.1 MG/ACTUAT / vilanterol 0.025 MG/ACTUAT Dry Powder Inhaler Breo Ellipta 100 mcg-25 mcg/dose powder for inhalation Active [facility] clopidogrel 75 MG Oral Tablet clopidogrel 75 mg tablet Active [facility] Fluticasone propionate 0.05 MG/ACTUAT Metered Dose Nasal [place] fluticasone 50 mcg/actuation nasal spray,suspension Active [facility] Furosemide 40 MG Oral Tablet furosemide 40 mg tablet TAKE 1 TABLET DAILY Active [facility] Acetaminophen 300 MG / Hydrocodone Bitartrate 5 MG Oral Tablet hydrocodone 5 mg-acetaminophen 300 mg tablet Active [facility] Levothyroxine Sodium 0.112 MG Oral Capsule levothyroxine 112 mcg capsule Take 1 capsule every day by oral route. Active [facility] linaclotide 0.145 MG Oral Capsule [Linzess] Linzess 145 mcg capsule Take 1 capsule every day by oral route as needed for 30 days. Active [facility] Methocarbamol 500 MG Oral Tablet methocarbamol 500 mg tablet prn Active [facility] Hydrocortisone 10 MG/ML / Neomycin 3.5 MG/ML / Polymyxin B 76189 UNT/ML Otic Suspension fnachfvr-gfavfqqdt-ffdhorrru 3.5 mg-10,000 unit/mL-1 % ear drops,susp INSTILL 4 DROPS INTO AFFECTED EAR(S) BY OTIC ROUTE 3 TIMES PER DAY FOR 7 DAYS Active [facility] Nitroglycerin 0.4 MG Sublingual Tablet nitroglycerin 0.4 mg sublingual tablet Active [facility] Prednisone 5 MG Oral Tablet prednisone 5 mg tablet Active [facility] Rosuvastatin calcium 40 MG Oral Tablet rosuvastatin 40 mg tablet Active [facility] tiotropium 0.018 MG Inhalant Powder [Spiriva] Spiriva with HandiHaler 18 mcg and inhalation capsules Active [facility] tramadol hydrochloride 50 MG Oral Tablet tramadol 50 mg tablet Active [facility] Azithromycin 250 MG Oral Tablet Zithromax Z-Fredrick 250 mg tablet TAKE 2 TABLETS (500 MG) BY ORAL ROUTE ONCE DAILY FOR 1 DAY THEN 1 TABLET (250 MG) BY ORAL ROUTE ONCE DAILY FOR 4 DAYS Active [facility] Albuterol Sulfate 0.63 Mg/3 Ml Vial.neb Twice A Day Active [facility] Amlodipine Besylate 10 Mg Tablet Daily Active [facility] Atenolol 50 Mg Tablet Twice A Day Active [facility] Breo as needed for Shortness Of Breath Active [facility] Bupropion Hcl (Wellbutrin Sr) 150 Mg Tablet.er Daily Active [facility] Clopidogrel Bisulfate (Plavix) 75 Mg Tablet Every 48 Hours Active [facility] Furosemide 40 Mg Tablet Daily as needed for Fluid Retention Active [facility] Lact Cmb2/S.thermophl/Bif Cmb1 (Vsl#3 Capsule) 1 Each Capsule Twice A Day Active [facility] Levothyroxine Sodium 112 Mcg Tablet Daily Active [facility] Linzess 290 Daily Active [facility] Nitroglycerin 0.4 Mg Tab.subl Every 5 Minutes for Chest Pain Active [facility] Prednisone 5 Mg Tablet Daily Active [facility] Rosuvastatin Calcium (Crestor) 10 Mg Tab Bedtime Active THERAPEUTICALLY SUBSTITUTED WITH SIMVASTATIN 40MG [facility] Tiotropium [place] (Spiriva) 18 Mcg Cap.w.dev Daily Active [facility] Albuterol Sulfate 0.63 Mg/3 Ml Vial.neb Twice A Day Active [facility] Atenolol 50 Mg Tablet Twice A Day Active [facility] Breo 100-25 Inh Daily Active [facility] Bupropion Hcl (Wellbutrin Sr) 150 Mg Tablet.er Daily Active [facility] Clopidogrel Bisulfate (Plavix) 75 Mg Tablet Every 48 Hours Active [facility] Furosemide 40 Mg Tablet Daily as needed for Fluid Retention Active [facility] Levothyroxine Sodium 112 Mcg Tablet Daily Active [facility] Prednisone 5 Mg Tablet Daily Active [facility] Rosuvastatin Calcium (Crestor) 10 Mg Tab Bedtime Active THERAPEUTICALLY SUBSTITUTED WITH SIMVASTATIN 40MG [facility] Teriparatide Inj ([place]) 2.4 Ml Syr Daily Active [facility] Tiotropium [place] (Spiriva) 18 Mcg Cap.w.dev Daily Active [facility] Allergies, Adverse Reactions, Alerts Substance Category Reaction Severity Reaction type Status Date Reported Comments Source Erythromycin Base Allergy to substance 05/21/2016 [facility] Morphine Unknown Allergy to Substance Active 01/31/2018 [facility] Erythromycin base Unknown Allergy to Substance Active 01/31/2018 [facility] morphine Assertion itching Propensity to adverse reactions to drug Active [facility] azithromycin Assertion Drug allergy Active [facility] erythromycin Assertion Drug allergy Active [facility] Immunizations Immunization Date Given Site Status Last Updated Comments Source influenza, high dose seasonal 06/18/2017 completed [facility] influenza, high dose seasonal 05/21/2016 [facility] influenza, injectable, quadrivalent 05/08/2015 [facility] Results Order Name Results Value Reference Range Date Interpretation Comments Source CHEM PANEL eGFR 54 mL/min/1.73m2 10/25/2018 Result Comment: The eGFR is calculated using [...] should be multiplied by the estimated BMI. [facility] CHEM PANEL Glucose Lvl 120 mg/dL 70 - 99 10/25/2018 [facility] CHEM PANEL Sodium Lvl 138 meq/L 135 - 145 10/25/2018 [facility] CHEM PANEL Creatinine Lvl 0.94 mg/dL 0.50 - 1.40 10/25/2018 [facility] CHEM PANEL BUN 31 mg/dL 7 - 22 10/25/2018 [facility] CHEM PANEL Potassium Lvl 4.2 meq/L 3.5 - 5.1 10/25/2018 [facility] CHEM PANEL Chloride Lvl 95 meq/L 95 - 109 10/25/2018 [facility] CHEM PANEL Total Protein 5.7 g/dL 6.4 - 8.4 10/25/2018 [facility] CHEM PANEL CO2 36 meq/L 24 - 32 10/25/2018 [facility] CHEM PANEL Calcium Lvl 8.0 mg/dL 8.5 - 10.5 10/25/2018 [facility] CHEM PANEL Bili Total 0.3 mg/dL 0.2 - 1.3 10/25/2018 [facility] CHEM PANEL Alk Phos 120 unit/L 39 - 136 10/25/2018 [facility] CHEM PANEL Albumin Lvl 2.6 g/dL 3.5 - 5.0 10/25/2018 [facility] CHEM PANEL AST 31 unit/L 0 - 37 10/25/2018 [facility] CHEM PANEL ALT 26 unit/L 0 - 65 10/25/2018 [facility] CHEM PANEL A/G Ratio 0.8 0.7 - 1.6 10/25/2018 [facility] CHEM PANEL AGAP 11.2 meq/L 10.0 - 20.0 10/25/2018 [facility] CHEM PANEL Globulin 3.1 g/dL 2.7 - 4.2 10/25/2018 [facility] CHEM PANEL B/C Ratio 33 6 - 25 10/25/2018 [facility] HEMATOLOGY MPV 7.7 fL 7.4 - 10.4 10/25/2018 [facility] HEMATOLOGY MCH 24.8 pg 27.0 - 31.0 10/25/2018 [facility] HEMATOLOGY Platelet 430 K/CMM 133 - 450 10/25/2018 [facility] RDW 16.8 % 11.5 - 14.5 10/25/2018 [facility] MCHC 31.3 g/dL 32.0 - 36.0 10/25/2018 [facility] Hct 26.1 % 36.0 - 48.0 10/25/2018 [facility] Hgb 8.2 g/dL 12.0 - 16.0 10/25/2018 [facility] RBC 3.30 M/CMM 4.20 - 5.40 10/25/2018 [facility] MCV 79.2 fL 80.0 - 98.0 10/25/2018 [facility] WBC 13.7 K/CMM 3.7 - 10.4 10/25/2018 [facility] Eosinophils 0.1 % 0.0 - 4.0 10/25/2018 [facility] Lymphocytes 8.2 % 20.0 - 40.0 10/25/2018 [facility] Segs 85.0 % 45.0 - 75.0 10/25/2018 [facility] Monocytes 6.4 % 2.0 - 12.0 10/25/2018 [facility] Monocytes # 0.9 K/CMM 0.0 - 0.8 10/25/2018 [facility] Lymphocytes # 1.1 K/CMM 1.0 - 5.5 10/25/2018 [facility] Neutrophils # 11.6 K/CMM 1.5 - 8.1 10/25/2018 [facility] Basophils 0.3 % 0.0 - 1.0 10/25/2018 [facility] Abdomen AP DX Abdomen AP DX Portable abdomen: There is moderate fecal material in the cecum and right colon. The gas pattern is otherwise within normal limits. There is no visible pneumoperitoneum. There are no significant calcifications. There are no acute osseous abnormalities. Previous fracture reduction of the proximal left femur is noted. IMPRESSION: No acute radiographic abnormalities of the abdomen. [id number] 10/25/2018 - - Read by: Boyd Cuevas MD Dictated Date/time: 10/25/18 10:56 Electronically Signed by: Boyd Cuevas MD 10/25/18 10:57 FINAL REPORT [facility] Wrist complete Bilateral DX Wrist complete Bilateral DX Patient Name: TUCKER LESLIE : 1930; Age: 88 years y/o Female MR: [id number] Study: Wrist complete Bilateral DX 10/21/2018 2:54 [employer]IAL CART[employer]ON[employer] Ordering Physician: Clinical Indication: Pain from a fall - BILATERAL WRISTS status post fall; Comparison: None Bilateral wrists 3 views each There is no fracture, subluxation or acute abnormality. Joint space narrowing within the radiocarpal joints and calcification of the triangular fibrocartilage is noted, more prominent in the right wrist. There is no periarticular erosion or lesion otherwise evident. IMPRESSION: No acute fracture subluxation. 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 SL: [id number] 10/21/2018 - - Read by: Jhon Sullivan MD Dictated Date/time: 10/21/18 09:00 Electronically Signed by: Jhon Sullivan MD 10/21/18 09:02 FINAL REPORT [facility] Knee 3 Views Bilateral DX Knee 3 Views Bilateral DX Exam: Knee 3 Views Bilateral DX Clinical Indication: Pain from a fall - BILATERAL KNEES Comparison: Left knee radiographs 08/03/2018 FINDINGS: 3 views of the right knee are performed. 3 views of the left knee are performed. Right Knee: No acute fracture identified. Alignment is within normal limits without dislocation. Joint spaces are maintained. Chondrocalcinosis is present, which is nonspecific. No significant soft tissue swelling. No radiopaque foreign body. No significant joint effusion. Vascular calcifications are present. Left Knee: No acute fracture identified. Alignment is within normal limits without dislocation. Joint spaces are maintained. Chondrocalcinosis is present, which is nonspecific. No significant soft tissue swelling. No radiopaque foreign body. No significant joint effusion. Vascular calcifications are present. IMPRESSION: 1. No acute osseous abnormality of the knees. SL: [id number] 10/21/2018 - - Read by: Dale Garcia MD Dictated Date/time: 10/21/18 11:28 Electronically Signed by: Dale Garcia MD 10/21/18 11:32 FINAL REPORT [facility] ELECTROLYTES AGAP 6.4 meq/L 10.0 - 20.0 10/16/2018 [facility] ELECTROLYTES eGFR 82 mL/min/1.73m2 10/16/2018 Result Comment: The eGFR is calculated using [...] should be multiplied by the estimated BMI. [facility] ELECTROLYTES Potassium Lvl 4.4 meq/L 3.5 - 5.1 10/16/2018 [facility] ELECTROLYTES Sodium Lvl 141 meq/L 135 - 145 10/16/2018 [facility] ELECTROLYTES CO2 33 meq/L 24 - 32 10/16/2018 [facility] ELECTROLYTES Chloride Lvl 106 meq/L 95 - 109 10/16/2018 [facility] ELECTROLYTES Calcium Lvl 8.4 mg/dL 8.5 - 10.5 10/16/2018 [facility] ELECTROLYTES Glucose Lvl 93 mg/dL 70 - 99 10/16/2018 [facility] ELECTROLYTES Creatinine Lvl 0.59 mg/dL 0.50 - 1.40 10/16/2018 [facility] ELECTROLYTES BUN 26 mg/dL 7 - 22 10/16/2018 [facility] HEMATOLOGY Hct 25.8 % 36.0 - 48.0 10/16/2018 [facility] MCH 25.6 pg 27.0 - 31.0 10/16/2018 [facility] MCV 79.5 fL 80.0 - 98.0 10/16/2018 [facility] Hgb 8.3 g/dL 12.0 - 16.0 10/16/2018 [facility] RDW 15.9 % 11.5 - 14.5 10/16/2018 [facility] MPV 7.5 fL 7.4 - 10.4 10/16/2018 [facility] Platelet 491 K/CMM 133 - 450 10/16/2018 [facility] MCHC 32.2 g/dL 32.0 - 36.0 10/16/2018 [facility] WBC 7.9 K/CMM 3.7 - 10.4 10/16/2018 [facility] RBC 3.24 M/CMM 4.20 - 5.40 10/16/2018 [facility] CHEM PANEL eGFR 82 mL/min/1.73m2 10/15/2018 Result Comment: The eGFR is calculated using [...] should be multiplied by the estimated BMI. [facility] CHEM PANEL Glucose Lvl 129 mg/dL 70 - 99 10/15/2018 [facility] CHEM PANEL CO2 33 meq/L 24 - 32 10/15/2018 [facility] CHEM PANEL Calcium Lvl 8.5 mg/dL 8.5 - 10.5 10/15/2018 [facility] CHEM PANEL Potassium Lvl 4.2 meq/L 3.5 - 5.1 10/15/2018 [facility] CHEM PANEL Chloride Lvl 104 meq/L 95 - 109 10/15/2018 [facility] CHEM PANEL BUN 20 mg/dL 7 - 22 10/15/2018 [facility] CHEM PANEL Sodium Lvl 139 meq/L 135 - 145 10/15/2018 [facility] CHEM PANEL Creatinine Lvl 0.60 mg/dL 0.50 - 1.40 10/15/2018 [facility] CHEM PANEL AGAP 6.2 meq/L 10.0 - 20.0 10/15/2018 [facility] HEMATOLOGY Platelet 495 K/CMM 133 - 450 10/15/2018 [facility] MPV 7.9 fL 7.4 - 10.4 10/15/2018 [facility] RDW 16.0 % 11.5 - 14.5 10/15/2018 [facility] MCHC 32.2 g/dL 32.0 - 36.0 10/15/2018 [facility] MCV 78.5 fL 80.0 - 98.0 10/15/2018 [facility] MCH 25.3 pg 27.0 - 31.0 10/15/2018 [facility] WBC 7.1 K/CMM 3.7 - 10.4 10/15/2018 [facility] Hct 26.5 % 36.0 - 48.0 10/15/2018 [facility] RBC 3.37 M/CMM 4.20 - 5.40 10/15/2018 [facility] HEMATOLOGY Hgb 8.5 g/dL 12.0 - 16.0 10/15/2018 [facility] Blood leukocytes automated count (number/volume) 9.25 4.8 - 10.8 09/18/2018 [facility] Blood erythrocytes automated count (number/volume) 3.85 3.6 - 5.1 09/18/2018 [facility] Blood hemoglobin measurement (moles/volume) 10.1 12.0 - 16.0 09/18/2018 [facility] Automated blood hematocrit (volume fraction) 33.6 34.2 - 44.1 09/18/2018 [facility] Automated erythrocyte mean corpuscular volume 87.3 81 - 99 09/18/2018 [facility] Automated erythrocyte mean corpuscular hemoglobin (mass per erythrocyte) 26.2 28 - 32 09/18/2018 [facility] Automated erythrocyte mean corpuscular hemoglobin concentration measurement (mass/volume) 30.1 31 - 35 09/18/2018 [facility] RDW BldCo-Rto 15.1 11.7 - 14.4 09/18/2018 [facility] Automated blood platelet count (count/volume) 324 140 - 360 09/18/2018 [facility] Differential Total Cells Counted 100 09/18/2018 [facility] Manual blood neutrophils/100 leukocytes 85 40 - 74 09/18/2018 [facility] Manual blood lymphocytes/100 leukocytes 12 19 - 48 09/18/2018 [facility] Manual blood monocytes/100 leukocytes 2 3.4 - 9.0 09/18/2018 [facility] Manual blood eosinophil count as percentage of total leukocytes 1 0 - 7 09/18/2018 [facility] Blood platelets count by estimate (number/volume) ADEQUATE 09/18/2018 [facility] Platelet morphology NORMAL 09/18/2018 [facility] Blood hypochromia detection by light microscopy MODE 09/18/2018 [facility] Blood rouleaux detection by light microscopy FEW 09/18/2018 [facility] RBC morphology ABNORMAL 09/18/2018 [facility] Serum or plasma sodium measurement (moles/volume) 136 136 - 145 09/18/2018 [facility] Serum or plasma potassium measurement (moles/volume) 4.9 3.5 - 5.1 09/18/2018 [facility] Serum or plasma chloride measurement (moles/volume) 101 98 - 107 09/18/2018 [facility] Serum or plasma carbon dioxide, total measurement (moles/volume) 28 22 - 29 09/18/2018 [facility] Serum or plasma anion gap 11.9 8 - 16 09/18/2018 [facility] Serum or plasma urea nitrogen measurement (mass/volume) 12 7 - 26 09/18/2018 [facility] Serum or plasma creatinine measurement (mass/volume) 0.66 0.57 - 1.11 09/18/2018 [facility] Serum or plasma urea nitrogen/creatinine mass ratio 18 6 - 25 09/18/2018 [facility] Estimated glomerular filtration rate (GFR) determination > 60 60 09/18/2018 [facility] Glucose measurement 93 74 - 118 09/18/2018 [facility] Serum or plasma calcium measurement (mass/volume) 8.0 8.4 - 10.2 09/18/2018 [facility] Automated blood segmented neutrophil count as percentage of total leukocytes 90.2 38.7 - 80.0 09/12/2018 [facility] Automated blood lymphocyte count as percentage ot total leukocytes 5.9 18.0 - 39.1 09/12/2018 [facility] Automated blood monocyte count as percentage of total leukocytes 3.1 4.4 - 11.3 09/12/2018 [facility] Automated blood eosinophil count as percentage of total leukocytes 0.0 0.0 - 6.0 09/12/2018 [facility] Automated blood basophil count as percentage of total leukocytes 0.0 0.0 - 1.0 09/12/2018 [facility] IM GRANULOCYTES % 0.8 0.0 - 1.0 09/12/2018 [facility] Automated blood neutrophil count 9.8 2.1 - 6.9 09/12/2018 [facility] Blood lymphocytes count (number/volume) 0.6 1.0 - 3.2 09/12/2018 [facility] Blood monocytes automated count (number/volume) 0.3 0.2 - 0.8 09/12/2018 [facility] Automated blood eosinophil count 0.0 0.0 - 0.4 09/12/2018 [facility] Automated blood basophil count (count/volume) 0.0 0.0 - 0.1 09/12/2018 [facility] Absolute Immature Granulocyte (auto 0.09 0 - 0.1 09/12/2018 [facility] Serum or plasma total bilirubin measurement (mass/volume) 0.2 0.2 - 1.2 09/12/2018 [facility] Aspartate Amino Transf (AST/SGOT) 17 5 - 34 09/12/2018 [facility] Serum or plasma alanine aminotransferase measurement (enzymatic activity/volume) 16 0 - 55 09/12/2018 [facility] Serum or plasma protein measurement (mass/volume) 5.1 6.5 - 8.1 09/12/2018 [facility] Serum or plasma albumin measurement (mass/volume) 2.2 3.5 - 5.0 09/12/2018 [facility] Plasma globulin measurement (mass/volume) 2.9 2.3 - 3.5 09/12/2018 [facility] Serum or plasma albumin/globulin mass ratio 0.8 0.8 - 2.0 09/12/2018 [facility] Serum or plasma alkaline phosphatase measurement (enzymatic activity/volume) 92 40 - 150 09/12/2018 [facility] Serum or plasma creatine kinase measurement (enzymatic activity/volume) 11 29 - 168 09/08/2018 [facility] Serum or plasma creatine kinase MB measurement (mass/volume) 1.30 0 - 5.0 09/08/2018 [facility] Troponin I measurement by highly sensitive enzyme immunoassay 0.034 0 - 0.300 09/08/2018 [facility] Manual basophil percentage 1 0 - 1.5 09/08/2018 [facility] Influenza virus A and B antigen identification by immunofluorescence NEGATIVE NEGATIVE 09/07/2018 [facility] Lactic Acid Level 14.3 4.5 - 19.8 09/07/2018 [facility] BNP Bld-mCnc 98.3 0 - 100 09/07/2018 [facility] Blood culture NO GROWTH AFTER 5 DAYS, FINAL REPORT 09/07/2018 [facility] Serum or plasma thyrotropin measurement by detection limit <=0.005 miu/l (units/volume) 4.499 0.350 - 4.940 09/07/2018 [facility] Abdomen 2 views DX Abdomen 2 views DX Patient Name: TUCKER LESLIE. : 1930; Age: 88 years y/o; Female. MR: [id number]. Ordering Physician: Marie Maddox MD. Abdomen 2 views. HISTORY: Abdominal distention. COMPARISON: Abdominal x-ray 08/14/2018. FINDINGS: Frontal supine and upright views of the abdomen demonstrate gas-filled small and large bowel loops without air-fluid levels to suggest bowel obstruction. No free air. Atherosclerotic calcifications noted. IMPRESSION: No evidence of bowel obstruction or free air. SL: [id number] 08/15/2018 - - Read by: Ambrocio Andrews MD Dictated Date/time: 08/15/18 11:28 Electronically Signed by: Ambrocio Andrews MD 08/15/18 11:30 FINAL REPORT [facility] Abdomen 2 views DX Abdomen 2 [...] No acute radiographic abnormality of the abdomen. [id number] 08/14/2018 - - Read by: Boyd Cuevas MD Dictated Date/time: 08/15/18 08:19 Electronically Signed by: Boyd Cuevas MD 08/15/18 08:21 FINAL REPORT [facility] Chest 1view DX Chest 1view DX Patient Name: TUCKER LESLIE : 1930; Age: 88 years y/o Female MR: [id number] Study: Chest 1view DX 08/09/2018 9:51 AM EDITORIAL CARTOONIST Ordering Physician: Boris Leija MD Comparison: Chest [...] Findings compatible with chronic obstructive pulmonary disease. : [id number] 08/09/2018 - - Read by: Fernie Pedroza Dictated Date/time: 08/09/18 15:09 Electronically Signed by: Fernie Pedroza 08/09/18 15:13 FINAL REPORT [facility] Chest 1view DX Chest 1view DX Patient Name: TUCKER LESLIE : 1930 Age: 88 years, Female MR: [id number] Study: Chest 1view DX 08/05/2018 9:39 AM EDITORIAL CARTOONIST Examination: Chest, AP. Indication: Hypoxia. Clinical information: [...] developing pneumonia. Small bilateral pleural effusions. SL: [id number] 08/05/2018 - - Read by: Ethan Lindsey MD Dictated Date/time: 08/05/18 10:37 Electronically Signed by: Ethan Lindsey MD 08/05/18 10:40 FINAL REPORT [facility] Hip 2/3 views uni w pelvis DX Hip 2/3 views uni w pelvis DX Left hip 2/3 views uni w pelvis DX, 08/03/2018 5:18 PM EDITORIAL CARTOONIST HISTORY: Start: 1530 / End: 1700 / [...] fixation of left femoral neck fracture SL: [id number] 08/03/2018 - - Read by: Saad Knapp MD Dictated Date/time: 08/03/18 20:32 Electronically Signed by: Saad Knapp 08/03/18 20:34 FINAL REPORT [facility] Hip 2/3 views uni w pelvis [...] fracture with evidence of orthopedic fixation. SL: [id number] 08/03/2018 - - Read by: Adama Guallpa MD Dictated Date/time: 08/03/18 18:24 Electronically Signed by: Adama Guallpa MD 08/03/18 18:25 FINAL REPORT [facility] Knee series 3 views DX Knee [...] and mild medial joint space narrowing. SL: [id number] 08/02/2018 - - Read by: Reji Weber MD Dictated Date/time: 08/03/18 00:40 Electronically Signed by: Reji Weber MD 08/03/18 00:42 FINAL REPORT [facility] Femur series DX Femur series DX LEFT [...] hip. Diffuse osteopenia. No acute findings. SL: [id number] 08/02/2018 - - Read by: Reji Weber MD Dictated Date/time: 08/03/18 00:42 Electronically Signed by: Reji Weber MD 08/03/18 00:43 FINAL REPORT [facility] Hip 2/3 views uni w pelvis [...] Nikita Niño MD 08/02/18 23:42 FINAL REPORT [facility] Chest 1view DX Chest 1view DX [...] rib suggestive of acute nondisplaced fracture. SL: [id number] 08/02/2018 - - Read by: Reji Weber MD Dictated Date/time: 08/02/18 23:39 Electronically Signed by: Reji Weber MD 08/02/18 23:40 FINAL REPORT [facility] Serum or plasma magnesium measurement (mass/volume) 1.7 1.3 - 2.1 07/12/2018 [facility] Phosphorus measurement 3.0 2.3 - 4.7 07/10/2018 [facility] Capillary blood glucose measurement by glucometer (mass/volume) 160 70 - 120 07/08/2018 [facility] Venous blood ionized calcium measurement (mass/volume) 1.1 1.09 - 1.30 07/06/2018 [facility] Blood anisocytosis detection by light microscopy SLIGHT 07/02/2018 [facility] Free thyroxine index 2.1961 1.4 - 3.8 06/27/2018 [facility] Serum or plasma thyroxine (T4) measurement (mass/volume) 6.34 4.5 - 10.9 06/27/2018 [facility] Serum or plasma triiodothyronine resin uptake (T3RU) 34.64 22.5 - 37.0 06/27/2018 [facility] Urine color determination YELLOW YELLOW 06/25/2018 [facility] Urine clarity CLEAR CLEAR 06/25/2018 [facility] Specific gravity of Urine by Test strip 1.030 1.010 - 1.025 06/25/2018 [facility] Urine pH measurement by automated test strip 6 5 - 7 06/25/2018 [facility] Urine leukocyte esterase detection by dipstick NEGATIVE NEGATIVE 06/25/2018 [facility] Urine nitrite detection POSITIVE NEGATIVE 06/25/2018 [facility] Urine protein measurement by test strip (mass/volume) NEGATIVE NEGATIVE 06/25/2018 [facility] Urine glucose detection NEGATIVE NEGATIVE 06/25/2018 [facility] Urine ketones detection by automated test strip NEGATIVE NEGATIVE 06/25/2018 [facility] Urine urobilinogen measurement by test strip (mass/volume) 0.2 0.2 - 1 06/25/2018 [facility] Urine total bilirubin measurement (mass/volume) NEGATIVE NEGATIVE 06/25/2018 [facility] Urine erythrocytes detection TRACE NEGATIVE 06/25/2018 [facility] Automated urine sediment leukocyte count by microscopy (number/high power field) 0-5 0 - 5 06/25/2018 [facility] Erythrocytes detection in urine sediment by light microscopy 0-5 0 - 5 06/25/2018 [facility] Bacteria detection in urine sediment by light microscopy FEW NONE 06/25/2018 [facility] Epithelial cells detection in urine sediment by light microscopy FEW NONE 06/25/2018 [facility] Serum or plasma amylase measurement (enzymatic activity/volume) 104 25 - 125 06/25/2018 [facility] Serum or plasma lipase measurement (enzymatic activity/volume) 41 8 - 78 06/25/2018 [facility] Automated urine sediment leukocyte count by microscopy (number/high power field) Automated urine sediment leukocyte count by microscopy (number/high power field) null 0 - 5 04/15/2018 [facility] Bacteria detection in urine sediment by light microscopy Bacteria detection in urine sediment by light microscopy MODERATE NONE 04/15/2018 [facility] Epithelial cells detection in urine sediment by light microscopy Epithelial cells detection in urine sediment by light microscopy FEW NONE 04/15/2018 [facility] Erythrocytes detection in urine sediment by light microscopy Erythrocytes detection in urine sediment by light microscopy null 0 - 5 04/15/2018 [facility] Specific gravity of Urine by Test strip Specific gravity of Urine by Test strip 1.015 1.010 - 1.025 04/15/2018 [facility] Urine clarity Urine clarity CLEAR CLEAR 04/15/2018 [facility] Urine color determination Urine color determination YELLOW YELLOW 04/15/2018 [facility] Urine erythrocytes detection Urine erythrocytes detection TRACE NEGATIVE 04/15/2018 [facility] Urine glucose detection Urine glucose detection NEGATIVE NEGATIVE 04/15/2018 [facility] Urine ketones detection by automated test strip Urine ketones detection by automated test strip NEGATIVE NEGATIVE 04/15/2018 [facility] Urine leukocyte esterase detection by dipstick Urine leukocyte esterase detection by dipstick NEGATIVE NEGATIVE 04/15/2018 [facility] Urine nitrite detection Urine nitrite detection NEGATIVE NEGATIVE 04/15/2018 [facility] Urine pH measurement by automated test strip Urine pH measurement by automated test strip 8 5 - 7 04/15/2018 [facility] Urine protein measurement by test strip (mass/volume) Urine protein measurement by test strip (mass/volume) 1+ NEGATIVE 04/15/2018 [facility] Urine total bilirubin measurement (mass/volume) Urine total bilirubin measurement (mass/volume) NEGATIVE NEGATIVE 04/15/2018 [facility] Urine urobilinogen measurement by test strip (mass/volume) Urine urobilinogen measurement by test strip (mass/volume) 0.2 0.2 - 1 04/15/2018 [facility] Prothrombin time (PT) in platelet poor plasma by coagulation assay 12.4 11.9 - 14.5 04/14/2018 [facility] INR in Platelet poor plasma by Coagulation assay 1.00 04/14/2018 [facility] Activated partial thromboplastin time (aPTT) in platelet poor plasma bycoagulation assay 26.8 23.8 - 35.5 04/14/2018 [facility] Activated partial thromboplastin time (aPTT) in platelet poor plasma bycoagulation assay Activated partial thromboplastin time (aPTT) in platelet poor plasma bycoagulation assay 26.8 23.8 - 35.5 04/14/2018 [facility] Automated blood basophil count (count/volume) Automated blood basophil count (count/volume) 0.0 0.0 - 0.1 04/14/2018 [facility] Automated blood basophil count as percentage of total leukocytes Automated blood basophil count as percentage of total leukocytes 0.5 0.0 - 1.0 04/14/2018 [facility] Automated blood eosinophil count Automated blood eosinophil count 0.0 0.0 - 0.4 04/14/2018 [facility] Automated blood eosinophil count as percentage of total leukocytes Automated blood eosinophil count as percentage of total leukocytes 0.5 0.0 - 6.0 04/14/2018 [facility] Automated blood hematocrit (volume fraction) Automated blood hematocrit (volume fraction) 36.9 34.2 - 44.1 04/14/2018 [facility] Automated blood lymphocyte count as percentage ot total leukocytes Automated blood lymphocyte count as percentage ot total leukocytes 13.8 18.0 - 39.1 04/14/2018 [facility] Automated blood monocyte count as percentage of total leukocytes Automated blood monocyte count as percentage of total leukocytes 6.2 4.4 - 11.3 04/14/2018 [facility] Automated blood neutrophil count Automated blood neutrophil count 5.2 2.1 - 6.9 04/14/2018 [facility] Automated blood platelet count (count/volume) Automated blood platelet count (count/volume) 335 140 - 360 04/14/2018 [facility] Automated blood segmented neutrophil count as percentage of total leukocytes Automated blood segmented neutrophil count as percentage of total leukocytes 77.9 38.7 - 80.0 04/14/2018 [facility] Automated erythrocyte mean corpuscular hemoglobin (mass per erythrocyte) Automated erythrocyte mean corpuscular hemoglobin (mass per erythrocyte) 28.5 28 - 32 04/14/2018 [facility] Automated erythrocyte mean corpuscular hemoglobin concentration measurement (mass/volume) Automated erythrocyte mean corpuscular hemoglobin concentration measurement (mass/volume) 31.7 31 - 35 04/14/2018 [facility] Automated erythrocyte mean corpuscular volume Automated erythrocyte mean corpuscular volume 90.0 81 - 99 04/14/2018 [facility] Blood erythrocytes automated count (number/volume) Blood erythrocytes automated count (number/volume) 4.10 3.6 - 5.1 04/14/2018 [facility] Blood hemoglobin measurement (moles/volume) Blood hemoglobin measurement (moles/volume) 11.7 12.0 - 16.0 04/14/2018 [facility] Blood leukocytes automated count (number/volume) Blood leukocytes automated count (number/volume) 6.61 4.8 - 10.8 04/14/2018 [facility] Blood lymphocytes count (number/volume) Blood lymphocytes count (number/volume) 0.9 1.0 - 3.2 04/14/2018 [facility] Blood monocytes automated count (number/volume) Blood monocytes automated count (number/volume) 0.4 0.2 - 0.8 04/14/2018 [facility] Estimated glomerular filtration rate (GFR) determination Estimated glomerular filtration rate (GFR) determination null 60 04/14/2018 [facility] Glucose measurement Glucose measurement 106 74 - 118 04/14/2018 [facility] INR in Platelet poor plasma by Coagulation assay INR in Platelet poor plasma by Coagulation assay 1.00 04/14/2018 [facility] Plasma globulin measurement (mass/volume) Plasma globulin measurement (mass/volume) 3.2 2.3 - 3.5 04/14/2018 [facility] Prothrombin time (PT) in platelet poor plasma by coagulation assay Prothrombin time (PT) in platelet poor plasma by coagulation assay 12.4 11.9 - 14.5 04/14/2018 [facility] Serum or plasma alanine aminotransferase measurement (enzymatic activity/volume) Serum or plasma alanine aminotransferase measurement (enzymatic activity/volume) 40 0 - 55 04/14/2018 [facility] Serum or plasma albumin measurement (mass/volume) Serum or plasma albumin measurement (mass/volume) 3.3 3.5 - 5.0 04/14/2018 [facility] Serum or plasma albumin/globulin mass ratio Serum or plasma albumin/globulin mass ratio 1.0 0.8 - 2.0 04/14/2018 [facility] Serum or plasma alkaline phosphatase measurement (enzymatic activity/volume) Serum or plasma alkaline phosphatase measurement (enzymatic activity/volume) 138 40 - 150 04/14/2018 [facility] Serum or plasma anion gap Serum or plasma anion gap 14.4 8 - 16 04/14/2018 [facility] Serum or plasma calcium measurement (mass/volume) Serum or plasma calcium measurement (mass/volume) 9.4 8.4 - 10.2 04/14/2018 [facility] Serum or plasma carbon dioxide, total measurement (moles/volume) Serum or plasma carbon dioxide, total measurement (moles/volume) 31 22 - 29 04/14/2018 [facility] Serum or plasma chloride measurement (moles/volume) Serum or plasma chloride measurement (moles/volume) 99 98 - 107 04/14/2018 [facility] Serum or plasma creatine kinase MB measurement (mass/volume) Serum or plasma creatine kinase MB measurement (mass/volume) 1.20 0 - 5.0 04/14/2018 [facility] Serum or plasma creatine kinase measurement (enzymatic activity/volume) Serum or plasma creatine kinase measurement (enzymatic activity/volume) 24 29 - 168 04/14/2018 [facility] Serum or plasma creatinine measurement (mass/volume) Serum or plasma creatinine measurement (mass/volume) 0.83 0.57 - 1.11 04/14/2018 [facility] Serum or plasma potassium measurement (moles/volume) Serum or plasma potassium measurement (moles/volume) 4.4 3.5 - 5.1 04/14/2018 [facility] Serum or plasma protein measurement (mass/volume) Serum or plasma protein measurement (mass/volume) 6.5 6.5 - 8.1 04/14/2018 [facility] Serum or plasma sodium measurement (moles/volume) Serum or plasma sodium measurement (moles/volume) 140 136 - 145 04/14/2018 [facility] Serum or plasma total bilirubin measurement (mass/volume) Serum or plasma total bilirubin measurement (mass/volume) 0.5 0.2 - 1.2 04/14/2018 [facility] Serum or plasma urea nitrogen measurement (mass/volume) Serum or plasma urea nitrogen measurement (mass/volume) 14 7 - 26 04/14/2018 [facility] Serum or plasma urea nitrogen/creatinine mass ratio Serum or plasma urea nitrogen/creatinine mass ratio 17 6 - 25 04/14/2018 [facility] Troponin I measurement by highly sensitive enzyme immunoassay Troponin I measurement by highly sensitive enzyme immunoassay 0.010 0 - 0.300 04/14/2018 [facility] Red Cell Distribution Width 13.6 11.7 - 14.4 04/14/2018 [facility] IM GRANULOCYTES % 1.1 0.0 - 1.0 04/14/2018 [facility] Absolute Immature Granulocyte (auto 0.07 0 - 0.1 04/14/2018 [facility] Aspartate Amino Transf (AST/SGOT) 39 5 - 34 04/14/2018 [facility] Bone Density DXA [employer] MA Bone [...] for fracture. This exam was interpreted at [id number] for FIDEL Ozuna 15. Irving Villar M.D., cm/erica:03/24/2018 12:17:26 [employer] Operator(s): Anuradha EASON(R)([place]), [facility] 03/23/2018 - - Read by: Jose Rice MD Dictated Date/time: 03/24/18 12:17 Electronically Signed by: Jose Rice MD 03/24/18 12:17 [facility] Spine [...] Yuki Gallo MD 03/16/18 17:09 FINAL REPORT [facility] Serum or plasma thyrotropin measurement by detection limit <=0.005 miu/l (units/volume) Serum or plasma thyrotropin measurement by detection limit <=0.005 miu/l (units/volume) 0.895 0.350 - 4.940 03/09/2018 [facility] Serum or plasma lipase measurement (enzymatic activity/volume) Serum or plasma lipase measurement (enzymatic activity/volume) 21 8 - 78 03/07/2018 [facility] Lactic Acid Level 22.3 4.5 - 19.8 03/07/2018 [facility] B-Type Natriuretic Peptide 201.6 0 - 100 03/07/2018 [facility] ELECTROLYTES Potassium Lvl 4.2 meq/L 3.5 - 5.1 03/04/2018 [facility] ELECTROLYTES Chloride Lvl 101 meq/L 95 - 109 03/04/2018 [facility] ELECTROLYTES eGFR 65 mL/min/1.73m2 03/04/2018 [...] should be multiplied by the estimated BMI. [facility] ELECTROLYTES CO2 34 meq/L 24 - 32 03/04/2018 [facility] ELECTROLYTES Calcium Lvl 9.6 mg/dL 8.5 - 10.5 03/04/2018 [facility] ELECTROLYTES AGAP 9.2 meq/L 10.0 - 20.0 03/04/2018 [facility] ELECTROLYTES Creatinine Lvl 0.82 mg/dL 0.50 - 1.40 03/04/2018 [facility] ELECTROLYTES BUN 8 mg/dL 7 - 22 03/04/2018 [facility] ELECTROLYTES Sodium Lvl 140 meq/L 135 - 145 03/04/2018 [facility] ELECTROLYTES Glucose Lvl 102 mg/dL 70 - 99 03/04/2018 [facility] Capillary blood glucose measurement by glucometer (mass/volume) Capillary blood glucose measurement by glucometer (mass/volume) 172 70 - 120 02/02/2018 [facility] Manual blood myelocytes/100 leukocytes 1 0 - 0 02/02/2018 [facility] Blood lymphocytes variant count (number/volume) 1 02/02/2018 [facility] Blood anisocytosis detection by light microscopy Blood anisocytosis detection by light microscopy SLIGHT 02/02/2018 [facility] Blood lymphocytes variant count (number/volume) Blood lymphocytes variant count (number/volume) 1 02/02/2018 [facility] Blood platelets count by estimate (number/volume) Blood platelets count by estimate (number/volume) ADEQUATE 02/02/2018 [facility] Manual blood lymphocytes/100 leukocytes Manual blood lymphocytes/100 leukocytes 5 19 - 48 02/02/2018 [facility] Manual blood monocytes/100 leukocytes Manual blood monocytes/100 leukocytes 9 3.4 - 9.0 02/02/2018 [facility] Manual blood myelocytes/100 leukocytes Manual blood myelocytes/100 leukocytes 1 0 - 0 02/02/2018 [facility] Manual blood neutrophils/100 leukocytes Manual blood neutrophils/100 leukocytes 84 40 - 74 02/02/2018 [facility] Platelet morphology Platelet morphology NORMAL 02/02/2018 [facility] RBC morphology RBC morphology NORMAL 02/02/2018 [facility] Serum or plasma magnesium measurement (mass/volume) Serum or plasma magnesium measurement (mass/volume) 1.7 1.3 - 2.1 02/01/2018 [facility] Amorphous sediment detection in urine sediment by light microscopy FEW FEW 01/31/2018 [facility] Automated fine granular casts count in urine sediment by microscopy lowpower field (number/area) 1-5 0 01/31/2018 [facility] Amorphous sediment detection in urine sediment by light microscopy Amorphous sediment detection in urine sediment by light microscopy FEW FEW 01/31/2018 [facility] Automated fine granular casts count in urine sediment by microscopy lowpower field (number/area) Automated fine granular casts count in urine sediment by microscopy lowpower field (number/area) null 0 01/31/2018 [facility] CARDIAC ENZYMES Troponin-I null 0.00 - 0.40 01/14/2018 [facility] ELECTROLYTES AGAP 7.1 meq/L 10.0 - 20.0 01/14/2018 [facility] ELECTROLYTES eGFR 70 mL/min/1.73m2 01/14/2018 Result [...] should be multiplied by the estimated BMI. [facility] ELECTROLYTES Chloride Lvl 100 meq/L 95 - 109 01/14/2018 [facility] ELECTROLYTES CO2 33 meq/L 24 - 32 01/14/2018 [facility] ELECTROLYTES Calcium Lvl 9.0 mg/dL 8.5 - 10.5 01/14/2018 [facility] ELECTROLYTES Glucose Lvl 107 mg/dL 70 - 99 01/14/2018 [facility] ELECTROLYTES Creatinine Lvl 0.76 mg/dL 0.50 - 1.40 01/14/2018 [facility] ELECTROLYTES Sodium Lvl 136 meq/L 135 - 145 01/14/2018 [facility] ELECTROLYTES Potassium Lvl 4.1 meq/L 3.5 - 5.1 01/14/2018 [facility] ELECTROLYTES BUN 12 mg/dL 7 - 22 01/14/2018 [facility] HEMATOLOGY Segs-Bands # 5.8 K/CMM 1.5 - 8.1 01/14/2018 [facility] HEMATOLOGY Basophils 1.0 % 0.0 - 1.0 01/14/2018 [facility] HEMATOLOGY Basophils # 0.1 K/CMM 0.0 - 0.2 01/14/2018 [facility] HEMATOLOGY Monocytes # 0.7 K/CMM 0.0 - 0.8 01/14/2018 [facility] HEMATOLOGY Lymphocytes # 1.5 K/CMM 1.0 - 5.5 01/14/2018 [facility] HEMATOLOGY Monocytes 8.9 % 2.0 - 12.0 01/14/2018 [facility] HEMATOLOGY Eosinophils 0.6 % 0.0 - 4.0 01/14/2018 [facility] HEMATOLOGY Lymphocytes 18.2 % 20.0 - 40.0 01/14/2018 [facility] HEMATOLOGY Segs 71.3 % 45.0 - 75.0 01/14/2018 [facility] HEMATOLOGY Platelet 374 K/CMM 133 - 450 01/14/2018 [facility] MPV 7.6 fL 7.4 - 10.4 01/14/2018 [facility] RDW 13.7 % 11.5 - 14.5 01/14/2018 [facility] MCV 86.6 fL 80.0 - 98.0 01/14/2018 [facility] MCH 28.8 pg 27.0 - 31.0 01/14/2018 [facility] MCHC 33.2 g/dL 32.0 - 36.0 01/14/2018 [facility] Hct 38.1 % 36.0 - 48.0 01/14/2018 [facility] RBC 4.41 M/CMM 4.20 - 5.40 01/14/2018 [facility] Hgb 12.7 g/dL 12.0 - 16.0 01/14/2018 [facility] WBC 8.1 K/CMM 3.7 - 10.4 01/14/2018 [facility] Chest 1view DX Chest 1view DX EXAM: Chest radiograph HISTORY: Mid back pain COMPARISON: None TECHNIQUE: Frontal view of the chest FINDINGS/IMPRESSION: COPD. No appreciable pneumonia, edema, or significant pleural effusion. Probable calcified granuloma left upper lobe; follow-up radiographs in 6 months can be obtained to document stability. Heart size normal. Mild elevation left hemidiaphragm. SL: [id number] 01/14/2018 - - Read by: Porter Herrera MD Dictated Date/time: 01/14/18 15:56 Electronically Signed by: Porter Herrera MD 01/14/18 16:00 FINAL REPORT [facility] thoracic wo contrast CT Spine thoracic wo [...] correlation with clinical exam is recommended. 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 2. Multilevel disc space narrowing. SL: [id number] 08/17/2017 - - Read by: Travon Billy MD Dictated Date/time: 08/17/17 11:22 Electronically Signed by: Travon Billy MD 08/17/17 11:26 FINAL REPORT [facility] metabolic 1999 panel - Serum or Plasma ALT 22 U/L 0 - 55 06/18/2017 [facility] metabolic 1999 panel - Serum or Plasma AST 26 U/L 5 - 34 06/18/2017 [facility] metabolic 1999 panel - Serum or Plasma BUN 7.4 mg/dL 9.8 - 20.1 06/18/2017 [facility] metabolic 1999 panel - Serum or Plasma alk phos 78 unit/L 40 - 150 06/18/2017 [facility] metabolic 1999 panel - Serum or Plasma glucose 96 mg/dL 70 - 99 06/18/2017 [facility] metabolic 1999 panel - Serum or Plasma albumin 3.4 g/dL 3.5 - 5.0 06/18/2017 [facility] metabolic 1999 panel - Serum or Plasma creatinine 0.68 mg/dL 0.57 - 1.11 06/18/2017 [facility] metabolic 1999 panel - Serum or Plasma eGFR non- >60 >60 06/18/2017 [facility] metabolic 1999 panel - Serum or Plasma total bilirubin 0.3 mg/dL 0.2 - 1.2 06/18/2017 [facility] metabolic 1999 panel - Serum or Plasma eGFR - >60 >60 06/18/2017 [facility] metabolic 1999 panel - Serum or Plasma sodium 139 mEq/L 136 - 145 06/18/2017 [facility] metabolic 1999 panel - Serum or Plasma potassium 5.9 mEq/L 3.5 - 5.1 06/18/2017 [facility] metabolic 1999 panel - Serum or Plasma chloride 99 mmol/L 98 - 107 06/18/2017 [facility] metabolic 1999 panel - Serum or Plasma total protein 6.6 g/dL 6.4 - 8.3 06/18/2017 [facility] metabolic 1999 panel - Serum or Plasma calcium 9.5 mg/dL 8.4 - 10.2 06/18/2017 [facility] metabolic 1999 panel - Serum or Plasma CO2 30.8 mmol/L 23.0 - 31.0 06/18/2017 [facility] metabolic 1999 panel - Serum or Plasma anion gap 9 calc 06/18/2017 [facility] Lipid 1995 panel - Serum or Plasma HDL 75 mg/dL 40 - 60 06/18/2017 [facility] Lipid 1995 panel - Serum or Plasma triglyceride 104 mg/dL 0 - 149 06/18/2017 [facility] Lipid 1995 panel - Serum or Plasma VLDL calc. 21 mg/dL 06/18/2017 [facility] Lipid 1995 panel - Serum or Plasma cholesterol/HDL ratio 2.3 mg/dL 06/18/2017 [facility] Lipid 1995 panel - Serum or Plasma non-HDL cholesterol calc. 100 mg/dL 0 - 160 06/18/2017 [facility] Lipid 1995 panel - Serum or Plasma cholesterol 175 mg/dL 0 - 199 06/18/2017 [facility] Lipid 1995 panel - Serum or Plasma LDL calc. 79 mg/dL 0 - 130 06/18/2017 [facility] Thyrotropin [Units/volume] in Serum or Plasma TSH 0.427 uIU/mL 0.350 - 4.940 06/18/2017 [facility] CBC W Auto Differential panel - Blood WBC 7.45 x10*3/L 3.98 - 10.04 06/18/2017 [facility] CBC W Auto Differential panel - Blood RBC 4.17 10*12/L 3.93 - 5.22 06/18/2017 [facility] CBC W Auto Differential panel - Blood hemoglobin 12.00 g/dL 11.20 - 15.70 06/18/2017 [facility] CBC W Auto Differential panel - Blood hematocrit 38.9 % 34.1 - 44.9 06/18/2017 [facility] CBC W Auto Differential panel - Blood MCV 93.3 fL 80.0 - 100.0 06/18/2017 [facility] CBC W Auto Differential panel - Blood MCH 28.8 pg 25.6 - 32.2 06/18/2017 [facility] CBC W Auto Differential panel - Blood MCHC 30.8 g/dL 32.2 - 35.5 06/18/2017 low [facility] CBC W Auto Differential panel - Blood RDW-SD 48.7 fL 36.4 - 46.3 06/18/2017 [facility] CBC W Auto Differential panel - Blood platelet count 366.0 k/uL 182.0 - 369.0 06/18/2017 [facility] CBC W Auto Differential panel - Blood MPV 10.6 fL 7.5 - 11.5 06/18/2017 [facility] CBC W Auto Differential panel - Blood neut% 59.3 % 34.0 - 71.1 06/18/2017 [facility] CBC W Auto Differential panel - Blood lymph% 22.6 % 19.3 - 51.7 06/18/2017 [facility] CBC W Auto Differential panel - Blood mon% 8.6 % 4.7 - 12.5 06/18/2017 [facility] CBC W Auto Differential panel - Blood eos% 8.6 % 0.7 - 5.8 06/18/2017 [facility] CBC W Auto Differential panel - Blood baso% 0.9 % 0.1 - 1.2 06/18/2017 [facility] CBC W Auto Differential panel - Blood neut# 4.4 x10*3/L 1.6 - 6.1 06/18/2017 [facility] CBC W Auto Differential panel - Blood lymph# 1.7 x10*3/L 1.2 - 3.7 06/18/2017 [facility] CBC W Auto Differential panel - Blood mon# 0.6 x10*3/L 0.2 - 0.9 06/18/2017 [facility] CBC W Auto Differential panel - Blood eos# 0.64 x10*3/L 0.04 - 0.36 06/18/2017 [facility] CBC W Auto Differential panel - Blood baso# 0.07 x10*3/L 0.01 - 0.08 06/18/2017 [facility] Comprehensive metabolic 1999 panel - Serum or Plasma glucose 120 mg/dL 65 - 99 11/13/2016 [facility] Comprehensive metabolic 1999 panel - Serum or Plasma urea nitrogen (BUN) 16 mg/dL 7 - 25 11/13/2016 [facility] Comprehensive metabolic 1999 panel - Serum or Plasma creatinine 0.79 mg/dL 0.60 - 0.88 11/13/2016 [facility] Comprehensive metabolic 1999 panel - Serum or Plasma eGFR non-afr. finnish 68 mL/min/1.73m2 > or=60 11/13/2016 [facility] Comprehensive metabolic 1999 panel - Serum or Plasma eGFR 79 mL/min/1.73m2 > or=60 11/13/2016 [facility] Comprehensive metabolic 1999 panel - Serum or Plasma BUN/creatinine ratio not applicable 6 - 11/13/2016 [facility] Comprehensive metabolic 1999 panel - Serum or Plasma sodium 136 mmol/L 135 - 146 11/13/2016 [facility] Comprehensive metabolic 1999 panel - Serum or Plasma potassium 4.8 mmol/L 3.5 - 5.3 11/13/2016 [facility] Comprehensive metabolic 1999 panel - Serum or Plasma chloride 98 mmol/L 98 - 110 11/13/2016 [facility] Comprehensive metabolic 1999 panel - Serum or Plasma carbon dioxide 34 mmol/L 20 - 31 11/13/2016 [facility] Comprehensive metabolic 1999 panel - Serum or Plasma calcium 9.7 mg/dL 8.6 - 10.4 11/13/2016 [facility] Comprehensive metabolic 1999 panel - Serum or Plasma protein, total 6.8 g/dL 6.1 - 8.1 11/13/2016 [facility] Comprehensive metabolic 1999 panel - Serum or Plasma albumin 3.9 g/dL 3.6 - 5.1 11/13/2016 [facility] Comprehensive metabolic 1999 panel - Serum or Plasma globulin 2.9 g/dL_(calc) 1.9 - 3.7 11/13/2016 [facility] Comprehensive metabolic 1999 panel - Serum or Plasma albumin/globulin ratio 1.3 (calc) 1.0 - 2.5 11/13/2016 [facility] Comprehensive metabolic 1999 panel - Serum or Plasma bilirubin, total 0.4 mg/dL 0.2 - 1.2 11/13/2016 [facility] Comprehensive metabolic 1999 panel - Serum or Plasma alkaline phosphatase 81 U/L 33 - 130 11/13/2016 [facility] Comprehensive metabolic 1999 panel - Serum or Plasma AST 17 U/L 10 - 35 11/13/2016 [facility] Comprehensive metabolic 1999 panel - Serum or Plasma ALT 10 U/L 6 - 29 11/13/2016 [facility] Lipid 1995 panel - Serum or Plasma cholesterol, total 190 mg/dL 125 - 200 11/13/2016 [facility] Lipid 1995 panel - Serum or Plasma HDL cholesterol 83 mg/dL > or=46 11/13/2016 [facility] Lipid 1995 panel - Serum or Plasma triglycerides 86 mg/dL <150 11/13/2016 [facility] Lipid 1995 panel - Serum or Plasma LDL-cholesterol 90 mg/dL_(calc) <130 11/13/2016 [facility] Lipid 1996 panel - Serum or Plasma chol/HDLC ratio 2.3 (calc) < or=5.0 11/13/2016 [facility] Lipid 1996 panel - Serum or Plasma non HDL cholesterol 107 mg/dL_(calc) 11/13/2016 [facility] Comprehensive metabolic 1999 panel - Serum or Plasma ALT 10.0 U/L 0.0 - 55.0 05/22/2016 [facility] Comprehensive metabolic 1999 panel - Serum or Plasma AST 25.0 U/L 5.0 - 34.0 05/22/2016 [facility] Comprehensive metabolic 1999 panel - Serum or Plasma BUN 8.0 mg/dL 7.0 - 20.0 05/22/2016 [facility] Comprehensive metabolic 1999 panel - Serum or Plasma alk phos 75.0 unit/L 40.0 - 150.0 05/22/2016 [facility] Comprehensive metabolic 1999 panel - Serum or Plasma glucose 111.0 mg/dL 70.0 - 99.0 05/22/2016 [facility] Comprehensive metabolic 1999 panel - Serum or Plasma albumin 4.0 g/dL 3.5 - 5.0 05/22/2016 [facility] metabolic 1999 panel - Serum or Plasma creatinine 0.8 mg/dL 0.6 - 1.1 05/22/2016 [facility] Comprehensive metabolic 1999 panel - Serum or Plasma eGFR non- >60 >60.0 05/22/2016 [facility] Comprehensive metabolic 1999 panel - Serum or Plasma total bilirubin 0.7 mg/dL 0.2 - 1.2 05/22/2016 [facility] Comprehensive metabolic 1999 panel - Serum or Plasma eGFR - >60 >60.0 05/22/2016 [facility] Comprehensive metabolic 1999 panel - Serum or Plasma sodium 140.0 mEq/L 137.0 - 144.0 05/22/2016 [facility] Comprehensive metabolic 1999 panel - Serum or Plasma potassium 4.7 mEq/L 3.5 - 5.0 05/22/2016 [facility] Comprehensive metabolic 1999 panel - Serum or Plasma chloride 98.0 mmol/L 101.0 - 110.0 05/22/2016 low [facility] Comprehensive metabolic 1999 panel - Serum or Plasma total protein 7.1 g/dL 6.4 - 8.3 05/22/2016 [facility] Comprehensive metabolic 1999 panel - Serum or Plasma calcium 10.0 mg/dL 8.4 - 10.2 05/22/2016 [facility] Comprehensive metabolic 1999 panel - Serum or Plasma CO2 31.6 mmol/L 23.0 - 31.0 05/22/2016 high [facility] Comprehensive metabolic 1999 panel - Serum or Plasma anion gap 10.4 calc 05/22/2016 [facility] Lipid 1995 panel - Serum or Plasma HDL 72.0 mg/dL 40.0 - 60.0 05/22/2016 high [facility] Lipid 1995 panel - Serum or Plasma triglyceride 102.0 mg/dL 0.0 - 149.0 05/22/2016 [facility] Lipid 1995 panel - Serum or Plasma VLDL calc. 20.4 mg/dL 05/22/2016 [facility] Lipid 1995 panel - Serum or Plasma cholesterol/HDL ratio 2.3 mg/dL 05/22/2016 [facility] Lipid 1995 panel - Serum or Plasma non-HDL cholesterol calc. 97.0 mg/dL 0.0 - 160.0 05/22/2016 [facility] Lipid 1995 panel - Serum or Plasma cholesterol 169.0 mg/dL 0.0 - 199.0 05/22/2016 [facility] Lipid 1996 panel - Serum or Plasma LDL calc. 76.6 mg/dL 0.0 - 130.0 05/22/2016 [facility] Thyrotropin [Units/volume] in Serum or Plasma TSH 0.079 uIU/mL 0.350 - 4.940 05/22/2016 [facility] Vital Signs Vital Sign Value Date Comments Source Temperature Oral (F) 98.6 F 10/25/2018 [facility] Respitory Rate 16 10/25/2018 [facility] Systolic (mm Hg) 90 10/25/2018 [facility] Diastolic (mm Hg) 52 10/25/2018 [facility] Heart Rate 69 10/25/2018 [facility] Temperature Oral (F) 97.8 F 10/25/2018 [facility] Heart Rate 65 10/25/2018 [facility] Systolic (mm Hg) 93 10/25/2018 [facility] Diastolic (mm Hg) 53 10/25/2018 [facility] Respitory Rate 18 10/25/2018 [facility] Respitory Rate 18 10/25/2018 [facility] Temperature Oral (F) 98.1 F 10/25/2018 [facility] Heart Rate 75 10/25/2018 [facility] Systolic (mm Hg) 96 10/25/2018 [facility] Diastolic (mm Hg) 62 10/25/2018 [facility] Weight 39 10/14/2018 [facility] BMI Calculated 16.79 10/14/2018 [facility] Height 152.4 cm 10/14/2018 [facility] Systolic (mm Hg) 92 03/16/2018 [facility] Diastolic (mm Hg) 52 03/16/2018 [facility] Systolic (mm Hg) 113 03/16/2018 [facility] Diastolic (mm Hg) 58 03/16/2018 [facility] Respitory Rate 20 03/16/2018 [facility] Systolic (mm Hg) 108 03/16/2018 [facility] Diastolic (mm Hg) 55 03/16/2018 [facility] Respitory Rate 20 03/16/2018 [facility] Respitory Rate 31 03/16/2018 [facility] Heart Rate 66 03/16/2018 [facility] Height 152.4 cm 03/16/2018 [facility] BMI Calculated 17.81 03/16/2018 [facility] Weight 41.364 03/16/2018 [facility] Height 152.4 cm 03/15/2018 [facility] BMI Calculated 18.02 03/15/2018 [facility] Weight 41.864 03/15/2018 [facility] Temperature Oral (F) 98.1 F 03/04/2018 [facility] Systolic (mm Hg) 131 03/04/2018 [facility] Diastolic (mm Hg) 61 03/04/2018 [facility] Respitory Rate 20 03/04/2018 [facility] Weight 41.818 03/04/2018 [facility] BMI Calculated 18.01 03/04/2018 [facility] Height 152.4 cm 03/04/2018 [facility] Respitory Rate 20 03/04/2018 [facility] Heart Rate 68 03/04/2018 [facility] Systolic (mm Hg) 123 03/04/2018 [facility] Diastolic (mm Hg) 63 03/04/2018 [facility] Temperature Oral (F) 98.4 F 03/04/2018 [facility] Systolic (mm Hg) 123 01/15/2018 [facility] Diastolic (mm Hg) 72 01/15/2018 [facility] Respitory Rate 18 01/15/2018 [facility] Heart Rate 70 01/15/2018 [facility] Temperature Oral (F) 98.5 F 01/15/2018 [facility] BMI Calculated 18.96 01/14/2018 [facility] Weight 45.511 01/14/2018 [facility] Height 154.94 cm 01/14/2018 [facility] Systolic (mm Hg) 127 01/14/2018 [facility] Diastolic (mm Hg) 69 01/14/2018 [facility] Systolic (mm Hg) 113 01/14/2018 [facility] Diastolic (mm Hg) 49 01/14/2018 [facility] Temperature Oral (F) 97.8 F 01/14/2018 [facility] Respitory Rate 20 01/14/2018 [facility] Temperature Oral (F) 97.5 F 01/14/2018 [facility] Respitory Rate 22 01/14/2018 [facility] BMI Calculated 18.33 01/14/2018 [facility] Weight 45.455 01/14/2018 [facility] Heart Rate 75 01/14/2018 [facility] Height 157.48 cm 01/14/2018 [facility] Diastolic (mm Hg) 58 12/08/2017 [facility] Temperature Oral (F) 97.1 F 08/17/2017 [facility] Heart Rate 59 08/17/2017 [facility] Respitory Rate 18 08/17/2017 [facility] Systolic (mm Hg) 105 08/17/2017 [facility] Diastolic (mm Hg) 61 08/17/2017 [facility] Systolic (mm Hg) 125 08/17/2017 [facility] Diastolic (mm Hg) 80 08/17/2017 [facility] Heart Rate 59 08/17/2017 [facility] Respitory Rate 18 08/17/2017 [facility] Temperature Oral (F) 97.8 F 08/17/2017 [facility] Respitory Rate 18 08/17/2017 [facility] Systolic (mm Hg) 128 08/17/2017 [facility] Diastolic (mm Hg) 47 08/17/2017 [facility] Heart Rate 55 08/17/2017 [facility] Weight 44.545 08/17/2017 [facility] BMI Calculated 16.34 08/17/2017 [facility] Height [...] Provider ADM Date DC Date Status Source [place] - [facility] - [facility] Gianni A. Darron Gray MD: [address] [place], [place] [address], Ph. [id number] [facility] Rob Gray 05/21/2016 [facility] [place] [facility] Gianni A. Darron Gray MD: [address] [place] [address], Ph. [id number] [facility] Rob Gray 09/15/2016 [facility] Gianni A. Darron Gray MD: [address] [place] [address], Ph. [id number] [facility] Gianni A. Darron Gray MD: [address] [place] [address], Ph. [id number] Gianni Gray 11/11/2016 [facility] Gianni Antony. Darron Gray MD: [address] [place] [address], Ph. [id number] Gianni Gray 01/19/2017 [facility] Giannishreya Gray MD: [address], [address], [place] [address], Ph. [id number] Gianni Gray 05/01/2017 [facility] Gianni Antony. Darron Gray MD: [address] [place] [address], Ph. [id number] Gianni Gray 05/12/2017 [facility] Gianni Hardy. Darron Gray MD: [address] [place] [address], Ph. [id number] Gianni Gray 06/18/2017 [facility] [id number] Bernardo Mcnally 08/17/2017 08/17/2017 [facility] Gianni Antony. Darron Gray MD: [address] [place] [address], Ph. [id number] Gianni Gray 08/19/2017 [facility] [id number] LUIS MANUEL BULLARD MD 09/25/2017 [facility] Fuentes Wilder MD: [address] [place] [address], Ph. [id number] Fuentes Wilder 11/05/2017 [facility] Gianni Gray MD: [address] [place], [place] [address], Ph. [id number] Gianni Gray 11/10/2017 [facility] Departed Emergency Room [id number] DAYA AGUERO MD 11/17/2017 11/18/2017 [facility] Gianni Gray MD: [address] [place] [address], Ph. [id number] Gianni Gray 12/08/2017 [facility] Observation [id number] Taco Frazier 01/14/2018 01/15/2018 [facility] Discharged Inpatient [id number] BRENDEN BEAULIEU MD 01/31/2018 02/05/2018 [facility] Emergency [id number] [place] Wen 03/04/2018 03/04/2018 [facility] Registered Clinic [id number] BRENDEN BEAULIEU MD 03/05/2018 [facility] Discharged Inpatient [id number] BRENDEN BEAULIEU MD 03/08/2018 03/11/2018 [facility] Day Surgery [id number] Nicola Mae 03/16/2018 03/17/2018 [facility] [place] Out[facility] Diag Services [id number] Nicola Carmelita 03/23/2018 03/24/2018 [facility] [id number] Nicola Carmelita 04/08/2018 04/08/2018 [facility] Inpatient [id number] BRENDEN BEAULIEU MD 04/14/2018 04/21/2018 [facility] Discharged Inpatient [id number] BRENDEN BEAULIEU MD 06/26/2018 07/12/2018 [facility] Discharged Inpatient [id number] BRENDEN BEAULIEU MD 09/07/2018 09/20/2018 [facility] Inpatient [id number] Luis Manuel Isha 10/14/2018 10/26/2018 [facility] Procedures Procedure Code Date Perfomer Comments Source INSERTION OF INFUSION DEV INTO SUP VENA CAVA, PERC APPROACH [id number] 07/05/2018 MARLENY BIGGS [facility] RELEASE SMALL INTESTINE, OPEN APPROACH [id number] 06/30/2018 [facility] INSPECTION OF GASTROINTESTINAL TRACT, PERC ENDO APPROACH [id number] 06/30/2018 [facility] DRAINAGE OF STOMACH WITH DRAINAGE DEVICE, VIA OPENING [id number] 06/26/2018 [facility] Computed tomography of abdomen and pelvis with contrast [id number] 06/26/2018 [facility] CT extremity lower wo contrast [id number] 04/14/2018 [facility] Computed tomography of pelvis without contrast [id number] 04/14/2018 [facility] DILATION OF ESOPHAGOGASTRIC JUNCTION, ENDO [id number] 03/11/2018 [facility] EXCISION OF LOWER ESOPHAGUS, ENDO, DIAGN [id number] 03/11/2018 [facility] EXCISION OF STOMACH, PYLORUS, ENDO, DIAGN [id number] 03/11/2018 [facility] EXCISION OF ASCENDING COLON, ENDO, DIAGN [id number] 03/11/2018 [facility] EXCISION OF SIGMOID COLON, ENDO, DIAGN [id number] 03/11/2018 [facility] CT of abdomen and pelvis without contrast [id number] 03/07/2018 [facility] Computed tomography of thoracic spine without contrast [id number] 03/07/2018 [facility] Computed tomography of abdomen and pelvis with contrast [id number] 03/05/2018 [facility] Computed tomography of brain without radiopaque contrast [id number] 02/02/2018 [facility] Computed tomography of abdomen and pelvis with contrast [id number] 01/31/2018 [facility] Computed tomography of brain without radiopaque contrast [id number] 11/18/2017 [facility] Computed tomography of cervical spine without contrast [id number] 11/18/2017 [facility] Computed tomography of abdomen and pelvis with contrast [id number] 11/18/2017 [facility] X-RAY THORACIC SPINE 2 VIEW 13081 05/12/2017 [facility] XR, lumbar spine 05/12/2017 [facility] Egd 09/16/2016 [facility] Cancer Surgery 09/07/2016 [facility] Egd 01/31/2014 [facility] Colonoscopy 01/11/2010 [facility] Gastrointestinal Surgery 09/07/1999 [facility] Bowel Surgery Procedure [id number] 09/07/1999 [facility] Thyroidectomy [id number] 09/07/1988 [facility] Thyroidectomy [id number] 09/07/1988 [facility] [place] Thyroidectomy [id number] 09/07/1988 [facility] Thyroid Surgery 09/07/1988 [facility] Removal of Thyroid 73900 09/07/1988 [facility] Cholecystectomy 09/07/1981 [facility] Other 09/07/1971 [facility] Back Surgery 09/07/1971 [facility] Repair of Vagina [id number] 09/07/1970 [facility] Hysterectomy (Partial) 09/07/1969 [facility] Back Surgery 09/07/1957 [facility] Hemorrhoidectomy 09/07/1956 [facility] Appendectomy 09/07/1946 [facility] Tonsilectomy/adenoids 09/07/1938 [facility] Abdominal hysterectomy [id number] [facility] Appendectomy [id number] [facility] Complete resection of colon 79477619 [facility] Gallbladder operation 08692353 [facility] Laminectomy 150586812 [facility] Removal of thyroid nodule 986998143 [facility] Tonsillectomy 042741495 [facility] Abdominal hysterectomy 800428891 [facility] Anterior and posterior repair 41312127 [facility] Appendectomy 17423585 [facility] Cholecystectomy 53242397 [facility] Colectomy 97637388 [facility] Epidural steroid injection 388298448 [facility] Hemorrhoidectomy 62947181 [facility] Laminectomy 432079110 [facility] Mohs surgery 982672518 [facility] ORIF - Open reduction and internal fixation of fracture 32921556 [facility] Removal of thyroid nodule 393498490 [facility] Tonsillectomy 415467870 [facility] Abdominal hysterectomy 469953939 [facility] [place] Anterior and posterior repair [id number] [facility] [place] Appendectomy [id number] [facility] [place] Cholecystectomy [id number] [facility] [place] Colectomy [id number] [facility] [place] Epidural steroid injection 796492636 [facility] [place] Hemorrhoidectomy 79753706 [facility] [place] Laminectomy 294150046 [facility] [place] Mohs surgery [id number] [facility] [place] Removal of thyroid nodule 895047880 [facility] [place] Tonsillectomy [id number] [facility] [place] Abdominal hysterectomy 656575338 [facility] Appendectomy 49696920 [facility] Complete resection of colon 53369222 [facility] Gallbladder operation 87886422 [facility] Laminectomy 617356825 [facility] Removal of thyroid nodule 736601137 [facility] Tonsillectomy 551438683 [facility] Anterior and posterior repair 98862259 [facility] Cholecystectomy 24159793 [facility] Colectomy 03607101 [facility] Epidural steroid injection 279401933 [facility] Hemorrhoidectomy 04690364 [facility] Mohs surgery [id number] [facility] ORIF - Open reduction and internal fixation of fracture 78748168 [facility]
--- OUTSIDE RECORDS SUMMARY | 2018-11-29 10:21 | XMS REPORT | Summary of Care ---
Author Author [facility] [place] Organization [facility] [place] Address Unknown Phone Unavailable Encounter RIMA Mata(FIN) [id number] Date(s): 03/23/18 - 03/23/18 [facility] [place] [address] [place] [address] [phone] Encounter Diagnosis Age-related osteoporosis without current pathological fracture (Final) - 03/28/18 Asymptomatic menopausal state (Final) - Discharge Disposition: Home or Self Care Attending Physician: Nicola Mae MD Referring Physician: [...] Hemorrhoidectomy Completed Laminectomy Completed Mohs surgery Completed Removal of thyroid nodule Completed Tonsillectomy Completed Social History Social History Type Response Exercise Exercise frequency: 1-2 times/week. Exercise type: PT/OT. Alcohol Never Smoking Status Current some day smoker; Exposure to Tobacco Smoke None; Cigarette Smoking Last 365 Days Yes; Reg Smoking Cessation Counseling No entered on: 08/02/18 Assessment and Plan No data available for this section
[2018-11-29] MEDS ORDERED: SODIUM CHLORIDE 0.9% 1000ML 1,000 ML ONE (10:25)
[2018-11-29] MEDS ORDERED: SODIUM CHLORIDE 0.9% 500ML 500 ML ONE (10:25)
[2018-11-29] MEDS ORDERED: SODIUM CHLORIDE 0.9% 1000ML 1,000 ML IV STA (10:27)
[2018-11-29 11:00] LABS: BASOPHILS # (AUTO) 0.1 (0.0-0.1); BASOPHILS % 0.2 % (0.0-1.0); EOSINOPHILS # (AUTO) 0.1 (0.0-0.4); EOSINOPHILS % 0.2 % (0.0-6.0); HEMATOCRIT 35.1 % (34.2-44.1); HEMOGLOBIN 10.6 g/dL (12.0-16.0); LYMPHOCYTES # (AUTO) 0.5 (1.0-3.2); LYMPHOCYTES % 1.4 % (18.0-39.1); MEAN CORPUSCULAR HEMOGLOBIN 24.4 pg (28-32); MEAN CORPUSCULAR HGB CONC 30.2 g/dL (31-35); MEAN CORPUSCULAR VOLUME 80.7 fL (81-99); MONOCYTES # (AUTO) 1.4 (0.2-0.8); MONOCYTES % 3.9 % (4.4-11.3); NEUTROPHILS # (AUTO) 34.8 (2.1-6.9); NEUTROPHILS % 93.5 % (38.7-80.0); PLATELET COUNT 790 x10e3/uL (140-360); RED BLOOD COUNT 4.35 x10e6/uL (3.6-5.1); RED CELL DISTRIBUTION WIDTH 17.6 % (11.7-14.4)
[2018-11-29 11:10] LABS: ALBUMIN 2.7 g/dL (3.5-5.0); ALBUMIN/GLOBULIN RATIO 0.7 (0.8-2.0); ANION GAP 19.8 mmol/L (8-16); CALCIUM 8.7 mg/dL (8.4-10.2); CREATININE, SERUM 1.12 mg/dL (0.57-1.11); POTASSIUM 3.8 mmol/L (3.5-5.1)
[2018-11-29] MEDS ORDERED: PIPER-TAZ 3.375 GM 50 ML IV STA (11:21)
[2018-11-29] MEDS ORDERED: VANCOMYCIN 1GM/NS 250 ML 250 ML IV STA (11:21)
--- NOTE | 2018-11-29 11:21 | NUR ---
APPROX 30 CC URINE AFTER CATHETER INSERTION
[2018-11-29 11:30] LABS: CREATINE KINASE MB 1.6 ng/mL (0-5.0); THYROID STIMULATING HORMONE 4.05 uIU/mL (0.350-4.940)
[2018-11-29] MEDS ORDERED: DEXTROSE 5%/0.9% SOD CHL 1,000 ML IV ONE (11:30)
--- NOTE | 2018-11-29 11:33 | Diagnostic Imaging Report ---
PROCEDURE: CHEST SINGLE (PORTABLE) COMPARISON: 09/18/2018. INDICATIONS: SHORTNESS OF BREATH FINDINGS: The lungs remain hyperinflated. New patchy consolidation in the right and left lower lobes. No sizable pleural effusion or pneumothorax. Stable cardiomediastinal contour with tortuosity and atherosclerotic calcification of the thoracic aorta. No acute osseous abnormality CONCLUSION: New patchy bilateral lower lobe consolidations may reflect multifocal pneumonia or aspiration in the correct clinical setting. Followup chest radiographs in 8 weeks are suggested to document resolution after treatment. Dictated by: Boyd Hernandes M.D. on 11/29/2018 at 11:33 Electronically approved by: Boyd Hernandes M.D. on 11/29/2018 at 11:33
--- NOTE | 2018-11-29 11:38 | NUR ---
DAUGHTER GIVEN LEMON GLYCERIN SWABSTICKS FOR MOTHER'S DRY MOUTH PER HER REQUEST
[2018-11-29 12:10] LABS: BILIRUBIN,URINE NEGATIVE (NEGATIVE); CLARITY,URINE CLEAR (CLEAR); COLOR,URINE YELLOW (YELLOW); KETONES,URINE NEGATIVE (NEGATIVE); LEUKOCYTE ESTERASE ,URINE NEGATIVE (NEGATIVE); NITRITE,URINE NEGATIVE (NEGATIVE); PROTEIN,URINE DIPSTICK NEGATIVE (NEGATIVE); URINE UROBILINOGEN 0.2 mg/dL (0.2 - 1)
--- NOTE | 2018-11-29 12:30 | NUR ---
PT BRIEF CHANGED
[2018-11-29 12:32] LABS: EPITHELIAL CELLS,URINE RARE /LPF
[2018-11-29 12:33] LABS: HYALINE CASTS 0-1 (0-1); RBC,URINE 0-5 /HPF (0-5); WBC,URINE (MAN) 0-5 /HPF (0-5)
[2018-11-29 12:34] LABS: INR 1.04; PROTHROMBIN TIME 14.1 seconds (11.9-14.5)
[2018-11-29 12:35] LABS: PARTIAL THROMBOPLASTIN TIME 27.9 seconds (23.8-35.5)
[2018-11-29] MEDS ORDERED: HYDROCODONE/APAP 5MG-325MG TAB PO ONE (13:15)
[2018-11-29] MEDS ORDERED: MORPHINE SULFATE 2 MG/ML SYR 1ML IV STA ×2 (13:37→17:04)
[2018-11-29] MEDS ORDERED: DIPHENHYDRAMINE HCL INJ 50 MG/ML VIAL IV ONE (13:45)
[2018-11-29 13:50] LABS: BAND NEUTROPHILS % (MANUAL) 32 %; LYMPHOCYTES % (MANUAL) 3 % (19-48); MONOCYTES % (MANUAL) 1 % (3.4-9.0); NEUTROPHILS % (MANUAL) 64 % (40-74)
[2018-11-29 13:51] LABS: PLATELET ESTIMATE MARKEDLY INCREASED; PLATELET MORPHOLOGY COMMENT NORMAL; RBC MORPHOLOGY COMMENT NORMAL
[2018-11-29] MEDS ORDERED: MORPHINE SULFATE INJ 4 MG/ML INJ 1ML IV ONE (14:00)
[2018-11-29] MEDS ORDERED: HYDROCORTISONE SOD SUCCINATE 100 MG VIAL IV ONE (14:45)
[2018-11-29 15:06] LABS: ABG HCO3 28 mmol/L (23-28); ABG PCO2 77 mmHg (41-51); ABG PH 7.17 (7.31-7.41); ABG PO2 212 mmHg (80-105)
--- NOTE | 2018-11-29 17:06 | NUR ---
PER MD PT MAP IS GOOD UPON ASSESSMENT
[2018-11-29] MEDS ORDERED: MORPHINE SULFATE INJ 4 MG/ML INJ 1ML IV NR (17:15)
[2018-11-29 17:34] LABS: ABG HCO3 24 mmol/L (23-28); ABG PCO2 51 mmHg (41-51); ABG PH 7.28 (7.31-7.41); ABG PO2 60 mmHg (80-105)
[2018-11-29] MEDS ORDERED: LORAZEPAM INJ 2 MG/ML VIAL IV ONE (17:45)
[2018-11-29] MEDS: IPRATROPIUM BROMIDE 0.02% 2.5 ML NEB NEB SCH ×2 (18:00→19:15)
[2018-11-29] MEDS ORDERED: MORPHINE SULFATE 2 MG/ML SYR 1ML IV PRN (18:00)
[2018-11-29] MEDS: SODIUM CHLORIDE 0.9% 1000ML 1,000 ML IV SCH (18:55)
[2018-11-29] MEDS: ALBUTEROL SULF 0.083% NEB SOLN 3 ML NEB NEB SCH ×2 (19:15→23:30)
[2018-11-29 19:31] LABS: CREATINE KINASE MB 3.1 ng/mL (0-5.0)
[2018-11-29] MEDS: OSELTAMIVIR PHOSPHATE 75 MG CAP PO SCH (21:41)
[2018-11-29] MEDS: HYDROCORTISONE SOD SUCCINATE 100 MG VIAL IV SCH (22:13)
[2018-11-30] MEDS ORDERED: HYDROCORTISONE SOD SUCCINATE 250 MG VIAL IV SCH
[2018-11-30] MEDS: SODIUM CHLORIDE 0.9% 1000ML 1,000 ML IV SCH ×2 (02:13→13:33)
[2018-11-30] MEDS: IPRATROPIUM BROMIDE 0.02% 2.5 ML NEB NEB SCH ×4 (02:30→23:41)
[2018-11-30] MEDS: ALBUTEROL SULF 0.083% NEB SOLN 3 ML NEB NEB SCH ×6 (02:30→23:51)
--- NOTE | 2018-11-30 05:30 | NUR ---
DR BEAULIEU AT BEDSIDE AT THIS TIME, DAUGHTER IS ALSO AT BEDSIDE. WILL CONTINUE TO MONITOR.
[2018-11-30] MEDS: CEFEPIME 1GM/NS 0.9% 50 ML 50 ML IV SCH ×2 (05:45→17:32)
[2018-11-30] MEDS: HYDROCORTISONE SOD SUCCINATE 100 MG VIAL IV SCH ×3 (05:45→21:20)
--- NOTE | 2018-11-30 06:00 | NUR ---
DAUGHTER WANT MOTHER SUCTIONED, EXPLAINED TO DAUGHTER BECAUSE OF MOTHERS FRAGIL CONDITION I WOULD CALL RESPIRTORY TO SUCTION PT.
--- NOTE | 2018-11-30 06:15 | NUR ---
DAUGHTER IS AT THE DESK AT THIS TIME STATING THAT RESPIRATORY HAS NOT COME TO THE ROOM AND THAT HER MOM IS GETTING AGITATED. PT IS ASKING FOR WATER AND EXPLAINED TO PT THAT WE WOULD WAIT FOR RESULT OF XRAY AND GET THE DOCTORS OPINION.
--- NOTE | 2018-11-30 06:30 | NUR ---
SPOKE TO RESPIRATORY AGAIN ABOUT PT.
[2018-11-30 06:43] LABS: BASOPHILS # (AUTO) 0.1 (0.0-0.1); BASOPHILS % 0.3 % (0.0-1.0); EOSINOPHILS # (AUTO) 0.1 (0.0-0.4); EOSINOPHILS % 0.5 % (0.0-6.0); HEMATOCRIT 31.7 % (34.2-44.1); HEMOGLOBIN 9.1 g/dL (12.0-16.0); LYMPHOCYTES # (AUTO) 0.8 (1.0-3.2); LYMPHOCYTES % 3.3 % (18.0-39.1); MEAN CORPUSCULAR HEMOGLOBIN 23.8 pg (28-32); MEAN CORPUSCULAR HGB CONC 28.7 g/dL (31-35); MONOCYTES # (AUTO) 0.7 (0.2-0.8); NEUTROPHILS # (AUTO) 21.7 (2.1-6.9); NEUTROPHILS % 92.1 % (38.7-80.0); PLATELET COUNT 490 x10e3/uL (140-360); RED BLOOD COUNT 3.82 x10e6/uL (3.6-5.1); RED CELL DISTRIBUTION WIDTH 17.8 % (11.7-14.4)
--- NOTE | 2018-11-30 06:54 | Diagnostic Imaging Report ---
EXAMINATION: CHEST SINGLE (PORTABLE) INDICATION: Pneumonia COMPARISON: 11/29/2018 and 09/18/2018 FINDINGS: AP view Limited exam. Lower chest extends out of the field of view. TUBES and LINES: None. LUNGS: Worsening multifocal airspace opacities. PLEURA: Limited evaluation of the lower chest. Possible pleural effusions. No visualized pneumothorax. HEART AND MEDIASTINUM: The visualized cardiomediastinal silhouette is unremarkable. BONES AND SOFT TISSUES: No acute osseous lesion. Soft tissues are unremarkable. IMPRESSION: Limited exam. Lower chest extends out of the field of view. Worsening multifocal airspace opacities concerning for pneumonia. Signed by: DR. Jimmy Hare MD on 11/30/2018 6:51 AM
[2018-11-30 07:00] LABS: ANION GAP 14.1 mmol/L (8-16); BLOOD UREA NITROGEN 23 mg/dL (7-26); BUN/CREATININE RATIO 31 (6-25); CARBON DIOXIDE 18 mmol/L (22-29); CHLORIDE 108 mmol/L (98-107); CREATININE, SERUM 0.74 mg/dL (0.57-1.11); EST GLOMERULAR FILTRATION RATE > 60 ML/MIN (60-); GLUCOSE 116 mg/dL (74-118); POTASSIUM 3.1 mmol/L (3.5-5.1); SODIUM 137 mmol/L (136-145)
[2018-11-30 07:05] LABS: CALCIUM 6.7 mg/dL (8.4-10.2)
--- NOTE | 2018-11-30 07:05 | NUR ---
NOTIFIED RN REGARDING PT'S CRITICAL LAB VALUE OF CALCIUM OF 6.7.
[2018-11-30] MEDS ORDERED: MAGNESIUM SULFATE 2GM/50ML 50 ML IV ONE ×2 (07:30→09:30)
[2018-11-30] MEDS: MORPHINE SULFATE INJ 4 MG/ML INJ 1ML IV PRN ×2 (08:51→13:50)
[2018-11-30 09:05] LABS: BAND NEUTROPHILS % (MANUAL) 7 %; LYMPHOCYTES % (MANUAL) 5 % (19-48); MONOCYTES % (MANUAL) 4 % (3.4-9.0); NEUTROPHILS % (MANUAL) 84 % (40-74)
[2018-11-30 09:06] LABS: ANISOCYTOSIS SLIGHT; HYPOCHROMASIA SLIGHT; POIKILOCYTOSIS SLIGHT
[2018-11-30 09:58] LABS: RBC MORPHOLOGY COMMENT NORMAL
[2018-11-30 10:35] LABS: CREATINE KINASE MB 2.6 ng/mL (0-5.0)
[2018-11-30] MEDS ORDERED: DOXYCYCLINE 100MG/NS 100ML 100 ML IV SCH (11:00)
--- NOTE | 2018-11-30 11:36 | History and Physical ---
REASON FOR ADMISSION: Sepsis secondary to influenza pneumonia. HISTORY OF PRESENT ILLNESS: The patient is an 88-year-old lady, senior care resident, who presented with a 2-day complaint of chills, was brought in and found to be in very severe sepsis with a pH of 7.1, white count of 37,000, and x-ray showing bilateral pneumonia with positive influenza, so she was placed on BiPAP, IV antibiotics, Tamiflu, and resuscitative support. The patient is doing better at the moment. PAST MEDICAL HISTORY: Significant for osteoporosis and hypertension. MEDICATIONS: See NOV. ALLERGIES: ERYTHROMYCIN AND MORPHINE. SOCIAL HISTORY: Nonsmoker, nondrinker. Lives in the senior care. FAMILY HISTORY: Hypertension. PHYSICAL EXAMINATION: VITAL SIGNS: Temperature is 98.6, blood pressure 108/70, pulse 72, and sats 100% on BiPAP. GENERAL: She is on BiPAP, but appears to be resting comfortably. NECK: Supple. CARDIOVASCULAR: Regular rate and rhythm. LUNGS: Decreased breath sounds bilaterally. ABDOMEN: Soft. Good bowel sounds. EXTREMITIES: No clubbing or cyanosis. She does have an open wound on the top part on the right dorsum of her foot. NEUROLOGIC: Moves all extremities x4. ASSESSMENT AND PLAN: 1. Sepsis secondary to pneumonia and influenza. We will continue with the Tamiflu and IV antibiotics and consult Infectious Disease. 2. Acute respiratory failure with hypoxia. Continue with the BiPAP therapy and consult Pulmonary. 3. Leukocytosis. Continue to monitor. 4. Chronic kidney disease stage 3. Continue to monitor plus IV fluids. 5. Anemia. We will recheck after IV fluids. 6. Right foot wound. We will consult Dr. Carpenter and Wound Care to assess. Please see hospital chart for full details. MD MARIA G Moreno/MARYANNE /[id number]
--- NOTE | 2018-11-30 11:40 | NUR ---
PICC LINE TEAM ARRIVED TO INSERT PICC LINE
--- NOTE | 2018-11-30 13:15 | Diagnostic Imaging Report ---
Examination: Single AP view of the chest. COMPARISON: 11/30/2018 INDICATION: PICC line placement DISCUSSION: Lines/tubes: Left PICC line with tip overlying the low SVC. Lungs: Pulmonary edema. Pleura: Layering effusions. Heart and mediastinum: The heart and the mediastinum are unremarkable. Bones and soft tissues: No acute bony abnormalities. IMPRESSION: Satisfactory left PICC line placement. Signed by: Dr. Tad Ahuja M.D. on 11/30/2018 1:11 PM
[2018-11-30] MEDS: OSELTAMIVIR PHOSPHATE 75 MG CAP PO SCH ×2 (13:33→17:00)
[2018-11-30] MEDS: LORAZEPAM INJ 2 MG/ML VIAL IV PRN (13:50)
[2018-11-30] MEDS ORDERED: HYDROCORTISONE SOD SUCCINATE 100 MG VIAL IV SCH (14:00)
[2018-11-30 14:07] LABS: ABG HCO3 23 mmol/L (23-28); ABG PCO2 50 mmHg (41-51); ABG PH 7.26 (7.31-7.41); ABG PO2 69 mmHg (80-105)
--- NOTE | 2018-11-30 14:22 | Consultation ---
DATE OF CONSULTATION: Pulmonary Consultation The patient of Dr. Hayden. Chartara, but unfortunate 88-year-old woman, admitted from [facility] where she was apparently short of breath, coughing, and cold. She has been sick for approximately 24 hours, gasping for breath, complaining of pain. History of recent fall and hip fracture, operated on at [facility]. History of small bowel obstruction in the past, colon resection in the past, diverticular disease, severe COPD, recently quit smoking. Born in [place]. She has history of carotid stenosis. FAMILY HISTORY: Positive for coronary artery disease and cancer of the breast. ALLERGIES: SHE IS ALLERGIC TO MORPHINE, WHICH CAUSES ITCHING AND ERYTHROMYCIN. PHYSICAL EXAMINATION: GENERAL: Elderly white female, awake and alert, on BiPAP. History obtained from the daughter. VITAL SIGNS: Temperature 97.7, pulse 113 and regular, respirations 19, and blood pressure 118/60. LUNGS: Diminished breath sounds. Few rhonchi. HEART: Regular rhythm. ABDOMEN: Scaphoid. EXTREMITIES: Wounds in left lower extremity, which she related to swelling in the past. PLAN: Therapy of influenza, healthcare associated pneumonia. The patient received vancomycin. Continue anti-Staph cover with doxycycline. Continue inhaled bronchodilators. Low-dose corticosteroids, wean from BiPAP as tolerated. The patient was in severe respiratory failure. She does have a DNR status. She has a leukemoid reaction. On admission, her white count was 37,000. She had blood gas 7.17, pCO2 77, pO2 212. Prognosis is poor. We will continue supportive care. Thank you for this kind referral. MD ADAM Leung/MODL /[id number]
[2018-11-30 14:33] VITALS: BP 112/51
--- NOTE | 2018-11-30 15:17 | NUR ---
WOUND CARE CONSULT: THIS IS AN 88 YEAR OLD FEMALE PATIENT ADMITTED TO [facility] FOR BILATERAL PNEUMONIA, SEPSIS, AND HYPERCAPNEIC HYPOXIC. PATIENT HAS A RIGHT DORSAL FOOT VENOUS ULCER SECONDARY TO THIRD SPACING THAT OCCURRED IN SEPTEMBER, ACCORDING TO PATIENT DAUGHTER AT BEDSIDE. RIGHT DORSAL FOOT ULCER MEASURES 4X5.5X0.3CM, 90% RED GRANULATION NOTED AND 10% ESCHAR. PATIENT HAS AN AREA OF BLANCHABLE REDNESS TO THE COCCYX MEASURING [id number]. PATIENT HAS A LEFT DORSAL FOOT DTI MEASURING 7X5.3X0CM. PATIENT HAS A LEFT LATERAL LEG VENOUS ULCER MEASURING 1.5X0.5X0.1CM, 100% PINK GRANULATION NOTED TO WOUND BED. PATIENT HAS A RIGHT LOWER LEG VENOUS ULCER MEASURING 1.5X1.5X0.1CM, 100% PINK GRANULATION NOTED TO WOUND BED. PATIENT HAS A RIGHT UPPER ARM ABRASION MEASURING 1.5X2X0.1CM, 100% PINK GRANULATION NOTED TO WOUND BED. PATIENT IS BEDBOUND AND CURRENTLY ON BIPAP. FAMILY IS AT BEDSIDE FOR ASSESSMENT. LABS: WBC23.64 [id number] URINE CULTURE PENDING. BLOOD CULTURE = NEGATIVE MEDICATIONS: CEFEPIME DOXYCYCLINE RECOMMENDATIONS: -APPLY ALTERNATION PRESSURE RELIEF MATTRESS. -CONTINUE BILATERAL HEEL PROTECTORS WITH PILLOW SUSPENSION. -TURN EVERY 2 HOURS AND PRN. -NURSING TO APPLY VENELEX THEN ALLEVYN FOAM TO COCCYX BLANCHABLE AREA OF REDNESS AND TO THE LEFT DORSAL FOOT DTI; CHANGE DAILY AND PRN. -NURSING TO APPLY XEROFORM, 4X4 GAUZE, KERLIX TO RIGHT DORSAL FOOT VENOUS ULCER, LEFT LATERAL LOWER LEG VENOUS ULCER, RIGHT LOWER LEG VENOUS ULCER AND RIGHT UPPER ARM ABRASION; CHANGE DAILY AND PRN. THANK YOU FOR THIS WOUND CARE CONSULTATION. Addendum: 11/30/18 at 1536 by Jerilyn Hawk RN Amended: Links added.
[2018-11-30] MEDS: FAMOTIDINE 20 MG/2 ML VIAL IV SCH (17:32)
[2018-11-30 18:00] VITALS: BP 124/55
[2018-11-30] MEDS ORDERED: VANCOMYCIN 1GM/NS 250 ML 250 ML IV SCH (18:00)
[2018-11-30 20:00] VITALS: BP 107/58
[2018-11-30] MEDS: HEPARIN SOD (PORCINE) 5,000 UNIT/ML VIAL SC SCH (21:20)
[2018-11-30 22:16] LABS: CREATINE KINASE MB 1.1 ng/mL (0-5.0)
[2018-11-30 23:12] VITALS: BP 107/58
[2018-12-01] VITALS: BP 113/49
--- NOTE | 2018-12-01 00:51 | Consultation ---
DATE OF CONSULTATION: REASON FOR CONSULTATION: Sepsis, septic shock, pneumonia. Thank you so much for asking me to see this patient. HISTORY OF PRESENT ILLNESS: The patient, who is currently on telemetry. The patient, who is an 88-year-old female, comes from a correction. History was taken by reviewing the chart, discussing with her daughter. She is a very elderly lady, who has history of dementia early, very weak, debility, comes in because in the correction, she was found to have fever, chills, hypotensive, lethargic. She had a pH of 7.1 on a blood gas. She was sent to the Emergency Room. In the Emergency Room, she had a white count of 37,000. Chest x-ray showed bilateral pneumonia. Influenza was positive. The patient is being admitted. She was seen by Pulmonary. The patient with history of debility, small bowel obstruction in the past, colon resection in the past, diverticular disease, severe COPD, hip fractures, who fell recently and had open reduction and internal fixation. Since then, she has been in the correction, but weak in general. The patient was admitted with shortness of breath, cough, and fever. I am asked to see her. The patient, who is sleeping on BiPAP. Family at the bedside. Her laboratory data reviewed. MEDICATION LIST: She is currently on cefepime, Atrovent, Proventil, lorazepam, Tamiflu, Solu-Cortef, and heparin. LABORATORY DATA: Her cultures are still pending. Her white count when she first came was 37.24 and today 23.6, hemoglobin of 10.6 and came down to 9.4. Sodium 137, potassium 3.1, creatinine 0.74. Her calcium was 6.7. Her magnesium was 1.1, extremely low. PAST MEDICAL HISTORY: COPD, hypertension, atrial fibrillation, hypothyroidism, hyperlipidemia, aspiration pneumonia, and congestive heart failure. PAST SURGICAL HISTORY: Hip fracture. ALLERGIES: NKA. SOCIAL HISTORY: She used to smoke, but quit in March 2018. Currently in the correction. REVIEW OF SYSTEMS: GENERAL: She is generally very weak, feeling feverish. HEENT: There is no headache, visual changes, or hearing changes. GI: There is no nausea, no vomiting. CARDIAC: There is no arrhythmia. NEURO: No seizure activity. SKIN: There is no rash. PULMONARY: She has shortness of breath and cough. PHYSICAL EXAMINATION: GENERAL: She is alert currently, follows commands. VITAL SIGNS: Stable. When she first came, she was hypotensive, shocky, now heart rate 115, blood pressure is 100/80, respiratory rate when she first came in 28 and now is down to 20. She is on BiPAP. HEENT: Normocephalic. Not icteric. NECK: Supple. No JVD. No carotid bruit. No thyromegaly. CHEST: Clear, except few crackles and rhonchi bilateral anteriorly. HEART: S1, S2. No S3, S4, or murmur. ABDOMEN: Soft. Bowel sounds present. No tenderness. EXTREMITIES: No edema. SKIN: No rash. When she first came, she had a conversation with ER physician. The family and the patient would like to be DNR. IMPRESSION: Sepsis, septic shock in a patient, who comes from a correction. Underlying history of chronic obstructive pulmonary disease. I would like her to continue with vancomycin at 1 g q.24 hours since she was recently in the hospital and she has healthcare-associated pneumonia. Continue with the cefepime at 1 g q.12. Continue with Tamiflu for the influenza. The patient is DNR. I doubt the patient has active infection at the present time. I think we can discontinue doxycycline. We will discuss with Pulmonary. Agree with steroids. Her prognosis is extremely poor. Family is aware. Agree with supportive care. We will reassess in the morning. ADDENDUM: Discussing with the family, the patient also has been having problem with bilateral feet and she has had some ulcers. The right foot mainly had some superficial ulcer, found to have some drainage from it. I think antibiotic above will also take care of that. She probably has cellulitis as well as superficial ulcers, concern about peripheral vascular disease. TIME SPENT: One hour seeing the patient, reviewing the record, and discussing with her. MD TONY Metcalf/MARYANNE /[id number]
--- NOTE | 2018-12-01 02:05 | Consultation ---
DATE OF CONSULTATION: CHIEF COMPLAINT/HISTORY OF THE CHIEF COMPLAINT: Ms. Rivero is most pleasant 88-year-old female, who is admitted secondary to sepsis with influenza pneumonia. She is a longterm resident. Since admission, she has been placed on BiPAP and according to her daughter, she is doing better. She was not responsive during my rounds and most of the history was obtained from her daughter and chart review. REVIEW OF SYSTEMS: Otherwise noncontributory. She has a history of osteoporosis and hypertension. MEDICATIONS: Multiple medications, well documented also within the chart. ALLERGIES: ERYTHROMYCIN AND MORPHINE. Review of systems is otherwise negative. She is currently on BiPAP and sleeping. PHYSICAL EXAMINATION: LOWER EXTREMITY VASCULAR STATUS: The patient has nonpalpable pedal pulses. 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 DERMATOLOGIC: There is bruising posterior heels bilaterally as well as the dorsal aspect of the left foot. The right foot has full-thickness ulcerations down to and including skin, subcutaneous tissue, muscle and tendon. This covers the entire dorsum of the right foot and multiple lesions measuring approximately 6 cm x 4 cm full thickness, approximately 2 cm deep. She is currently on a local wound care regimen with nonadhesive dressing. RECOMMENDATIONS: At this point, I would recommend wound care consultation and recommendations with regard to dressings, possibly calcium alginate and SilvaSorb to reduce the frequency of wound dressing changes at this point. She is seeing Dr. Coles for Infectious Disease and our wound care at this point will be palliative in nature. MAN Aquino/MARYANNE /[id number]
[2018-12-01] MEDS: ALBUTEROL SULF 0.083% NEB SOLN 3 ML NEB NEB SCH ×4 (02:11→14:45)
[2018-12-01] MEDS: IPRATROPIUM BROMIDE 0.02% 2.5 ML NEB NEB SCH ×3 (02:11→14:45)
[2018-12-01] MEDS: HYDROCORTISONE SOD SUCCINATE 100 MG VIAL IV SCH ×2 (02:29→08:12)
[2018-12-01] MEDS: SODIUM CHLORIDE 0.9% 1000ML 1,000 ML IV SCH ×2 (02:29→12:09)
[2018-12-01] MEDS ORDERED: DILTIAZEM HCL 5 MG/ML 5 ML VIAL IV STA (03:55)
--- NOTE | 2018-12-01 04:04 | NUR ---
called and spoke with dr Hayden, patient HR is on high 150s and sustains. the MD ordered Diltaziem 5 mg IV x1, and consult her to dr Altamirano. orders carried out.
--- NOTE | 2018-12-01 04:16 | NUR ---
Diltazem x1 iv given as ordered, blood pressure now is 97/51, heart rate is 97. will continue to monitor.
[2018-12-01 04:17] VITALS: BP 97/51
[2018-12-01] MEDS: CEFEPIME 1GM/NS 0.9% 50 ML 50 ML IV SCH (05:00)
[2018-12-01 05:03] LABS: BASOPHILS % 0.2 % (0.0-1.0); EOSINOPHILS # (AUTO) 0.6 (0.0-0.4); EOSINOPHILS % 3.4 % (0.0-6.0); HEMATOCRIT 28.2 % (34.2-44.1); HEMOGLOBIN 8.2 g/dL (12.0-16.0); LYMPHOCYTES # (AUTO) 0.2 (1.0-3.2); LYMPHOCYTES % 1.5 % (18.0-39.1); MEAN CORPUSCULAR HEMOGLOBIN 23.9 pg (28-32); MEAN CORPUSCULAR HGB CONC 29.1 g/dL (31-35); MEAN CORPUSCULAR VOLUME 82.2 fL (81-99); MONOCYTES # (AUTO) 0.5 (0.2-0.8); MONOCYTES % 2.9 % (4.4-11.3); NEUTROPHILS # (AUTO) 15.1 (2.1-6.9); NEUTROPHILS % 91.3 % (38.7-80.0); PLATELET COUNT 436 x10e3/uL (140-360); RED BLOOD COUNT 3.43 x10e6/uL (3.6-5.1); RED CELL DISTRIBUTION WIDTH 18.2 % (11.7-14.4)
[2018-12-01 05:23] LABS: ANION GAP 14.5 mmol/L (8-16); CALCIUM 7.5 mg/dL (8.4-10.2); CREATININE, SERUM 1.03 mg/dL (0.57-1.11); POTASSIUM 3.5 mmol/L (3.5-5.1)
--- NOTE | 2018-12-01 06:06 | Diagnostic Imaging Report ---
EXAMINATION: CHEST SINGLE (PORTABLE) INDICATION: Pneumonia COMPARISON: 11/30/2018 FINDINGS: AP view TUBES and LINES: Left upper extremity PICC tip overlies the cavoatrial junction. LUNGS: Stable multifocal airspace opacities. PLEURA: Small bilateral pleural effusions. No pneumothorax. HEART AND MEDIASTINUM: The cardiomediastinal silhouette is unremarkable. BONES AND SOFT TISSUES: No acute osseous lesion. Soft tissues are unremarkable. IMPRESSION: Stable multifocal airspace opacities likely representing a combination of pneumonia and edema. Signed by: DR. Jimmy Hare MD on 12/01/2018 6:02 AM
--- NOTE | 2018-12-01 06:26 | NUR ---
called and left a message to dr Altamirano, regarding consult. awaiting for call back.
--- NOTE | 2018-12-01 06:54 | NUR ---
called and spoke with dr Altamirano regarding consult, and made him aware pt HR is on 140s now, the MD ordered Digoxin 0.5 IV x1 now, EKG and Echo. orders carried out.
[2018-12-01] MEDS ORDERED: DIGOXIN INJ 0.25 MG/ML 2 ML AMP IV ONE (07:00)
[2018-12-01 07:16] LABS: BAND NEUTROPHILS % (MANUAL) 11 %; MONOCYTES % (MANUAL) 4 % (3.4-9.0); NEUTROPHILS % (MANUAL) 85 % (40-74)
[2018-12-01 07:20] LABS: ANISOCYTOSIS SLIGHT; HYPOCHROMASIA SLIGHT; PLATELET ESTIMATE ADEQUATE; RBC MORPHOLOGY COMMENT NORMAL
[2018-12-01 07:21] LABS: POIKILOCYTOSIS SLIGHT
[2018-12-01 07:30] VITALS: BP 97/51
[2018-12-01 07:54] VITALS: BP 110/68
[2018-12-01] MEDS: OSELTAMIVIR PHOSPHATE 75 MG CAP PO SCH (08:00)
[2018-12-01] MEDS: FAMOTIDINE 20 MG/2 ML VIAL IV SCH (08:12)
[2018-12-01] MEDS: HEPARIN SOD (PORCINE) 5,000 UNIT/ML VIAL SC SCH (08:13)
--- NOTE | 2018-12-01 08:30 | NUR ---
SPOKE WITH FAMILY FOR APPROXIMATELY AN HOUR AND A HALF ABOUT OPTIONS, AND THE PROGRESS OF THIS PAT SINCE THE ORIGINAL FALL IN JULY, AND THE DECLINE. THEY ARE OPEN TO ALTERNATE CARE WITH HOSPICE AND WILL SPEAK WITH MD.
[2018-12-01] MEDS ORDERED: BALSAM PERU/CASTOR OIL 5 GM OINT...G. TP SCH (09:00)
--- NOTE | 2018-12-01 10:47 | NUR ---
ST NOTE: Pt unable to come off of bipap, will continue to follow pt status and readiness for PO trials. PO trials can be completed when pt can be off of bipap for 20 minutes. Handoff to SUDHA Campbell
[2018-12-01 11:54] VITALS: BP 113/58
--- NOTE | 2018-12-01 12:05 | NUR ---
EDUCATED ABOUT IMM, SIGNED, FILED IN CHART, WITH COPY LEFT WITH FAMILY AT BEDSIDE.
[2018-12-01] MEDS: LORAZEPAM INJ 2 MG/ML VIAL IV PRN ×2 (12:20→15:45)
[2018-12-01] MEDS ORDERED: DILTIAZEM HCL 5 MG/ML 5 ML VIAL IV SCH (14:00)
--- NOTE | 2018-12-01 14:10 | NUR ---
Shannan HALEY notified CM that family wanted to talk about dc plan. CM met with daughters: Silvia [phone], Laci [phone], and granddaughter Berta [phone]. The wanted to talk to Dr Hayden about goals and plans. They discussed how poorly they feel pt is doing. Discussed paliative care and hospice. CM called Dr. Hayden and notified him that family wanted to discuss dc plan. He called them and called CM back. Gave order for hospice. He called Shannan HALEY and discussed paliative care. Orders received. CM spoke with Silvia, daughter and she signed choice letter for [facility]. CM contacted Cassandra Chambers ([phone]), liaison [facility] ([phone]). Updated Shannan HALEY. Updated Radha NUNEZ
--- NOTE | 2018-12-01 14:25 | NUR ---
Cassandra, liaison with [facility] met with patient family and signed them up for hospice. Plan is to have everything set up by tomorrow, and dc home on hospice then.
--- NOTE | 2018-12-01 15:00 | NUR ---
patients family requests comfort measures/pallative care while waiting to transition to home hospice, spoke to Dr. Hayden and orders received for comfort care, code status updated at this time and all medications discontinued per family request
--- NOTE | 2018-12-01 15:27 | NUR ---
Nutrition Screen Note RD Recommendation for Physician: -Diet per MD discretion Plan of Care: Pt transitioned to comfort care. Aggressive nutritional intervention is no longer appropriate. RD signed off. Will re-evaluate pt if consulted by medical staff. Nutrition reason for involvement: Nutrition Risk Trigger MST, BMI Primary Diagnose(s): sepsis with PNA PMH: skin CA, osteoporosis Ht: 60in Wt: 86lb BMI: 16.8kg/m2 IBW: 100lb RD Assessment: (12/01) Chart reviewed. Labs and meds reviewed. 88yo F, who was admitted for PNA. Visited pt in the room. Per daughter, pt will be transitioning to hospice status. Family is not interested in any nutrition intervention at this time. Current Diet: regular diet Malnutrition Evaluation (12/01) Unable to evaluate. Diet Education Needs Assessment: Diet education not indicated. Nutrition Care Level: Signed off Signed: Perlita Melgar, MS, RD, LD
[2018-12-01] MEDS ORDERED: LORAZEPAM INJ 2 MG/ML VIAL IV PRN (15:30)
[2018-12-01] MEDS ORDERED: ALBUTEROL SULF 0.083% NEB SOLN 3 ML NEB NEB PRN (15:30)
[2018-12-01] MEDS ORDERED: IPRATROPIUM BROMIDE 0.02% 2.5 ML NEB NEB PRN (15:30)
[2018-12-01] MEDS: MORPHINE SULFATE INJ 4 MG/ML INJ 1ML IV PRN (15:46)
--- NOTE | 2018-12-01 19:01 | Progress Note ---
DATE: 12/01/2018 Cardiology Progress Note SUBJECTIVE: The patient is confused and unresponsive on BiPAP, respiratory distress. Had atrial fibrillation with RVR. Rate is a little bit better with digoxin being given. OBJECTIVE: VITAL SIGNS: Temperature 97.1, pulse 108, respiratory rate 26, blood pressure 113/58, saturating 96% on 10 L BiPAP. GENERAL: Elderly female, ill appearing. CARDIOVASCULAR: Tachycardic, irregular. No murmurs, rubs, or gallops. LUNGS: Coarse breath sounds bilaterally. ABDOMEN: Soft, nontender, nondistended. NEURO AND PSYCH: Confused, disoriented. INPATIENT MEDICATIONS: Reviewed. LABORATORY DATA: Reviewed. IMAGING DATA: Reviewed, shows multifocal pneumonia and pulmonary edema. TELEMETRY DATA: Reviewed, shows atrial fibrillation with RVR. ASSESSMENT: 1. Atrial fibrillation with rapid ventricular response. 2. Respiratory failure. 3. Hypoxia. 4. Influenza pneumonia with bilateral multifocal infiltrates. PLAN: We will add scheduled 20 mg IV diltiazem to her current regimen to improve rate control. The patient is DNR/DNI. Overall prognosis is poor given severity of her pneumonia and current clinical status. Thank you for this consult. We will continue to follow. MD AMIRA Angelo/MARYANNE /[id number]
--- NOTE | 2018-12-01 19:09 | NUR ---
Received change of shift report from AM nurse. Rounds completed.
[2018-12-01 20:04] VITALS: BP 109/48
--- NOTE | 2018-12-01 20:06 | NUR ---
Patient repositioned in bed to right side. Eyes closed and groan slightly. Dressing to leg and foot bilaterally dry and intact. Patient appear to be in no pain at this time. Family at bedside. O2 on and intact. Continue monitor.
[2018-12-01] MEDS ORDERED: METHYLPREDNISOLONE SOD SUCC 40 MG/ML VIAL 1ML IV SCH (21:00)
--- NOTE | 2018-12-02 00:43 | NUR ---
Family request one vital sign per shift. First set of vital signs done at 1999p. Vitals signs wnl.
[2018-12-02] MEDS: LORAZEPAM INJ 2 MG/ML VIAL IV PRN ×2 (03:52→07:53)
--- NOTE | 2018-12-02 06:38 | NUR ---
Patient lethargic with no noted pain at this time.
[2018-12-02 06:45] VITALS: BP 93/44
[2018-12-02 07:15] VITALS: BP 93/44
--- NOTE | 2018-12-02 07:30 | NUR ---
Patient is lethargic, appers comfortable at this time. Daughters at the bedside and requesting for vitals sign to be taken only once and patient to be turned by family per request.
[2018-12-02] MEDS: MORPHINE SULFATE INJ 4 MG/ML INJ 1ML IV PRN (07:53)
--- NOTE | 2018-12-02 13:20 | NUR ---
Patient discharge with hospice for palliative care. All instructions given to the daughter by hospice nurse.
--- NOTE | 2018-12-03 05:45 | Discharge Summary ---
DISCHARGE DIAGNOSES: 1. Pneumonia. 2. Influenza A. 3. Chronic obstructive pulmonary disease. 4. [id number] respiratory failure with hypoxia. 5. Leukocytosis. 6. Anemia. HISTORY OF PRESENT ILLNESS AND HOSPITAL COURSE: See hospital chart for details. The patient was elderly lady with multiple comorbidities, living in a custodial and unfortunately two days prior to admission became acutely ill with shortness of breath, cough, congestion. She was brought in. She was found to have pneumonia bilaterally as well as positive influenza A. Since she was brought in, placed on IV antibiotics with Tamiflu and BiPAP. The patient is making some small, but steady improvements, but after a long discussion with the family they stated that she did not want to continue with this type of treatment with the BiPAP due to her multiple comorbidities and even if she wants to survive, she is going to have a poor quality of life. So it was decided that the patient would be discharged home with hospice, which was arranged and the patient was then discharged home with hospice. Please see hospital chart for full details. MD AMRIA G Moreno/MARYANNE /[id number]
== END 2018-12-02 13:17 | disposition hospice, home (50) | DRG 871 ==
LOC: ER 10:13 → ERHOLD 18:06 → IMCU 11-30 14:26
PROVIDERS: ADMIT Internal Medicine; ATTEND Internal Medicine
PROC: 02HV33Z Insertion of Infusion Device into Superior Vena Cava, Percutaneous Approach (ICD-10-PCS; principal; 2018-11-30)
DX: A41.89 Other specified sepsis (principal); J10.00 Influenza due to other identified influenza virus with unspecified type of pneumonia; J96.21 Acute and chronic respiratory failure with hypoxia; J18.9 Pneumonia, unspecified organism; J11.00 Influenza due to unidentified influenza virus with unspecified type of pneumonia; J44.0 Chronic obstructive pulmonary disease with (acute) lower respiratory infection; J44.1 Chronic obstructive pulmonary disease with (acute) exacerbation; L97.515 Non-pressure chronic ulcer of other part of right foot with muscle involvement without evidence of necrosis; D64.9 Anemia, unspecified; D72.829 Elevated white blood cell count, unspecified; M81.0 Age-related osteoporosis without current pathological fracture; F41.9 Anxiety disorder, unspecified; Z66 Do not resuscitate; I48.91 Unspecified atrial fibrillation
CPT/HCPCS: 36415; 36569; 36600; 71045; 80048; 80053; 81001; 82550; 82553; 82805; 82948; 83605; 83735; 83880; 84443; 84484; 85025; 85610; 85730; 87040; 87086; 87400; 93005; 93041; 94640; 94660; 99285; J0692; J1160; J1200; J1644; J1720; J2060; J2270; J2543; J3370; J3475; J7030; J7040; J7042